=== PATIENT | female | born 1960 | race Hispanic/Latino ===

== ENCOUNTER 2016-07-19 07:47 | Day surgery (SDC) | payer MEDICAID ==
[2016-07-19 07:54] VITALS: BMI 20.7
[2016-07-19] MEDS ORDERED: Sodium Chloride 0.9% 1,000 ML IV ONE (08:25)
[2016-07-19] MEDS ORDERED: Sodium Chloride 0.9% 1,000 ML ONE (08:33)
[2016-07-19 08:58] LABS: BASO % 0.3 % (0.0-2.0); EOS # 0.1 K/uL (0.0-0.7); EOS % 1.3 % (0.0-4.0); HEMATOCRIT 32.7 % (34.0-47.0); LYMPH # 0.5 K/uL (1.0-4.3); LYMPH % 7.4 % (20.0-40.0); MEAN CELL VOLUME 88.9 fL (81.0-99.0); MEAN CORPUSCULAR HEMOGLOBIN 28.8 pg (27.0-31.0); MEAN CORPUSCULAR HGB CONC 32.4 g/dL (33.0-37.0); MEAN PLATELET VOLUME 8.3 fL (7.2-11.7); MONO # 0.1 K/uL (0.0-0.8); MONO % 2.2 % (0.0-10.0); PLATELET COUNT 167 K/uL (130-400); RED CELL DISTRIBUTION WIDTH 18.9 % (11.5-14.5); WHITE BLOOD COUNT 6.2 K/uL (4.8-10.8)
--- NOTE | 2016-07-19 08:59 | C.PDOC ---
History Of Present Illness 55 y/o female presents to the ED with complains of worsening kidney function and hematuria. Pt has history of kidney tumor causing urethral obstruction, stent in place. Dr Cheung sent patient here for further evaluation and stent change. Denies dysuria, fever, chills, vomiting, back pain or any other complaints. Time Seen by Provider: 07/19/16 08:07 Chief Complaint (Nursing): Medical Clearance History Per: Patient History/Exam Limitations: no limitations Onset/Duration Of Symptoms: Days Current Symptoms Are (Timing): Still Present Severity: Moderate Recent travel outside of the [place]: No Past Medical History Reviewed: Historical Data, Nursing Documentation, Vital Signs Vital Signs: Last Vital Signs Temp 97.9 F 07/19/16 15:52 Pulse 63 07/19/16 15:52 Resp 18 07/19/16 15:52 BP 112/78 07/19/16 15:52 Pulse Ox 95 07/19/16 15:52 - Medical History PMH: Anemia, Anxiety, Asthma, Emphysema, Gall Bladder Disease (cholecystectomy 1989), HTN, Malignancy (cervical Ca), Peripheral Edema (03/31/15: SWELLING OF RIGHT LEG), Chronic Kidney Disease Surgical History: Cholecystectomy - [facility] Procedures DILATION OF BILATERAL URETERS WITH INTRALUMINAL DEVICE, ENDO (05/02/15) DRAINAGE OF DESCENDING COLON, ENDO, DIAGN (01/28/16) FLUOROSCOPY OF LEFT KIDNEY, URETER AND BLADDER (05/02/15) FLUOROSCOPY OF RIGHT KIDNEY, URETER AND BLADDER (05/02/15) INSPECTION OF BLADDER, ENDO (05/02/15) INSPECTION OF VAGINA AND CUL-DE-SAC, ENDO (05/02/15) INTRAOPER CHOLANGIOGRAM (02/28/97) LAPAROSCOPIC CHOLECYSTECTOMY (02/28/97) TRANSFUSE NONAUT RED BLOOD CELLS IN PERIPH VEIN, PERC (05/02/15) Family History: States: Unknown Family Hx - Social History Hx Tobacco Use: No Hx Alcohol Use: No Hx Substance Use: No - Immunization History Hx Tetanus Toxoid Vaccination: No Hx Influenza Vaccination: No Hx Pneumococcal Vaccination: No Review Of Systems Except As Marked, All Systems Reviewed And Found Negative. Constitutional: Negative for: Fever, Chills Gastrointestinal: Negative for: Nausea, Vomiting, Abdominal Pain, Diarrhea Genitourinary: Positive for: Hematuria. Negative for: Dysuria Musculoskeletal: Negative for: Back Pain Physical Exam - Physical Exam Appears: Non-toxic, No Acute Distress Skin: Warm, Dry, No Rash Head: Atraumatic, Normacephalic Neck: Normal, Normal ROM, Supple Chest: Symmetrical Cardiovascular: Rhythm Regular, No Murmur Respiratory: Normal Breath Sounds, No Rales, No Rhonchi, No Wheezing Gastrointestinal/Abdominal: Normal Exam, Soft, No Tenderness Back: Normal Inspection, No CVA Tenderness Extremity: Normal ROM Extremity: Bilateral: Atraumatic Neurological/Psych: Oriented x3, Normal Speech ED Course And Treatment - Laboratory Results Result Diagrams: 07/19/16 08:51 07/19/16 08:51 O2 Sat by Pulse Oximetry: 96 (room air) Pulse Ox Interpretation: Normal Medical Decision Making Medical Decision Making: Plan: labs, UA, IV fluids Disposition - Disposition Disposition: HOSPITALIZED Disposition Time: 10:12 Condition: GOOD - Clinical Impression Clinical Impression: replacement of urinary stent - PA / MAINTENANCE SCHEDULER / Resident Statement MD/DO has reviewed & agrees with the documentation as recorded. - Scribe Statement The provider has reviewed the documentation as recorded by the Scribe Alex Beard All medical record entries made by the Scribe were at my direction and personally dictated by me. I have reviewed the chart and agree that the record accurately reflects my personal performance of the history, physical exam, medical decision making, and the department course for this patient. I have also personally directed, reviewed, and agree with the discharge instructions and disposition.
[2016-07-19 09:05] LABS: CHLORIDE 102 mmol/L (98-107); POTASSIUM 4.7 mmol/L (3.6-5.2); SODIUM 142 mmol/L (132-148)
[2016-07-19 09:07] LABS: GFR AFRICAN-AMERICAN 44
[2016-07-19 09:08] LABS: ALB/GLOB RATIO 1.3 (1.0-2.1); ALKALINE PHOSPHATASE 39 U/L (38-126); AST/SGOT 20 U/L (14-36); BILIRUBIN,TOTAL 0.5 mg/dL (0.2-1.3); BLOOD UREA NITROGEN 35 mg/dL (7-17); CARBON DIOXIDE 26 mmol/L (22-30); GLUCOSE,RANDOM 106 mg/dL (65-105); TOTAL PROTEIN 7.5 g/dL (6.3-8.3)
[2016-07-19 09:09] LABS: CALCIUM 8.8 mg/dl (8.6-10.4)
[2016-07-19 09:10] LABS: ALT/SGPT < 6 U/L (9-52)
[2016-07-19 09:29] LABS: URINE COLOR YELLOW (YELLOW)
[2016-07-19 09:30] LABS: URINE BILIRUBIN NEGATIVE (NEGATIVE); URINE BLOOD 3+ (NEGATIVE); URINE GLUCOSE (UA) Normal (Normal); URINE KETONE NEGATIVE (NEGATIVE); URINE PROTEIN 1+ mg/dL (NEGATIVE); URINE UROBILINOGEN Normal mg/dL (0.2-1.0)
[2016-07-19 09:33] LABS: RBC URINE 60 /hpf (0-3); URINE LEUKOCYTE ESTERASE 1+ Leu/uL (Negative)
[2016-07-19 09:34] LABS: URINE BACTERIA FEW (<OCC); WBC URINE 8 /hpf (0-5)
[2016-07-19 09:40] LABS: EOSINOPHIL 3 % (0-4); NEUTROPHIL 91 % (50-75); TOTAL CELLS COUNTED 100
[2016-07-19] MEDS ORDERED: cefTRIAXone IV 1 gm in Dextros 50 ML IVPB ONE (13:06)
[2016-07-19] MEDS ORDERED: Iohexol 240 (50 ml) ONE (13:06)
[2016-07-19] MEDS ORDERED: Propofol 10 mg/ml Inj (20 ML) ONE (13:17)
[2016-07-19] MEDS ORDERED: Lactated Ringer's 1,000 ML IV ONE ×2 (13:20→14:45)
[2016-07-19] MEDS ORDERED: Albuterol HFA 90 mcg/actuation (8 g) ONE (13:22)
[2016-07-19] MEDS ORDERED: Midazolam 2 MG/2 ML VIAL ONE (13:28)
--- NOTE | 2016-07-19 14:03 | PCM.SURG1 ---
Surgeon's Initial Post Op Note - Surgeon's Notes Surgeon: Jose WOLF Environmental Technician: NONE Pre-Operative Diagnosis: HYDRONEPHROSIS Operative Findings: L HYDRONEPHROSIS Post-Operative Diagnosis: SAME Operation Performed: CYSTO BILAT STENT EXCHANGE Specimen/Specimens Removed: URINE Estimated Blood Loss: EBL {In ML}: 0 Blood Products Given: N/A Date of Surgery/Procedure: 07/19/16 Time of Surgery/Procedure: 14:03
--- NOTE | 2016-07-19 14:49 | RAD ---
PROCEDURE: Fluoroscopy up to 1 hr. HISTORY: B/L HYDRONEPHROSIS COMPARISON: None TECHNIQUE: Standard protocol for this study/examination. FINDINGS: Submitted images from the current procedure: 5.0. IMPRESSION: Total fluoroscopic time (continuous mode) utilized during the procedure: 60.9 seconds.
[2016-07-19 16:08] VITALS: BP 112/78; PULSE 63; RESP 18; TEMP 97.9
[2016-07-19 18:23] VITALS: O2SAT 96
--- NOTE | 2016-07-20 13:35 | RAD ---
HISTORY: B/L HYDRONEPHROSIS COMPARISON: 04/19/2016. FINDINGS: BOWEL: Constipation without fecal impaction or obstruction. BONES: Normal. OTHER FINDINGS: Bilateral double-J stent catheters identified. IMPRESSION: Satisfactory position double-J stent catheters.
--- NOTE | 2016-07-21 20:35 | OP ---
PROCEDURE DATE: 07/19/2016 PREOPERATIVE DIAGNOSES: History of azotemia. History of bilateral hydronephrosis. POSTOPERATIVE DIAGNOSES: History of azotemia. History of bilateral hydronephrosis. Cystitis. Left hydronephrosis. PROCEDURES: Cystoscopy. Bilateral removal of ureteral stent. Bilateral retrograde pyelogram. Bila teral ureteral stent insertion. Examination under anesthesia. DESCRIPTION OF PROCEDURE: The patient received perioperative antibiotics. The patient was placed in lithotomy position. Genitalia prepped and draped sterilely. Anesthesia was provided by the anesthe siologist. Procedure was performed under video endoscopic control as well as under fluoroscopic control. A 22-[place] cystoscope sheath was introduced per urethra. Urine was sent for bacteriologic examinati on. The urethra and bladder were inspected. FINDINGS: There was noted to be diffuse mild cystitis. There was no bladder tumor. There was no bl adder stone. The 2 ureteral stents were identified. Procedure was first performed on the right side. The right stent was grasped with rigid grasping for ceps. A 0.35 inch guidewire was inserted into the right ureteral stent and passed up to the level of the ki dney. The stent was removed. An open-ended catheter was inserted over the guidewire. The iodinated contrast dye was instilled. There was noted to be mild fullness of the collecting system without significant hydronephrosis. The guidewire was reinserted. A new stent, 8-[place], 24 cm in length was inserted over the guidewire . Proper stent position was confirmed with fluoroscopy and endoscopy. The attention was then turned toward the left side. The stent was identified. On the left side, thi s was a multilength stent 7-[place] in caliber. The stent was grasped and brought along with the cystoscope sheath to the level of the urethral meatu s. A 0.035-inch guidewire was inserted into the stent. The stent was removed. An open-ended catheter was inserted over the stent. Retrograde ureteropyelogram was performed with i nsufflation of iodinated contrast material. The retrograde pyelogram demonstrated moderate hydronephrosis on the left. The guidewire was reinserted. A new stent, 8-[place] in caliber, 24 cm in length was inserted over th e guidewire. Proper stent position was confirmed with fluoroscopy and endoscopy. The stent was left in place in proper position. The guidewire was removed. The bladder was then drained. Cystoscope and sheath removed. Exam under anesthesia was performed. There was noted to be pelvic mass, more prominent on the right side and the left, with mild fixation. The patient tolerated the procedure without complication. Yue Jung MD cc: [id number] TT: 07/21/2016 20:34:46 mn
== END 2016-07-19 16:07 | disposition home or self-care (01) ==
LOC: C.ER 07:47 → C.SDS 10:19
PROVIDERS: ATTEND Urology
DX: N13.30 Unspecified hydronephrosis (principal); R31.9 Hematuria, unspecified; N39.0 Urinary tract infection, site not specified
CPT/HCPCS: 52005; 74000; 76000; 80053; 81001; 85025; 85610; 85730; 87086; 99283; C1758; C1769; C2617; J0696; J2270; J7040; J7120

== ENCOUNTER 2016-11-25 07:07 | Day surgery (SDC) | payer MEDICAID ==
[2016-11-25 07:08] VITALS: BMI 19.5
[2016-11-25 08:22] LABS: BASO % 0.5 % (0.0-2.0); EOS # 0.1 K/uL (0.0-0.7); EOS % 1.2 % (0.0-4.0); LYMPH # 0.4 K/uL (1.0-4.3); LYMPH % 6.2 % (20.0-40.0); MEAN CELL VOLUME 89.8 fL (81.0-99.0); MEAN CORPUSCULAR HEMOGLOBIN 29.2 pg (27.0-31.0); MEAN CORPUSCULAR HGB CONC 32.5 g/dL (33.0-37.0); MEAN PLATELET VOLUME 8.6 fL (7.2-11.7); MONO # 0.1 K/uL (0.0-0.8); MONO % 2.2 % (0.0-10.0); NRBC % 0.1 % (0.0-2.0); PLATELET COUNT 158 K/uL (130-400); RED CELL DISTRIBUTION WIDTH 17.3 % (11.5-14.5); WHITE BLOOD COUNT 6.7 K/uL (4.8-10.8)
[2016-11-25 08:27] LABS: RBC URINE 86 /hpf (0-3); URINE BILIRUBIN NEGATIVE (NEGATIVE); URINE BLOOD 3+ (NEGATIVE); URINE COLOR Yellow (YELLOW); URINE GLUCOSE (UA) NORMAL (Normal); URINE KETONE NEGATIVE (NEGATIVE); URINE LEUKOCYTE ESTERASE 2+ Leu/uL (Negative); URINE PROTEIN 2+ mg/dL (NEGATIVE); URINE UROBILINOGEN NORMAL mg/dL (0.2-1.0); WBC URINE 19 /hpf (0-5)
[2016-11-25 08:33] LABS: INR 0.9
[2016-11-25 08:43] LABS: ALB/GLOB RATIO 1.2 (1.0-2.1); BILIRUBIN,TOTAL 0.4 mg/dL (0.2-1.3); CALCIUM 9.3 mg/dl (8.6-10.4); POTASSIUM 5.2 mmol/L (3.6-5.2); TOTAL PROTEIN 7.2 g/dL (6.3-8.3)
--- NOTE | 2016-11-25 08:56 | C.PDOC ---
History Of Present Illness Pt sent in by Dr. Yue Jung for replacement of ureteral stent. Time Seen by Provider: 11/25/16 07:50 Chief Complaint (Nursing): Female Genitourinary History Per: Patient, Family Onset/Duration Of Symptoms: Days Current Symptoms Are (Timing): Still Present Severity: Moderate Additional History Per: Prior Records Past Medical History Reviewed: Historical Data, Nursing Documentation, Vital Signs Vital Signs: Last Vital Signs Temp 98.8 F 11/25/16 07:25 Pulse 77 11/25/16 07:25 Resp 20 11/25/16 07:25 BP 138/94 H 11/25/16 07:25 Pulse Ox 95 11/25/16 07:25 - Medical History PMH: Anemia, Anxiety, Asthma, CHF, Emphysema, Gall Bladder Disease, HTN, Malignancy (cervical Ca), Peripheral Edema, End Stage Renal Disease, Chronic Kidney Disease Surgical History: Cholecystectomy - [facility] Procedures DILATION OF BILATERAL URETERS WITH INTRALUMINAL DEVICE, ENDO (05/02/15) DRAINAGE OF DESCENDING COLON, ENDO, DIAGN (01/28/16) FLUOROSCOPY OF LEFT KIDNEY, URETER AND BLADDER (05/02/15) FLUOROSCOPY OF RIGHT KIDNEY, URETER AND BLADDER (05/02/15) INSPECTION OF BLADDER, ENDO (05/02/15) INSPECTION OF VAGINA AND CUL-DE-SAC, ENDO (05/02/15) INTRAOPER CHOLANGIOGRAM (02/28/97) LAPAROSCOPIC CHOLECYSTECTOMY (02/28/97) TRANSFUSE NONAUT RED BLOOD CELLS IN PERIPH VEIN, PERC (05/02/15) Family History: States: Unknown Family Hx - Social History Hx Tobacco Use: No Hx Alcohol Use: No Hx Substance Use: No - Immunization History Hx Tetanus Toxoid Vaccination: No Hx Influenza Vaccination: No Hx Pneumococcal Vaccination: No Review Of Systems Except As Marked, All Systems Reviewed And Found Negative. Constitutional: Negative for: Fever Cardiovascular: Negative for: Chest Pain Respiratory: Negative for: Shortness of Breath Gastrointestinal: Negative for: Vomiting, Abdominal Pain Genitourinary: Positive for: Hematuria (?) Musculoskeletal: Positive for: Back Pain. Negative for: Neck Pain Neurological: Negative for: Weakness, Numbness Physical Exam - Physical Exam Appears: Non-toxic, No Acute Distress Skin: Normal Color, Warm, Dry, No Rash Head: Atraumatic, Normacephalic Eye(s): bilateral: Normal Inspection, PERRL, EOMI Neck: Normal ROM, Supple Cardiovascular: Rhythm Regular Respiratory: Normal Breath Sounds, No Accessory Muscle Use Gastrointestinal/Abdominal: Soft, No Tenderness Back: No CVA Tenderness Extremity: Normal ROM Neurological/Psych: Oriented x3, Normal Motor, Normal Sensation ED Course And Treatment - Laboratory Results Result Diagrams: 11/25/16 08:15 11/25/16 08:15 Interpretation Of Abnormal: Possible UTI, urine C&S sent. ECG: Interpreted By Me, Viewed By Me ECG Rhythm: Sinus Rhythm, Nonspecific Changes ECG Interpretation: No Acute Changes Rate From EC O2 Sat by Pulse Oximetry: 95 Pulse Ox Interpretation: Normal Disposition Discussed With Dr.: Yue Jung Comment: He is taking pt to OR today. Doctor Will See Patient In The: Hospital - Disposition Disposition: HOSPITALIZED Disposition Time: 08:56 Condition: FAIR - Clinical Impression Clinical Impression: Encounter for removal of ureteral stent
[2016-11-25 09:01] LABS: EOSINOPHIL 2 % (0-4); NEUTROPHIL 91 % (50-75); TOTAL CELLS COUNTED 100
[2016-11-25] MEDS ORDERED: Lactated Ringer's 1,000 ML IV ONE (10:30)
[2016-11-25] MEDS ORDERED: Lidocaine 2% Jelly (Uro-Jet) ONE (10:35)
[2016-11-25] MEDS ORDERED: Iohexol 240 (50 ml) ONE (10:35)
[2016-11-25] MEDS ORDERED: cefTRIAXone IV 1 gm in Dextros 50 ML IVPB ONE (10:35)
[2016-11-25] MEDS ORDERED: ePHEDrine 50 mg/ml Inj ONE (11:03)
--- NOTE | 2016-11-25 11:22 | PCM.SURG1 ---
Surgeon's Initial Post Op Note - Surgeon's Notes Surgeon: myrtle goodwin Holter Technician: none Type of Anesthesia: General LMA Pre-Operative Diagnosis: bilat hydronephrosis Operative Findings: same Post-Operative Diagnosis: same Operation Performed: cysto, rtg pyelogram. stent exchange. Bilat Specimen/Specimens Removed: urine. stents Estimated Blood Loss: EBL {In ML}: 0 Blood Products Given: N/A Post-Op Condition: Good Date of Surgery/Procedure: 11/25/16 Time of Surgery/Procedure: 11:15
[2016-11-25] MEDS ORDERED: HYDROmorphone 0.5 mg/0.5 ml ISec IVP PRN (11:32)
[2016-11-25 13:09] VITALS: BP 111/77; PULSE 90; RESP 20; TEMP 98.7; O2SAT 96
--- NOTE | 2016-11-25 16:19 | RAD ---
PROCEDURE: Intraoperative Fluoroscopy. HISTORY: BILAT HYDRONEPHROSIS FINDINGS: Fluoroscopic assistance was provided for retrograde and stent placement. Total fluoroscopic time (continuous mode) utilized during the procedure: 152.5 seconds.. Please refer to the operative report
--- NOTE | 2016-11-25 17:03 | RAD ---
HISTORY: BILAT HYDRONEPHROSIS COMPARISON: 07/19/2016. FINDINGS: BOWEL: Normal. No obstruction. No free air. BONES: Constipation without fecal impaction or obstruction. OTHER FINDINGS: Stable position of bilateral double-J stent catheters. Stable appearance of the calcified fibroids within the uterus IMPRESSION: No acute findings related to/accounting for the clinical presentation. No significant interval change compared to the prior examination(s).
--- NOTE | 2016-11-27 11:28 | OP ---
PREOPERATIVE DIAGNOSES: Hydronephrosis. Hematuria. Cervical cancer. POSTOPERATIVE DIAGNOSES: Hydronephrosis. Hematuria. Cervical cancer. PROCEDURES: Cystoscopy. Bilateral retrograde pyelogram. Bilateral stent exchange. Exam under anesthesia. Procedure was performed under video-endoscopic control as well as under fluoroscopic control. DESCRIPTION OF PROCEDURE: The patient received perioperative antibiotics. The patient was placed in lithotomy position. Genitalia were prepped and draped sterilely. Anesthesia was provided by the anesthesiologist. A oem sales manager film of the abdomen was obtained. The ureteral stents were visualized. The 22-Yi cystoscope sheath was introduced with obturator. Urine was sent for bacteriologic examination. The urethra and bladder were inspected. There was mild cystitis. There was no bladder tumor. There was no bladder stone. The right ureteral stent was grasped with rigid grasping forceps and delivered along with the cystoscope sheath through the urethral meatus. A 0.035-inch guidewire was inserted into the right ureteral stent and passed up to level of the kidney. Iodinated contrast material was instilled via an open-ended catheter which had been inserted over the guidewire. The retrograde pyelogram demonstrated mild hydronephrosis. The guidewire was re-inserted. A new ureteral stent was inserted. The 8-Yi stent, 24 cm in length was inserted. Proper stent position was confirmed under fluoroscopy and endoscopy. The stent was coiled within the renal pelvis proximally and the bladder distally. Attention was then turned towards the left side. The similar stent removal was performed. The guidewire was inserted up to the level of kidney and the stent was removed. An open-ended catheter was inserted over the guidewire. Iodinated contrast material was instilled. Mild hydronephrosis was demonstrated. The guidewire was re-inserted. A new 8-Yi ureteral stent, 24 cm length was inserted. Proper stent position was confirmed with fluoroscopy and endoscopy. The guidewire was removed and stent was left in place. There was excellent drainage noted on post-drainage fluoroscopic films. The bladder was re-inspected and confirmed the above findings, the bladder was then drained, cystoscope sheath removed. Lidocaine jelly was instilled previously. Exam under anesthesia was performed. There was foreshortening of vagina. There was mild induration of the pelvis without fixation. The patient was returned to supine position. The patient tolerated the procedure without complications. Yue Jung MD
--- NOTE | 2016-11-28 13:56 | CARD ---
APPROVED REPORT EKG Measurement Heart [id number] VA [id number] <Conclusion> Normal sinus rhythm Minimal voltage criteria for LVH, may be normal variant Cannot rule out Anterior infarct, age undetermined Abnormal ECG
== END 2016-11-25 13:05 | disposition home or self-care (01) ==
LOC: C.ER 07:07 → C.SDS 09:25
PROVIDERS: ATTEND Urology
DX: N13.30 Unspecified hydronephrosis (principal); R31.9 Hematuria, unspecified; C53.9 Malignant neoplasm of cervix uteri, unspecified
CPT/HCPCS: 52332; 52351; 74000; 80053; 81001; 85025; 85610; 85730; 87086; 93005; 99285; C1758; C1769; C2617; J0696; J1170; J2250; J2405; J2704; J3010; J7120

== ENCOUNTER 2017-03-03 07:44 | Day surgery (SDC) | payer MEDICAID ==
[2017-03-03 07:44] VITALS: BMI 20.9
[2017-03-03 08:29] LABS: BASO % 0.8 % (0.0-2.0); EOS # 0.3 K/uL (0.0-0.7); EOS % 5.6 % (0.0-4.0); HEMATOCRIT 38.4 % (34.0-47.0); LYMPH # 0.5 K/uL (1.0-4.3); LYMPH % 10.5 % (20.0-40.0); MEAN CELL VOLUME 90.9 fL (81.0-99.0); MEAN CORPUSCULAR HGB CONC 31.9 g/dL (33.0-37.0); MEAN PLATELET VOLUME 8.8 fL (7.2-11.7); MONO # 0.6 K/uL (0.0-0.8); MONO % 11.6 % (0.0-10.0); RED CELL DISTRIBUTION WIDTH 18.1 % (11.5-14.5); WHITE BLOOD COUNT 4.9 K/uL (4.8-10.8)
[2017-03-03 08:42] LABS: ALB/GLOB RATIO 1.3 (1.0-2.1); ALKALINE PHOSPHATASE 48 U/L (38-126); ALT/SGPT 35 U/L (9-52); AST/SGOT 21 U/L (14-36); BILIRUBIN,TOTAL 0.3 mg/dL (0.2-1.3); BLOOD UREA NITROGEN 18 mg/dL (7-17); CALCIUM 8.4 mg/dl (8.6-10.4); CARBON DIOXIDE 27 mmol/L (22-30); CHLORIDE 105 mmol/L (98-107); GFR AFRICAN-AMERICAN > 60; GLUCOSE,RANDOM 99 mg/dL (65-105); POTASSIUM 3.8 mmol/L (3.6-5.2); SODIUM 142 mmol/L (132-148); TOTAL PROTEIN 6.6 g/dL (6.3-8.3)
--- NOTE | 2017-03-03 08:58 | C.PDOC ---
History Of Present Illness 56 year old female presents to the ED for ureteral stent replacement to be performed by Dr. Jung. Patient has been NPO since 1700 yesterday. Patient denies any pain or complaints at this time. Chief Complaint (Nursing): Female Genitourinary History Per: Patient History/Exam Limitations: no limitations Pain Scale Rating Of: 0 Quality Of Discomfort: Other (asymptomatic) Associated Symptoms: denies: Fever, Chills, Nausea, Vomiting, Diarrhea, Urinary Symptoms Recent travel outside of the [place]: No Additional History Per: Prior Records (Dr. Jung ) Abnormal Vaginal Bleeding: No Past Medical History Reviewed: Historical Data, Nursing Documentation, Vital Signs Vital Signs: Last Vital Signs Temp 97.4 F L 03/03/17 13:03 Pulse 60 03/03/17 13:03 Resp 16 03/03/17 13:03 BP 112/79 03/03/17 13:03 Pulse Ox 97 03/03/17 13:03 - Medical History PMH: Anemia, Anxiety, Asthma, CHF, Emphysema, Gall Bladder Disease, HTN, Malignancy (cervical Ca), Peripheral Edema, End Stage Renal Disease, Chronic Kidney Disease Surgical History: Cholecystectomy - [facility] Procedures DILATION OF BILATERAL URETERS WITH INTRALUMINAL DEVICE, ENDO (05/02/15) DRAINAGE OF DESCENDING COLON, ENDO, DIAGN (01/28/16) FLUOROSCOPY OF LEFT KIDNEY, URETER AND BLADDER (05/02/15) FLUOROSCOPY OF RIGHT KIDNEY, URETER AND BLADDER (05/02/15) INSPECTION OF BLADDER, ENDO (05/02/15) INSPECTION OF VAGINA AND CUL-DE-SAC, ENDO (05/02/15) INTRAOPER CHOLANGIOGRAM (02/28/97) LAPAROSCOPIC CHOLECYSTECTOMY (02/28/97) TRANSFUSE NONAUT RED BLOOD CELLS IN PERIPH VEIN, PERC (05/02/15) Family History: States: Unknown Family Hx - Social History Hx Tobacco Use: No Hx Alcohol Use: No Hx Substance Use: No - Immunization History Hx Tetanus Toxoid Vaccination: No Hx Influenza Vaccination: No Hx Pneumococcal Vaccination: No Review Of Systems Constitutional: Negative for: Fever, Chills Cardiovascular: Negative for: Chest Pain, Palpitations Respiratory: Negative for: Cough, Shortness of Breath Gastrointestinal: Negative for: Nausea, Vomiting, Abdominal Pain, Diarrhea Genitourinary: Negative for: Dysuria Physical Exam - Physical Exam Appears: Non-toxic, No Acute Distress Skin: Warm, Dry, No Rash Head: Atraumatic, Normacephalic, No Tenderness Eye(s): bilateral: Normal Inspection, PERRL, EOMI Oral Mucosa: Moist Neck: Supple Chest: Symmetrical, No Deformity Cardiovascular: Rhythm Regular, No Murmur Respiratory: No Rales, No Rhonchi, No Wheezing, Other (clear to auscultation bilaterally) Gastrointestinal/Abdominal: Soft, No Tenderness, No Distention, No Guarding, No Rebound Extremity: Normal ROM, No Tenderness Neurological/Psych: Oriented x3, Normal Speech, Normal Cognition, Normal Cranial Nerves, No Cerebellar Signs, Normal Motor, Normal Sensation ED Course And Treatment - Laboratory Results Result Diagrams: 03/03/17 08:23 03/03/17 08:23 ECG: Interpreted By Me, Viewed By Me ECG Rhythm: Sinus Rhythm Rate From EC O2 Sat by Pulse Oximetry: 95 (RA) Pulse Ox Interpretation: Normal Progress Note: EKG and labs were ordered. Patient has been NPO since [address] Jung was called and agrees with plan. Disposition - Disposition Disposition: HOSPITALIZED Disposition Time: 07:55 Condition: STABLE - Clinical Impression Clinical Impression: Retained ureteral stent - Scribe Statement The provider has reviewed the documentation as recorded by the Scribe Alvina Victoria All medical record entries made by the Scribe were at my direction and personally dictated by me. I have reviewed the chart and agree that the record accurately reflects my personal performance of the history, physical exam, medical decision making, and the department course for this patient. I have also personally directed, reviewed, and agree with the discharge instructions and disposition.
[2017-03-03] MEDS ORDERED: Sodium Chloride 0.9% 250 ML IV ONE (10:05)
[2017-03-03] MEDS ORDERED: Iohexol 240 (50 ml) ONE (10:09)
[2017-03-03] MEDS ORDERED: Propofol 10 mg/ml Inj (20 ML) ONE ×2 (10:11→10:31)
[2017-03-03] MEDS ORDERED: Lidocaine Hydrochloride 5 ML INJ ONE (10:11)
[2017-03-03] MEDS: cefTRIAXone IV 1 gm in Dextros 50 ML IVPB ONE ×2 (10:23→10:25)
--- NOTE | 2017-03-03 11:10 | PCM.SURG1 ---
Surgeon's Initial Post Op Note - Surgeon's Notes Surgeon: Jose Jung Subsurface Augmentee Elint Operator: none Type of Anesthesia: IV Sedation Pre-Operative Diagnosis: Bilat Hydronephrosis Operative Findings: same Post-Operative Diagnosis: same Operation Performed: cysto, bilat rtg pyelogram, stent exchange Specimen/Specimens Removed: urine Estimated Blood Loss: EBL {In ML}: 0 Blood Products Given: N/A Drains Used: No Drains Post-Op Condition: Good Date of Surgery/Procedure: 03/03/17 Time of Surgery/Procedure: 11:10
[2017-03-03] MEDS: HYDROmorphone 0.5 mg/0.5 ml ISec IVP PRN ×2 (11:45→12:03)
[2017-03-03] MEDS ORDERED: Sodium Chloride 0.9% 1,000 ML IV ONE (11:48)
[2017-03-03 12:50] VITALS: RESP 16
[2017-03-03 13:10] VITALS: BP 112/79; PULSE 60; TEMP 97.4
--- NOTE | 2017-03-03 14:50 | RAD ---
HISTORY: BILAT HYDRONEPHROSIS COMPARISON: 11/25/2016 FINDINGS: BOWEL: Constipation without fecal impaction or obstruction. No evidence of free air BONES: Normal. OTHER FINDINGS: Double-J stent catheter is in stable position. Incidental finding(s): Large calcified uterine fibroid IMPRESSION: No significant interval change compared to the prior examination(s).
--- NOTE | 2017-03-03 16:37 | RAD ---
PROCEDURE: Intraoperative Fluoroscopy. HISTORY: BILAT .HYDRONEPHROSIS FINDINGS: Fluoroscopic assistance was provided for bilateral retrograde and stent replacement. Please refer to the operative report from during the procedure: 148.4 seconds. Total exam DLP: (mGy)/meter squared: 0.926
[2017-03-03 18:20] VITALS: O2SAT 95
--- NOTE | 2017-03-04 18:33 | CARD ---
APPROVED REPORT EKG Measurement Heart [id number] <Conclusion> Sinus bradycardia Otherwise normal ECG
--- NOTE | 2017-03-05 06:44 | OP ---
PROCEDURE DATE: 03/03/2017 PREOPERATIVE DIAGNOSES: Hydronephrosis. Cervical carcinoma. POSTOPERATIVE DIAGNOSES: Hydronephrosis. Cervical carcinoma. PROCEDURES: Cystoscopy. Removal of bilateral ureteral stent. Bilateral retrograde pyelogram. Bilateral stent insertion. Exam under anesthesia. SURGEON: Dr. Yue Jung. PROCEDURE IN DETAIL: The patient was placed in the lithotomy position. Genitalia were prepped and draped sterilely. Anesthesia was applied by the anesthesiologist. Perioperative antibiotics were administered. The procedure was performed under video endoscopic control as well as under fluoroscopic control. A 22-[place] cystoscope sheath was introduced with the obturator. Urine was sent for bacteriologic examination. The urethra and bladder were inspected 30-degree and 70-degree lenses. FINDINGS: There was mild cystitis. There was no bladder tumor. There was no bladder stone. The ureteral stents were identified bilaterally. The left ureteral stent was grasped with rigid grasping forceps and removed along the cystoscope sheath to the level of urethral meatus. A 0.035-inch guidewire was inserted into the ureteral stent up to the level of kidney. The stent was removed. A 6-[place] open-ended catheter was inserted over the guidewire. Iodinated contrast dye was instilled. Retrograde pyelogram was performed. The guidewire was reinserted. A new 6-[place] stent was inserted. The stent was 6-[place] and 22 cm in length. Proper stent position was confirmed with fluoroscopy and endoscopy. Attention was then turned towards the right side. A similar removal of the stent was performed. A similar retrograde pyelogram was performed through an open-ended catheter which had been inserted over the guidewire. There was marked hydronephrosis and caliectasis on the right side than the left. The guidewire was reinserted. A new 6-[place] stent, 22 cm length, was inserted on the right. Proper stent position was confirmed with fluoroscopy and endoscopy. The stent was left in place after the guidewire was removed. The bladder was then drained, cystoscope sheath removed. Exam under anesthesia was performed. There was a mobile mass approximately 6 cm to 8 cm, involving the pelvis. There was no fixation. The patient was returned to supine position. The patient tolerated the procedure without complication. Yue MD [facility] # [id number]
== END 2017-03-03 13:28 | disposition home or self-care (01) ==
LOC: C.ER 07:44 → C.SDS 08:45
PROVIDERS: ATTEND Urology
DX: N13.30 Unspecified hydronephrosis (principal); C53.9 Malignant neoplasm of cervix uteri, unspecified; F41.9 Anxiety disorder, unspecified; J43.9 Emphysema, unspecified; I13.2 Hypertensive heart and chronic kidney disease with heart failure and with stage 5 chronic kidney disease, or end stage renal disease; I50.9 Heart failure, unspecified; N18.6 End stage renal disease
CPT/HCPCS: 52332; 74000; 80053; 82948; 85025; 87086; 93005; 99285; C1769; C2617; J0696; J1170; J7030; J7040

== ENCOUNTER 2017-07-07 07:30 | Day surgery (SDC) | payer MEDICAID ==
[2017-07-07 07:30] VITALS: BMI 19.1
[2017-07-07 08:21] LABS: BASO # 0.1 K/uL (0.0-0.2); BASO % 2.2 % (0.0-2.0); EOS # 0.3 K/uL (0.0-0.7); EOS % 7.1 % (0.0-4.0); HEMOGLOBIN 13.4 g/dL (11.0-16.0); LYMPH # 0.7 K/uL (1.0-4.3); MEAN CELL VOLUME 88.6 fL (81.0-99.0); MEAN CORPUSCULAR HEMOGLOBIN 28.3 pg (27.0-31.0); MEAN CORPUSCULAR HGB CONC 31.9 g/dL (33.0-37.0); MEAN PLATELET VOLUME 8.5 fL (7.2-11.7); MONO # 0.6 K/uL (0.0-0.8); MONO % 13.4 % (0.0-10.0); NEUT % 63.3 % (50.0-75.0); RBC 4.75 Mil/uL (3.80-5.20); RED CELL DISTRIBUTION WIDTH 18.1 % (11.5-14.5); WHITE BLOOD COUNT 4.8 K/uL (4.8-10.8)
--- NOTE | 2017-07-07 08:24 | C.PDOC ---
Time Seen by Provider: 07/07/17 07:46 Chief Complaint (Nursing): Medical Clearance Past Medical History Vital Signs: Last Vital Signs Temp 97.7 F 07/07/17 07:36 Pulse 94 H 07/07/17 07:36 Resp 18 07/07/17 07:36 BP 132/86 07/07/17 07:36 Pulse Ox 97 07/07/17 07:36 - Medical History PMH: Anemia, Anxiety, Asthma, CHF, Emphysema, Gall Bladder Disease, HTN, Malignancy (cervical Ca), Peripheral Edema, End Stage Renal Disease, Chronic Kidney Disease Surgical History: Cholecystectomy - [facility] Procedures DILATION OF BILATERAL URETERS WITH INTRALUMINAL DEVICE, ENDO (05/02/15) DRAINAGE OF DESCENDING COLON, ENDO, DIAGN (01/28/16) FLUOROSCOPY OF LEFT KIDNEY, URETER AND BLADDER (05/02/15) FLUOROSCOPY OF RIGHT KIDNEY, URETER AND BLADDER (05/02/15) INSPECTION OF BLADDER, ENDO (05/02/15) INSPECTION OF VAGINA AND CUL-DE-SAC, ENDO (05/02/15) INTRAOPER CHOLANGIOGRAM (02/28/97) LAPAROSCOPIC CHOLECYSTECTOMY (02/28/97) TRANSFUSE NONAUT RED BLOOD CELLS IN PERIPH VEIN, PERC (05/02/15) Family History: States: Unknown Family Hx - Social History Hx Tobacco Use: No Hx Alcohol Use: No Hx Substance Use: No - Immunization History Hx Tetanus Toxoid Vaccination: No Hx Influenza Vaccination: No Hx Pneumococcal Vaccination: No ED Course And Treatment O2 Sat by Pulse Oximetry: 97 Disposition Discussed With : Yue Jung Doctor Will See Patient In The: Hospital - Disposition Disposition Time: 08:24 Condition: GOOD - Clinical Impression Clinical Impression: Urinary (tract) obstruction
--- NOTE | 2017-07-07 08:24 | C.PDOC ---
History Of Present Illness 56-year-old female, PMHx includes stage IV Cervical CA, presents to the emergency department for change of B/L ureteral stents and cystogram. Patient states she gets her ureter stents changed every three months. Denies any nausea/ vomiting, fever or chills. No other complaints at this time. Time Seen by Provider: 07/07/17 07:46 Chief Complaint (Nursing): Medical Clearance History Per: Patient History/Exam Limitations: no limitations Onset/Duration Of Symptoms: Days Past Medical History Reviewed: Historical Data, Nursing Documentation, Vital Signs Vital Signs: Last Vital Signs Temp 98.4 F 07/07/17 12:45 Pulse 82 07/07/17 12:45 Resp 18 07/07/17 12:45 BP 117/85 07/07/17 12:45 Pulse Ox 97 07/07/17 18:33 - Medical History PMH: Anemia, Anxiety, Asthma, CHF, Emphysema, Gall Bladder Disease, HTN, Malignancy (cervical Ca), Peripheral Edema, End Stage Renal Disease, Chronic Kidney Disease Surgical History: Cholecystectomy - [facility] Procedures DILATION OF BILATERAL URETERS WITH INTRALUMINAL DEVICE, ENDO (05/02/15) DRAINAGE OF DESCENDING COLON, ENDO, DIAGN (01/28/16) FLUOROSCOPY OF LEFT KIDNEY, URETER AND BLADDER (05/02/15) FLUOROSCOPY OF RIGHT KIDNEY, URETER AND BLADDER (05/02/15) INSPECTION OF BLADDER, ENDO (05/02/15) INSPECTION OF VAGINA AND CUL-DE-SAC, ENDO (05/02/15) INTRAOPER CHOLANGIOGRAM (02/28/97) LAPAROSCOPIC CHOLECYSTECTOMY (02/28/97) TRANSFUSE NONAUT RED BLOOD CELLS IN PERIPH VEIN, PERC (05/02/15) Family History: States: No Known Family Hx - Social History Hx Tobacco Use: No Hx Alcohol Use: No Hx Substance Use: No - Immunization History Hx Tetanus Toxoid Vaccination: No Hx Influenza Vaccination: No Hx Pneumococcal Vaccination: No Review Of Systems Constitutional: Negative for: Fever Cardiovascular: Negative for: Chest Pain Respiratory: Negative for: Shortness of Breath Musculoskeletal: Negative for: Back Pain Neurological: Negative for: Weakness, Numbness, Headache, Dizziness Physical Exam - Physical Exam Appears: Non-toxic, No Acute Distress, Other (Cachectic) Skin: Warm, Dry, No Rash Head: Normacephalic Eye(s): bilateral: PERRL Nose: Normal Oral Mucosa: Moist Lips: Normal Appearing Neck: Normal ROM Cardiovascular: Rhythm Regular, No Murmur Respiratory: Normal Breath Sounds, No Accessory Muscle Use Extremity: Normal ROM, No Deformity, No Swelling Neurological/Psych: Oriented x3, Normal Speech ED Course And Treatment - Laboratory Results Result Diagrams: 07/07/17 08:15 07/07/17 08:15 ECG: Interpreted By Me, Viewed By Me ECG Rhythm: Sinus Rhythm ECG Interpretation: No Acute Changes Rate From EC O2 Sat by Pulse Oximetry: 97 (RA) Pulse Ox Interpretation: Normal Progress Note: Bloodwork, EKG and UA ordered and reviewed. Case discussed w/ Dr Yue goodwin, will admit patient for same day surgery. Disposition Doctor Will See Patient In The: Hospital - Disposition Disposition: HOSPITALIZED Disposition Time: 08:24 Condition: GOOD - Clinical Impression Clinical Impression: Urinary (tract) obstruction - Scribe Statement The provider has reviewed the documentation as recorded by the Scribe (Michael Toribio) All medical record entries made by the Scribe were at my direction and personally dictated by me. I have reviewed the chart and agree that the record accurately reflects my personal performance of the history, physical exam, medical decision making, and the department course for this patient. I have also personally directed, reviewed, and agree with the discharge instructions and disposition.
[2017-07-07 08:29] LABS: PROTHROMBIN TIME 10.9 SECONDS (9.7-12.2)
[2017-07-07 08:37] LABS: ALB/GLOB RATIO 1.1 (1.0-2.1); CALCIUM 9.3 mg/dl (8.6-10.4)
[2017-07-07 08:50] LABS: SQUAMOUS EPITHIAL 1 /hpf (0-5); URINE BACTERIA RARE (<OCC); URINE BILIRUBIN NEGATIVE (NEGATIVE); URINE BLOOD 3+ (NEGATIVE); URINE CLARITY Hazy (Clear); URINE COLOR Yellow (YELLOW); URINE GLUCOSE (UA) NORMAL (Normal); URINE LEUKOCYTE ESTERASE 3+ Leu/uL (Negative); URINE PROTEIN 2+ mg/dL (NEGATIVE); URINE UROBILINOGEN NORMAL mg/dL (0.2-1.0)
[2017-07-07] MEDS ORDERED: Propofol 10 mg/ml Inj (20 ML) ONE (09:41)
[2017-07-07] MEDS ORDERED: Midazolam 2 MG/2 ML VIAL ONE (09:41)
--- NOTE | 2017-07-07 10:36 | PCM.SURG1 ---
Surgeon's Initial Post Op Note - Surgeon's Notes Surgeon: Jose Jung Auger Mill Operator: none Type of Anesthesia: IV Sedation Pre-Operative Diagnosis: Bilat hydronephrosis. Cervical ca Operative Findings: same. cystitis. pelvic mass Post-Operative Diagnosis: same Operation Performed: cysto, bilat rtg pyelogram, bilat stent exchange Specimen/Specimens Removed: urine Estimated Blood Loss: EBL {In ML}: 0 Blood Products Given: N/A Post-Op Condition: Good Date of Surgery/Procedure: 07/07/17 Time of Surgery/Procedure: 10:25
[2017-07-07] MEDS ORDERED: Lactated Ringer's 1,000 ML IV SCH (10:45)
[2017-07-07] MEDS: HYDROmorphone 0.5 mg/0.5 ml ISec IVP PRN ×2 (10:48→11:38)
--- NOTE | 2017-07-07 10:48 | RAD ---
HISTORY: Bilateral hydronephrosis COMPARISON: 03/03/2017. FINDINGS: There are bilateral pelviureteral stents in customary position. BOWEL: There is large amount of stool in the colon. BONES: Normal. OTHER FINDINGS: Redemonstration of large calcified fibroid. IMPRESSION: Bilateral pelviureteral stents in customary position.
[2017-07-07] MEDS ORDERED: HYDROmorphone 0.5 mg/0.5 ml ISec ONE (10:49)
--- NOTE | 2017-07-07 11:37 | RAD ---
PROCEDURE: Intraoperative Fluoroscopy. HISTORY: Bilateral HYDRONEPHROSIS FINDINGS: Fluoroscopic assistance was provided for nephroureteral stent exchange. Please refer to the operative report from Dr. WOLF BANKS.
[2017-07-07 12:37] VITALS: RESP 18
[2017-07-07] MEDS ORDERED: cefTRIAXone IV 1 gm in Dextros 50 ML IVPB ONE (12:39)
[2017-07-07 12:53] VITALS: BP 117/85; PULSE 82; TEMP 98.4
[2017-07-07 18:33] VITALS: O2SAT 97
--- NOTE | 2017-07-08 08:16 | OP ---
PROCEDURE DATE: 07/07/2017 UROLOGY OPERATIVE REPORT PREOPERATIVE DIAGNOSES: Hydronephrosis. History of cervical carcinoma. POSTOPERATIVE DIAGNOSES: Hydronephrosis. History of cervical carcinoma. Cystitis. Pelvic mass. PROCEDURES: Cystoscopy. Bilateral retrograde pyelogram. Bilateral ureteral stent exchange. Examination under anesthesia. OPERATING SURGEON: Yue Jung MD DESCRIPTION OF PROCEDURE: As follows; the patient received perioperative antibiotics. The patient was placed in lithotomy position. Genitalia were prepped and draped sterilely. Anesthesia was applied by the anesthesiologist with sedation. Procedure was performed under fluoroscopic control as well as video endoscopic control. Seasonal Tax Preparer film of the abdomen revealed bilateral stents in place. There is a calcified pelvic mass. The 22-Cambodian cystoscope sheath was introduced with obturator. Urine was sent back for urologic examination. Urethra and bladder were inspected. There was noted to be moderate inflammation of the bladder mucosa. There were no focal mucosal lesions within the bladder. There was diffuse cystitis. There was edema of the trigone. The ureteral stents were identified bilaterally. The right ureteral stent was grasped with a grasping forceps and removed along with cystoscope sheath. A 0.035-inch guidewire was inserted through ureteral stent. An open-ended catheter inserted over the guidewire. Iodinated contrast dye was instilled through the open-ended catheter. There was noted to be moderate hydronephrosis. The guidewire was reinserted. A new 8-Cambodian stent, 24 cm length was inserted. Proper stent position was confirmed with fluoroscopy and endoscopy. The guidewire was removed, sent was left in place. Attention was then turned towards the left side. Similar stent removal was performed with the grasping forceps. A guidewire was inserted into the stent up to level of the kidney. Open-end catheter was inserted over the guidewire. Iodinated contrast dye was instilled. There was noted to be mild left hydronephrosis, left and the right side. The guidewire was reinserted. A new 8-Cambodian stent, placed in 4 cm length was inserted. The guidewire was removed. Stent was left in place. The bladder was reinspected and confirmed proper stent position. The bladder was then drained. Cystoscope sheath was removed. Lidocaine jelly was instilled. Exam under anesthesia was performed. There was a large pelvic mass with moderate fixation and induration. The patient was returned to supine position. The patient tolerated procedure without complication. Yue Jung MD
--- NOTE | 2017-07-08 21:57 | CARD ---
APPROVED REPORT EKG Measurement Heart [id number] <Conclusion> Normal sinus rhythm Normal ECG
== END 2017-07-07 13:00 | disposition home or self-care (01) ==
LOC: C.ER 07:30 → C.SDS 08:34
PROVIDERS: ATTEND Urology
DX: N13.30 Unspecified hydronephrosis (principal); Z85.41 Personal history of malignant neoplasm of cervix uteri; N30.90 Cystitis, unspecified without hematuria; R19.00 Intra-abdominal and pelvic swelling, mass and lump, unspecified site; Z79.891 Long term (current) use of opiate analgesic; J44.9 Chronic obstructive pulmonary disease, unspecified; I13.2 Hypertensive heart and chronic kidney disease with heart failure and with stage 5 chronic kidney disease, or end stage renal disease; N18.6 End stage renal disease; I50.9 Heart failure, unspecified; Z92.21 Personal history of antineoplastic chemotherapy; D64.9 Anemia, unspecified; F41.9 Anxiety disorder, unspecified
CPT/HCPCS: 52332; 74018; 80053; 81001; 85025; 85610; 85730; 86850; 86900; 87086; J1170

== ENCOUNTER 2018-04-13 08:36 | Day surgery (SDC) | payer MEDICARE ==
[2018-04-02 09:19] VITALS: BMI 18.5
[2018-04-13 09:46] VITALS: BP 92/66; PULSE 114; RESP 20; TEMP 97.7; O2SAT 95
[2018-04-13] MEDS ORDERED: Iodixanol 320 MG/ML 200 ML BOTTLE IV ONE (10:05)
[2018-04-13] MEDS ORDERED: Iohexol 240 (50 ml) ONE (10:05)
[2018-04-13] MEDS ORDERED: cefTRIAXone 1 gm 1 GM/100 ML BAG IVPB ONE (11:24)
[2018-04-13] MEDS ORDERED: Propofol 10 mg/ml Inj (20 ML) ONE (11:32)
--- NOTE | 2018-04-13 12:03 | PCM.SURG1 ---
Surgeon's Initial Post Op Note - Surgeon's Notes Surgeon: Jose Jung Steel Die Engraver: none Type of Anesthesia: None Pre-Operative Diagnosis: Hydronephrosis. cervical ca Operative Findings: none. surgery postponed Post-Operative Diagnosis: none Operation Performed: none. surgery postponed Specimen/Specimens Removed: none Estimated Blood Loss: EBL {In ML}: 0 Blood Products Given: N/A Drains Used: No Drains Post-Op Condition: Good Date of Surgery/Procedure: 04/13/18 Time of Surgery/Procedure: 11:30
--- NOTE | 2018-04-13 12:11 | RAD ---
Date of service: 04/13/2018 PROCEDURE: Fluoroscopy up to 1 hr HISTORY: TAYLOR HYDRONEPHROSIS COMPARISON: 12/05/2017 single-view abdomen TECHNIQUE: Standard protocol for this study/examination. FINDINGS: Position of the double J stent catheter(s): Satisfactory bilaterally. Calcified uterine fibroids again identified. Constipation without fecal impaction or obstruction. IMPRESSION: No significant interval change compared to the prior examination(s).
[2018-04-13] MEDS ORDERED: ePHEDrine 50 mg/ml Inj ONE (12:21)
== END 2018-04-13 12:15 | disposition designated cancer center or children's hospital (05) ==
LOC: C.SDS 08:36
PROVIDERS: ATTEND Urology
DX: N13.30 Unspecified hydronephrosis (principal); Z53.09 Procedure and treatment not carried out because of other contraindication; R05 Cough

== ENCOUNTER 2018-04-13 12:35 | Emergency (ER) | payer MEDICARE ==
[2018-04-13 12:36] VITALS: BMI 18.5
[2018-04-13 13:19] VITALS: O2SAT 95
--- NOTE | 2018-04-13 13:24 | C.PDOC ---
History Of Present Illness 57 y/o female,w/PMhx of cervical cancer, obstructive uropathy,and COPD referred by [facility] to ER for evaluation of fever and hypoxia. Patient states that she was scheduled to have ureteral stent removed by Dr.Yale Jung. However, she did not have the procedure because she had abnormal vital signs. Patient denies having exacerbation of COPD symptoms and change in COPD medication regimen. She notes that she does not use home O2 at home. She states that her last chemotherapy session was 4 days. Currently, patient denies having recent febrile symptoms, chills, cough, CP, SOB, nausea, and vomiting. Time Seen by Provider: 04/13/18 13:05 History Per: Patient History/Exam Limitations: no limitations Onset/Duration Of Symptoms: Hrs Current Symptoms Are (Timing): Gone Severity: Moderate Past Medical History Reviewed: Historical Data, Nursing Documentation, Vital Signs Vital Signs: Last Vital Signs Temp 98.1 F 04/13/18 13:18 Pulse 114 H 04/13/18 13:18 Resp 20 04/13/18 13:18 BP 102/72 04/13/18 13:18 Pulse Ox 95 04/13/18 13:18 - Medical History PMH: Anemia, Anxiety, Asthma, COPD, Gall Bladder Disease, HTN, Malignancy (cervical Ca), Peripheral Edema (NO LONGER), Pneumonia (CHILDHOOD), End Stage Renal Disease, Chronic Kidney Disease Surgical History: Cholecystectomy - [facility] Procedures DILATION OF BILATERAL URETERS WITH INTRALUMINAL DEVICE, ENDO (05/02/15) DRAINAGE OF DESCENDING COLON, ENDO, DIAGN (01/28/16) FLUOROSCOPY OF LEFT KIDNEY, URETER AND BLADDER (05/02/15) FLUOROSCOPY OF RIGHT KIDNEY, URETER AND BLADDER (05/02/15) INSPECTION OF BLADDER, ENDO (05/02/15) INSPECTION OF VAGINA AND CUL-DE-SAC, ENDO (05/02/15) INTRAOPER CHOLANGIOGRAM (02/28/97) LAPAROSCOPIC CHOLECYSTECTOMY (02/28/97) TRANSFUSE NONAUT RED BLOOD CELLS IN PERIPH VEIN, PERC (05/02/15) Family History: States: No Known Family Hx - Social History Hx Tobacco Use: No Hx Alcohol Use: No Hx Substance Use: No - Immunization History Hx Tetanus Toxoid Vaccination: No Hx Influenza Vaccination: No Hx Pneumococcal Vaccination: No Review Of Systems Except As Marked, All Systems Reviewed And Found Negative. Constitutional: Positive for: Fever. Negative for: Chills Respiratory: Negative for: Cough Gastrointestinal: Negative for: Nausea, Vomiting Physical Exam - Physical Exam Appears: Other (anxious, calm,cooperative ) Skin: Normal Color, Warm, Dry Head: Atraumatic, Normacephalic Eye(s): bilateral: Normal Inspection Cardiovascular: Rhythm Regular Respiratory: Normal Breath Sounds, No Rales, No Rhonchi, No Wheezing, Other (no retractions) Neurological/Psych: Oriented x3, Normal Speech, Other (anxious, calm,cooperative ) ED Course And Treatment O2 Sat by Pulse Oximetry: 95 (RA) Pulse Ox Interpretation: Normal Progress - Re-Evaluation Re-evaluation Note: 04/13/18 13:24 D/W DR Jose JUNG AWARE OF ER FINDINGS. REQUESTS FOR PT TO HAVE ER CXR BUT ADVISED PT REFUSING ANY TESTING AT THIS TIME. PT WISHES IMMEDIATE DC. ADVISED TO FU CLINIC PREV INSTRUCTED BY DR Jose JUNG - Data Reviewed Data Reviewed: Old records Medical Decision Making Medical Decision Making: Patient offered labwork and CXR, however she declined. Patient would like to be discharged so she can find her father. Patient's vitals signs are stable, she is afebrile and had 96% O2 saturation at RA. Patient has been discharged home. Disposition Counseled Patient/Family Regarding: Diagnosis, Need For Followup - Disposition Referrals: YOUR,PMD [Other] Disposition: HOME/ ROUTINE Disposition Time: 13:21 Condition: GOOD Forms: [facility] (Wallisian) - Clinical Impression Clinical Impression: Encounter for medical assessment, History of renal stent, Tachycardia - Scribe Statement The provider has reviewed the documentation as recorded by the Scribe Raheem Padgett Provider Attestation All medical record entries made by the Scribe were at my direction and personally dictated by me. I have reviewed the chart and agree that the record accurately reflects my personal performance of the history, physical exam, medical decision making, and the department course for this patient. I have also personally directed, reviewed, and agree with the discharge instructions and disposition. Provider Attestation: All medical record entries made by the Scribe were at my direction and personally dictated by me. I have reviewed the chart and agree that the record accurately reflects my personal performance of the history, physical exam, medical decision making, and the department course for this patient. I have also personally directed, reviewed, and agree with the discharge instructions and disposition.
[2018-04-13 13:49] VITALS: BP 105/73; PULSE 111; RESP 16; TEMP 97.8
== END 2018-04-13 13:48 | disposition home or self-care (01) ==
LOC: C.ER 12:35
DX: R00.0 Tachycardia, unspecified (principal)

== ENCOUNTER 2018-04-27 07:51 | Day surgery (SDC) | payer MEDICARE ==
[2018-04-27] MEDS ORDERED: Propofol 10 mg/ml Inj (20 ML) ONE (09:03)
[2018-04-27] MEDS ORDERED: ceFAZolin 1 gm in NS 0 GM/0 ML BAG IVPB ONE (10:45)
[2018-04-27] MEDS ORDERED: Lidocaine 2% Jelly (Uro-Jet) ONE (10:46)
[2018-04-27] MEDS ORDERED: Ciprofloxacin 400mg/200ml D5W 0 MG/0 ML BAG IVPB ONE (10:46)
[2018-04-27] MEDS ORDERED: Iohexol 240 (50 ml) ONE (10:46)
[2018-04-27] MEDS ORDERED: cefTRIAXone 1 gm 1 GM/100 ML BAG IVPB ONE (10:54)
--- NOTE | 2018-04-27 11:25 | PCM.SURG1 ---
Surgeon's Initial Post Op Note - Surgeon's Notes Surgeon: myrtle Olivera Packer Insulation: NONE Type of Anesthesia: General LMA Pre-Operative Diagnosis: HYDRONEPHROSIS. CERVICAL CA Operative Findings: SAME. CYSTITIS Post-Operative Diagnosis: SAME Operation Performed: CYSTO. BILAT STENT REMOVAL, RTG PYELOGRAM, STENT INSERTION. EUA Specimen/Specimens Removed: URINE. STENTS Estimated Blood Loss: EBL {In ML}: 0 Blood Products Given: N/A Drains Used: No Drains Post-Op Condition: Good Date of Surgery/Procedure: 04/27/18 Time of Surgery/Procedure: :
[2018-04-27] MEDS: HYDROmorphone 0.5 mg/0.5 ml ISec IVP PRN ×3 (11:30→12:20)
[2018-04-27] MEDS ORDERED: HYDROmorphone 0.5 mg/0.5 ml ISec ONE (11:33)
[2018-04-27 13:42] VITALS: RESP 16; O2SAT 97
[2018-04-27 13:44] VITALS: BP 119/85; PULSE 86; TEMP 98.3
--- NOTE | 2018-04-27 13:54 | RAD ---
Date of service: 04/27/2018 HISTORY: BILATERAL HYDRONEPHROSIS COMPARISON: Abdominal radiographs dated 12/05/2017. FINDINGS: BOWEL: Prominent amount of retained colonic stool. No obstruction. No free air. BONES: Normal. OTHER FINDINGS: Bilateral double-J ureteral stents in place. Large pelvic calcified uterine fibroid. IMPRESSION: Stable appearance and position of bilateral double-J ureteral stents. Prominent amount of retained colonic stool.
--- NOTE | 2018-04-28 16:51 | RAD ---
PROCEDURE: HISTORY: As above COMPARISON: None TECHNIQUE: Total fluoroscopic time utilized during the procedure: 63.5 seconds ; 0.94876 mGy cm 2 FINDINGS: Submitted images from the current procedure: 4 Please refer to the physician's notes performing the procedure. IMPRESSION: Less than 1 hour fluoroscopic time utilized during performance of the procedure
--- NOTE | 2018-04-30 00:40 | OP ---
PROCEDURE DATE: 04/27/2018 PREOPERATIVE DIAGNOSES: Hydronephrosis. Cervical carcinoma. POSTOPERATIVE DIAGNOSES: Hydronephrosis. Cervical carcinoma. Cystitis. PROCEDURES: Cystoscopy. Removal of bilateral ureteral stent. Bilateral retrograde pyelogram. Insertion of bilateral ureteral stent. Exam under anesthesia. OPERATING SURGEON: Yue Jung MD FINDINGS: There was hydronephrosis, right greater than left. The stent was obstructed on the right and did not allow passage of the guidewire through the stent, thus making for a more difficult stent removal as the proximal coil did not fully uncoil. PROCEDURE FOLLOWS: The procedure was performed under video endoscopic control as well as under fluoroscopic control. The patient received perioperative antibiotics. The patient was placed in lithotomy position. Genitalia was prepped and sterilely. Anesthesia was provided by the anesthesiologist. A 22-Namibian cystoscope sheath was introduced with obturator. Urine was sent for bacteriologic examination. Urethra and bladder were inspected. FINDINGS: There was diffuse [id number] cystitis. There was no bladder tumor. There was no bladder stone. The ureteral stents were identified. The left ureteral stent was grasped with rigid grasping forceps and brought the level of the urethra along with cystoscope sheath. A 0.035-inch guidewire was inserted into the left ureteral stent and passed up to level of kidney. The stent was removed. An open-ended catheter was inserted over the guidewire. Retrograde pyelogram demonstrated mild to moderate hydronephrosis. The guidewire was reinserted. An 8-Namibian double-J ureteral stent, 24 cm length was inserted. Proper position was confirmed with fluoroscopy and endoscopy. The guidewire was removed, and stent was left in place. Attention was then turned toward the right ureteral stent. The stent was grasped with rigid grasping forceps and delivered along with cystoscope sheath to the level of the urethral meatus. A 0.035-inch guidewire was inserted into the ureteral stent. However, the guidewire could not be passed through the proximal end of the stent. Cystoscope was reintroduced. A guidewire was introduced adjacent to the stent up to the level of kidney. Thereafter, the stent was removed. An open-ended catheter was inserted over the guidewire into the right kidney. Right retrograde pyelogram was performed with instillation of iodinated contrast to it. There was noted to be moderate hydroureteronephrosis. The guidewire was reinserted. A new stent, 8-Namibian, 24 cm in length was inserted into the kidney. Proper stent position was confirmed with fluoroscopy and endoscopy. The guidewire was removed. Stent was left in place. The bladder was reinspected and confirmed the above findings. Exam under anesthesia was performed. There was moderate fixation of the pelvic contents. There was no discrete pelvic mass. The patient tolerated the procedure without complication. Yue Jung MD
== END 2018-04-27 14:00 | disposition home or self-care (01) ==
LOC: C.SDS 07:51
PROVIDERS: ATTEND Urology
DX: N13.30 Unspecified hydronephrosis (principal); C53.9 Malignant neoplasm of cervix uteri, unspecified; N30.90 Cystitis, unspecified without hematuria; J44.9 Chronic obstructive pulmonary disease, unspecified; I10 Essential (primary) hypertension
CPT/HCPCS: 52332; 74018; 87086; C1758; C1769; C2617; J0696; J1170; Q9966

== ENCOUNTER 2018-06-12 14:07 | Outpatient (CLI) | payer MEDICARE | END 2018-06-12 14:50 | disposition home or self-care (01) | LOC: C.CTH 14:07 | DX: C53.9 Malignant neoplasm of cervix uteri, unspecified (principal) ==

== ENCOUNTER 2018-06-21 12:09 | Inpatient (IN) | payer MEDICARE ==
[2018-06-21 12:09] VITALS: BMI 20.9
[2018-06-21] MEDS ORDERED: Sodium Chloride 0.9% 500 ML IV ONE (12:43)
[2018-06-21] MEDS ORDERED: Sodium Chloride 0.9% 1,000 ML ONE (13:01)
[2018-06-21] MEDS ORDERED: Morphine 4 MG/ML VIAL ONE (13:01)
[2018-06-21 13:08] LABS: BASO % 0.5 % (0.0-2.0); EOS # 0.2 K/uL (0.0-0.7); EOS % 1.6 % (0.0-4.0); LYMPH # 0.6 K/uL (1.0-4.3); LYMPH % 6.1 % (20.0-40.0); MEAN CELL VOLUME 86.4 fL (81.0-99.0); MEAN CORPUSCULAR HEMOGLOBIN 27.7 pg (27.0-31.0); MEAN CORPUSCULAR HGB CONC 32.1 g/dL (33.0-37.0); MEAN PLATELET VOLUME 8.3 fL (7.2-11.7); MONO # 0.6 K/uL (0.0-0.8); MONO % 6.7 % (0.0-10.0); NEUT % 85.1 % (50.0-75.0); NRBC % 0.1 % (0.0-2.0); RBC 3.92 Mil/uL (3.80-5.20); RED CELL DISTRIBUTION WIDTH 18.7 % (11.5-14.5); WHITE BLOOD COUNT 9.4 K/uL (4.8-10.8)
[2018-06-21 13:09] LABS: VENOUS BLOOD GAS BASE EXCESS 5.9 mmol/L (0.0-2.0); VENOUS BLOOD GAS PCO2 31 mmHg (40-60); VENOUS BLOOD GAS PO2 153 mm/Hg (30-55); VENOUS BLOOD PH 7.56 (7.32-7.43)
[2018-06-21 13:11] LABS: HEMOGLOBIN 10.8 g/dL (11.0-16.0); PLATELET COUNT 171 K/uL (130-400)
[2018-06-21 13:17] LABS: INR 1.1
[2018-06-21 13:28] LABS: ALB/GLOB RATIO 1.1 (1.0-2.1); ALBUMIN 2.9 g/dL (3.5-5.0); ALT/SGPT 8 U/L (9-52); AST/SGOT 33 U/L (14-36); BLOOD UREA NITROGEN 17 mg/dL (7-17); CALCIUM 9.6 mg/dl (8.6-10.4); GFR NON-AFRICAN AMERICAN > 60
--- NOTE | 2018-06-21 13:34 | C.PDOC ---
History Of Present Illness 57 years old female with PMHx of stage 4 cervical cancer presents to ED for complaints of abdominal distention and pain associated with genital discomfort that began 3 weeks ago. Patient also reports painful ulcerations all over her body potentially secondary to chemo-therapy. Patient states last chemo session was 4 days ago. Denies fever, chills, runny nose, headache, dizziness, chest pain, or shortness of breath. Father at bedside. Time Seen by Provider: 06/21/18 12:20 Chief Complaint (Nursing): Abdominal Pain Past Medical History Vital Signs: Last Vital Signs Temp 98 F 06/21/18 12:15 Pulse 97 H 06/21/18 13:08 Resp 20 06/21/18 13:08 BP 110/84 06/21/18 13:08 Pulse Ox 97 06/21/18 13:08 - Medical History PMH: Anemia, Anxiety, Asthma, COPD, Gall Bladder Disease, HTN, Malignancy (cervical Ca), Peripheral Edema (NO LONGER), Pneumonia (CHILDHOOD), End Stage Renal Disease, Chronic Kidney Disease Surgical History: Cholecystectomy - [facility] Procedures DILATION OF BILATERAL URETERS WITH INTRALUMINAL DEVICE, ENDO (05/02/15) DRAINAGE OF DESCENDING COLON, ENDO, DIAGN (01/28/16) FLUOROSCOPY OF LEFT KIDNEY, URETER AND BLADDER (05/02/15) FLUOROSCOPY OF RIGHT KIDNEY, URETER AND BLADDER (05/02/15) INSPECTION OF BLADDER, ENDO (05/02/15) INSPECTION OF VAGINA AND CUL-DE-SAC, ENDO (05/02/15) INTRAOPER CHOLANGIOGRAM (02/28/97) LAPAROSCOPIC CHOLECYSTECTOMY (02/28/97) TRANSFUSE NONAUT RED BLOOD CELLS IN PERIPH VEIN, PERC (05/02/15) Family History: States: Unknown Family Hx - Social History Hx Tobacco Use: No Hx Alcohol Use: No Hx Substance Use: No - Immunization History Hx Tetanus Toxoid Vaccination: No Hx Influenza Vaccination: No Hx Pneumococcal Vaccination: No Review Of Systems Except As Marked, All Systems Reviewed And Found Negative. Constitutional: Negative for: Fever, Chills Cardiovascular: Negative for: Chest Pain Respiratory: Negative for: Shortness of Breath Gastrointestinal: Positive for: Abdominal Pain, Other (Abdominal distention ) Skin: Positive for: Other (painfull ulcerations all over body). Negative for: Rash Neurological: Negative for: Weakness, Numbness, Headache, Dizziness Physical Exam - Physical Exam Appears: Non-toxic, No Acute Distress, Other (Musle wasting,cachectic with alopecia) Skin: Warm, Dry, No Rash, Other (Some ulcerations on back, more significant on pre-septic right sided groin ) Head: Atraumatic, Normacephalic Eye(s): bilateral: Normal Inspection, PERRL, EOMI Oral Mucosa: Moist Neck: Normal ROM, Supple Chest: Symmetrical, No Tenderness Cardiovascular: Rhythm Regular, No Murmur Respiratory: Normal Breath Sounds, No Rales, No Rhonchi, No Wheezing Gastrointestinal/Abdominal: Soft, Tenderness (Mild ), Distention (Mild) Pelvic: Other (Genital area erythematous, swollen, and tender to touch ) Extremity: Normal ROM Extremity: Bilateral: Atraumatic, Normal Color And Temperature, Normal ROM Pulses: Left Radial: Normal, Right Radial: Normal Neurological/Psych: Oriented x3, Normal Speech Gait: Steady ED Course And Treatment - Laboratory Results Result Diagrams: 06/21/18 13:00 06/21/18 13:00 Lab Results: pO2 153 mm/Hg (30-55) H 06/21/18 13:02 VBG pH 7.56 (7.32-7.43) H 06/21/18 13:02 VBG pCO2 31 mmHg (40-60) L 06/21/18 13:02 VBG HCO3 29.6 mmol/L 06/21/18 13:02 VBG Total CO2 28.8 mmol/L (22-28) H 06/21/18 13:02 VBG O2 Sat (Calc) 98.5 % (40-65) H 06/21/18 13:02 VBG Base Excess 5.9 mmol/L (0.0-2.0) H 06/21/18 13:02 VBG Potassium 4.3 mmol/L (3.6-5.2) 06/21/18 13:02 Sodium 136.0 mmol/l (132-148) 06/21/18 13:02 Chloride 105.0 mmol/L (98-107) 06/21/18 13:02 Glucose 77 mg/dl (65-105) 06/21/18 13:02 Lactate 1.6 mmol/L (0.7-2.1) 06/21/18 13:02 FiO2 21.0 % 06/21/18 13:02 PT 12.0 SECONDS (9.7-12.2) 06/21/18 13:00 INR 1.1 06/21/18 13:00 APTT 29 SECONDS (21-34) 06/21/18 13:00 Total Bilirubin 0.2 mg/dL (0.2-1.3) 06/21/18 13:00 AST 33 U/L (14-36) 06/21/18 13:00 ALT 8 U/L (9-52) L 06/21/18 13:00 Alkaline Phosphatase 66 U/L (38-126) 06/21/18 13:00 Total Protein 5.7 g/dL (6.3-8.3) L 06/21/18 13:00 Albumin 2.9 g/dL (3.5-5.0) L 06/21/18 13:00 Globulin 2.7 gm/dL (2.2-3.9) 06/21/18 13:00 Albumin/Globulin Ratio 1.1 (1.0-2.1) 06/21/18 13:00 O2 Sat by Pulse Oximetry: 97 (RA) Pulse Ox Interpretation: Normal - Other Rad CXR X-Ray: Viewed By Me, Read By Radiologist Interpretation: IMPRESSION: Small hazy opacity or infiltrate at the left lower lobe. Findings may represent an early pneumonia. Medical Decision Making Medical Decision Making: Plan: * IV Fluids * Morphine * Blood work * CXR * Blood Culture * Urine Culture * Urinalysis * EKG * Blood Gas Reviewed Abdomen/Pelvis CT from 06/12/18 : * IMPRESSION: Bilateral small pleural effusion. Right lower lobe compressive atelectasis. Evidence of GE reflux. Small hiatal hernia. Bilateral ureteral stents. Left hydronephrosis. Atrophic right kidney. Nonspecific colitis involving the descending and sigmoid colon. Extensive retroperitoneal and left pelvic lymphadenopathy. Possible mesenteric lymphadenopathy. Evaluation limited. Lytic destruction of the anterior aspect of the L2 and L3 vertebral bodies likely related to the adjacent retroperitoneal lymphadenopathy. Generalized anasarca. 12:41: Discussed with Dr. Cameron which agrees for patient admission and to be evaluated by paracentesis. Disposition Discussed With : Joo Garcia Doctor Will See Patient In The: Hospital - Disposition Disposition: HOSPITALIZED Disposition Time: 14:11 Condition: GUARDED - POA Present On Arrival: None - Clinical Impression Clinical Impression: Abdominal pain, Ascites, Skin ulceration - Scribe Statement The provider has reviewed the documentation as recorded by the Elieibe Severino Queen All medical record entries made by the Elieibe were at my direction and personally dictated by me. I have reviewed the chart and agree that the record accurately reflects my personal performance of the history, physical exam, medical decision making, and the department course for this patient. I have also personally directed, reviewed, and agree with the discharge instructions and disposition. Decision To Admit - Pt Status Changed To: Hospital Disposition Of: Observation - . Bed Request Type: Regular Admitting Physician: Joo Garcia Patient Diagnosis: Abdominal pain, Ascites, Skin ulceration
[2018-06-21 13:39] LABS: ANISOCYTOSIS SLIGHT; EOSINOPHIL 1 % (0-4); HYPOCHROMIC SLIGHT; LYMPHOCYTE 5 % (20-40); MONOCYTE 6 % (0-10); NEUTROPHIL 88 % (50-75); PLATELET ESTIMATE NORMAL (NORMAL); POLYCHROMIC SLIGHT; TOTAL CELLS COUNTED 100
[2018-06-21 13:40] LABS: TOXIC GRANULATION PRESENT
--- NOTE | 2018-06-21 13:53 | RAD ---
Date of service: 06/21/2018 HISTORY: Sepsis Patient COMPARISON: Comparison is made with 04/20/2018 TECHNIQUE: 1 view obtained. FINDINGS: LUNGS: Interval appearance of focal hazy opacity or infiltrate at the left lower lung since the previous exam. Otherwise no significant interval changes in the lungs. PLEURA: No significant pleural effusion identified, no pneumothorax apparent. CARDIOVASCULAR: No aortic atherosclerotic calcification present. Normal cardiac size. No pulmonary vascular congestion. OSSEOUS STRUCTURES: No significant abnormalities. VISUALIZED UPPER ABDOMEN: Normal. OTHER FINDINGS: Right-sided Infusaport is again seen in place. IMPRESSION: Small hazy opacity or infiltrate at the left lower lobe. Findings may represent an early pneumonia.
[2018-06-21 14:25] LABS: SQUAMOUS EPITHIAL 1 /hpf (0-5); URINE BACTERIA RARE (<OCC); URINE BILIRUBIN NEGATIVE (NEGATIVE); URINE BLOOD 1+ (NEGATIVE); URINE CLARITY Clear (Clear); URINE COLOR Yellow (YELLOW); URINE GLUCOSE (UA) NORMAL (Normal); URINE LEUKOCYTE ESTERASE 2+ Leu/uL (Negative); URINE PROTEIN NEGATIVE (NEGATIVE); URINE UROBILINOGEN NORMAL mg/dL (0.2-1.0)
[2018-06-21 15:58] LABS: VENOUS BLOOD GAS BASE EXCESS 5.4 mmol/L (0.0-2.0); VENOUS BLOOD GAS PCO2 38 mmHg (40-60); VENOUS BLOOD GAS PO2 33 mm/Hg (30-55); VENOUS BLOOD PH 7.49 (7.32-7.43)
--- NOTE | 2018-06-21 17:22 | CP.PCM.HP ---
<Juan David Taylor - Last Filed: 06/21/18 17:53> History of Present Illness - History of Present Illness History of Present Illness: Medicine h&P for Dr. Borjas's service CC: abdominal pain and ulcerations on skin HPI: Patient is a 57 yo female w/ PMH of cervical cancer, anxiety/depression, HTN, b/l LE neuropathy, and chronic anemia admitted for evaluation of ulcerations on the skin and abdominal pain. Patient states that approximately 2 weeks ago she fell after she slipped (no syncope) and fell on her left side hitting her left elbow on the ground first followed by hip then finally her h ead. Patient states since then she had been having difficulty walking due to the fall. Patient then started experiencing abomdinal pain and it is not associated with eating and does not get better with defecation. Her pain meds for her cervical cancer diagnosis are not offering much relief. Around the time of the fall was her last chemotherapy session which was 2 weeks ago she started to notice an increased amount of ulcerations forming on her body. The locations of the ulcerations are located all over the body including her back, b/l thighs, and pernieal region. The first one started in the right groin then the left posterior shoulder followed by medial thights and perineal boils. Patient a pplied bacitracin to the groin boils however the boils remained painful. Patient states she normally has difficulty with her bowel movements each occuring every other day and requiring stool softeners and milk of magnesia. Admits to abdominal pain, b/l feet neuropathy, pain at ulceration sites, new left leg edema. 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[employer] Allergies- NKDA Code- Pending new conversation with palliative Advanced Directive- Father will make decisions Present on Admission - Present on Admission Any Indicators Present on Admission: No Decubitus Ulcer Present: Yes (well healed) Review of Systems - Review of Systems All systems: reviewed and no additional remarkable complaints except Review of Systems: see HPI Past Patient History - Infectious Disease Hx of Infectious Diseases: None - Past Medical History & Family History Past Medical History?: Yes - Past Social History Smoking Status: Light Smoker < 10 Cigarettes Daily - CARDIAC Hx Hypertension: Yes Hx Peripheral Edema: Yes (NO LONGER) - PULMONARY Hx Asthma: Yes Hx Chronic Obstructive Pulmonary Disease (COPD): Yes Hx Pneumonia: Yes (CHILDHOOD) - NEUROLOGICAL Hx Neurological Disorder: No - HEENT Hx HEENT Problems: Yes - RENAL Hx Chronic Kidney Disease: Yes - ENDOCRINE/METABOLIC Hx Endocrine Disorders: No - HEMATOLOGICAL/ONCOLOGICAL Hx Anemia: Yes - INTEGUMENTARY Hx Dermatological Problems: No - MUSCULOSKELETAL/RHEUMATOLOGICAL Hx Musculoskeletal Disorders: No Hx Falls: No - GASTROINTESTINAL Hx Gall Bladder Disease: Yes - GENITOURINARY/GYNECOLOGICAL Hx Genitourinary Disorders: Yes (SEE COMMENT) Hx Cervical Cancer: Yes (Metastatic stage 4 (2016)) Hx Postmenopausal Bleeding: Yes Other/Comment: STAGE IV WITH COMPLETED RADIATION AND CURRENTLY ON CHEMOTHERAPY EVERY 3-WEEKS (2018). RENAL STENTS - PSYCHIATRIC Hx Anxiety: Yes Hx Substance Use: No - SURGICAL HISTORY Hx Cholecystectomy: Yes - ANESTHESIA Hx Anesthesia: Yes Hx Anesthesia Reactions: No Hx Malignant Hyperthermia: No Meds Allergies/Adverse Reactions: Allergies Allergy/AdvReac Type Severity Reaction Status Date / Time No Known Allergies Allergy Verified 06/21/18 12:19 Physical Exam - Constitutional Appears: Non-toxic, No Acute Distress - Head Exam Head Exam: NORMAL INSPECTION, NORMOCEPHALIC - Eye Exam Eye Exam: EOMI, Normal appearance - ENT Exam ENT Exam: Mucous Membranes Dry - Respiratory Exam Respiratory Exam: Clear to Auscultation Bilateral, NORMAL BREATHING PATTERN. absent: Rales, Rhonchi, Wheezes - Cardiovascular Exam Cardiovascular Exam: REGULAR RHYTHM, +S1, +S2 - GI/Abdominal Exam GI & Abdominal Exam: Normal Bowel Sounds, Soft, Tenderness. absent: Distended, Guarding, Mass - Exam Additional comments: right inguinal boil measuring 8cm x 2 cm white flutuance and justin, no signs of active infection multiple 1cm x 1 cm in perineal region - Extremities Exam Extremities exam: Positive for: pedal edema Additional comments: bilateral lower extremity +1 from ankle to knee b/l numerous 1cm x 1 cm and 0.5cm x 0.5cm boils, no signs of infectious pus or drainage - Back Exam Additional comments: left posterior boil measuring 1 cm x 1 cm - Neurological Exam Neurological exam: Alert, Oriented x3 - Psychiatric Exam Psychiatric exam: Normal Affect, Normal Mood - Skin Skin Exam: Dry, Intact, Normal Color Additional comments: well healed eschar in sacral region Results - Vital Signs Recent Vital Signs: Last Vital Signs Temp 97.6 F 06/21/18 16:50 Pulse 102 H 06/21/18 16:50 Resp 18 06/21/18 16:50 BP 112/78 06/21/18 16:50 Pulse Ox 97 06/21/18 16:50 - Labs Result Diagrams: 06/21/18 13:00 06/21/18 13:00 Labs: Laboratory Results - last 24 hr 06/21/18 06/21/18 06/21/18 13:00 13:00 13:00 WBC 9.4 RBC 3.92 Hgb 10.8 L D Hct 33.8 L MCV 86.4 MCH 27.7 MCHC 32.1 L RDW 18.7 H Plt Count 171 D MPV 8.3 Neut % (Auto) 85.1 H Lymph % (Auto) 6.1 L [place] % (Auto) 6.7 Eos % (Auto) 1.6 Baso % (Auto) 0.5 Neut # (Auto) 8.0 H Lymph # (Auto) 0.6 L [place] # (Auto) 0.6 Eos # (Auto) 0.2 Baso # (Auto) 0.0 Neutrophils % (Manual) 88 H Lymphocytes % (Manual) 5 L Monocytes % (Manual) 6 Eosinophils % (Manual) 1 Toxic Granulation Present Platelet Estimate Normal Polychromasia Slight Hypochromasia (manual) Slight Anisocytosis (manual) Slight PT 12.0 INR 1.1 APTT 29 pO2 VBG pH VBG pCO2 VBG HCO3 VBG Total CO2 VBG O2 Sat (Calc) VBG Base Excess VBG Potassium Glucose Lactate FiO2 Sodium 135 Potassium 4.5 Chloride 100 Carbon Dioxide 29 Anion Gap 10 BUN 17 Creatinine 0.8 Est GFR ( Amer) > 60 Est GFR (Non-Af Amer) > 60 Random Glucose 83 D Calcium 9.6 Phosphorus 3.4 Magnesium 2.0 Total Bilirubin 0.2 AST 33 ALT 8 L Alkaline Phosphatase 66 Total Protein 5.7 L Albumin 2.9 L Globulin 2.7 Albumin/Globulin Ratio 1.1 Venous Blood Potassium Urine Color Urine Clarity Urine pH Ur Specific [place] Urine Protein Urine Glucose (UA) Urine Ketones Urine Blood Urine Nitrate Urine Bilirubin Urine Urobilinogen Ur Leukocyte Esterase Urine WBC (Auto) Urine RBC (Auto) Ur Squamous Epith Cells Urine Bacteria 06/21/18 06/21/18 06/21/18 13:02 14:18 15:55 WBC RBC Hgb Hct MCV MCH MCHC RDW Plt Count MPV Neut % (Auto) Lymph % (Auto) [place] % (Auto) Eos % (Auto) Baso % (Auto) Neut # (Auto) Lymph # (Auto) [place] # (Auto) Eos # (Auto) Baso # (Auto) Neutrophils % (Manual) Lymphocytes % (Manual) Monocytes % (Manual) Eosinophils % (Manual) Toxic Granulation Platelet Estimate Polychromasia Hypochromasia (manual) Anisocytosis (manual) PT INR APTT pO2 153 H 33 VBG pH 7.56 H 7.49 H VBG pCO2 31 L 38 L VBG HCO3 29.6 28.4 VBG Total CO2 28.8 H 30.2 H VBG O2 Sat (Calc) 98.5 H 71.9 H VBG Base Excess 5.9 H 5.4 H VBG Potassium 4.3 4.0 Glucose 77 80 Lactate 1.6 1.6 FiO2 21.0 Sodium 136.0 134.0 Potassium Chloride 105.0 102.0 Carbon Dioxide Anion Gap BUN Creatinine Est GFR ( Amer) Est GFR (Non-Af Amer) Random Glucose Calcium Phosphorus Magnesium Total Bilirubin AST ALT Alkaline Phosphatase Total Protein Albumin Globulin Albumin/Globulin Ratio Venous Blood Potassium 4.3 4.0 Urine Color Yellow Urine Clarity Clear Urine pH 7.0 Ur Specific [place] 1.010 Urine Protein Negative Urine Glucose (UA) Normal Urine Ketones Negative Urine Blood 1+ H Urine Nitrate Negative Urine Bilirubin Negative Urine Urobilinogen Normal Ur Leukocyte Esterase 2+ H Urine WBC (Auto) 30 H Urine RBC (Auto) 21 H Ur Squamous Epith Cells 1 Urine Bacteria Rare Assessment & Plan - Assessment and Plan (Free Text) Assessment: 57 yo female w/ PMH of cervical cancer, anxiety/depression, HTN, b/l LE neuropathy, and chronic anemia admitted for evaluation of ulcerations on the skin and abdominal pain. CT head pending. Chest CTA abd/pelvis/chest pending Plan: Multiple Boils likely 2/2 to chemotherapy reducing immune suppression causing boils due to blocked hair follicles in sites of increase sweat Surgery Consulted: Dr. Wright- recommendations appreciated IV doxycycline 100mg q12h CT pelvis pending w/ IV contrast Hx of abdominal pain colace 100mg po tid CTA abdomen/pevlis pending Hx of Cervical Cancer Outpatient chemotherapy with DR. Willie Cameron F/U outpatient for continued treatment Colace 100mg po tid Morphine 60mg ER daily Oxycodone 30mg q4h prn Fall CT head pending no need for xrays as patient is ambulatory with no signs of extensive bruising, skin discoloration Chronic Anemia 2/2 to chemotherapy and cancer history hemodynamically stable no need for transfusion Hx of anxiety/depression Xanax 0.5mg daily po Hx of hydronephrosis Ureteral stent replacement with Dr. Rodriguez q 3 months most recent on 04-27-18 Hx of HTN Procardia 60mg XL starting in AM Hx of B/L neuropathy Gabapentin 200mg po Chronic LE edema Venous dopplers pending PPx GI ppx: Lactobacillus 1 cap po bid DVT ppx: Heparin 5000 units sc q12h PGY-[address] Taylor <Kiet Borjas - Last Filed: 06/21/18 20:01> Results - Vital Signs Recent Vital Signs: Last Vital Signs Temp 97.6 F 06/21/18 16:50 Pulse 102 H 06/21/18 16:50 Resp 18 06/21/18 16:50 BP 112/78 06/21/18 16:50 Pulse Ox 97 06/21/18 16:50 - Labs Result Diagrams: 06/21/18 13:00 06/21/18 13:00 Labs: Laboratory Results - last 24 hr 06/21/18 06/21/18 06/21/18 13:00 13:00 13:00 WBC 9.4 RBC 3.92 Hgb 10.8 L D Hct 33.8 L MCV 86.4 MCH 27.7 MCHC 32.1 L RDW 18.7 H Plt Count 171 D MPV 8.3 Neut % (Auto) 85.1 H Lymph % (Auto) 6.1 L [place] % (Auto) 6.7 Eos % (Auto) 1.6 Baso % (Auto) 0.5 Neut # (Auto) 8.0 H Lymph # (Auto) 0.6 L [place] # (Auto) 0.6 Eos # (Auto) 0.2 Baso # (Auto) 0.0 Neutrophils % (Manual) 88 H Lymphocytes % (Manual) 5 L Monocytes % (Manual) 6 Eosinophils % (Manual) 1 Toxic Granulation Present Platelet Estimate Normal Polychromasia Slight Hypochromasia (manual) Slight Anisocytosis (manual) Slight PT 12.0 INR 1.1 APTT 29 pO2 VBG pH VBG pCO2 VBG HCO3 VBG Total CO2 VBG O2 Sat (Calc) VBG Base Excess VBG Potassium Glucose Lactate FiO2 Sodium 135 Potassium 4.5 Chloride 100 Carbon Dioxide 29 Anion Gap 10 BUN 17 Creatinine 0.8 Est GFR ( Amer) > 60 Est GFR (Non-Af Amer) > 60 Random Glucose 83 D Calcium 9.6 Phosphorus 3.4 Magnesium 2.0 Total Bilirubin 0.2 AST 33 ALT 8 L Alkaline Phosphatase 66 Total Protein 5.7 L Albumin 2.9 L Globulin 2.7 Albumin/Globulin Ratio 1.1 Venous Blood Potassium Urine Color Urine Clarity Urine pH Ur Specific [place] Urine Protein Urine Glucose (UA) Urine Ketones Urine Blood Urine Nitrate Urine Bilirubin Urine Urobilinogen Ur Leukocyte Esterase Urine WBC (Auto) Urine RBC (Auto) Ur Squamous Epith Cells Urine Bacteria 06/21/18 06/21/18 06/21/18 13:02 14:18 15:55 WBC RBC Hgb Hct MCV MCH MCHC RDW Plt Count MPV Neut % (Auto) Lymph % (Auto) [place] % (Auto) Eos % (Auto) Baso % (Auto) Neut # (Auto) Lymph # (Auto) [place] # (Auto) Eos # (Auto) Baso # (Auto) Neutrophils % (Manual) Lymphocytes % (Manual) Monocytes % (Manual) Eosinophils % (Manual) Toxic Granulation Platelet Estimate Polychromasia Hypochromasia (manual) Anisocytosis (manual) PT INR APTT pO2 153 H 33 VBG pH 7.56 H 7.49 H VBG pCO2 31 L 38 L VBG HCO3 29.6 28.4 VBG Total CO2 28.8 H 30.2 H VBG O2 Sat (Calc) 98.5 H 71.9 H VBG Base Excess 5.9 H 5.4 H VBG Potassium 4.3 4.0 Glucose 77 80 Lactate 1.6 1.6 FiO2 21.0 Sodium 136.0 134.0 Potassium Chloride 105.0 102.0 Carbon Dioxide Anion Gap BUN Creatinine Est GFR ( Amer) Est GFR (Non-Af Amer) Random Glucose Calcium Phosphorus Magnesium Total Bilirubin AST ALT Alkaline Phosphatase Total Protein Albumin Globulin Albumin/Globulin Ratio Venous Blood Potassium 4.3 4.0 Urine Color Yellow Urine Clarity Clear Urine pH 7.0 Ur Specific [place] 1.010 Urine Protein Negative Urine Glucose (UA) Normal Urine Ketones Negative Urine Blood 1+ H Urine Nitrate Negative Urine Bilirubin Negative Urine Urobilinogen Normal Ur Leukocyte Esterase 2+ H Urine WBC (Auto) 30 H Urine RBC (Auto) 21 H Ur Squamous Epith Cells 1 Urine Bacteria Rare Attending/Attestation - Attestation I have personally seen and examined this patient.: Yes I have fully participated in the care of the patient.: Yes I have reviewed all pertinent clinical information: Yes Notes (Text): 06/21/18 20:00 Patient was seen and examined in the ER with resident Dr. Taylor. History, Physical, Assessment and Plan, and all orders were gone over with resident Dr. Taylor. The groin and external vaginal exam were performed with the help of female ER nurse. Plan of care was explained to patient's Brother Elie and Father with the stephanie downs's permission. Kiet Borjas D.O.
[2018-06-21] MEDS ORDERED: Iodixanol 320 MG/ML 100 ML BOTTLE IV ONE (17:35)
[2018-06-21] MEDS: oxyCODONE 30 mg Immediate Release Tab PO PRN (18:21)
[2018-06-21] MEDS: Morphine 30 mg SR Tab PO SCH (18:22)
--- NOTE | 2018-06-21 21:23 | CP.PCM.CON ---
<Phil Cornejo - Last Filed: 06/22/18 02:28> History of Present Illness - History of Present Illness History of Present Illness: Surgery Consult Note- Dr. Wright Reason for Consult: Right groin abscess 57F pmhx significant for cervical ca on chemotherapy last treatment 2 weeks ago presents to [facility] for evaulation of ulcerations and skin. Patient states boils and abscesses have started to grow which she noticed around just after the most recent round of chemotherapy treatments. Patient states the most painful area is right groin and perineal area. Currently has been having drainage which has helped with pain. Surgery was consulted and evaluation. Subjective fevers, denies cills, chest pain, shortness of breath. 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 Allergies- NKDA Review of Systems - Review of Systems All systems: reviewed and no additional remarkable complaints except - Constitutional Constitutional: As Per HPI Past Patient History - Infectious Disease Hx of Infectious Diseases: None - Past Medical History & Family History Past Medical History?: Yes - Past Social History Smoking Status: Light Smoker < 10 Cigarettes Daily - CARDIAC Hx Hypertension: Yes Hx Peripheral Edema: Yes (NO LONGER) - PULMONARY Hx Asthma: Yes Hx Chronic Obstructive Pulmonary Disease (COPD): Yes Hx Pneumonia: Yes (CHILDHOOD) - NEUROLOGICAL Hx Neurological Disorder: No - HEENT Hx HEENT Problems: Yes - RENAL Hx Chronic Kidney Disease: Yes - ENDOCRINE/METABOLIC Hx Endocrine Disorders: No - HEMATOLOGICAL/ONCOLOGICAL Hx Anemia: Yes - INTEGUMENTARY Hx Dermatological Problems: No - MUSCULOSKELETAL/RHEUMATOLOGICAL Hx Musculoskeletal Disorders: No Hx Falls: No - GASTROINTESTINAL Hx Gall Bladder Disease: Yes - GENITOURINARY/GYNECOLOGICAL Hx Genitourinary Disorders: Yes (SEE COMMENT) Hx Cervical Cancer: Yes (Metastatic stage 4 (2016)) Hx Postmenopausal Bleeding: Yes Other/Comment: STAGE IV WITH COMPLETED RADIATION AND CURRENTLY ON CHEMOTHERAPY EVERY 3-WEEKS (2018). RENAL STENTS - PSYCHIATRIC Hx Anxiety: Yes Hx Substance Use: No - SURGICAL HISTORY Hx Cholecystectomy: Yes - ANESTHESIA Hx Anesthesia: Yes Hx Anesthesia Reactions: No Hx Malignant Hyperthermia: No Meds Allergies/Adverse Reactions: Allergies Allergy/AdvReac Type Severity Reaction Status Date / Time No Known Allergies Allergy Verified 06/21/18 12:19 - Medications Medications: Current Medications Alprazolam (Xanax) 0.5 mg PO DAILY [facility] Last Admin: 06/21/18 18:21 Dose: 0.5 mg Docusate Sodium (Colace) 100 mg PO TID [facility] Last Admin: 06/21/18 18:21 Dose: 100 mg Gabapentin (Neurontin) 200 mg PO DAILY [facility] Last Admin: 06/21/18 18:21 Dose: 200 mg Heparin Sodium (Porcine) (Heparin) 5,000 units SC Q12 [facility] Doxycycline Hyclate 100 mg/ (Sodium Chloride) 100 mls @ 100 mls/hr IVPB Q12H [facility]; Protocol Last Admin: 06/21/18 18:22 Dose: 100 mls/hr Lactated Ringer's (Lactated Ringer's) 1,000 mls @ 100 mls/hr IV .Q10H [facility] Lactobacillus Acidophilus (Lactobacillus) 1 cap PO BID [facility] Morphine Sulfate (Morphine Extended Release Tab) 60 mg PO DAILY [facility] Last Admin: 06/21/18 18:22 Dose: Not Given Nifedipine (Procardia Xl) 60 mg PO DAILY [facility] Oxycodone HCl (Oxycodone Immediate Release Tab) 30 mg PO Q4H PRN PRN Reason: breakthrough pain Last Admin: 06/21/18 18:21 Dose: 30 mg Physical Exam - Constitutional Appears: Non-toxic, No Acute Distress, Cachectic, Chronically Ill - Head Exam Head Exam: ATRAUMATIC - Eye Exam Eye Exam: EOMI - ENT Exam ENT Exam: Mucous Membranes Moist - Respiratory Exam Respiratory Exam: absent: Accessory Muscle Use, Decreased Breath Sounds - Cardiovascular Exam Cardiovascular Exam: Bradycardia, Tachycardia - GI/Abdominal Exam GI & Abdominal Exam: Normal Bowel Sounds, Soft, Tenderness (right groin). abs ent: Organomegaly - Extremities Exam Extremities exam: Negative for: calf tenderness - Neurological Exam Neurological exam: Alert Results - Vital Signs Recent Vital Signs: Last Vital Signs Temp 97.6 F 06/21/18 16:50 Pulse 102 H 06/21/18 16:50 Resp 18 06/21/18 16:50 BP 112/78 06/21/18 16:50 Pulse Ox 97 06/21/18 16:50 - Labs Result Diagrams: 06/21/18 13:00 06/21/18 13:00 Labs: Laboratory Results - last 24 hr 06/21/18 06/21/18 06/21/18 13:00 13:00 13:00 WBC 9.4 RBC 3.92 Hgb 10.8 L D Hct 33.8 L MCV 86.4 MCH 27.7 MCHC 32.1 L RDW 18.7 H Plt Count 171 D MPV 8.3 Neut % (Auto) 85.1 H Lymph % (Auto) 6.1 L [place] % (Auto) 6.7 Eos % (Auto) 1.6 Baso % (Auto) 0.5 Neut # (Auto) 8.0 H Lymph # (Auto) 0.6 L [place] # (Auto) 0.6 Eos # (Auto) 0.2 Baso # (Auto) 0.0 Neutrophils % (Manual) 88 H Lymphocytes % (Manual) 5 L Monocytes % (Manual) 6 Eosinophils % (Manual) 1 Toxic Granulation Present Platelet Estimate Normal Polychromasia Slight Hypochromasia (manual) Slight Anisocytosis (manual) Slight PT 12.0 INR 1.1 APTT 29 pO2 VBG pH VBG pCO2 VBG HCO3 VBG Total CO2 VBG O2 Sat (Calc) VBG Base Excess VBG Potassium Glucose Lactate FiO2 Sodium 135 Potassium 4.5 Chloride 100 Carbon Dioxide 29 Anion Gap 10 BUN 17 Creatinine 0.8 Est GFR ( Amer) > 60 Est GFR (Non-Af Amer) > 60 Random Glucose 83 D Calcium 9.6 Phosphorus 3.4 Magnesium 2.0 Total Bilirubin 0.2 AST 33 ALT 8 L Alkaline Phosphatase 66 Total Protein 5.7 L Albumin 2.9 L Globulin 2.7 Albumin/Globulin Ratio 1.1 Venous Blood Potassium Urine Color Urine Clarity Urine pH Ur Specific [place] Urine Protein Urine Glucose (UA) Urine Ketones Urine Blood Urine Nitrate Urine Bilirubin Urine Urobilinogen Ur Leukocyte Esterase Urine WBC (Auto) Urine RBC (Auto) Ur Squamous Epith Cells Urine Bacteria 06/21/18 06/21/18 06/21/18 13:02 14:18 15:55 WBC RBC Hgb Hct MCV MCH MCHC RDW Plt Count MPV Neut % (Auto) Lymph % (Auto) [place] % (Auto) Eos % (Auto) Baso % (Auto) Neut # (Auto) Lymph # (Auto) [place] # (Auto) Eos # (Auto) Baso # (Auto) Neutrophils % (Manual) Lymphocytes % (Manual) Monocytes % (Manual) Eosinophils % (Manual) Toxic Granulation Platelet Estimate Polychromasia Hypochromasia (manual) Anisocytosis (manual) PT INR APTT pO2 153 H 33 VBG pH 7.56 H 7.49 H VBG pCO2 31 L 38 L VBG HCO3 29.6 28.4 VBG Total CO2 28.8 H 30.2 H VBG O2 Sat (Calc) 98.5 H 71.9 H VBG Base Excess 5.9 H 5.4 H VBG Potassium 4.3 4.0 Glucose 77 80 Lactate 1.6 1.6 FiO2 21.0 Sodium 136.0 134.0 Potassium Chloride 105.0 102.0 Carbon Dioxide Anion Gap BUN Creatinine Est GFR ( Amer) Est GFR (Non-Af Amer) Random Glucose Calcium Phosphorus Magnesium Total Bilirubin AST ALT Alkaline Phosphatase Total Protein Albumin Globulin Albumin/Globulin Ratio Venous Blood Potassium 4.3 4.0 Urine Color Yellow Urine Clarity Clear Urine pH 7.0 Ur Specific [place] 1.010 Urine Protein Negative Urine Glucose (UA) Normal Urine Ketones Negative Urine Blood 1+ H Urine Nitrate Negative Urine Bilirubin Negative Urine Urobilinogen Normal Ur Leukocyte Esterase 2+ H Urine WBC (Auto) 30 H Urine RBC (Auto) 21 H Ur Squamous Epith Cells 1 Urine Bacteria Rare Assessment & Plan - Assessment and Plan (Free Text) Assessment: 57F w/ multiple abscesses Plan: -npo/ibfAbx - pain control PRN - plan for OR - discussed w/ surgical attending <Ivan Wright - Last Filed: 06/24/18 17:43> Meds - Medications Medications: Current Medications Alprazolam (Xanax) 0.5 mg PO HS [facility] Docusate Sodium (Colace) 100 mg PO TID [facility] Last Admin: 06/24/18 14:50 Dose: 100 mg Enoxaparin Sodium (Lovenox) 40 mg SC DAILY [facility] Last Admin: 06/23/18 09:16 Dose: 40 mg Gabapentin (Neurontin) 200 mg PO DAILY [facility] Last Admin: 06/24/18 09:55 Dose: 200 mg Hydromorphone HCl (Dilaudid) 0.5 mg IVP Q15M PRN PRN Reason: Pain, severe (8-10) Last Admin: 06/23/18 02:21 Dose: 0.5 mg Doxycycline Hyclate 100 mg/ (Sodium Chloride) 100 mls @ 100 mls/hr IVPB Q12H [facility]; Protocol Last Admin: 06/24/18 06:35 Dose: 100 mls/hr Lactated Ringer's (Lactated Ringer's) 1,000 mls @ 100 mls/hr IV .Q10H [facility] Last Admin: 06/24/18 12:37 Dose: Not Given Lactobacillus Acidophilus (Lactobacillus) 1 cap PO BID [facility] Last Admin: 06/24/18 09:55 Dose: 1 cap Morphine Sulfate (Morphine Extended Release Tab) 60 mg PO DAILY [facility] Last Admin: 06/24/18 09:55 Dose: 60 mg Nifedipine (Procardia Xl) 60 mg PO DAILY [facility] Last Admin: 06/24/18 09:54 Dose: 60 mg Oxycodone HCl (Oxycodone Immediate Release Tab) 30 mg PO Q4H PRN PRN Reason: breakthrough pain Last Admin: 06/24/18 15:32 Dose: 30 mg Sennosides (Senokot Tab) 8.6 mg PO DAILY [facility] Last Admin: 06/24/18 09:55 Dose: 8.6 mg Results - Vital Signs Recent Vital Signs: Last Vital Signs Temp 98.8 F 06/24/18 16:31 Pulse 97 H 06/24/18 16:31 Resp 18 06/24/18 16:31 BP 120/83 06/24/18 16:31 Pulse Ox 96 06/24/18 16:31 - Labs Result Diagrams: 06/23/18 06:19 06/23/18 06:19 Attending/Attestation - Attestation I have personally seen and examined this patient.: Yes I have fully participated in the care of the patient.: Yes I have reviewed all pertinent clinical information: Yes Notes (Text): Pt was seen and examined at bedside Agree with above note and assessment Pt with Right groin lumps possible abscess PMH of Cervical cancer Labs and Radiology reviewed Ass: Abdominal wall abscess possible necrotic lymph node Plan : OR for I & D and possible excision of necrotic lymph node Consent NPO, IVF IV antibiotics c.w current mx Plan d.w pt in detail Risk and benefit explained in detail.
[2018-06-21] MEDS: Lactobacillus Acidophilus 500 MU Cap PO SCH (21:50)
[2018-06-22] MEDS: oxyCODONE 30 mg Immediate Release Tab PO PRN ×5 (01:52→22:05)
[2018-06-22] MEDS: Lactated Ringer's 1,000 ML IV SCH ×4 (01:54→18:58)
[2018-06-22 07:40] LABS: BASO # 0.1 K/uL (0.0-0.2); BASO % 0.6 % (0.0-2.0); EOS # 0.4 K/uL (0.0-0.7); EOS % 4.1 % (0.0-4.0); HEMOGLOBIN 11.6 g/dL (11.0-16.0); LYMPH # 0.5 K/uL (1.0-4.3); LYMPH % 5.7 % (20.0-40.0); MEAN CELL VOLUME 87.2 fL (81.0-99.0); MEAN CORPUSCULAR HEMOGLOBIN 27.8 pg (27.0-31.0); MEAN CORPUSCULAR HGB CONC 31.9 g/dL (33.0-37.0); MEAN PLATELET VOLUME 9.1 fL (7.2-11.7); MONO # 0.6 K/uL (0.0-0.8); MONO % 7.1 % (0.0-10.0); NEUT # 7.1 K/uL (1.8-7.0); NEUT % 82.5 % (50.0-75.0); PLATELET COUNT 151 K/uL (130-400); RBC 4.17 Mil/uL (3.80-5.20); RED CELL DISTRIBUTION WIDTH 18.5 % (11.5-14.5); WHITE BLOOD COUNT 8.7 K/uL (4.8-10.8)
[2018-06-22 07:51] LABS: ALB/GLOB RATIO 1.1 (1.0-2.1); ALBUMIN 2.8 g/dL (3.5-5.0); ALT/SGPT 7 U/L (9-52); AST/SGOT 37 U/L (14-36); BLOOD UREA NITROGEN 16 mg/dL (7-17); CALCIUM 9.4 mg/dl (8.6-10.4); GFR NON-AFRICAN AMERICAN > 60
--- NOTE | 2018-06-22 09:00 | CT ---
Date of service: 06/21/2018 PROCEDURE: CT HEAD WITHOUT CONTRAST. HISTORY: rule out bleed; s/p fall COMPARISON: 10/23/2015 TECHNIQUE: Axial computed tomography images were obtained through the head/brain without intravenous contrast. Radiation dose: Total exam DLP = 906.66 mGy-cm. This CT exam was performed using one or more of the following dose reduction techniques: Automated exposure control, adjustment of the mA and/or kV according to patient size, and/or use of iterative reconstruction technique. FINDINGS: HEMORRHAGE: No intracranial hemorrhage. BRAIN: No mass effect or edema. Scattered focal lucencies in the subcortical and periventricular white matter suggestive for chronic microvascular ischemic change. For example, focal low attenuation within the posterior right frontoparietal region on series 2, image 15 measures up to 7 millimeters. This may represent chronic microvascular ischemic change. An additional confluent area of low attenuation is seen within the posterior left parietal subcortical white matter. This also may represent chronic microvascular ischemic change. Correlation with MRI may be helpful for further characterization of this region and exclude additional possible etiologies.. VENTRICLES: Unremarkable. No hydrocephalus. CALVARIUM: Unremarkable. PARANASAL SINUSES: Mild to moderate mucosal thickening of the bilateral maxillary sinuses, sphenoid sinus, and ethmoid air cells. MASTOID AIR CELLS: Unremarkable as visualized. No inflammatory changes. OTHER FINDINGS: None. IMPRESSION: No acute intracranial abnormality. Chronic microvascular ischemic changes. Sinus mucosal disease. If symptoms persists, consider correlation with MRI for further evaluation and to exclude possible additional etiology. Clinical correlation. A preliminary report was generated at 6:21 p.m. on 06/21/[address] Markos Schneider from [facility].
[2018-06-22] MEDS: Lactobacillus Acidophilus 500 MU Cap PO SCH ×2 (09:08→18:57)
[2018-06-22] MEDS: Morphine 30 mg SR Tab PO SCH (09:09)
[2018-06-22 09:13] LABS: EOSINOPHIL 2 % (0-4); LYMPHOCYTE 6 % (20-40); TOTAL CELLS COUNTED 100
[2018-06-22 09:14] LABS: ANISOCYTOSIS SLIGHT; HYPOCHROMIC SLIGHT; MONOCYTE 7 % (0-10); NEUTROPHIL 85 % (50-75); PLATELET ESTIMATE NORMAL (NORMAL); POIKILOCYTOSIS SLIGHT
[2018-06-22] MEDS: NIFEdipine 60 mg ER Tab PO SCH (09:17)
--- NOTE | 2018-06-22 12:41 | CT ---
Date of service: 06/21/2018 CT chest, abdomen, and pelvis with IV contrast Indication: tachycardia, cervical cancer, possible abscess Technique: Contiguous axial images of the chest, abdomen, and pelvis. Coronal and Sagittal reformats generated and reviewed. This CT exam was performed using 1 or more of the following dose reduction techniques: Automated exposure control, adjustment of the MAA and/or kV according to patient size, and/or use of iterative reconstruction technique. Contrast: 100 mL Visipaque 320 IV Radiation dose: Total exam DLP = 860.59 MGy-cm. Comparison: CT abdomen pelvis without IV contrast performed 06/12/18 Findings: Overall evaluation limited by lack of oral contrast as well as paucity of intra-abdominal/intrapelvic fat. Visualized portions of the inferior thyroid gland appear unremarkable. The mediastinal and hilar vascular structures appear within normal limits. The heart appears within normal limits of size. Bulky heterogeneous adenopathy/masses within the left neck, infraclavicular region, left axilla, and mediastinum possibly partially necrotic. Moderate bilateral pleural effusions and associated consolidations. Emphysematous changes. No pneumothorax. Small hiatal hernia/distal esophageal wall thickening. Cholecystectomy. Intrahepatic biliary ductal dilatation. Dilated pancreatic duct. Left adrenal masses may reflect metastases. Right adrenal mass versus adenopathy. The spleen appears unremarkable. Bilateral ureteral stents with fullness of bilateral renal collecting systems. Right greater than left renal atrophy. Too small to characterize bilateral renal hypodensities. Bulky periaortic/retroperitoneal/mesenteric adenopathy. The stomach is nondistended. The bowel loops appear within normal limits of caliber without evidence of intestinal obstruction. There is no definite free air. Heterogeneous enlarged uterus containing numerous coarse calcifications presumably due to degenerating fibroids. The urinary bladder appears unremarkable. Mild ascites. Osteolytic changes L2-L3 vertebral bodies. Anasarca. Impression: Moderate bilateral pleural effusions/consolidations. Bulky heterogeneous adenopathy/masses within the left neck, infraclavicular region, left axilla, and mediastinum possibly partially necrotic. Bulky periaortic/retroperitoneal/mesenteric adenopathy. Cholecystectomy. Intrahepatic biliary ductal dilatation. Bilateral nephrostomy tubes with dilated renal collecting system. Bilateral too small to characterize renal hypodensities. Large calcified fibroid uterus. L2-L3 vertebral body osteolytic lesions. Ascites. Additional findings as above. Preliminary impression was provided by [facility].
--- NOTE | 2018-06-22 13:46 | CP.PCM.PN ---
<Jose Miguel Vargas - Last Filed: 06/22/18 13:59> Subjective - Date & Time of Evaluation Date of Evaluation: 06/22/18 Time of Evaluation: 13:42 - Subjective Subjective: HOSPITALIST SERVICE Pt s/e at bedside, reports pain in the abdomen and increased generalized discomfort. Reports bony aches. Pt is upset and very distressed. Pt understands she is to had I&D with [facility], agrees with plan. Denies CP SOB FC NV. Objective - Vital Signs/Intake and Output Vital Signs (last 24 hours): Temp Pulse Resp BP Pulse Ox 97.8 F 93 H 20 134/90 98 06/22/18 07:00 06/22/18 07:00 06/22/18 07:00 06/22/18 07:00 06/22/18 07:00 Intake and Output: 06/22/18 06/22/18 06:59 18:59 Intake Total 800 Balance 800 - Medications Medications: Current Medications Alprazolam (Xanax) 0.5 mg PO DAILY [facility] Last Admin: 06/22/18 09:08 Dose: 0.5 mg Docusate Sodium (Colace) 100 mg PO TID [facility] Last Admin: 06/22/18 13:07 Dose: 100 mg Gabapentin (Neurontin) 200 mg PO DAILY [facility] Last Admin: 06/22/18 09:08 Dose: 200 mg Heparin Sodium (Porcine) (Heparin) 5,000 units SC Q12 [facility] Last Admin: 06/22/18 09:11 Dose: Not Given Doxycycline Hyclate 100 mg/ (Sodium Chloride) 100 mls @ 100 mls/hr IVPB Q12H [facility]; Protocol Last Admin: 06/22/18 05:06 Dose: 100 mls/hr Lactated Ringer's (Lactated Ringer's) 1,000 mls @ 100 mls/hr IV .Q10H [facility] Last Admin: 06/22/18 10:25 Dose: Not Given Lactobacillus Acidophilus (Lactobacillus) 1 cap PO BID [facility] Last Admin: 06/22/18 09:08 Dose: 1 cap Morphine Sulfate (Morphine Extended Release Tab) 60 mg PO DAILY [facility] Last Admin: 06/22/18 09:09 Dose: 60 mg Nifedipine (Procardia Xl) 60 mg PO DAILY [facility] Last Admin: 06/22/18 09:17 Dose: 60 mg Oxycodone HCl (Oxycodone Immediate Release Tab) 30 mg PO Q4H PRN PRN Reason: breakthrough pain Last Admin: 06/22/18 10:25 Dose: 30 mg Sennosides (Senokot Tab) 8.6 mg PO DAILY [facility] Last Admin: 06/22/18 13:07 Dose: 8.6 mg - Labs Labs: 06/22/18 07:28 06/22/18 07:28 PT 12.0 SECONDS (9.7-12.2) 06/21/18 13:00 INR 1.1 06/21/18 13:00 APTT 29 SECONDS (21-34) 06/21/18 13:00 - Additional Findings Additional findings: - Constitutional Appears: Non-toxic, No Acute Distress - Head Exam Head Exam: NORMAL INSPECTION, NORMOCEPHALIC - Eye Exam Eye Exam: EOMI, Normal appearance - ENT Exam ENT Exam: Mucous Membranes Dry - Respiratory Exam Respiratory Exam: Clear to Auscultation Bilateral Upper helm, Decreased breath sounds isac lower helm, NORMAL BREATHING PATTERN. absent: Rales, Rhonchi, Wheezes - Cardiovascular Exam Cardiovascular Exam: REGULAR RHYTHM, +S1, +S2 - GI/Abdominal Exam GI & Abdominal Exam: Normal Bowel Sounds, Soft, Tenderness. absent: Distended, Guarding, Mass - Exam Additional comments: right inguinal boil measuring 8cm x 2 cm white flutuance and justin, erythematous multiple 1cm x 1 cm lymphadenopathy palpated in inguinal region bilaterally, tender - Extremities Exam Extremities exam: Positive for: pedal edema Additional comments: bilateral lower extremity +1 from ankle to knee b/l numerous 1cm x 1 cm and 0.5cm x 0.5cm boils, no signs of infectious pus or drainage - Back Exam Additional comments: left posterior boil measuring 1 cm x 1 cm behind L swathi - Neurological Exam Neurological exam: Alert, Oriented x3 - Psychiatric Exam Psychiatric exam: Normal Affect, Normal Mood - Skin Skin Exam: Dry, Intact, Normal Color Additional comments: well healed eschar in sacral region Assessment and Plan - Assessment and Plan (Free Text) Assessment: 57 yo female w/ PMH of cervical cancer, anxiety/depression, HTN, b/l LE neuropa thy, and chronic anemia admitted for evaluation of ulcerations on the skin and abdominal pain. CT head pending. Chest CTA abd/pelvis/chest pending Plan: Multiple Boils likely 2/2 to chemotherapy reducing immune suppression causing boils due to blo cked hair follicles in sites of increase sweat Surgery Consulted: Dr. Wright- recommendations appreciated IV doxycycline 100mg q12h CT pelvis w/ IV contrast: diffuse lymphadenopthy, L2-3 lytic lesions, bowel normal, isac mod pleural effusions Hx of abdominal pain colace 100mg po tid senna daily CTA abdomen/pelvis reviewed Hx of Cervical Cancer Outpatient chemotherapy with DR. Willie Cameron F/U outpatient for continued treatment Colace 100mg po tid Morphine 60mg ER daily Oxycodone 30mg q4h prn Fall CT head pending no need for xrays as patient is ambulatory with no signs of extensive bruising, skin discoloration Chronic Anemia 2/2 to chemotherapy and cancer history hemodynamically stable no need for transfusion Hx of anxiety/depression Xanax 0.5mg daily po Hx of hydronephrosis Ureteral stent replacement with Dr. Rodriguez q 3 months most recent on 04-27-18 monitor output and Cr for signs of uropathy Hx of HTN Procardia 60mg XL starting in AM Hx of B/L neuropathy Gabapentin 200mg po Chronic LE edema Venous dopplers pending PPx GI ppx: Lactobacillus 1 cap po bid DVT ppx: Heparin 5000 units sc q12h held pending [facility] ok to restart CK pgy1 <Jennifer Ty V - Last Filed: 06/23/18 23:58> Objective - Vital Signs/Intake and Output Vital Signs (last 24 hours): Temp Pulse Resp BP Pulse Ox 97.4 F L 100 H 16 111/81 99 06/23/18 16:00 06/23/18 16:00 06/23/18 16:00 06/23/18 16:00 06/23/18 16:00 Intake and Output: 06/23/18 06/24/18 18:59 06:59 Intake Total 800 Balance 800 - Medications Medications: Current Medications Alprazolam (Xanax) 0.5 mg PO HS [facility] Docusate Sodium (Colace) 100 mg PO TID [facility] Last Admin: 06/23/18 18:56 Dose: Not Given Enoxaparin Sodium (Lovenox) 40 mg SC DAILY [facility] Last Admin: 06/23/18 09:16 Dose: 40 mg Gabapentin (Neurontin) 200 mg PO DAILY [facility] Last Admin: 06/23/18 09:15 Dose: 200 mg Hydromorphone HCl (Dilaudid) 0.5 mg IVP Q15M PRN PRN Reason: Pain, severe (8-10) Last Admin: 06/23/18 02:21 Dose: 0.5 mg Doxycycline Hyclate 100 mg/ (Sodium Chloride) 100 mls @ 100 mls/hr IVPB Q12H [facility]; Protocol Last Admin: 06/23/18 18:16 Dose: 100 mls/hr Lactated Ringer's (Lactated Ringer's) 1,000 mls @ 100 mls/hr IV .Q10H [facility] Last Admin: 06/23/18 16:00 Dose: Not Given Lactobacillus Acidophilus (Lactobacillus) 1 cap PO BID [facility] Last Admin: 06/23/18 18:17 Dose: 1 cap Morphine Sulfate (Morphine Extended Release Tab) 60 mg PO DAILY [facility] Last Admin: 06/23/18 09:16 Dose: 60 mg Nifedipine (Procardia Xl) 60 mg PO DAILY [facility] Last Admin: 06/23/18 09:16 Dose: 60 mg Oxycodone HCl (Oxycodone Immediate Release Tab) 30 mg PO Q4H PRN PRN Reason: breakthrough pain Last Admin: 06/23/18 19:05 Dose: 30 mg Sennosides (Senokot Tab) 8.6 mg PO DAILY [facility] Last Admin: 06/23/18 09:16 Dose: 8.6 mg - Labs Labs: 06/23/18 06:19 06/23/18 06:19 PT 12.0 SECONDS (9.7-12.2) 06/21/18 13:00 INR 1.1 06/21/18 13:00 APTT 29 SECONDS (21-34) 06/21/18 13:00 Attending/Attestation - Attestation I have personally seen and examined this patient.: Yes I have fully participated in the care of the patient.: Yes I have reviewed all pertinent clinical information, including history, physical exam and plan: Yes Notes (Text): This is late computer entry for 06/22/18. Patient seen, examined and case discussed with day-time resident. Patient with known history of cervical cancer on palliative chemotherapy comes in following 3 week history of boils over the back side and outer thigh came in for acute pain and skin abnormality over the right aspect of her abdomen. Patient is on Doxycyline since 06/21/18. Patient's ct head is negative for acute abnormality. Patient's CT abdomen/pelvis noted for prominent lymphadenopathy consistent with her cervical cancer. patient is npo awaiting surgery to perform ID of possible infected lymph nodes at this time. Dopplers were performed given edema; but is negative for dvt.
[2018-06-22] MEDS ORDERED: ceFAZolin 1 gm in NS 1 GM/100 ML BAG IVPB ONE (16:47)
[2018-06-22] MEDS ORDERED: Lidocaine Hydrochloride 20 ML INJ ONE (16:48)
[2018-06-22] MEDS ORDERED: Bupivacaine 0.5%/Epi 1:200,000 (10 ML SOL) ONE (16:48)
[2018-06-22] MEDS ORDERED: Midazolam 2 MG/2 ML VIAL ONE (16:51)
[2018-06-22] MEDS ORDERED: Propofol 10 mg/ml Inj (20 ML) ONE (16:51)
--- NOTE | 2018-06-22 17:25 | PCM.SURG1 ---
Surgeon's Initial Post Op Note - Surgeon's Notes Surgeon: Dr. Wright Shim Plug Cutter: Dr. Tarah Gonzalez, PGY 1 Type of Anesthesia: General Endo Pre-Operative Diagnosis: subcutaneous nodules, possible abscess Operative Findings: see operative report Post-Operative Diagnosis: subcutaneous nodules, possibly malignant Operation Performed: excision of subcutaneous nodules Specimen/Specimens Removed: medial subcutaneous nodule, lateral subcutaneou nodule Estimated Blood Loss: EBL {In ML}: 15 Blood Products Given: N/A Drains Used: No Drains Post-Op Condition: Good Date of Surgery/Procedure: 06/22/18 Time of Surgery/Procedure: 16:45
[2018-06-22] MEDS: HYDROmorphone 0.5 mg/0.5 ml ISec IVP PRN ×2 (17:38→17:57)
--- NOTE | 2018-06-22 18:22 | CARD ---
APPROVED REPORT Date of service: 06/21/2018 EKG Measurement Heart [id number] <Conclusion> Normal sinus rhythm Normal ECG
[2018-06-23] MEDS: HYDROmorphone 0.5 mg/0.5 ml ISec IVP PRN (02:21)
--- NOTE | 2018-06-23 04:55 | OP ---
PROCEDURE DATE: 06/22/2018 PREOPERATIVE DIAGNOSIS: Right lower abdominal skin infection with possible necrotic lymph node. POSTOPERATIVE DIAGNOSIS: Subcutaneous multiple nodules, possible malignant. PROCEDURES: 1. Excision of the right lower quadrant subcutaneous nodule, medial. 2. Excision of the right lower quadrant subcutaneous nodule, lateral. SURGEON: Ivan Wright MD MILLER APPRENTICE: Tarah, PGY-1, Resident TYPE OF ANESTHESIA: General endotracheal tube. ESTIMATED BLOOD LOSS: Around 10 mL. DRAINS: None. PATHOLOGY: Medial and lateral subcutaneous nodule was sent to the pathology. COMPLICATIONS: None. INTRAOPERATIVE FINDINGS: The patient had approximately 3x2 cm lateral and medial right lower quadrant subcutaneous necrotizing skin nodule, and on intraoperative steps, this is a 57-year-old female who was diagnosed with a right lower quadrant skin nodules with possible infection with possible necrotizing lymph node and the patient was consented for the incision and drainage as well as biopsy. DESCRIPTION OF PROCEDURE: The patient was brought to the OR, placed on the operating table. After induction of the anesthesia, the right lower quadrant was prepped and draped in the usual sterile fashion. Local anesthesia was injected. An elliptical incision was made to enter the nodule and there was no infection identified. It was a necrotizing skin nodule. That was completely excised. There was other nodule on the left side that was also excised and it was sent over the table for the pathology. Proper hemostasis was done. Wounds were irrigated. The wound was packed with Surgicel. Dry sterile dressing was applied. The patient tolerated the procedure well. Count of the instrument and gauze was correct. There was no apparent complication. The patient was reversed from anesthesia in the OR and sent to the postanesthesia care unit in stable condition. Ivan Wright MD
[2018-06-23] MEDS: Lactated Ringer's 1,000 ML IV SCH ×2 (05:21→16:00)
[2018-06-23] MEDS: oxyCODONE 30 mg Immediate Release Tab PO PRN ×5 (05:23→23:55)
[2018-06-23 06:29] LABS: BASO # 0.1 K/uL (0.0-0.2); BASO % 0.7 % (0.0-2.0); EOS # 0.4 K/uL (0.0-0.7); EOS % 5.1 % (0.0-4.0); HEMOGLOBIN 10.4 g/dL (11.0-16.0); LYMPH # 0.4 K/uL (1.0-4.3); LYMPH % 5.1 % (20.0-40.0); MEAN CELL VOLUME 86.4 fL (81.0-99.0); MEAN CORPUSCULAR HEMOGLOBIN 27.1 pg (27.0-31.0); MEAN CORPUSCULAR HGB CONC 31.3 g/dL (33.0-37.0); MEAN PLATELET VOLUME 8.1 fL (7.2-11.7); MONO # 0.9 K/uL (0.0-0.8); MONO % 10.6 % (0.0-10.0); NEUT # 6.4 K/uL (1.8-7.0); NEUT % 78.5 % (50.0-75.0); PLATELET COUNT 163 K/uL (130-400); RBC 3.84 Mil/uL (3.80-5.20); RED CELL DISTRIBUTION WIDTH 18.9 % (11.5-14.5); WHITE BLOOD COUNT 8.2 K/uL (4.8-10.8)
[2018-06-23 07:26] LABS: ALBUMIN 2.4 g/dL (3.5-5.0); ALT/SGPT 8 U/L (9-52); AST/SGOT 34 U/L (14-36); BLOOD UREA NITROGEN 16 mg/dL (7-17); CALCIUM 9.2 mg/dl (8.6-10.4); GFR NON-AFRICAN AMERICAN 58
[2018-06-23 08:47] LABS: ANISOCYTOSIS SLIGHT; EOSINOPHIL 4 % (0-4); HYPOCHROMIC SLIGHT; LYMPHOCYTE 8 % (20-40); MONOCYTE 9 % (0-10); NEUTROPHIL 79 % (50-75); PLATELET ESTIMATE NORMAL (NORMAL); POIKILOCYTOSIS SLIGHT; TOTAL CELLS COUNTED 100
[2018-06-23] MEDS: Lactobacillus Acidophilus 500 MU Cap PO SCH ×2 (09:15→18:17)
[2018-06-23] MEDS: Morphine 30 mg SR Tab PO SCH (09:16)
[2018-06-23] MEDS: NIFEdipine 60 mg ER Tab PO SCH (09:16)
--- NOTE | 2018-06-23 09:18 | CP.PCM.PN ---
<Tarah Gonzalez - Last Filed: 06/24/18 07:21> Subjective - Date & Time of Evaluation Date of Evaluation: 06/23/18 Time of Evaluation: 07:10 - Subjective Subjective: General Surgery progress note for Dr. Wright Patient seen and examined this am at bedside. Patient states she noticed leaking from her dressing but denies pain. Dressing changed at bedside, new pressure dressing placed. Patient otherwise denies f/c, n/v Objective - Vital Signs/Intake and Output Vital Signs (last 24 hours): Temp Pulse Resp BP Pulse Ox 98.1 F 93 H 20 127/88 95 06/23/18 08:17 06/23/18 08:17 06/23/18 08:17 06/23/18 08:17 06/23/18 08:22 Intake and Output: 06/23/18 06/23/18 06:59 18:59 Intake Total 800 Balance 800 - Medications Medications: Current Medications Alprazolam (Xanax) 0.5 mg PO DAILY [facility] Last Admin: 06/22/18 09:08 Dose: 0.5 mg Docusate Sodium (Colace) 100 mg PO TID [facility] Last Admin: 06/22/18 18:57 Dose: 100 mg Enoxaparin Sodium (Lovenox) 40 mg SC DAILY [facility] Gabapentin (Neurontin) 200 mg PO DAILY [facility] Last Admin: 06/22/18 09:08 Dose: 200 mg Hydromorphone HCl (Dilaudid) 0.5 mg IVP Q15M PRN PRN Reason: Pain, severe (8-10) Last Admin: 06/23/18 02:21 Dose: 0.5 mg Doxycycline Hyclate 100 mg/ (Sodium Chloride) 100 mls @ 100 mls/hr IVPB Q12H [facility]; Protocol Last Admin: 06/23/18 05:19 Dose: 100 mls/hr Lactated Ringer's (Lactated Ringer's) 1,000 mls @ 100 mls/hr IV .Q10H [facility] Last Admin: 06/23/18 05:21 Dose: 100 mls/hr Lactobacillus Acidophilus (Lactobacillus) 1 cap PO BID [facility] Last Admin: 06/22/18 18:57 Dose: 1 cap Morphine Sulfate (Morphine Extended Release Tab) 60 mg PO DAILY [facility] Last Admin: 04/08/19 09:09 Dose: 60 mg Nifedipine (Procardia Xl) 60 mg PO DAILY [facility] Last Admin: 06/22/18 09:17 Dose: 60 mg Oxycodone HCl (Oxycodone Immediate Release Tab) 30 mg PO Q4H PRN PRN Reason: breakthrough pain Last Admin: 06/23/18 05:23 Dose: 30 mg Sennosides (Senokot Tab) 8.6 mg PO DAILY [facility] Last Admin: 06/22/18 13:07 Dose: 8.6 mg - Labs Labs: 06/23/18 06:19 06/23/18 06:19 PT 12.0 SECONDS (9.7-12.2) 06/21/18 13:00 INR 1.1 06/21/18 13:00 APTT 29 SECONDS (21-34) 06/21/18 13:00 - Constitutional Appears: Non-toxic, No Acute Distress, Older Than Stated Age, Cachectic, Chronically Ill - Head Exam Head Exam: ATRAUMATIC, NORMOCEPHALIC - Eye Exam Eye Exam: EOMI - ENT Exam ENT Exam: Mucous Membranes Moist - Respiratory Exam Respiratory Exam: NORMAL BREATHING PATTERN - Cardiovascular Exam Cardiovascular Exam: REGULAR RHYTHM - GI/Abdominal Exam GI & Abdominal Exam: Soft. absent: Tenderness Additional comments: incisions in RLQ with no surrounding erythema or purulent discharge surgicell removed with minimal oozing, pressure dressing placed - Extremities Exam Extremities Exam: Pedal Edema. absent: Calf Tenderness - Neurological Exam Neurological Exam: Alert, Awake, Oriented x3 - Psychiatric Exam Psychiatric exam: Agitated, Anxious, Depressed - Skin Skin Exam: Dry, Warm Additional comments: skin on hips bilaterally with deep indentations appears to be scar formation, overall patient is edematous Assessment and Plan - Assessment and Plan (Free Text) Assessment: 57 yr old female with Cervical cancer on Chemotherapy with RLQ subcutaneous nodules, s/p excision POD 1 Plan: - pain control - monitor dressing for strikethrough - will need continued monitoring to ensure hemostasis - f/u pathology - further recs per Dr. Adriana Gonzalez, PGY 1 <Ivan Wright - Last Filed: 06/24/18 17:44> Objective - Vital Signs/Intake and Output Vital Signs (last 24 hours): Temp Pulse Resp BP Pulse Ox 98.8 F 97 H 18 120/83 96 06/24/18 16:31 06/24/18 16:31 06/24/18 16:31 06/24/18 16:31 06/24/18 16:31 - Medications Medications: Current Medications Alprazolam (Xanax) 0.5 mg PO [facility] Docusate Sodium (Colace) 100 mg PO TID [facility] Last Admin: 06/24/18 14:50 Dose: 100 mg Enoxaparin Sodium (Lovenox) 40 mg SC DAILY [facility] Last Admin: 06/23/18 09:16 Dose: 40 mg Gabapentin (Neurontin) 200 mg PO DAILY [facility] Last Admin: 06/24/18 09:55 Dose: 200 mg Hydromorphone HCl (Dilaudid) 0.5 mg IVP Q15M PRN PRN Reason: Pain, severe (8-10) Last Admin: 06/23/18 02:21 Dose: 0.5 mg Doxycycline Hyclate 100 mg/ (Sodium Chloride) 100 mls @ 100 mls/hr IVPB Q12H [facility]; Protocol Last Admin: 06/24/18 06:35 Dose: 100 mls/hr Lactated Ringer's (Lactated Ringer's) 1,000 mls @ 100 mls/hr IV .Q10H [facility] Last Admin: 06/24/18 12:37 Dose: Not Given Lactobacillus Acidophilus (Lactobacillus) 1 cap PO BID [facility] Last Admin: 06/24/18 09:55 Dose: 1 cap Morphine Sulfate (Morphine Extended Release Tab) 60 mg PO DAILY [facility] Last Admin: 06/24/18 09:55 Dose: 60 mg Nifedipine (Procardia Xl) 60 mg PO DAILY [facility] Last Admin: 06/24/18 09:54 Dose: 60 mg Oxycodone HCl (Oxycodone Immediate Release Tab) 30 mg PO Q4H PRN PRN Reason: breakthrough pain Last Admin: 06/24/18 15:32 Dose: 30 mg Sennosides (Senokot Tab) 8.6 mg PO DAILY [facility] Last Admin: 06/24/18 09:55 Dose: 8.6 mg - Labs Labs: 06/23/18 06:19 06/23/18 06:19 PT 12.0 SECONDS (9.7-12.2) 06/21/18 13:00 INR 1.1 06/21/18 13:00 APTT 29 SECONDS (21-34) 06/21/18 13:00 Attending/Attestation - Attestation I have personally seen and examined this patient.: Yes I have fully participated in the care of the patient.: Yes I have reviewed all pertinent clinical information, including history, physical exam and plan: Yes Notes (Text): Pt was seen and examined at bedside Agree with above note and assessment Pt is improving clinically Still has bleeding from debrided necrotic wound Apply pressure and hemostatic agent Plan d.w pt in detail
[2018-06-23] MEDS ORDERED: Enoxaparin 40 mg Syringe SC SCH (10:00)
[2018-06-23] MEDS ORDERED: Mineral Oil Enema 135 ml PR ONE ×2 (10:26→11:45)
--- NOTE | 2018-06-23 10:27 | CP.PCM.DIS ---
Provider - Provider Date of Admission: 06/21/18 14:13 Attending physician: Joo Garcia DO Consults: 06/21/18 16:19 General Surgery Consult Routine Comment: Consulting Provider: Ivan Wright Consulting Physician: Ivan Wright Reason for Consult: right sided inguinal boil, I&D 06/21/18 17:22 Palliative Care Consult Routine Comment: Consulting Provider: Viktoria Omalley Physician Instructions: Reason For Exam: cervical cancer, Code status Hospital Course - Lab Results Lab Results: Micro Results 06/22/18 18:12 Groin Gram Stain - Final 06/22/18 18:12 Groin Wound Culture - Preliminary NO GROWTH AFTER 24 HOURS 06/21/18 14:18 Urine,Clean Catch Urine Culture - Final No Growth (<1,000 CFU/ML) 06/21/18 13:00 Blood Blood Culture - Preliminary NO GROWTH AFTER 24 HOURS 06/21/18 12:45 Blood Blood Culture - Preliminary NO GROWTH AFTER 24 HOURS Most Recent Lab Values WBC 8.2 K/uL (4.8-10.8) 06/23/18 06:19 RBC 3.84 Mil/uL (3.80-5.20) 06/23/18 06:19 Hgb 10.4 g/dL (11.0-16.0) L 06/23/18 06:19 Hct 33.2 % (34.0-47.0) L 06/23/18 06:19 MCV 86.4 fL (81.0-99.0) 06/23/18 06:19 MCH 27.1 pg (27.0-31.0) 06/23/18 06:19 MCHC 31.3 g/dL (33.0-37.0) L 06/23/18 06:19 RDW 18.9 % (11.5-14.5) H 06/23/18 06:19 Plt Count 163 K/uL (130-400) 06/23/18 06:19 MPV 8.1 fL (7.2-11.7) 06/23/18 06:19 Neut % (Auto) 78.5 % (50.0-75.0) H 06/23/18 06:19 Lymph % (Auto) 5.1 % (20.0-40.0) L 06/23/18 06:19 [place] % (Auto) 10.6 % (0.0-10.0) H 06/23/18 06:19 Eos % (Auto) 5.1 % (0.0-4.0) H 06/23/18 06:19 Baso % (Auto) 0.7 % (0.0-2.0) 06/23/18 06:19 Neut # (Auto) 6.4 K/uL (1.8-7.0) 06/23/18 06:19 Lymph # (Auto) 0.4 K/uL (1.0-4.3) L 06/23/18 06:19 [place] # (Auto) 0.9 K/uL (0.0-0.8) H 06/23/18 06:19 Eos # (Auto) 0.4 K/uL (0.0-0.7) 06/23/18 06:19 Baso # (Auto) 0.1 K/uL (0.0-0.2) 06/23/18 06:19 Neutrophils % (Manual) 79 % (50-75) H 06/23/18 06:19 Lymphocytes % (Manual) 8 % (20-40) L 06/23/18 06:19 Monocytes % (Manual) 9 % (0-10) 06/23/18 06:19 Eosinophils % (Manual) 4 % (0-4) 06/23/18 06:19 Toxic Granulation Present 06/21/18 13:00 Platelet Estimate Normal (NORMAL) 06/23/18 06:19 Polychromasia Slight 06/21/18 13:00 Hypochromasia (manual) Slight 06/23/18 06:19 Poikilocytosis (manual Slight 06/23/18 06:19 Anisocytosis (manual) Slight 06/23/18 06:19 PT 12.0 SECONDS (9.7-12.2) 06/21/18 13:00 INR 1.1 06/21/18 13:00 APTT 29 SECONDS (21-34) 06/21/18 13:00 pO2 33 mm/Hg (30-55) 06/21/18 15:55 VBG pH 7.49 (7.32-7.43) H 06/21/18 15:55 VBG pCO2 38 mmHg (40-60) L 06/21/18 15:55 VBG HCO3 28.4 mmol/L 06/21/18 15:55 VBG Total CO2 30.2 mmol/L (22-28) H 06/21/18 15:55 VBG O2 Sat (Calc) 71.9 % (40-65) H 06/21/18 15:55 VBG Base Excess 5.4 mmol/L (0.0-2.0) H 06/21/18 15:55 VBG Potassium 4.0 mmol/L (3.6-5.2) 06/21/18 15:55 Sodium 134.0 mmol/l (132-148) 06/21/18 15:55 Chloride 102.0 mmol/L (98-107) 06/21/18 15:55 Glucose 80 mg/dl (65-105) 06/21/18 15:55 Lactate 1.6 mmol/L (0.7-2.1) 06/21/18 15:55 FiO2 21.0 % 06/21/18 13:02 Sodium 133 mmol/L (132-148) 06/23/18 06:19 Potassium 4.6 mmol/L (3.6-5.2) 06/23/18 06:19 Chloride 101 mmol/L (98-107) 06/23/18 06:19 Carbon Dioxide 26 mmol/L (22-30) 06/23/18 06:19 Anion Gap 10 (10-20) 06/23/18 06:19 BUN 16 mg/dL (7-17) 06/23/18 06:19 Creatinine 1.0 mg/dL (0.7-1.2) 06/23/18 06:19 Est GFR ( Amer) > 60 06/23/18 06:19 Est GFR (Non-Af Amer) 58 06/23/18 06:19 Random Glucose 112 mg/dL (65-105) H D 06/23/18 06:19 Calcium 9.2 mg/dl (8.6-10.4) 06/23/18 06:19 Phosphorus 3.4 mg/dL (2.5-4.5) 06/23/18 06:19 Magnesium 1.7 mg/dL (1.6-2.3) 06/23/18 06:19 Total Bilirubin 0.1 mg/dL (0.2-1.3) L 06/23/18 06:19 AST 34 U/L (14-36) 06/23/18 06:19 ALT 8 U/L (9-52) L 06/23/18 06:19 Alkaline Phosphatase 56 U/L (38-126) 06/23/18 06:19 Total Protein 4.9 g/dL (6.3-8.3) L 06/23/18 06:19 Albumin 2.4 g/dL (3.5-5.0) L 06/23/18 06:19 Globulin 2.5 gm/dL (2.2-3.9) 06/23/18 06: Albumin/Globulin Ratio 1.0 (1.0-2.1) 06/23/18 06:19 Venous Blood Potassium 4.0 mmol/L (3.6-5.2) 06/21/18 15:55 Urine Color Yellow (YELLOW) 06/21/18 14:18 Urine Clarity Clear (Clear) 06/21/18 14:18 Urine pH 7.0 (5.0-8.0) 06/21/18 14:18 Ur Specific [place] 1.010 (1.003-1.030) 06/21/18 14:18 Urine Protein Negative mg/dL (NEGATIVE) 06/21/18 14:18 Urine Glucose (UA) Normal mg/dL (Normal) 06/21/18 14:18 Urine Ketones Negative mg/dL (NEGATIVE) 06/21/18 14:18 Urine Blood 1+ (NEGATIVE) H 06/21/18 14:18 Urine Nitrate Negative (NEGATIVE) 06/21/18 14:18 Urine Bilirubin Negative (NEGATIVE) 06/21/18 14:18 Urine Urobilinogen Normal mg/dL (0.2-1.0) 06/21/18 14:18 Ur Leukocyte Esterase 2+ [place]/uL (Negative) H 06/21/18 14:18 Urine WBC (Auto) 30 /hpf (0-5) H 06/21/18 14:18 Urine RBC (Auto) 21 /hpf (0-3) H 06/21/18 14:18 Ur Squamous Epith Cells 1 /hpf (0-5) 06/21/18 14:18 Urine Bacteria Rare (<OCC) 06/21/18 14:18 Blood Type A NEGATIVE 06/22/18 07:28 Antibody Screen Negative 06/22/18 07:28 Discharge Exam - Head Exam Head Exam: ATRAUMATIC, NORMOCEPHALIC Discharge Plan - Discharge Medications Prescriptions: Doxycycline Hyclate 100 mg PO BID #14 capsule Furosemide [Lasix] 20 mg PO DAILY PRN #30 tab PRN Reason: Other NIFEdipine ER [Procardia XL] 60 mg PO DAILY #30 ter Tiotropium [place] Inhaler [Spiriva Inhalation Handihaler Device] 2 puff INH Q24H PRN #1 inhaler PRN Reason: Shortness Of Breath - Follow Up Plan Condition: GUARDED Disposition: HOME/ ROUTINE Instructions: Fluid in the Belly (Ascites) (DC), Doxycycline Additional Instructions: Patient is to be discharged home with the following medications Doxycycline Hyclate 100 mg PO BID #14 capsule Furosemide [Lasix] 20 mg PO DAILY PRN #30 tab PRN Reason: SBP >120 NIFEdipine ER [Procardia XL] 60 mg PO DAILY #30 ter Tiotropium [place] Inhaler [Spiriva Inhalation Handihaler Device] 2 puff INH Q24H PRN #1 inhaler PRN Reason: Shortness Of Breath Please continue your home medications as prescribed by your PMD and Heme/Onco doctor Please follow up with Dr Cameron your Oncologist within 7 days of discharge Please follow up with Dr Hernández your General Surgeon within 7 days of discharge Please seek medical attention immediately if you have a return of symptoms Take Care and Be Well, Ash Vargas DO Referrals: Willie Cameron MD [Staff Provider] - Ivan Wright MD [Staff Provider] -
--- NOTE | 2018-06-23 12:15 | VASCLAB ---
Date of service: 06/22/2018 PROCEDURE: Lower Extremity Venous Duplex Exam. HISTORY: dvt PRIORS: None. TECHNIQUE: Bilateral common femoral, femoral, popliteal and posterior tibial, peroneal and great saphenous veins were evaluated. Flow was assessed with color Doppler, compressibility, assessment of phasic flow and augmentation response. Report prepared by YEE Corey FINDINGS: RIGHT: 1. Common Femoral Vein: 1.1. Compressibility - Fully compressible: Thrombus - None : Flow - Phasic: Augmentation -Normal: Reflux - None. 2. Femoral Vein: 2.1. Compressibility - Fully compressible: Thrombus - None : Flow - Phasic: Augmentation -Normal: Reflux - None. 3. Popliteal Vein: 3.1. Compressibility - Fully compressible: Thrombus - None : Flow - Phasic: Augmentation -Normal: Reflux - None. 4. Posterior Tibial Vein: 4.1. Compressibility - Fully compressible: Thrombus - None: Flow - Phasic: Augmentation -Normal: Reflux - None. 5. Peroneal Vein: 5.1. Compressibility - Fully compressible: Thrombus - None: Flow - Phasic: Augmentation -Normal: Reflux - None. 6. Great Saphenous Vein: 6.1. Compressibility - Fully compressible: Thrombus - None: Flow - Phasic: Augmentation - Normal: Reflux - None. LEFT: 1. Common Femoral Vein: 1.1. Compressibility - Fully compressible: Thrombus - None: Flow - Phasic: Augmentation -Normal: Reflux - None. 2. Femoral Vein: 2.1. Compressibility - Fully compressible: Thrombus - None: Flow - Phasic: Augmentation -Normal: Reflux - None. 3. Popliteal Vein: 3.1. Compressibility - Fully compressible: Thrombus - None : Flow - Phasic: Augmentation -Normal: Reflux - None. 4. Posterior Tibial Vein: 4.1. Compressibility - Fully compressible: Thrombus - None: Flow - Phasic: Augmentation -Normal: Reflux - None. 5. Peroneal Vein: 5.1. Compressibility - Fully compressible: Thrombus - None: Flow - Phasic: Augmentation -Normal: Reflux - None. 6. Great Saphenous Vein: 6.1. Compressibility - Fully compressible: Thrombus - None: Flow - Phasic: Augmentation - Normal: Reflux - None. OTHER FINDINGS: Left: Multiple and enlarged, non vascularized masses noted in the left groin, possible lymph nodes. IMPRESSION: Right: No evidence of deep or superficial vein thrombosis of the right lower extremity. Normal valve function noted of the right side. Left: No evidence of deep or superficial vein thrombosis of the left lower extremity. Normal valve function noted of the left side.
[2018-06-23] MEDS ORDERED: Magnesium Citrate Oral SOL (300 ml) PO ONE (14:28)
--- NOTE | 2018-06-23 15:14 | CP.PCM.CON ---
History of Present Illness - History of Present Illness History of Present Illness: 55 year old female with a history of CKD, anxiety, and stage IV cervical cancer (squamous cell histology) diagnosed 03/2015, on salvage chemotherapy, last given 2 weeks, admitted with possible pelvic infection. The patient reports to e nlarging lymph nodes. She is s/p lymph node biopsy. Imaging is consistent with progressive disease. Past medical history: CKD, anxiety, stage IV cervical cancer. Past surgical history: Portacath Family history: Denies hematologic and oncologic problems Social history: Denies tobacco, alcohol, and illicit drug use. Allergies: NKA Review of systems: All remaining review of systems including HEENT, cardiovascular, respiratory, gastrointestinal, genitourinary, musculoskeletal, dermatologic, neurologic and psychiatric are negative unless mentioned in the HPI. Past Patient History - Infectious Disease Hx of Infectious Diseases: None - Past Medical History & Family History Past Medical History?: Yes - Past Social History Smoking Status: Light Smoker < 10 Cigarettes Daily - CARDIAC Hx Hypertension: Yes Hx Peripheral Edema: Yes (NO LONGER) - PULMONARY Hx Asthma: Yes Hx Chronic Obstructive Pulmonary Disease (COPD): Yes Hx Pneumonia: Yes (CHILDHOOD) - NEUROLOGICAL Hx Neurological Disorder: No - HEENT Hx HEENT Problems: Yes - RENAL Hx Chronic Kidney Disease: Yes - ENDOCRINE/METABOLIC Hx Endocrine Disorders: No - HEMATOLOGICAL/ONCOLOGICAL Hx Anemia: Yes - INTEGUMENTARY Hx Dermatological Problems: No - MUSCULOSKELETAL/RHEUMATOLOGICAL Hx Musculoskeletal Disorders: No Hx Falls: No - GASTROINTESTINAL Hx Gall Bladder Disease: Yes - GENITOURINARY/GYNECOLOGICAL Hx Genitourinary Disorders: Yes (SEE COMMENT) Hx Cervical Cancer: Yes (Metastatic stage 4 (2016)) Hx Postmenopausal Bleeding: Yes Other/Comment: STAGE IV WITH COMPLETED RADIATION AND CURRENTLY ON CHEMOTHERAPY EVERY 3-WEEKS (2018). RENAL STENTS - PSYCHIATRIC Hx Anxiety: Yes Hx Substance Use: No - SURGICAL HISTORY Hx Cholecystectomy: Yes - ANESTHESIA Hx Anesthesia: Yes Hx Anesthesia Reactions: No Hx Malignant Hyperthermia: No Meds Home Medications: Home Medication List Medication Instructions Recorded Confirmed Type Doxycycline Hyclate 100 mg PO BID #14 capsule 06/23/18 Rx Furosemide [Lasix] 20 mg PO DAILY PRN #30 tab 06/23/18 Rx NIFEdipine ER [Procardia XL] 60 mg PO DAILY #30 ter 06/23/18 Rx Tiotropium [place] Inhaler 2 puff INH Q24H PRN #1 inhaler 06/23/18 Rx [Spiriva Inhalation Handihaler Device] Allergies/Adverse Reactions: Allergies Allergy/AdvReac Type Severity Reaction Status Date / Time No Known Allergies Allergy Verified 06/21/18 12:19 - Medications Medications: Current Medications Alprazolam (Xanax) 0.5 mg PO DAILY [facility] Last Admin: 06/23/18 09:16 Dose: 0.5 mg Docusate Sodium (Colace) 100 mg PO TID [facility] Last Admin: 06/23/18 13:30 Dose: 100 mg Enoxaparin Sodium (Lovenox) 40 mg SC DAILY [facility] Last Admin: 06/23/18 09:16 Dose: 40 mg Gabapentin (Neurontin) 200 mg PO DAILY [facility] Last Admin: 06/23/18 09:15 Dose: 200 mg Hydromorphone HCl (Dilaudid) 0.5 mg IVP Q15M PRN PRN Reason: Pain, severe (8-10) Last Admin: 06/23/18 02:21 Dose: 0.5 mg Doxycycline Hyclate 100 mg/ (Sodium Chloride) 100 mls @ 100 mls/hr IVPB Q12H [facility]; Protocol Last Admin: 06/23/18 05:19 Dose: 100 mls/hr Lactated Ringer's (Lactated Ringer's) 1,000 mls @ 100 mls/hr IV .Q10H [facility] Last Admin: 06/23/18 05:21 Dose: 100 mls/hr Lactobacillus Acidophilus (Lactobacillus) 1 cap PO BID [facility] Last Admin: 06/23/18 09:15 Dose: 1 cap Morphine Sulfate (Morphine Extended Release Tab) 60 mg PO DAILY [facility] Last Admin: 06/23/18 09:16 Dose: 60 mg Nifedipine (Procardia Xl) 60 mg PO DAILY [facility] Last Admin: 06/23/18 09:16 Dose: 60 mg Oxycodone HCl (Oxycodone Immediate Release Tab) 30 mg PO Q4H PRN PRN Reason: breakthrough pain Last Admin: 06/23/18 14:50 Dose: 30 mg Sennosides (Senokot Tab) 8.6 mg PO DAILY [facility] Last Admin: 06/23/18 09:16 Dose: 8.6 mg Physical Exam - Head Exam Head Exam: ATRAUMATIC - Eye Exam Eye Exam: Normal appearance - ENT Exam ENT Exam: Mucous Membranes Dry - Respiratory Exam Respiratory Exam: Decreased Breath Sounds - Cardiovascular Exam Cardiovascular Exam: +S1, +S2 - GI/Abdominal Exam GI & Abdominal Exam: Normal Bowel Sounds - Extremities Exam Extremities exam: Positive for: pedal edema - Neurological Exam Neurological exam: Oriented x3 - Psychiatric Exam Psychiatric exam: Normal Affect, Normal Mood - Skin Skin Exam: Warm Results - Vital Signs Recent Vital Signs: Last Vital Signs Temp 98.1 F 06/23/18 08:17 Pulse 93 H 06/23/18 08:17 Resp 20 06/23/18 08:17 BP 127/88 06/23/18 08:17 Pulse Ox 95 06/23/18 08:22 - Labs Result Diagrams: 06/23/18 06:19 06/23/18 06:19 Labs: Laboratory Results - last 24 hr 06/23/18 06/23/18 06:19 06:19 WBC 8.2 RBC 3.84 Hgb 10.4 L Hct 33.2 L MCV 86.4 MCH 27.1 MCHC 31.3 L RDW 18.9 H Plt Count 163 MPV 8.1 Neut % (Auto) 78.5 H Lymph % (Auto) 5.1 L [place] % (Auto) 10.6 H Eos % (Auto) 5.1 H Baso % (Auto) 0.7 Neut # (Auto) 6.4 Lymph # (Auto) 0.4 L [place] # (Auto) 0.9 H Eos # (Auto) 0.4 Baso # (Auto) 0.1 Neutrophils % (Manual) 79 H Lymphocytes % (Manual) 8 L Monocytes % (Manual) 9 Eosinophils % (Manual) 4 Platelet Estimate Normal Hypochromasia (manual) Slight Poikilocytosis (manual Slight Anisocytosis (manual) Slight Sodium 133 Potassium 4.6 Chloride 101 Carbon Dioxide 26 Anion Gap 10 BUN 16 Creatinine 1.0 Est GFR ( Amer) > 60 Est GFR (Non-Af Amer) 58 Random Glucose 112 H D Calcium 9.2 Phosphorus 3.4 Magnesium 1.7 Total Bilirubin 0.1 L AST 34 ALT 8 L Alkaline Phosphatase 56 Total Protein 4.9 L Albumin 2.4 L Globulin 2.5 Albumin/Globulin Ratio 1.0 Assessment & Plan (1) Anemia Assessment and Plan: anemia of chronic disease anemia of chemotherapy outpatient f/u Status: Acute (2) Cervical cancer Assessment and Plan: stage IV will need change of chemotherapy will make arrangements for next outpatient treatment Thank you for this interesting consult. Status: Chronic
--- NOTE | 2018-06-23 16:41 | CP.PCM.PN ---
<Jose Miguel Vargas - Last Filed: 06/23/18 17:40> Subjective - Date & Time of Evaluation Date of Evaluation: 06/23/18 Time of Evaluation: 16:40 - Subjective Subjective: HOSPITALIST SERVICE Pt s/e at bedside, reports persistent bleeding at site of debridement. Pt also reports constipation, no BM yet. denies CP SOB FC [place] at this time. Objective - Vital Signs/Intake and Output Vital Signs (last 24 hours): Temp Pulse Resp BP Pulse Ox 98.1 F 93 H 20 127/88 95 06/23/18 08:17 06/23/18 08:17 06/23/18 08:17 06/23/18 08:17 06/23/18 08:22 Intake and Output: 06/23/18 06/23/18 06:59 18:59 Intake Total 800 Balance 800 - Medications Medications: Current Medications Alprazolam (Xanax) 0.5 mg PO DAILY [facility] Last Admin: 06/23/18 09:16 Dose: 0.5 mg Docusate Sodium (Colace) 100 mg PO TID [facility] Last Admin: 06/23/18 13:30 Dose: 100 mg Enoxaparin Sodium (Lovenox) 40 mg SC DAILY [facility] Last Admin: 06/23/18 09:16 Dose: 40 mg Gabapentin (Neurontin) 200 mg PO DAILY [facility] Last Admin: 06/23/18 09:15 Dose: 200 mg Hydromorphone HCl (Dilaudid) 0.5 mg IVP Q15M PRN PRN Reason: Pain, severe (8-10) Last Admin: 06/23/18 02:21 Dose: 0.5 mg Doxycycline Hyclate 100 mg/ (Sodium Chloride) 100 mls @ 100 mls/hr IVPB Q12H [facility]; Protocol Last Admin: 06/23/18 05:19 Dose: 100 mls/hr Lactated Ringer's (Lactated Ringer's) 1,000 mls @ 100 mls/hr IV .Q10H [facility] Last Admin: 06/23/18 05:21 Dose: 100 mls/hr Lactobacillus Acidophilus (Lactobacillus) 1 cap PO BID [facility] Last Admin: 06/23/18 09:15 Dose: 1 cap Morphine Sulfate (Morphine Extended Release Tab) 60 mg PO DAILY [facility] Last Admin: 06/23/18 09:16 Dose: 60 mg Nifedipine (Procardia Xl) 60 mg PO DAILY [facility] Last Admin: 06/23/18 09:16 Dose: 60 mg Oxycodone HCl (Oxycodone Immediate Release Tab) 30 mg PO Q4H PRN PRN Reason: breakthrough pain Last Admin: 06/23/18 14:50 Dose: 30 mg Sennosides (Senokot Tab) 8.6 mg PO DAILY [facility] Last Admin: 06/23/18 09:16 Dose: 8.6 mg - Labs Labs: 06/23/18 06:19 06/23/18 06:19 PT 12.0 SECONDS (9.7-12.2) 06/21/18 13:00 INR 1.1 06/21/18 13:00 APTT 29 SECONDS (21-34) 06/21/18 13:00 - Additional Findings Additional findings: - Constitutional Appears: Non-toxic, No Acute Distress - Head Exam Head Exam: NORMAL INSPECTION, NORMOCEPHALIC - Eye Exam Eye Exam: EOMI, Normal appearance - ENT Exam ENT Exam: Mucous Membranes Dry - Respiratory Exam Respiratory Exam: Clear to Auscultation Bilateral Upper helm, Decreased breath sounds isac lower helm, NORMAL BREATHING PATTERN. absent: Rales, Rhonchi, Wheezes - Cardiovascular Exam Cardiovascular Exam: REGULAR RHYTHM, +S1, +S2 - GI/Abdominal Exam GI & Abdominal Exam: Normal Bowel Sounds, Soft, Tenderness. absent: Distended, Guarding, Mass - Exam Additional comments: right inguinal debrided wound, sangeounous, soaking jb, no leakage multiple 1cm x 1 cm lymphadenopathy palpated in inguinal region bilaterally, tender - Extremities Exam Extremities exam: Positive for: pedal edema Additional comments: bilateral lower extremity +1 from ankle to knee b/l numerous 1cm x 1 cm and 0.5cm x 0.5cm boils, no signs of infectious pus or drainage - Back Exam Additional comments: left posterior boil measuring 1 cm x 1 cm behind L swathi - Neurological Exam Neurological exam: Alert, Oriented x3 - Psychiatric Exam Psychiatric exam: Normal Affect, Normal Mood - Skin Skin Exam: Dry, Intact, Normal Color Additional comments: well healed eschar in sacral region Assessment and Plan - Assessment and Plan (Free Text) Assessment: 57 yo female w/ PMH of cervical cancer, anxiety/depression, HTN, b/l LE neuropathy, and chronic anemia admitted for evaluation of ulcerations on the skin and abdominal pain. CT head pending. Chest CTA abd/pelvis/chest pending Plan: Multiple Boils likely 2/2 to chemotherapy reducing immune suppression causing boils due to blocked hair follicles in sites of increase sweat Surgery Consulted: Dr. Wright- recommendations appreciated IV doxycycline 100mg q12h CT pelvis w/ IV contrast: diffuse lymphadenopthy, L2-3 lytic lesions, bowel normal, isac mod pleural effusions Hx of abdominal pain w/ constipation colace 100mg po tid senna daily Lactulose 20 stat Mineral enema x1 MgCitrate x1 CTA abdomen/pelvis reviewed LRs @100 Hx of Cervical Cancer Outpatient chemotherapy with DR. Willie Cameron F/U outpatient for continued treatment Colace 100mg po tid Morphine 60mg ER daily Oxycodone 30mg q4h prn Dilaudid 0.[address] head pending no need for xrays as patient is ambulatory with no signs of extensive bruising, skin discoloration Chronic Anemia 2/2 to chemotherapy and cancer history hemodynamically stable no need for transfusion Hx of anxiety/depression Xanax 0.5mg daily po Hx of hydronephrosis Ureteral stent replacement with Dr. Rodriguez q 3 months most recent on 04-27-18 monitor output and Cr for signs of uropathy LRs @ 100 Hx of HTN Procardia 60mg XL starting in AM Hx of B/L neuropathy Gabapentin 200mg po Chronic LE edema Venous dopplers NEG for DVTs PPx GI ppx: Lactobacillus 1 cap po bid DVT ppx: Lovenox 40 sc daily Dispo: d/c pending inguinal wound healing, GenSx will monitor bleeding- considering cauterization if unresolved CK pgy1 <Jennifer Ty V - Last Filed: 06/24/18 00:06> Objective - Vital Signs/Intake and Output Vital Signs (last 24 hours): Temp Pulse Resp BP Pulse Ox 97.4 F L 100 H 16 111/81 99 06/23/18 16:00 06/23/18 16:00 06/23/18 16:00 06/23/18 16:00 06/23/18 16:00 Intake and Output: 06/23/18 06/24/18 18:59 06:59 Intake Total 800 Balance 800 - Medications Medications: Current Medications Alprazolam (Xanax) 0.5 mg PO HS NIR Docusate Sodium (Colace) 100 mg PO TID [facility] Last Admin: 06/23/18 18:56 Dose: Not Given Enoxaparin Sodium (Lovenox) 40 mg SC DAILY [facility] Last Admin: 06/23/18 09:16 Dose: 40 mg Gabapentin (Neurontin) 200 mg PO DAILY [facility] Last Admin: 06/23/18 09:15 Dose: 200 mg Hydromorphone HCl (Dilaudid) 0.5 mg IVP Q15M PRN PRN Reason: Pain, severe (8-10) Last Admin: 06/23/18 02:21 Dose: 0.5 mg Doxycycline Hyclate 100 mg/ (Sodium Chloride) 100 mls @ 100 mls/hr IVPB Q12H [facility]; Protocol Last Admin: 06/23/18 18:16 Dose: 100 mls/hr Lactated Ringer's (Lactated Ringer's) 1,000 mls @ 100 mls/hr IV .Q10H [facility] Last Admin: 06/23/18 16:00 Dose: Not Given Lactobacillus Acidophilus (Lactobacillus) 1 cap PO BID [facility] Last Admin: 06/23/18 18:17 Dose: 1 cap Morphine Sulfate (Morphine Extended Release Tab) 60 mg PO DAILY [facility] Last Admin: 06/23/18 09:16 Dose: 60 mg Nifedipine (Procardia Xl) 60 mg PO DAILY [facility] Last Admin: 06/23/18 09:16 Dose: 60 mg Oxycodone HCl (Oxycodone Immediate Release Tab) 30 mg PO Q4H PRN PRN Reason: breakthrough pain Last Admin: 06/23/18 23:55 Dose: 30 mg Sennosides (Senokot Tab) 8.6 mg PO DAILY [facility] Last Admin: 06/23/18 09:16 Dose: 8.6 mg - Labs Labs: 06/23/18 06:19 06/23/18 06:19 PT 12.0 SECONDS (9.7-12.2) 06/21/18 13:00 INR 1.1 06/21/18 13:00 APTT 29 SECONDS (21-34) 06/21/18 13:00 Attending/Attestation - Attestation I have personally seen and examined this patient.: Yes I have fully participated in the care of the patient.: Yes I have reviewed all pertinent clinical information, including history, physical exam and plan: Yes Notes (Text): Patient seen, examined and case discussed with medical billing instructor. Patient is status post ID with surgery yesterday; noted bleeding through the dressing this morning; changed by surgery resident. concern for bleeding; surgery wants to monitor overnight to make sure bleeding has resolved. Patient is on IV abx since 06/21/18. Blood cultures are negative. Wound care negative prelim read. patient noted to be constipated; patient given mineral oil enema, lactulose, and drinking magnesium citrate; likely secondary to opioid use used to treat pain secondary metastatic cervical cancer. Discussed with heme-onc, will likely have to change chemo regiment as outpatient given skin abnormality. Discussed with surgery during rounds this afternoon to hold discharge given post-op bleeding. have held anticoagulation to reduce risk of bleeding. Plan for possible discharge tomorrow if bleeding has subsided and cleared by surgery.
[2018-06-24] MEDS: Lactated Ringer's 1,000 ML IV SCH ×2 (01:37→12:37)
[2018-06-24] MEDS: oxyCODONE 30 mg Immediate Release Tab PO PRN ×3 (04:12→15:32)
[2018-06-24] MEDS: NIFEdipine 60 mg ER Tab PO SCH (09:54)
[2018-06-24] MEDS: Lactobacillus Acidophilus 500 MU Cap PO SCH ×2 (09:55→18:20)
[2018-06-24] MEDS: Morphine 30 mg SR Tab PO SCH (09:55)
[2018-06-24 10:52] VITALS: O2SAT 96
[2018-06-24 17:28] LABS: BASO # 0.1 K/uL (0.0-0.2); BASO % 0.8 % (0.0-2.0); EOS # 0.6 K/uL (0.0-0.7); EOS % 6.9 % (0.0-4.0); HEMOGLOBIN 10.7 g/dL (11.0-16.0); LYMPH # 0.5 K/uL (1.0-4.3); LYMPH % 5.6 % (20.0-40.0); MEAN CELL VOLUME 87.2 fL (81.0-99.0); MEAN PLATELET VOLUME 8.2 fL (7.2-11.7); MONO # 0.7 K/uL (0.0-0.8); MONO % 7.7 % (0.0-10.0); NEUT # 7.2 K/uL (1.8-7.0); PLATELET COUNT 154 K/uL (130-400); RBC 3.97 Mil/uL (3.80-5.20); RED CELL DISTRIBUTION WIDTH 18.7 % (11.5-14.5); WHITE BLOOD COUNT 9.1 K/uL (4.8-10.8)
[2018-06-24 17:36] VITALS: BP 120/83; PULSE 97; RESP 18; TEMP 98.8
[2018-06-24] MEDS ORDERED: HYDROmorphone 0.5 mg/0.5 ml ISec IVP STA (17:36)
--- NOTE | 2018-06-24 17:39 | CP.PCM.PN ---
<Jose Miguel Vargas - Last Filed: 06/24/18 17:39> Subjective - Date & Time of Evaluation Date of Evaluation: 06/24/18 Time of Evaluation: 17:35 - Subjective Subjective: HOSPITALIST SERVICE Pt s/e at bedside, pt still complains of minor bleeding from sx site. denies CP SOB FC [place] Objective - Vital Signs/Intake and Output Vital Signs (last 24 hours): Temp Pulse Resp BP Pulse Ox 97.9 F 93 H 20 107/75 96 06/24/18 07:00 06/24/18 07:00 06/24/18 07:00 06/24/18 07:00 06/24/18 07:00 - Medications Medications: Current Medications Alprazolam (Xanax) 0.5 mg PO [facility] Docusate Sodium (Colace) 100 mg PO TID [facility] Last Admin: 06/24/18 14:50 Dose: 100 mg Enoxaparin Sodium (Lovenox) 40 mg SC DAILY [facility] Last Admin: 06/23/18 09:16 Dose: 40 mg Gabapentin (Neurontin) 200 mg PO DAILY [facility] Last Admin: 06/24/18 09:55 Dose: 200 mg Hydromorphone HCl (Dilaudid) 0.5 mg IVP Q15M PRN PRN Reason: Pain, severe (8-10) Last Admin: 06/23/18 02:21 Dose: 0.5 mg Doxycycline Hyclate 100 mg/ (Sodium Chloride) 100 mls @ 100 mls/hr IVPB Q12H [facility]; Protocol Last Admin: 06/24/18 06:35 Dose: 100 mls/hr Lactated Ringer's (Lactated Ringer's) 1,000 mls @ 100 mls/hr IV .Q10H [facility] Last Admin: 06/24/18 12:37 Dose: Not Given Lactobacillus Acidophilus (Lactobacillus) 1 cap PO BID [facility] Last Admin: 06/24/18 09:55 Dose: 1 cap Morphine Sulfate (Morphine Extended Release Tab) 60 mg PO DAILY [facility] Last Admin: 06/24/18 09:55 Dose: 60 mg Nifedipine (Procardia Xl) 60 mg PO DAILY [facility] Last Admin: 06/24/18 09:54 Dose: 60 mg Oxycodone HCl (Oxycodone Immediate Release Tab) 30 mg PO Q4H PRN PRN Reason: breakthrough pain Last Admin: 06/24/18 15:32 Dose: 30 mg Sennosides (Senokot Tab) 8.6 mg PO DAILY NIR Last Admin: 06/24/18 09:55 Dose: 8.6 mg - Labs Labs: 06/23/18 06:19 06/23/18 06:19 PT 12.0 SECONDS (9.7-12.2) 06/21/18 13:00 INR 1.1 06/21/18 13:00 APTT 29 SECONDS (21-34) 06/21/18 13:00 - Additional Findings Additional findings: - Constitutional Appears: Non-toxic, No Acute Distress - Head Exam Head Exam: NORMAL INSPECTION, NORMOCEPHALIC - Eye Exam Eye Exam: EOMI, Normal appearance - ENT Exam ENT Exam: Mucous Membranes Dry - Respiratory Exam Respiratory Exam: Clear to Auscultation Bilateral Upper helm, Decreased breath sounds isac lower helm, NORMAL BREATHING PATTERN. absent: Rales, Rhonchi, Wheezes - Cardiovascular Exam Cardiovascular Exam: REGULAR RHYTHM, +S1, +S2 - GI/Abdominal Exam GI & Abdominal Exam: Normal Bowel Sounds, Soft, Tenderness. absent: Distended, Guarding, Mass - Exam Additional comments: right inguinal debrided wound, dried sanguinous remnant, no active bleeding noted multiple 1cm x 1 cm lymphadenopathy palpated in inguinal region bilaterally, tender - Extremities Exam Extremities exam: Positive for: pedal edema Additional comments: bilateral lower extremity +1 from ankle to knee b/l numerous 1cm x 1 cm and 0.5cm x 0.5cm boils, no signs of infectious pus or drainage - Back Exam Additional comments: left posterior boil measuring 1 cm x 1 cm behind L swathi - Neurological Exam Neurological exam: Alert, Oriented x3 - Psychiatric Exam Psychiatric exam: Normal Affect, Normal Mood - Skin Skin Exam: Dry, Intact, Normal Color Additional comments: well healed eschar in sacral region Assessment and Plan - Assessment and Plan (Free Text) Assessment: 57 yo female w/ PMH of cervical cancer, anxiety/depression, HTN, b/l LE neuropathy, and chronic anemia admitted for evaluation of ulcerations on the skin and abdominal pain. Plan: Multiple Boils likely 2/2 to chemotherapy reducing immune suppression causing boils due to blocked hair follicles in sites of increase sweat Surgery Consulted: Dr. Wright- recommendations appreciated IV doxycycline 100mg q12h CT pelvis w/ IV contrast: diffuse lymphadenopthy, L2-3 lytic lesions, bowel normal, isac mod pleural effusions Hx of abdominal pain w/ constipation colace 100mg po tid senna daily Lactulose 20 stat Mineral enema x1 MgCitrate x1 CTA abdomen/pelvis reviewed LRs @100 Hx of Cervical Cancer Outpatient chemotherapy with DR. Willie Cameron F/U outpatient for continued treatment Colace 100mg po tid Morphine 60mg ER daily Oxycodone 30mg q4h prn Dilaudid 0.[address] head neg for bleed no need for xrays as patient is ambulatory with no signs of extensive bruising, skin discoloration Chronic Anemia 2/2 to chemotherapy and cancer history hemodynamically stable no need for transfusion Hx of anxiety/depression Xanax 0.5mg daily po Hx of hydronephrosis Ureteral stent replacement with Dr. Rodriguez q 3 months most recent on 04-27-18 monitor output and Cr for signs of uropathy LRs @ 100 Hx of HTN Procardia 60mg XL starting in AM Hx of B/L neuropathy Gabapentin 200mg po Chronic LE edema Venous dopplers NEG for DVTs PPx GI ppx: Lactobacillus 1 cap po bid DVT ppx: Lovenox 40 sc daily held Dispo: d/c pending inguinal wound healing, GenSx will monitor bleeding- considering cauterization if unresolved, possible dc tonight CK pgy1 <Jennifer Ty V - Last Filed: 06/24/18 20:33> Objective - Vital Signs/Intake and Output Vital Signs (last 24 hours): Temp Pulse Resp BP Pulse Ox 98.8 F 97 H 18 120/83 96 06/24/18 16:31 06/24/18 16:31 06/24/18 16:31 06/24/18 16:31 06/24/18 16:31 - Labs Labs: 06/24/18 17:24 06/24/18 17:24 PT 12.0 SECONDS (9.7-12.2) 06/21/18 13:00 INR 1.1 06/21/18 13:00 APTT 29 SECONDS (21-34) 06/21/18 13:00 Attending/Attestation - Attestation I have personally seen and examined this patient.: Yes I have fully participated in the care of the patient.: Yes I have reviewed all pertinent clinical information, including history, physical exam and plan: Yes Notes (Text): Patient seen, examined, case discussed with family practice medical doctor. Patient seen this morning. Patient denies pain and noted that she had some bleeding from the dressing overnight patient is not currently bleeding at bedside when initially evaluated this morning around 10:30 a.m. h/h stable compared to yesterday. Discussed with surgical oncologist impression came to evaluate the patient and changed the dressing. Patient reevaluated around lunchtime she is back to eating the spaghetti and meatballs dressing clean dry and intact. Discussed with surgery team advised patient to walk and move around to see if needed any type of closure. Surgery team did put in a stitch for closure noted that the lymph node is likely related to patient's cancer not an infection. Patient is on day 4 of doxycycline to cover. I spoke with patient in the evening about 6:30 PM. With her father at bedside I did indicate to her that she should not use anything that can promote bleeding like Motrin, aspirin, Mobic, naproxen. And I did indicate to her if she does bleed again please come back for reevaluation. Noted on discharge patient complete 3 more days of doxycycline stool softener as well. Patient to follow-up with Dr. Cameron as outpatient in terms of change of chemo for palliation of cervical cancer stage IV. Patient discharged this evening. vice president of recruiting to follow with discharge summary. Patient is medically stable for discharge and follow-up with Heme onc as outpatient. Wound Culture is negative.
[2018-06-24 17:51] LABS: ALB/GLOB RATIO 1.1 (1.0-2.1); ALT/SGPT 6 U/L (9-52); AST/SGOT 29 U/L (14-36); BLOOD UREA NITROGEN 18 mg/dL (7-17); CALCIUM 9.9 mg/dl (8.6-10.4); GFR NON-AFRICAN AMERICAN 58
--- NOTE | 2018-06-24 18:35 | PCM.PROC ---
Procedures Attestation:: I certify that I have explained the specified Operation(s) or Procedure(s), risks, benefits and reasonable alternatives to the Patient and/or other person responsible. The opportunity was given to ask questions and all questions answered - Laceration with EPI simple, single layer linear deep structures intact right other 3-0 other simple, interrupted Site: other (Right Groin s/p excisional biopsy) Side (if applicable): right Description: clean Depth: simple, single layer Anesthesia used: lidocaine 1%, with EPI Anesthesia technique: local infiltration Amount (mLs): 5 Pre-repair: wound explored Skin layer closed with: other (nylon) Size: 3-0 Number of sutures: 2 Technique: simple, interrupted
[2018-06-24 20:39] LABS: EOSINOPHIL 4 % (0-4); LYMPHOCYTE 16 % (20-40); MONOCYTE 4 % (0-10); NEUTROPHIL 75 % (50-75); REACTIVE LYMPHOCYTES 1 % (0-0); TOTAL CELLS COUNTED 100
[2018-06-24 20:53] LABS: PLATELET ESTIMATE NORMAL (NORMAL)
--- NOTE | 2018-06-24 21:51 | CP.PCM.DIS ---
Provider - Provider Date of Admission: 06/23/18 16:37 Attending physician: Joo Garcia DO Consults: 06/21/18 16:19 General Surgery Consult Routine Comment: Consulting Provider: Ivan Wright Consulting Physician: Ivan Wright Reason for Consult: right sided inguinal boil, I&D 06/21/18 17:22 Palliative Care Consult Routine Comment: Consulting Provider: Viktoria Omalley Physician Instructions: Reason For Exam: cervical cancer, Code status Time Spent in preparation of Discharge (in minutes): 70 Diagnosis - Discharge Diagnosis (1) Lymph node enlargement Status: Acute (2) Anemia Status: Chronic (3) Cervical cancer Status: Chronic (4) Abdominal pain Status: Acute (5) Vaginal bleeding problems Status: Acute Priority: High Hospital Course - Lab Results Lab Results: Micro Results 06/21/18 13:00 Blood Blood Culture - Preliminary NO GROWTH AFTER 3 DAYS 06/21/18 12:45 Blood Blood Culture - Preliminary NO GROWTH AFTER 3 DAYS 06/22/18 18:12 Groin Gram Stain - Final 06/22/18 18:12 Groin Wound Culture - Preliminary No growth. 06/21/18 14:18 Urine,Clean Catch Urine Culture - Final No Growth (<1,000 CFU/ML) Most Recent Lab Values WBC 9.1 K/uL (4.8-10.8) 06/24/18 17:24 RBC 3.97 Mil/uL (3.80-5.20) 06/24/18 17:24 Hgb 10.7 g/dL (11.0-16.0) L 06/24/18 17:24 Hct 34.6 % (34.0-47.0) 06/24/18 17:24 MCV 87.2 fL (81.0-99.0) 06/24/18 17:24 MCH 27.0 pg (27.0-31.0) 06/24/18 17:24 MCHC 31.0 g/dL (33.0-37.0) L 06/24/18 17:24 RDW 18.7 % (11.5-14.5) H 06/24/18 17:24 Plt Count 154 K/uL (130-400) 06/24/18 17:24 MPV 8.2 fL (7.2-11.7) 06/24/18 17:24 Neut % (Auto) 79.0 % (50.0-75.0) H 06/24/18 17:24 Lymph % (Auto) 5.6 % (20.0-40.0) L 06/24/18 17:24 Divide % (Auto) 7.7 % (0.0-10.0) 06/24/18 17:24 Eos % (Auto) 6.9 % (0.0-4.0) H 06/24/18 17:24 Baso % (Auto) 0.8 % (0.0-2.0) 06/24/18 17:24 Neut # (Auto) 7.2 K/uL (1.8-7.0) H 06/24/18 17:24 Lymph # (Auto) 0.5 K/uL (1.0-4.3) L 06/24/18 17:24 Divide # (Auto) 0.7 K/uL (0.0-0.8) 06/24/18 17:24 Eos # (Auto) 0.6 K/uL (0.0-0.7) 06/24/18 17:24 Baso # (Auto) 0.1 K/uL (0.0-0.2) 06/24/18 17:24 Neutrophils % (Manual) 75 % (50-75) 06/24/18 17:24 Lymphocytes % (Manual) 16 % (20-40) L 06/24/18 17:24 Reactive Lymphs % 1 % (0-0) H 06/24/18 17:24 Monocytes % (Manual) 4 % (0-10) 06/24/18 17:24 Eosinophils % (Manual) 4 % (0-4) 06/24/18 17:24 Toxic Granulation Present 06/21/18 13:00 Platelet Estimate Normal (NORMAL) 06/24/18 17:24 Polychromasia Slight 06/21/18 13:00 Hypochromasia (manual) Slight 06/23/18 06:19 Poikilocytosis (manual Slight 06/23/18 06:19 Anisocytosis (manual) Slight 06/23/18 06:19 PT 12.0 SECONDS (9.7-12.2) 06/21/18 13:00 INR 1.1 06/21/18 13:00 APTT 29 SECONDS (21-34) 06/21/18 13:00 pO2 33 mm/Hg (30-55) 06/21/18 15:55 VBG pH 7.49 (7.32-7.43) H 06/21/18 15:55 VBG pCO2 38 mmHg (40-60) L 06/21/18 15:55 VBG HCO3 28.4 mmol/L 06/21/18 15:55 VBG Total CO2 30.2 mmol/L (22-28) H 06/21/18 15:55 VBG O2 Sat (Calc) 71.9 % (40-65) H 06/21/18 15:55 VBG Base Excess 5.4 mmol/L (0.0-2.0) H 06/21/18 15:55 VBG Potassium 4.0 mmol/L (3.6-5.2) 06/21/18 15:55 Sodium 134.0 mmol/l (132-148) 06/21/18 15:55 Chloride 102.0 mmol/L (98-107) 06/21/18 15:55 Glucose 80 mg/dl (65-105) 06/21/18 15:55 Lactate 1.6 mmol/L (0.7-2.1) 06/21/18 15:55 FiO2 21.0 % 06/21/18 13:02 Sodium 134 mmol/L (132-148) 06/24/18 17:24 Potassium 5.2 mmol/L (3.6-5.2) 06/24/18 17:24 Chloride 100 mmol/L (98-107) 06/24/18 17:24 Carbon Dioxide 30 mmol/L (22-30) 06/24/18 17:24 Anion Gap 9 (10-20) L 06/24/18 17:24 BUN 18 mg/dL (7-17) H 06/24/18 17:24 Creatinine 1.0 mg/dL (0.7-1.2) 06/24/18 17:24 Est GFR ( Amer) > 60 06/24/18 17:24 Est GFR (Non-Af Amer) 58 06/24/18 17:24 Random Glucose 117 mg/dL (65-105) H 06/24/18 17:24 Calcium 9.9 mg/dl (8.6-10.4) 06/24/18 17:24 Phosphorus 3.1 mg/dL (2.5-4.5) 06/24/18 17:24 Magnesium 2.0 mg/dL (1.6-2.3) 06/24/18 17:24 Total Bilirubin 0.1 mg/dL (0.2-1.3) L 06/24/18 17:24 AST 29 U/L (14-36) 06/24/18 17:24 ALT 6 U/L (9-52) L D 06/24/18 17:24 Alkaline Phosphatase 63 U/L (38-126) 06/24/18 17:24 Total Protein 5.8 g/dL (6.3-8.3) L 06/24/18 17:24 Albumin 3.0 g/dL (3.5-5.0) L D 06/24/18 17:24 Globulin 2.8 gm/dL (2.2-3.9) 06/24/18 17:24 Albumin/Globulin Ratio 1.1 (1.0-2.1) 06/24/18 17:24 Venous Blood Potassium 4.0 mmol/L (3.6-5.2) 06/21/18 15:55 Urine Color Yellow (YELLOW) 06/21/18 14:18 Urine Clarity Clear (Clear) 06/21/18 14:18 Urine pH 7.0 (5.0-8.0) 06/21/18 14:18 Ur Specific [place] 1.010 (1.003-1.030) 06/21/18 14:18 Urine Protein Negative mg/dL (NEGATIVE) 06/21/18 14:18 Urine Glucose (UA) Normal mg/dL (Normal) 06/21/18 14:18 Urine Ketones Negative mg/dL (NEGATIVE) 06/21/18 14:18 Urine Blood 1+ (NEGATIVE) H 06/21/18 14:18 Urine Nitrate Negative (NEGATIVE) 06/21/18 14:18 Urine Bilirubin Negative (NEGATIVE) 06/21/18 14:18 Urine Urobilinogen Normal mg/dL (0.2-1.0) 06/21/18 14:18 Ur Leukocyte Esterase 2+ Chanell/uL (Negative) H 06/21/18 14:18 Urine WBC (Auto) 30 /hpf (0-5) H 06/21/18 14:18 Urine RBC (Auto) 21 /hpf (0-3) H 06/21/18 14:18 Ur Squamous Epith Cells 1 /hpf (0-5) 06/21/18 14:18 Urine Bacteria Rare (<OCC) 06/21/18 14:18 Blood Type A NEGATIVE 06/22/18 07:28 Antibody Screen Negative 06/22/18 07:28 - Hospital Course Hospital Course: Upon Admission: Patient is a 57 yo female w/ PMH of cervical cancer, anxiety/depression, HTN, b/l LE neuropathy, and chronic anemia admitted for evaluation of ulcerations on the skin and abdominal pain. Patient states that approximately 2 weeks ago she fell after she slipped (no syncope) and fell on her left side hitting her left elbow on the ground first followed by hip then finally her head. Patient states since then she had been having difficulty walking due to the fall. Patient then started experiencing abdominal pain and it is not associated with eating and does not get better with defecation. Her pain meds for her cervical cancer diagnosis are not offering much relief. Around the time of the fall was her last chemotherapy session which was 2 weeks ago she started to notice an increased amount of ulcerations forming on her body. The locations of the ulcerations are located all over the body including her back, b/l thighs, and pernieal region. The first one started in the right groin then the left posterior shoulder followed by medial thights and perineal boils. Patient applied bacitracin to the groin boils however the boils remained painful. Patient states she normally has difficulty with her bowel movements each occuring every other day and requiring stool softeners and milk of magnesia. Admits to abdominal pain, b/l feet neuropathy, pain at ulceration sites, new left leg edema. Denies fevers, chills, chest pain, sob, n/v, diarrhea, and urinary symptoms Hospital Course: Patient was admitted for an erythematous enlarged inguinal lymph node. Surgery was consulted and performed an excision of the lymph node. Pathology of the lymph node was sent which showed squamous cell CA consistent with metastasis from known diagnosis of cervical CA. Patient's wound did not heal after excision, therefore lovenox was held and surgery intervened once more for skin closure. Patient complained of constipation which was ultimately resolved Mag Citrate. Patient was deemed stable for discharge. Heme/onc was consulted and recommend outpatient follow up. Upon Discharge: Patient was deemed stable for discharge to home. Patient is to be discharged home with the following medications Doxycycline Hyclate 100 mg PO BID #14 capsule Furosemide [Lasix] 20 mg PO DAILY PRN #30 tab PRN Reason: SBP >120 NIFEdipine ER [Procardia XL] 60 mg PO DAILY #30 ter Tiotropium [place] Inhaler [Spiriva Inhalation Handihaler Device] 2 puff INH Q24H PRN #1 inhaler PRN Reason: Shortness Of Breath Please continue your home medications as prescribed by your PMD and Heme/Onco doctor Please follow up with Dr Cameron your Oncologist within 7 days of discharge Please follow up with Dr Hernández your General Surgeon within 7 days of discharge Please seek medical attention immediately if you have a return of symptoms Discharge Exam - Head Exam Head Exam: ATRAUMATIC, NORMOCEPHALIC - Additional Findings Additional findings: - Head Exam Head Exam: NORMAL INSPECTION, NORMOCEPHALIC - Eye Exam Eye Exam: EOMI, Normal appearance - ENT Exam ENT Exam: Mucous Membranes Dry - Respiratory Exam Respiratory Exam: Clear to Auscultation Bilateral Upper helm, Decreased breath sounds isac lower helm, NORMAL BREATHING PATTERN. absent: Rales, Rhonchi, Wheezes - Cardiovascular Exam Cardiovascular Exam: REGULAR RHYTHM, +S1, +S2 - GI/Abdominal Exam GI & Abdominal Exam: Normal Bowel Sounds, Soft, Tenderness. absent: Distended, Guarding, Mass - Exam Additional comments: right inguinal debrided wound, dried sanguinous remnant, no active bleeding noted multiple 1cm x 1 cm lymphadenopathy palpated in inguinal region bilaterally, tender - Extremities Exam Extremities exam: Positive for: pedal edema Additional comments: bilateral lower extremity +1 from ankle to knee b/l numerous 1cm x 1 cm and 0.5cm x 0.5cm boils, no signs of infectious pus or drainage - Back Exam Additional comments: left posterior boil measuring 1 cm x 1 cm behind L swathi - Neurological Exam Neurological exam: Alert, Oriented x3 - Psychiatric Exam Psychiatric exam: Normal Affect, Normal Mood - Skin Skin Exam: Dry, Intact, Normal Color Additional comments: well healed eschar in sacral region Discharge Plan - Discharge Medications Prescriptions: Doxycycline Hyclate 100 mg PO BID #14 capsule Furosemide [Lasix] 20 mg PO DAILY PRN #30 tab PRN Reason: Other NIFEdipine ER [Procardia XL] 60 mg PO DAILY #30 ter Tiotropium [place] Inhaler [Spiriva Inhalation Handihaler Device] 2 puff INH Q24H PRN #1 inhaler PRN Reason: Shortness Of Breath - Follow Up Plan Condition: GUARDED Disposition: HOME/ ROUTINE Instructions: Fluid in the Belly (Ascites) (DC), Doxycycline, Furosemide, Nifedipine, Tiotropium, Acute Abdominal Pain (DC), Acute Abdominal Pain (GEN) Additional Instructions: Patient is to be discharged home with the following medications Doxycycline Hyclate 100 mg PO BID #14 capsule Furosemide [Lasix] 20 mg PO DAILY PRN #30 tab PRN Reason: SBP >120 NIFEdipine ER [Procardia XL] 60 mg PO DAILY #30 ter Tiotropium [place] Inhaler [Spiriva Inhalation Handihaler Device] 2 puff INH Q24H PRN #1 inhaler PRN Reason: Shortness Of Breath Please continue your home medications as prescribed by your PMD and Heme/Onco doctor Please follow up with Dr Camerno your Oncologist within 7 days of discharge Please follow up with Dr Hernández your General Surgeon within 7 days of discharge Please seek medical attention immediately if you have a return of symptoms Take Care and Be Well, C Alicia DO Referrals: Willie Camreon MD [Staff Provider] - Ivan Wright MD [Staff Provider] - Chetna Vela MD [Staff Provider] -
== END 2018-06-24 19:38 | disposition home or self-care (01) | DRG 824 ==
LOC: C.ER 12:09 → C.9E 14:13 → C.5S 15:40 → OBSVTOIN 06-23 16:37
PROVIDERS: ADMIT Hospitalist; ATTEND Hospitalist
PROC: 07BH0ZX Excision of Right Inguinal Lymphatic, Open Approach, Diagnostic (ICD-10-PCS; principal; 2018-06-22 14:15)
DX: C77.4 Secondary and unspecified malignant neoplasm of inguinal and lower limb lymph nodes (principal); N13.30 Unspecified hydronephrosis; R64 Cachexia; Z68.1 Body mass index [BMI] 19.9 or less, adult; J44.9 Chronic obstructive pulmonary disease, unspecified; N18.9 Chronic kidney disease, unspecified; I12.9 Hypertensive chronic kidney disease with stage 1 through stage 4 chronic kidney disease, or unspecified chronic kidney disease; D63.8 Anemia in other chronic diseases classified elsewhere; D64.81 Anemia due to antineoplastic chemotherapy; Z87.891 Personal history of nicotine dependence; Z91.81 History of falling; Z92.3 Personal history of irradiation; C53.9 Malignant neoplasm of cervix uteri, unspecified

== ENCOUNTER 2018-06-26 09:14 | Emergency (ER) | payer MEDICARE ==
[2018-06-26 09:21] VITALS: BMI 18.5
[2018-06-26 09:22] VITALS: TEMP 97.7
--- NOTE | 2018-06-26 10:26 | C.PDOC ---
History Of Present Illness 57 y/o female metastatic cancer and is on home opiod medication presents to the ER c/o chronic abdominal pain from cancer. Pt also reports bleeding of incision site on the right lower groin. Pt notes the incision site was done during her last admission earlier this week and was instructed to return if there is worsening bleeding. Pt denies fever and SOB. Chief Complaint (Nursing): Abnormal Skin Integrity History Per: Patient History/Exam Limitations: no limitations Onset/Duration Of Symptoms: Days Current Symptoms Are (Timing): Still Present Past Medical History Reviewed: Historical Data, Nursing Documentation, Vital Signs Vital Signs: Last Vital Signs Temp 97.7 F 06/26/18 09:21 Pulse 98 H 06/26/18 09:35 Resp 20 06/26/18 09:35 BP 134/93 H 06/26/18 09:35 Pulse Ox 100 06/26/18 09:35 - Medical History PMH: Anemia, Anxiety, Asthma, COPD, Gall Bladder Disease, HTN, Malignancy (cervical Ca), Peripheral Edema (NO LONGER), Pneumonia (CHILDHOOD), End Stage Renal Disease, Chronic Kidney Disease Surgical History: Cholecystectomy - [facility] Procedures DILATION OF BILATERAL URETERS WITH INTRALUMINAL DEVICE, ENDO (05/02/15) DRAINAGE OF DESCENDING COLON, ENDO, DIAGN (01/28/16) EXCISION OF RIGHT INGUINAL LYMPHATIC, OPEN APPROACH, DIAGN (06/23/18) FLUOROSCOPY OF LEFT KIDNEY, URETER AND BLADDER (05/02/15) FLUOROSCOPY OF RIGHT KIDNEY, URETER AND BLADDER (05/02/15) INSPECTION OF BLADDER, ENDO (05/02/15) INSPECTION OF VAGINA AND CUL-DE-SAC, ENDO (05/02/15) INTRAOPER CHOLANGIOGRAM (02/28/97) LAPAROSCOPIC CHOLECYSTECTOMY (02/28/97) TRANSFUSE NONAUT RED BLOOD CELLS IN PERIPH VEIN, PERC (05/02/15) Family History: States: Unknown Family Hx - Social History Hx Tobacco Use: No Hx Alcohol Use: No Hx Substance Use: No - Immunization History Hx Tetanus Toxoid Vaccination: No Hx Influenza Vaccination: No Hx Pneumococcal Vaccination: No Review Of Systems Except As Marked, All Systems Reviewed And Found Negative. Constitutional: Negative for: Fever Respiratory: Negative for: Shortness of Breath Gastrointestinal: Positive for: Abdominal Pain Genitourinary: Positive for: Other (bleeding of incision site on right lower groin ) Physical Exam - Physical Exam Additional Physical Exam Comments: Constitutional: No acute distress. Head: Normocephalic. Atraumatic. Eyes: PERRL. ENT: Moist mucous membranes. Neck: Supple. Cardiovascular: Regular rate. Radial pulse 2+ bilaterally. Chest: No tenderness. Respiratory: Clear to auscultation bilaterally. Pelvic: Dry saturated blood on bandage on right lower groin GI: Soft. Diffuse tenderness. Nondistended. No guarding or rebound Back: No CVA tenderness. Musculoskeletal: No tenderness or swelling of extremities. Skin: No rash. Neurologic: Alert, no focal deficit. ED Course And Treatment - Laboratory Results Result Diagrams: 06/26/18 10:58 06/26/18 10:58 O2 Sat by Pulse Oximetry: 100 (RA) Pulse Ox Interpretation: Normal Medical Decision Making Medical Decision Making: Plans: -- chem labs -- blood work -- morphine Dr. Wright, surgery was consulted Labs unremarkable. Surgery saw patient in ED, redressed, given care instructions, arranged operation for full excision of cutaneous mets for better pain control and better approximation of surgical incision. Patient agreeable. Patient will be discharged, requires more pain medication, which she typically obtains from Dr. Cameron with whom she has appointment on Friday. Will prescribe enough to get patient to Friday. [facility] checked, patient on chronic medication for palliative care due to metastatic cancer. Disposition - Disposition Referrals: Willie Cameron MD [Staff Provider] - Disposition: HOME/ ROUTINE Disposition Time: 12:48 Condition: GOOD Prescriptions: Morphine Sulfate [Morphine Sulfate ER] 1 tab PO Q12H #8 tablet.er Oxycodone HCl [Roxicodone] 30 mg PO Q4H #20 tablet Instructions: Chronic Pain (DC) Forms: [employer] ([place]) - Clinical Impression Clinical Impression: Postoperative bleeding from incision - Scribe Statement The provider has reviewed the documentation as recorded by the Elieiblillian Chandler Do Provider Attestation: All medical record entries made by the Scribe were at my direction and personally dictated by me. I have reviewed the chart and agree that the record accurately reflects my personal performance of the history, physical exam, medical decision making, and the department course for this patient. I have also personally directed, reviewed, and agree with the discharge instructions and disposition.
[2018-06-26] MEDS ORDERED: Morphine 4 MG/ML VIAL ONE ×2 (10:48→12:02)
[2018-06-26 11:09] LABS: BASO # 0.1 K/uL (0.0-0.2); BASO % 0.7 % (0.0-2.0); EOS # 0.4 K/uL (0.0-0.7); EOS % 3.2 % (0.0-4.0); HEMOGLOBIN 10.5 g/dL (11.0-16.0); LYMPH # 0.5 K/uL (1.0-4.3); LYMPH % 4.6 % (20.0-40.0); MEAN CELL VOLUME 86.3 fL (81.0-99.0); MEAN CORPUSCULAR HEMOGLOBIN 27.5 pg (27.0-31.0); MEAN CORPUSCULAR HGB CONC 31.9 g/dL (33.0-37.0); MEAN PLATELET VOLUME 8.7 fL (7.2-11.7); MONO # 0.6 K/uL (0.0-0.8); NEUT # 9.8 K/uL (1.8-7.0); NEUT % 86.5 % (50.0-75.0); NRBC % 0.1 % (0.0-2.0); PLATELET COUNT 186 K/uL (130-400); RBC 3.83 Mil/uL (3.80-5.20); RED CELL DISTRIBUTION WIDTH 18.6 % (11.5-14.5); WHITE BLOOD COUNT 11.3 K/uL (4.8-10.8)
[2018-06-26 11:21] LABS: INR 1.1
[2018-06-26 11:22] LABS: ALB/GLOB RATIO 1.1 (1.0-2.1); AST/SGOT 29 U/L (14-36); BLOOD UREA NITROGEN 14 mg/dL (7-17); CALCIUM 10.1 mg/dl (8.6-10.4); GFR NON-AFRICAN AMERICAN > 60
[2018-06-26 11:23] LABS: ALT/SGPT < 6 U/L (9-52)
[2018-06-26 12:00] LABS: BANDS 1 % (0-2); BASOPHIL 1 % (0-2); EOSINOPHIL 2 % (0-4); LYMPHOCYTE 4 % (20-40); TOTAL CELLS COUNTED 100
[2018-06-26 12:01] LABS: ANISOCYTOSIS SLIGHT; HYPOCHROMIC SLIGHT; MONOCYTE 4 % (0-10); NEUTROPHIL 88 % (50-75); PLATELET ESTIMATE NORMAL (NORMAL); POIKILOCYTOSIS SLIGHT
[2018-06-26 12:33] VITALS: PULSE 100; RESP 18
[2018-06-26 13:28] VITALS: BP 120/86; O2SAT 99
--- NOTE | 2018-06-26 14:57 | CP.PCM.CON ---
History of Present Illness - History of Present Illness History of Present Illness: General Surgery: Adriana patient is a 57 F with Stage 4 cervical cancer s/p recent cutaneous nodule removal presenting to [facility] ED for bleeding at the site. Patient states she had been doing well until last night when she began to bleed again fro the site. She did not have to change the dressing however. 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 Allergies- NKDA Review of Systems - Review of Systems All systems: reviewed and no additional remarkable complaints except (as per HPI) Past Patient History - Infectious Disease Hx of Infectious Diseases: None - Past Medical History & Family History Past Medical History?: Yes - Past Social History Smoking Status: Current Some Days Smoker - CARDIAC Hx Hypertension: Yes Hx Peripheral Edema: Yes (NO LONGER) - PULMONARY Hx Asthma: Yes Hx Chronic Obstructive Pulmonary Disease (COPD): Yes Hx Pneumonia: Yes (CHILDHOOD) - NEUROLOGICAL Hx Neurological Disorder: No - HEENT Hx HEENT Problems: Yes - RENAL Hx Chronic Kidney Disease: Yes - ENDOCRINE/METABOLIC Hx Endocrine Disorders: No - HEMATOLOGICAL/ONCOLOGICAL Hx Anemia: Yes - INTEGUMENTARY Hx Dermatological Problems: No - MUSCULOSKELETAL/RHEUMATOLOGICAL Hx Musculoskeletal Disorders: No Hx Falls: No - GASTROINTESTINAL Hx Gall Bladder Disease: Yes - GENITOURINARY/GYNECOLOGICAL Hx Genitourinary Disorders: Yes (SEE COMMENT) Hx Cervical Cancer: Yes (Metastatic stage 4 (2016)) Hx Postmenopausal Bleeding: Yes Other/Comment: STAGE IV WITH COMPLETED RADIATION AND CURRENTLY ON CHEMOTHERAPY EVERY 3-WEEKS (2018). RENAL STENTS - PSYCHIATRIC Hx Anxiety: Yes Hx Substance Use: No - SURGICAL HISTORY Hx Cholecystectomy: Yes - ANESTHESIA Hx Anesthesia: Yes Hx Anesthesia Reactions: No Hx Malignant Hyperthermia: No Meds Home Medications: Home Medication List Medication Instructions Recorded Confirmed Type Morphine Sulfate [Morphine Sulfate 1 tab PO Q12H #8 tablet.er 06/26/18 Rx ER] Oxycodone HCl [Roxicodone] 30 mg PO Q4H #20 tablet 06/26/18 Rx Allergies/Adverse Reactions: Allergies Allergy/AdvReac Type Severity Reaction Status Date / Time No Known Allergies Allergy Verified 06/26/18 09:19 Physical Exam - Constitutional Appears: Well, Non-toxic, No Acute Distress, Cachectic, Chronically Ill - Head Exam Head Exam: ATRAUMATIC, NORMOCEPHALIC - Eye Exam Eye Exam: EOMI - ENT Exam ENT Exam: Mucous Membranes Moist - Respiratory Exam Respiratory Exam: NORMAL BREATHING PATTERN - Cardiovascular Exam Cardiovascular Exam: REGULAR RHYTHM - GI/Abdominal Exam GI & Abdominal Exam: Soft, Tenderness (at surgical site). absent: Distended, Guarding Additional comments: incisions clean and dry with nylon mattress sutures in place over medial incision, no active bleeding noted - Extremities Exam Extremities exam: Negative for: calf tenderness, pedal edema - Neurological Exam Neurological exam: Alert, Oriented x3 - Psychiatric Exam Psychiatric exam: Anxious - Skin Skin Exam: Dry, Normal Color, Warm Additional comments: cutaneous nodules present near incision sites, incisions clean with no active bleeding Results - Vital Signs Recent Vital Signs: Last Vital Signs Temp 97.7 F 06/26/18 09:21 Pulse 100 H 06/26/18 13:27 Resp 18 06/26/18 13:27 BP 120/86 06/26/18 13:27 Pulse Ox 99 06/26/18 13:27 - Labs Result Diagrams: 06/26/18 10:58 06/26/18 10:58 Labs: Laboratory Results - last 24 hr 06/26/18 06/26/18 06/26/18 10:58 10:58 10:58 WBC 11.3 H RBC 3.83 Hgb 10.5 L Hct 33.1 L MCV 86.3 MCH 27.5 MCHC 31.9 L RDW 18.6 H Plt Count 186 MPV 8.7 Neut % (Auto) 86.5 H Lymph % (Auto) 4.6 L [place] % (Auto) 5.0 Eos % (Auto) 3.2 Baso % (Auto) 0.7 Neut # (Auto) 9.8 H Lymph # (Auto) 0.5 L [place] # (Auto) 0.6 Eos # (Auto) 0.4 Baso # (Auto) 0.1 Neutrophils % (Manual) 88 H Band Neutrophils % 1 Lymphocytes % (Manual) 4 L Monocytes % (Manual) 4 Eosinophils % (Manual) 2 Basophils % (Manual) 1 Platelet Estimate Normal Hypochromasia (manual) Slight Poikilocytosis (manual Slight Anisocytosis (manual) Slight PT 12.0 INR 1.1 APTT 33 Sodium 133 Potassium 4.5 Chloride 101 Carbon Dioxide 27 Anion Gap 9 L BUN 14 Creatinine 0.9 Est GFR ( Amer) > 60 Est GFR (Non-Af Amer) > 60 Random Glucose 88 D Calcium 10.1 Total Bilirubin 0.2 AST 29 ALT < 6 L Alkaline Phosphatase 64 Total Protein 5.8 L Albumin 3.0 L Globulin 2.8 Albumin/Globulin Ratio 1.1 Blood Type Antibody Screen 06/26/18 10:58 WBC RBC Hgb Hct MCV MCH MCHC RDW Plt Count MPV Neut % (Auto) Lymph % (Auto) [place] % (Auto) Eos % (Auto) Baso % (Auto) Neut # (Auto) Lymph # (Auto) [place] # (Auto) Eos # (Auto) Baso # (Auto) Neutrophils % (Manual) Band Neutrophils % Lymphocytes % (Manual) Monocytes % (Manual) Eosinophils % (Manual) Basophils % (Manual) Platelet Estimate Hypochromasia (manual) Poikilocytosis (manual Anisocytosis (manual) PT INR APTT Sodium Potassium Chloride Carbon Dioxide Anion Gap BUN Creatinine Est GFR ( Amer) Est GFR (Non-Af Amer) Random Glucose Calcium Total Bilirubin AST ALT Alkaline Phosphatase Total Protein Albumin Globulin Albumin/Globulin Ratio Blood Type A NEGATIVE Antibody Screen Negative Assessment & Plan - Assessment and Plan (Free Text) Assessment: 57 yr old female s/p subcutaneous noude excision/ lymph node excision with bleeding from site Plan: - pt no longer actively bleeding - education about dressing changes and pressure given - pt may change dressing as needed at home - pt to be scheduled for full resection of area on July 08 - pt discussed with Dr. Adriana Gonzalez, PGY 1 - Date & Time Date: 06/26/18 Time: 11:13
== END 2018-06-26 13:40 | disposition home or self-care (01) ==
LOC: C.ER 09:14
DX: L76.22 Postprocedural hemorrhage of skin and subcutaneous tissue following other procedure (principal); Y83.9 Surgical procedure, unspecified as the cause of abnormal reaction of the patient, or of later complication, without mention of misadventure at the time of the procedure
CPT/HCPCS: 80053; 85025; 85610; 85730; 86850; 86900; 96374; 96376; 99285; J2270

== ENCOUNTER 2018-07-15 11:39 | Inpatient (IN) | payer MEDICARE ==
[2018-07-15 11:39] VITALS: BMI 19.9
--- NOTE | 2018-07-15 12:14 | C.PDOC ---
History Of Present Illness Patient is a 57 yo female w/ PMH of cervical cancer with mets, anxiety/depression, HTN, b/l LE neuropathy, and chronic anemia - presents to the [facility] ED for evaluation of lethargy, decubitus ulcer, and R groin ulcer. She was receiving chemotherapy this morning, when she appeared overly weak and lethargic, and was advised to come in by Dr. Cameron. She has been receiving chemotherapy every 3 weeks since 2016. She reports feeling increasingly lethargic over the past week, to the point where she is having difficulty ambulating the way she used to. She reports being in 8/10 pain due to cancer mets, and this has causes a severe decrease in her appetite. Her last full meal was 1-2d ago. She is accompanied by her father, who states her sacral decubitus ulcer has been present for the past month (untreated). She was admitted for 3 days on 06/16/18 for skin ulcerations, ultimately having a R inguinal lymph node biopsy showing mets of her stage 4 cervical cancer. Pathology of the lymph node showed squamous cell CA consistent with metastasis. She is followed by Dr. Wright (surgery), who she refuses to see. She otherwise denies fevers, chills, chest pain, SOB, n/v, d/c, or any additional acute complaints. Review of Systems: -Gen: No fever, No chills, No headache, + lethargy, + weakness. -HEENT: No dizziness, No change in vision, No change in hearing, No sore throat, No dysphagia, No nasal congestion, No mucous. -Cardio: No chest pain, No palpitations, + lower extremity edema, No orthopnea. -Resp: No cough, No dyspnea, No hemoptysis, No wheezing, No pain on inspiration. -GI: No abdominal pain, No nausea/vomiting, No diarrhea/constipation, No hematochezia, No hematemesis. -: No dysuria, No urinary freq, No incontinence, No hematuria, No change in urinary stream. -MSK: No back pain, No muscle weakness, No radiating pain. -Neuro: No confusion, + numbness/tingling (lower extremity), No focal weakness, No radicular pain, No syncope. Time Seen by Provider: 07/15/18 11:56 Chief Complaint (Nursing): Weakness/Neurological Deficit Past Medical History Vital Signs: Last Vital Signs Temp 97.2 F L 07/15/18 11:42 Pulse 92 H 07/15/18 11:42 Resp 20 07/15/18 11:42 BP 107/77 07/15/18 11:42 Pulse Ox 98 07/15/18 11:42 Primary Care Provider: Chetna Vela - Medical History PMH: Anemia, Anxiety, Asthma, COPD, Gall Bladder Disease, HTN, Malignancy (cervical Ca), Peripheral Edema (NO LONGER), Pneumonia (CHILDHOOD), End Stage Renal Disease, Chronic Kidney Disease Surgical History: Cholecystectomy - [facility] Procedures DILATION OF BILATERAL URETERS WITH INTRALUMINAL DEVICE, ENDO (05/02/15) DRAINAGE OF DESCENDING COLON, ENDO, DIAGN (01/28/16) EXCISION OF RIGHT INGUINAL LYMPHATIC, OPEN APPROACH, DIAGN (06/23/18) FLUOROSCOPY OF LEFT KIDNEY, URETER AND BLADDER (05/02/15) FLUOROSCOPY OF RIGHT KIDNEY, URETER AND BLADDER (05/02/15) INSPECTION OF BLADDER, ENDO (05/02/15) INSPECTION OF VAGINA AND CUL-DE-SAC, ENDO (05/02/15) INTRAOPER CHOLANGIOGRAM (02/28/97) LAPAROSCOPIC CHOLECYSTECTOMY (02/28/97) TRANSFUSE NONAUT RED BLOOD CELLS IN PERIPH VEIN, PERC (05/02/15) Family History: States: Unknown Family Hx - Social History Hx Tobacco Use: No Hx Alcohol Use: No Hx Substance Use: No - Immunization History Hx Tetanus Toxoid Vaccination: No Hx Influenza Vaccination: No Hx Pneumococcal Vaccination: No Physical Exam - Physical Exam Appears: Agitated, Chronically Ill Skin: Warm, Pale Head: Atraumatic Eye(s): bilateral: PERRL, EOMI Nose: Normal Oral Mucosa: Dry Neck: Normal Lymphatic: Adenopathy, Inguinal Node Tenderness Chest: Symmetrical, Other (R chemo port clean, dry, intact) Cardiovascular: Rhythm Regular, Edema, No Murmur Respiratory: Normal Breath Sounds, No Accessory Muscle Use, No Rales, No Wheezi ng Gastrointestinal/Abdominal: Normal Exam, Bowel Sounds, Soft, No Tenderness Back: No Normal Inspection, Other (sacral decub ulcer stage 2; 6x4.5cm) Extremity: Normal ROM, Pedal Edema (LE edema b/l 1+ pitting to shins) Pulses: Left Radial: Normal, Right Radial: Normal Neurological/Psych: Oriented x3, Normal Speech, Normal Cognition, Normal Cranial Nerves ED Course And Treatment - Laboratory Results Result Diagrams: 07/15/18 12:38 07/15/18 12:38 O2 Sat by Pulse Oximetry: 98 Medical Decision Making Medical Decision Making: -R sacral decubitus ulcer --> Surgery consult, Dr. Dante Borjas stage 2, 4x6.5cm -R groin lymph node excision site with Dehiscence --> Surgery consult, Dr. Dante Borjas -Cervical cancer with mets (stage 4)--> HemeOnc consult, Dr. Cameron -patient afebrile -dehydration-> NS 0.9% 500cc bolus -f/u CBC, CMP, UA -anemia of chronic dz, Hgb 8.6. No transfusion at this time. Disposition - Disposition Forms: [employer] (Frisian)
[2018-07-15] MEDS ORDERED: Sodium Chloride 0.9% 500 ML IV ONE ×2 (12:38→12:47)
[2018-07-15 12:44] LABS: EOS # 0.1 K/uL (0.0-0.7); EOS % 0.6 % (0.0-4.0); HEMOGLOBIN 8.6 g/dL (11.0-16.0); LYMPH # 0.2 K/uL (1.0-4.3); LYMPH % 2.5 % (20.0-40.0); MEAN CORPUSCULAR HEMOGLOBIN 28.1 pg (27.0-31.0); MEAN PLATELET VOLUME 8.5 fL (7.2-11.7); MONO # 0.2 K/uL (0.0-0.8); MONO % 1.7 % (0.0-10.0); NEUT # 9.1 K/uL (1.8-7.0); NEUT % 95.2 % (50.0-75.0); NRBC % 0.1 % (0.0-2.0); RBC 3.04 Mil/uL (3.80-5.20); RED CELL DISTRIBUTION WIDTH 19.4 % (11.5-14.5); WHITE BLOOD COUNT 9.5 K/uL (4.8-10.8)
[2018-07-15 12:58] LABS: ALB/GLOB RATIO 0.9 (1.0-2.1); ALBUMIN 2.5 g/dL (3.5-5.0); ALT/SGPT 26 U/L (9-52); AST/SGOT 41 U/L (14-36); BLOOD UREA NITROGEN 24 mg/dL (7-17); CALCIUM 8.9 mg/dl (8.6-10.4); GFR NON-AFRICAN AMERICAN 58
--- NOTE | 2018-07-15 14:06 | CP.PCM.CON ---
History of Present Illness - History of Present Illness History of Present Illness: Surgery Consult note. Dr. Walt Borjas Service 57yo F with PMHx of Stage 4 Cervical CA (on chemo since 2015), HTN, Anxiety/Depression, Neuropathy, Chronic Anemia who was admitted for generalized weakness. Patient states that she had right lower abdominal wall masses x2 removed by Dr. Wright on 06/22/18 and has since had a non-healing wound. On 06/24/18, the medial aspect of the wound was closed after irrigation with 2 nylon sutures. Patient reports on-going seropurulent drainage from the lateral aspect of the wound. Patient also reports a sacral pressure wound which has been causing her discomfort. She states that she was sent into the ED by Dr. Cameron due to generalized fatigue and poor oral intake. She denies any fevers or chi lls. No CP/SOB. no N/V. Does report a general abdominal pain, fatigue, malaise. Denies any urinary symptoms. PMHx: Stage 4 cervical CA (on Chemo), Anxiety, Depression, Neuropathy, Chronic Anemia, HTN PSHx: Cholecystecomy, Right hand surgery, Ureteral stents, right lower abdominal mass excision (06/22/18 - Path: squamous cell CA) Family Hx: Father - heart disease; Brother - Testicular CA Social Hx: Former smoker; Denies ETOH use; Denies Illicit drugs NKDA Review of Systems - Review of Systems All systems: reviewed and no additional remarkable complaints except Past Patient History - Infectious Disease Hx of Infectious Diseases: None - Past Medical History & Family History Past Medical History?: Yes Past Family History: Reviewed and not pertinent - Past Social History Smoking Status: Current Some Days Smoker - CARDIAC Hx Hypertension: Yes Hx Peripheral Edema: Yes (NO LONGER) - PULMONARY Hx Asthma: Yes Hx Chronic Obstructive Pulmonary Disease (COPD): Yes Hx Pneumonia: Yes (CHILDHOOD) - NEUROLOGICAL Hx Neurological Disorder: No - HEENT Hx HEENT Problems: Yes - RENAL Hx Chronic Kidney Disease: Yes - ENDOCRINE/METABOLIC Hx Endocrine Disorders: No - HEMATOLOGICAL/ONCOLOGICAL Hx Anemia: Yes - INTEGUMENTARY Hx Dermatological Problems: No - MUSCULOSKELETAL/RHEUMATOLOGICAL Hx Musculoskeletal Disorders: No Hx Falls: No - GASTROINTESTINAL Hx Gall Bladder Disease: Yes - GENITOURINARY/GYNECOLOGICAL Hx Genitourinary Disorders: Yes (SEE COMMENT) Hx Cervical Cancer: Yes (Metastatic stage 4 (2016)) Hx Postmenopausal Bleeding: Yes Other/Comment: STAGE IV WITH COMPLETED RADIATION AND CURRENTLY ON CHEMOTHERAPY EVERY 3-WEEKS (2018). RENAL STENTS - PSYCHIATRIC Hx Anxiety: Yes Hx Substance Use: No - SURGICAL HISTORY Hx Cholecystectomy: Yes - ANESTHESIA Hx Anesthesia: Yes Hx Anesthesia Reactions: No Hx Malignant Hyperthermia: No Meds Allergies/Adverse Reactions: Allergies Allergy/AdvReac Type Severity Reaction Status Date / Time No Known Allergies Allergy Verified 07/15/18 11:44 Physical Exam - Constitutional Appears: Non-toxic, No Acute Distress, Older Than Stated Age, Cachectic - Head Exam Head Exam: ATRAUMATIC, NORMAL INSPECTION, NORMOCEPHALIC - Eye Exam Eye Exam: EOMI, Normal appearance. absent: Scleral icterus - ENT Exam ENT Exam: Mucous Membranes Moist - Respiratory Exam Respiratory Exam: NORMAL BREATHING PATTERN. absent: Accessory Muscle Use, Respiratory Distress - Cardiovascular Exam Cardiovascular Exam: RRR. absent: JVD - GI/Abdominal Exam GI & Abdominal Exam: Soft. absent: Distended, Firm, Guarding, Tenderness - Back Exam Back exam: absent: CVA tenderness (L), CVA tenderness (R) - Neurological Exam Neurological exam: Alert, Oriented x3 - Psychiatric Exam Psychiatric exam: Agitated, Anxious - Skin Additional comments: Sacral decubitus noted. Stage 3 with eschar. No induration, no fluctuance Right groin, RLQ abdominal wound with medial aspect nylon sutures x2. Lateral aspect with approximately 1cm open wound with seropurulent drainage noted. No erythema, no induration. No fluctuance. Results - Vital Signs Recent Vital Signs: Last Vital Signs Temp 97.5 F L 07/15/18 13:33 Pulse 84 07/15/18 13:33 Resp 16 07/15/18 13:33 BP 111/79 07/15/18 13:33 Pulse Ox 95 07/15/18 13:33 - Labs Result Diagrams: 07/15/18 12:38 07/15/18 12:38 Labs: Laboratory Results - last 24 hr 07/15/18 07/15/18 12:38 12:38 WBC 9.5 RBC 3.04 L Hgb 8.6 L Hct 26.7 L MCV 88.0 MCH 28.1 MCHC 32.0 L RDW 19.4 H Plt Count 53 L MPV 8.5 Neut % (Auto) 95.2 H Lymph % (Auto) 2.5 L [place] % (Auto) 1.7 Eos % (Auto) 0.6 Baso % (Auto) 0.0 Neut # (Auto) 9.1 H Lymph # (Auto) 0.2 L [place] # (Auto) 0.2 Eos # (Auto) 0.1 Baso # (Auto) 0.0 Sodium 138 Potassium 4.4 Chloride 104 Carbon Dioxide 25 Anion Gap 13 BUN 24 H Creatinine 1.0 Est GFR ( Amer) > 60 Est GFR (Non-Af Amer) 58 Random Glucose 94 Calcium 8.9 Phosphorus 2.7 Magnesium 1.7 Total Bilirubin 0.3 AST 41 H ALT 26 Alkaline Phosphatase 66 Total Protein 5.3 L Albumin 2.5 L Globulin 2.8 Albumin/Globulin Ratio 0.9 L Assessment & Plan - Assessment and Plan (Free Text) Assessment: 57yo F with sacral decub and right groin non-healing wound. Plan: - IV abx to cover skin yonatan - Consider ID consult - f/u wound culture - bedside wound irrigation and placed wet-to-dry dressings to right groin wound - Continue wet-to-dry dressings twice daily - Wound care consult for sacral decub - q2 turns - Air mattress - Santyl or Medihoney with Mepilex/Optifoam dressings to sacral decub Further recs as per Dr. Indio John PGY2 Surgery
[2018-07-15] MEDS ORDERED: Sodium Chloride 0.9% 1,000 ML IV ONE (14:47)
[2018-07-15] MEDS ORDERED: Sodium Chloride 0.9% 1,000 ML ONE (14:52)
[2018-07-15] MEDS ORDERED: Morphine 4 MG/ML VIAL ONE (14:52)
--- NOTE | 2018-07-15 17:17 | CP.PCM.HP ---
<Juan David Taylor - Last Filed: 07/15/18 17:15> History of Present Illness - History of Present Illness History of Present Illness: Medicine H&P for Dr. Garcia's service CC: weakness 57 yo female w/ PMH cervical cancer, anxiety/depression, HTN, b/l LE neuropathy, and chronic anemia admitted for generalized weakness, poor oral intake, and sacral and inguinal wound. Dr. Cameron saw patient during outpatient chemotherapy and recommended patient come for evaluation for her weakness. Patient states she has no appetite to eat and father at bedside she has been having this issue progressing for quite some time. Denies fevers, chills, chest pain, n/v, constipation or diarrhea, and dysuria. Admits to abdominal pain, weakness, and slight sob. 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 Allergies- NKDA Code- Pending new conversation with palliative Advanced Directive- Father will make decisions Present on Admission - Present on Admission Any Indicators Present on Admission: Yes Decubitus Ulcer Present: Yes Decubitus Ulcer Location: sacrum Decubitus Ulcer Stage: III Review of Systems - Review of Systems All systems: reviewed and no additional remarkable complaints except Review of Systems: see hpi Past Patient History - Infectious Disease Hx of Infectious Diseases: None - Past Medical History & Family History Past Medical History?: Yes - Past Social History Smoking Status: Current Some Days Smoker - CARDIAC Hx Hypertension: Yes Hx Peripheral Edema: Yes (NO LONGER) - PULMONARY Hx Asthma: Yes Hx Chronic Obstructive Pulmonary Disease (COPD): Yes Hx Pneumonia: Yes (CHILDHOOD) - NEUROLOGICAL Hx Neurological Disorder: No - HEENT Hx HEENT Problems: Yes - RENAL Hx Chronic Kidney Disease: Yes - ENDOCRINE/METABOLIC Hx Endocrine Disorders: No - HEMATOLOGICAL/ONCOLOGICAL Hx Anemia: Yes - INTEGUMENTARY Hx Dermatological Problems: No - MUSCULOSKELETAL/RHEUMATOLOGICAL Hx Musculoskeletal Disorders: No Hx Falls: No - GASTROINTESTINAL Hx Gall Bladder Disease: Yes - GENITOURINARY/GYNECOLOGICAL Hx Genitourinary Disorders: Yes (SEE COMMENT) Hx Cervical Cancer: Yes (Metastatic stage 4 (2016)) Hx Postmenopausal Bleeding: Yes Other/Comment: STAGE IV WITH COMPLETED RADIATION AND CURRENTLY ON CHEMOTHERAPY EVERY 3-WEEKS (2018). RENAL STENTS - PSYCHIATRIC Hx Anxiety: Yes Hx Substance Use: No - SURGICAL HISTORY Hx Cholecystectomy: Yes - ANESTHESIA Hx Anesthesia: Yes Hx Anesthesia Reactions: No Hx Malignant Hyperthermia: No Meds Allergies/Adverse Reactions: Allergies Allergy/AdvReac Type Severity Reaction Status Date / Time No Known Allergies Allergy Verified 07/15/18 11:44 Physical Exam - Constitutional Appears: Older Than Stated Age, Cachectic, Chronically Ill - Head Exam Head Exam: NORMAL INSPECTION, NORMOCEPHALIC - Eye Exam Eye Exam: EOMI, Normal appearance. absent: Nystagmus, Scleral icterus - ENT Exam ENT Exam: Mucous Membranes Dry - Respiratory Exam Respiratory Exam: Rales, NORMAL BREATHING PATTERN. absent: Rhonchi, Wheezes, Respiratory Distress - Cardiovascular Exam Cardiovascular Exam: REGULAR RHYTHM, +S1, +S2 - GI/Abdominal Exam GI & Abdominal Exam: Normal Bowel Sounds, Soft. absent: Tenderness - Extremities Exam Extremities exam: Positive for: pedal edema. Negative for: calf tenderness - Back Exam Additional comments: sacrum stage 3 ulcer with necrotic skin tissue surrounding - Neurological Exam Neurological exam: Alert, Oriented x3 - Psychiatric Exam Psychiatric exam: Agitated, Anxious - Skin Skin Exam: Dry, Intact, Normal Color Additional comments: right inguinal open wound with minimal drainage multiple boil looking lesions in b/l lower extremities Results - Vital Signs Recent Vital Signs: Last Vital Signs Temp 97.5 F L 07/15/18 13:33 Pulse 90 07/15/18 15:13 Resp 17 07/15/18 15:13 BP 108/77 07/15/18 15:13 Pulse Ox 98 07/15/18 15:28 - Labs Result Diagrams: 07/15/18 12:38 07/15/18 12:38 Labs: Laboratory Results - last 24 hr 07/15/18 07/15/18 12:38 12:38 WBC 9.5 RBC 3.04 L Hgb 8.6 L Hct 26.7 L MCV 88.0 MCH 28.1 MCHC 32.0 L RDW 19.4 H Plt Count 53 L MPV 8.5 Neut % (Auto) 95.2 H Lymph % (Auto) 2.5 L [place] % (Auto) 1.7 Eos % (Auto) 0.6 Baso % (Auto) 0.0 Neut # (Auto) 9.1 H Lymph # (Auto) 0.2 L [place] # (Auto) 0.2 Eos # (Auto) 0.1 Baso # (Auto) 0.0 Sodium 138 Potassium 4.4 Chloride 104 Carbon Dioxide 25 Anion Gap 13 BUN 24 H Creatinine 1.0 Est GFR ( Amer) > 60 Est GFR (Non-Af Amer) 58 Random Glucose 94 Calcium 8.9 Phosphorus 2.7 Magnesium 1.7 Total Bilirubin 0.3 AST 41 H ALT 26 Alkaline Phosphatase 66 Total Protein 5.3 L Albumin 2.5 L Globulin 2.8 Albumin/Globulin Ratio 0.9 L Assessment & Plan - Assessment and Plan (Free Text) Assessment: 57 yo female w/ PMH cervical cancer, anxiety/depression, HTN, b/l LE neuropathy, and chronic anemia admitted for generalized weakness, poor oral intake, and sacral and inguinal wound. Plan: Hx of Cervical Cancer Outpatient chemotherapy with DR. Willie Cameron F/U outpatient for continued treatment Morphine 60mg ER daily Oxycodone 30mg q4h prn gabapentin 300mg po daily Stage 3 Sacral Ulcer Surgery Consulted: Dr. Borjas- recs appreciated Inguinal Wound wet to dry dressings as mentioned in nursing communication wound cx pending IV zosyn 3.375 q6h Multiple Boils likely 2/2 to chemotherapy reducing immune suppression causing boils due to blocked hair follicles in sites of increase sweat Surgery Consulted: Dr. Dante Borjas- recommendations appreciated IV zosyn 3.375 q6h Chronic Anemia Heme/Onc [place] consulted: recs appreciated pending CT chest for possible blood transfusion 2/2 to chemotherapy and cancer history hemodynamically stable no need for transfusion Hx of hydronephrosis Ureteral stent replacement with Dr. Rodriguez q 3 months most recent on 04-27-18 Hx of HTN holding bp meds due to low bp on admission Hx of B/L neuropathy Gabapentin 300mg po PPx DVT ppx: chemical ac contraindicated PGY-1 Juan David Taylor Case d.w Dr. Garcia <Joo Garcia H - Last Filed: 07/15/18 18:13> Results - Vital Signs Recent Vital Signs: Last Vital Signs Temp 97.5 F L 07/15/18 13:33 Pulse 90 07/15/18 15:13 Resp 17 07/15/18 15:13 BP 108/77 07/15/18 15:13 Pulse Ox 98 07/15/18 15:28 - Labs Result Diagrams: 07/15/18 12:38 07/15/18 12:38 Labs: Laboratory Results - last 24 hr 07/15/18 07/15/18 12:38 12:38 WBC 9.5 RBC 3.04 L Hgb 8.6 L Hct 26.7 L MCV 88.0 MCH 28.1 MCHC 32.0 L RDW 19.4 H Plt Count 53 L MPV 8.5 Neut % (Auto) 95.2 H Lymph % (Auto) 2.5 L [place] % (Auto) 1.7 Eos % (Auto) 0.6 Baso % (Auto) 0.0 Neut # (Auto) 9.1 H Lymph # (Auto) 0.2 L [place] # (Auto) 0.2 Eos # (Auto) 0.1 Baso # (Auto) 0.0 Sodium 138 Potassium 4.4 Chloride 104 Carbon Dioxide 25 Anion Gap 13 BUN 24 H Creatinine 1.0 Est GFR ( Amer) > 60 Est GFR (Non-Af Amer) 58 Random Glucose 94 Calcium 8.9 Phosphorus 2.7 Magnesium 1.7 Total Bilirubin 0.3 AST 41 H ALT 26 Alkaline Phosphatase 66 Total Protein 5.3 L Albumin 2.5 L Globulin 2.8 Albumin/Globulin Ratio 0.9 L Attending/Attestation - Attestation I have personally seen and examined this patient.: Yes I have fully participated in the care of the patient.: Yes I have reviewed all pertinent clinical information: Yes Notes (Text): 07/15/18 18:03 Medical attending: Patient was seen and examined by me with the medical records director. Earlier in the day she underwent chemotherapy and she felt very weak and tired and was sent into the ER by her art gilder oncologist. As mentioned above in the medical records director note the patient has stage 4 cervical cancer with areas of open wounds on her skin that are very painful. She was recently in the hospital in June due to complications of a right femoral area wound as well as a sacral area wound as well. She looks very ill. She tells us that she has not eaten very minimally for at least two weeks. The family is there, her father, and he confirms this. She also needs to be on pain medication as well. A recent CT scan of the chest shows she has bilateral pleural effusions. These were quite sizeable and were not removed the last time and we are getting a repeat CTA to look at these as well as to assess for a potential PE. On exam she has edema in the painful pitting left hand, her sacral area, and edema bilaterally in the feet. There is a wound that was closed with sutures on the right femoral area as well as on the sacrum area. She has bilateral rales and rhonchi on exam. Her face is emaciated. Her albumin was 2.5, so probably has had a lot of third spacing causing the edema we see as well as pleural effusions. Her Hgb is 8.6 - and she denies tiffany bleeding and so probably anemia of chronic disease. I would like to give PRBCs provided that her CT of the chest does not show worsening effusions - if the pleural effusions are worse then she may need a thoracentesis before giving PRBCs and IVF. Overall prognosis looks very poor. Her father is at bedside - he seems to be a very plesant man however the patient is very anxious and is always yelling for him to be quite. I don't think he understands just how sick she is. I am told she has a brother however his number is not listed in the chart. Patient needs to have palliatve care consult to discuss code status. Joo Garcia 07/15/18 18:13
[2018-07-15] MEDS ORDERED: oxyCODONE 30 mg Immediate Release Tab PO SCH (17:30)
--- NOTE | 2018-07-15 17:50 | RAD ---
HISTORY: sob COMPARISON: Chest x-ray performed 06/21/18 TECHNIQUE: Chest, one view. FINDINGS: Right IJ approach MediPort catheter extends to the expected location of the right atrium. LUNGS: Central vascular and pulmonary venous congestion. Small to moderate left pleural effusion and associated consolidation. No definite pneumothorax. Increased lucencies especially within the bilateral upper lung helm compatible with underlying emphysema. CARDIOVASCULAR: Heart size appears within normal limits. Atherosclerotic calcifications present. OSSEOUS STRUCTURES: Osseous demineralization. Degenerative changes. VISUALIZED UPPER ABDOMEN: Unremarkable. OTHER FINDINGS: None. IMPRESSION: Right IJ approach MediPort catheter extends to the expected location of the right atrium. Central vascular and pulmonary venous congestion. Small to moderate left pleural effusion and associated consolidation. Emphysematous changes.
[2018-07-15] MEDS: Morphine 60 mg SR Tab PO SCH (18:45)
[2018-07-15] MEDS: Piperacillin/Tazobact 3.375 GM in Sodium Chloride 100 ML IVPB SCH (19:28)
[2018-07-15] MEDS ORDERED: Piperacillin/Tazobact 3.375 gm 100 ML IVPB ONE (19:32)
[2018-07-15] MEDS: oxyCODONE 30 mg Immediate Release Tab PO PRN (22:17)
[2018-07-15] MEDS ORDERED: Iohexol 350mgl/ml 50 ML ONE (23:48)
[2018-07-16] MEDS: Piperacillin/Tazobact 3.375 GM in Sodium Chloride 100 ML IVPB SCH ×4 (01:00→19:39)
[2018-07-16] MEDS ORDERED: Albumin Human 25% (12.5 gm/50 ml) IV ONE (01:29)
[2018-07-16] MEDS: Morphine 60 mg SR Tab PO SCH (05:30)
[2018-07-16 07:03] LABS: URINE BILIRUBIN NEGATIVE (NEGATIVE); URINE CLARITY Hazy (Clear); URINE COLOR YELLOW (YELLOW); URINE GLUCOSE (UA) NEGATIVE (Normal)
[2018-07-16 07:04] LABS: SQUAMOUS EPITHIAL 3 /hpf (0-5); URINE BLOOD 1+ (NEGATIVE); URINE LEUKOCYTE ESTERASE 2+ Leu/uL (Negative); URINE PROTEIN NEGATIVE (NEGATIVE); URINE URIC ACID CRYSTALS OCC /hpf (<OCC); URINE UROBILINOGEN Normal mg/dL (0.2-1.0)
[2018-07-16 07:05] LABS: RENAL EPITHELIAL 1 /hpf (0-3)
[2018-07-16] MEDS: oxyCODONE 30 mg Immediate Release Tab PO PRN ×3 (08:33→19:45)
--- NOTE | 2018-07-16 08:41 | CP.PCM.PN ---
Subjective - Date & Time of Evaluation Date of Evaluation: 07/16/18 Time of Evaluation: 08:38 - Subjective Subjective: General Surgery Consult for Dr. Borjas Patient seen and examined at bedside. No acute event overnight. Patient reports abdominal pain that is chronic and at her baseline. Patient receiving PRBC this morning for anemia. Wet to dry dressings on right groin wound. Wound care consult was placed. Objective - Vital Signs/Intake and Output Vital Signs (last 24 hours): Temp Pulse Resp BP Pulse Ox 97.4 F L 81 20 99/66 L 98 07/16/18 07:32 07/16/18 07:32 07/16/18 07:32 07/16/18 07:32 07/16/18 07:00 Intake and Output: 07/16/18 07/16/18 06:59 18:59 Intake Total 825 375 Balance 825 375 - Medications Medications: Current Medications Gabapentin (Neurontin) 300 mg PO HS NIR Last Admin: 07/15/18 22:17 Dose: 300 mg Piperacillin Sod/Tazobactam (Sod 3.375 gm/ Sodium Chloride) 100 mls @ 200 mls/hr IVPB Q6H NIR; Protocol Last Admin: 07/16/18 07:40 Dose: 200 mls/hr Morphine Sulfate (Ms Contin) 60 mg PO Q12H NIR Last Admin: 07/16/18 05:30 Dose: Not Given Oxycodone HCl (Oxycodone Immediate Release Tab) 30 mg PO Q4H PRN PRN Reason: MOD-SEVERE PAIN SCALE 4-10 Last Admin: 07/16/18 08:33 Dose: 30 mg - Labs Labs: 07/15/18 12:38 07/15/18 12:38 - Additional Findings Additional findings: - Constitutional Appears: Non-toxic, No Acute Distress, Older Than Stated Age, Cachectic - Head Exam Head Exam: ATRAUMATIC, NORMAL INSPECTION, NORMOCEPHALIC - Eye Exam Eye Exam: EOMI, Normal appearance. absent: Scleral icterus - ENT Exam ENT Exam: Mucous Membranes Moist - Respiratory Exam Respiratory Exam: NORMAL BREATHING PATTERN. absent: Accessory Muscle Use, Respiratory Distress - Cardiovascular Exam Cardiovascular Exam: RRR. absent: JVD - GI/Abdominal Exam GI & Abdominal Exam: Soft. absent: Distended, Firm, Guarding, Tenderness - Back Exam Back exam: absent: CVA tenderness (L), CVA tenderness (R) - Neurological Exam Neurological exam: Alert, Oriented x3 - Psychiatric Exam Psychiatric exam: Agitated, Anxious - Skin Additional comments: Sacral decubitus noted. Stage 3 with eschar. No induration, no fluctuance Right groin wound with wet to dry dressing, minmal seropurulent drainage noted. No erythema, no induration. No fluctuance. Enlarged lymph node present. Assessment and Plan - Assessment and Plan (Free Text) Assessment: 57 F with sacral decub and right groin wound Plan: - IV abx - Consider ID consult - f/u wound culture - bedside wound irrigation and placed wet-to-dry dressings to right groin wound BID - Wound care consult for sacral decub - f/u recs - q2 turns - Air mattress - Santyl or Medihoney with Mepilex/Optifoam dressings to sacral decub - Further recs as per Dr. Indio Paredes PGY2
--- NOTE | 2018-07-16 09:34 | CP.PCM.PN ---
<Brian Díaz - Last Filed: 07/16/18 16:00> Subjective - Date & Time of Evaluation Date of Evaluation: 07/16/18 Time of Evaluation: 09:34 - Subjective Subjective: PGY-1 Medicine Progress Note for Dr. Garcia Patient seen and examined at bedside this AM. No acute overnight events reported. Patient appears very cachetic, weak. Has poor appetite. Pain is generally under control. Discussed with patient and medical attending present end-of-life goals. She was reluctant to pursue hospice care at this time, even after explanation of what that entails. She did state she does not want "tubes down my throat" or "to feel pain". Patient was made aware of plans to speak with palliative care, was made DNR/DNI and signed POLST form. Will reach out to Pulm/IR about possibly draining pleural effusions to make patient more comfortable at this time. Objective - Vital Signs/Intake and Output Vital Signs (last 24 hours): Temp Pulse Resp BP Pulse Ox 97.4 F L 81 20 99/66 L 98 07/16/18 07:32 07/16/18 07:32 07/16/18 07:32 07/16/18 07:32 07/16/18 07:00 Intake and Output: 07/16/18 07/16/18 06:59 18:59 Intake Total 825 375 Balance 825 375 - Medications Medications: Current Medications Gabapentin (Neurontin) 300 mg PO HS [facility] Last Admin: 07/15/18 22:17 Dose: 300 mg Piperacillin Sod/Tazobactam (Sod 3.375 gm/ Sodium Chloride) 100 mls @ 200 mls/hr IVPB Q6H [facility]; Protocol Last Admin: 07/16/18 07:40 Dose: 200 mls/hr Morphine Sulfate (Ms Contin) 60 mg PO Q12H [facility] Last Admin: 07/16/18 05:30 Dose: Not Given Oxycodone HCl (Oxycodone Immediate Release Tab) 30 mg PO Q4H PRN PRN Reason: MOD-SEVERE PAIN SCALE 4-10 Last Admin: 07/16/18 08:33 Dose: 30 mg - Labs Labs: 07/15/18 12:38 07/15/18 12:38 - Constitutional Appears: Older Than Stated Age, Cachectic, Chronically Ill - Head Exam Head Exam: ATRAUMATIC, NORMAL INSPECTION, NORMOCEPHALIC - Eye Exam Eye Exam: EOMI, Normal appearance, PERRL - ENT Exam ENT Exam: Mucous Membranes Moist, Normal Exam - Neck Exam Neck Exam: Full ROM, Normal Inspection - Respiratory Exam Respiratory Exam: Decreased Breath Sounds. absent: Accessory Muscle Use, Respiratory Distress - Cardiovascular Exam Cardiovascular Exam: REGULAR RHYTHM, +S1, +S2 - GI/Abdominal Exam GI & Abdominal Exam: Soft. absent: Distended, Firm, Guarding, Rigid - Back Exam Back Exam: NORMAL INSPECTION - Neurological Exam Neurological Exam: Alert, Awake, Oriented x3 - Psychiatric Exam Psychiatric exam: Depressed - Skin Skin Exam: Dry, Intact, Normal Color, Warm Assessment and Plan - Assessment and Plan (Free Text) Assessment: 57 yo female w/ PMH cervical cancer, anxiety/depression, HTN, b/l LE neuropathy, and chronic anemia admitted for generalized weakness, poor oral intake, and sacral and inguinal wound. Plan: Hx of Cervical Cancer -CT chest: L breast mass, extensive lymphadenopathy involving L axilla, neck, supraclavicular, mediastinal nodes. Probable pleural metastasis in medial R lung base. Questionable pulmonary nodule in LLL. L suprarenal mass. Intrahepatic biliary dilatation. -Outpatient chemotherapy with Dr.Simon Cameron -F/U outpatient for continued treatment -Morphine 60mg ER daily -Oxycodone 30mg q4h prn -Gabapentin 300mg po daily Stage 3 Sacral Ulcer -Surgery recs (Dr. Borjas) appreciated -f/u wound culture -bedside wound irrigation and placed wet-to-dry dressings to right groin wound BID -Wound care consult for sacral decub - f/u recs -q2 turns -Air mattress -Santyl or Medihoney with Mepilex/Optifoam dressings to sacral decub Inguinal Wound -wound cx prelim: gram positive cocci -IV zosyn 3.375 q6h Shortness of breath Pleural effusions -CT chest (07/16): b/l moderate pleural effusions. -Pulmonology (Dr. Odom), IR (Dr. Moss) consulted about possible drainage Multiple Boils -likely 2/2 to chemotherapy reducing immune suppression causing boils due to blocked hair follicles in sites of increase sweat -Surgery recs appreciated: see A&P above -IV zosyn 3.375 q6h Chronic Anemia -Heme/Onc Nisha consulted: recs appreciated -2 to chemotherapy and cancer history -hemodynamically stable -no need for transfusion Hx of hydronephrosis -Ureteral stent replacement with Dr. Rodriguez q 3 months -most recent on 04-27-18 Hx of HTN -holding bp meds due to low bp on admission Hx of B/L neuropathy -Gabapentin 300mg PO PPx, Diet, Disposition -DVT ppx: chemical ac contraindicated -Diet: HHD -wound care on board -Code Status: DNR/DNI Case discussed with Dr. Radha Díaz DO, PGY-1 <Joo Garcia - Last Filed: 07/16/18 17:11> Objective - Vital Signs/Intake and Output Vital Signs (last 24 hours): Temp Pulse Resp BP Pulse Ox 97.7 F 84 20 101/69 100 07/16/18 16:00 07/16/18 16:00 07/16/18 16:00 07/16/18 16:00 07/16/18 16:00 Intake and Output: 07/16/18 07/16/18 06:59 18:59 Intake Total 825 955 Balance 825 955 - Medications Medications: Current Medications Gabapentin (Neurontin) 300 mg PO HS [facility] Last Admin: 07/15/18 22:17 Dose: 300 mg Piperacillin Sod/Tazobactam (Sod 3.375 gm/ Sodium Chloride) 100 mls @ 200 mls/hr IVPB Q6H [facility]; Protocol Last Admin: 07/16/18 13:41 Dose: 200 mls/hr Morphine Sulfate (Morphine Extended Release Tab) 60 mg PO Q12H [facility] Last Admin: 07/16/18 12:19 Dose: 60 mg Oxycodone HCl (Oxycodone Immediate Release Tab) 30 mg PO Q4H PRN PRN Reason: MOD-SEVERE PAIN SCALE 4-10 Last Admin: 07/16/18 15:43 Dose: 30 mg - Labs Labs: 07/16/18 11:24 07/16/18 11:24 Attending/Attestation - Attestation I have personally seen and examined this patient.: Yes I have fully participated in the care of the patient.: Yes I have reviewed all pertinent clinical information, including history, physical exam and plan: Yes Notes (Text): 07/16/18 16:58 Medical attending: Patient was seen and examined by me. Agree with the above note by the medical manager The patient this morning was feeling a little more comfortable then when we saw her last night The patient on the CT does have substantial pleural effusions. She tells us that recently her breathing has been getting progressively worse. If possible will get pulmonology evaluation and also IR to see if this could be removed via thoracentesis. I have a feeling that if it could be removed it maybe exudative as she has an stage 4 cervical cancer She has recived one unit of PRBC as well as albumin x 1 overnight. Her blood pressure remains low. She is very depressed and started crying again. And so we didn't talk much about code status but later on palliative care spoke with her and I was informed she signed a POLST and code status was now DNR and DNI I tried calling a sister Clemencia whose number was [phone] however was not able to reach them, it said that the voicemailbox was not set up yet. I spoke with her father over the phone as well. Overall prognosis is not good, she ask us to reach out to her sister. I will try calling again later. The patient also has a daughter however she explains she'd rather have sister notified. Joo Garcia
[2018-07-16] MEDS ORDERED: Morphine 60 mg SR Tab PO SCH (11:23)
[2018-07-16 11:36] LABS: BASO % 0.2 % (0.0-2.0); EOS # 0.1 K/uL (0.0-0.7); EOS % 1.4 % (0.0-4.0); HEMOGLOBIN 9.4 g/dL (11.0-16.0); LYMPH # 0.2 K/uL (1.0-4.3); MEAN CORPUSCULAR HEMOGLOBIN 28.4 pg (27.0-31.0); MEAN CORPUSCULAR HGB CONC 31.9 g/dL (33.0-37.0); MEAN PLATELET VOLUME 9.6 fL (7.2-11.7); MONO # 0.1 K/uL (0.0-0.8); MONO % 0.8 % (0.0-10.0); NEUT # 10.1 K/uL (1.8-7.0); NEUT % 95.6 % (50.0-75.0); PLATELET COUNT 60 K/uL (130-400); RED CELL DISTRIBUTION WIDTH 18.3 % (11.5-14.5); WHITE BLOOD COUNT 10.6 K/uL (4.8-10.8)
[2018-07-16 11:53] LABS: ALBUMIN 2.6 g/dL (3.5-5.0); CALCIUM 7.9 mg/dl (8.6-10.4)
[2018-07-16] MEDS: Morphine 30 mg SR Tab PO SCH ×2 (12:19→23:55)
[2018-07-16 12:28] LABS: BANDS 2 % (0-2); LYMPHOCYTE 3 % (20-40); NEUTROPHIL 95 % (50-75); TOTAL CELLS COUNTED 100
[2018-07-16 12:29] LABS: ANISOCYTOSIS SLIGHT; BURR CELLS SLIGHT; HYPOCHROMIC SLIGHT; PLATELET ESTIMATE DECREASED (NORMAL); POIKILOCYTOSIS SLIGHT; TARGET CELLS SLIGHT
--- NOTE | 2018-07-16 14:59 | CT ---
Date of service: 07/16/2018 PROCEDURE: CT Chest with contrast HISTORY: pleural effusions COMPARISON: 06/21/2018 and 10/22/2016 TECHNIQUE: Contiguous axial images were obtained through the chest with intravenous contrast enhancement. Sagittal and coronal reconstructions were performed. IV contrast: 100 mL Omnipaque 350 Radiation dose: Total exam DLP = 162.77 mGy-cm. This CT exam was performed using one or more of the following dose reduction techniques: Automated exposure control, adjustment of the mA and/or kV according to patient size, and/or use of iterative reconstruction technique. FINDINGS: LUNGS: Bilateral lower lobe compressive atelectasis secondary to pleural effusions. 7 mm nodule in the left lower lobe on series 3, image 66. Essentially unchanged from examination of 06/21/2018, possibly corresponding to the subpleural nodule seen in 2017 measuring 4 mm. Correspondence is difficult to determine due to the degree of distortion of the lung and atelectasis because of the current pleural effusions. Follow-up after resolution of the pleural effusions and atelectasis is advised. No other pulmonary mass identified. There is centrilobular pulmonary emphysema particularly in the upper lobes. MEDIASTINUM: Unremarkable thoracic aorta. No aneurysm or dissection. Normal sized heart. Main pulmonary artery unremarkable. No vascular congestion. There is extensive mediastinal lymphadenopathy. Left-sided cervical lymphadenopathy and left supraclavicular lymphadenopathy are noted as well as left axillary lymphadenopathy. Many of these nodes appear necrotic. There is a mass in the left breast measuring approximately 2.8 cm in greatest dimension. Concerning for breast malignancy. No aortic atherosclerotic calcification or mural plaque present. PLEURA: Moderate bilateral pleural effusion. Likely pleural metastasis along the medial posterior parietal pleural surface at the lung bases. BONES: No fracture. No destructive lesion. UPPER ABDOMEN: There is intrahepatic biliary ductal dilatation. There is a necrotic left suprarenal mass identified only partially included in this examination, of uncertain significance. This is larger than on prior examination. OTHER FINDINGS: None. IMPRESSION: Left breast mass. Extensive lymphadenopathy involving left axilla, left neck, left supraclavicular and mediastinal nodes. Bilateral moderate pleural effusion. Probable pleural metastasis medial right lung base. Bilateral lower lobe compressive atelectasis. Questionable pulmonary nodule in left lower lobe for which follow-up following clearing of pleural effusions is advised. Right central venous infusion port. Intrahepatic biliary dilatation. Left suprarenal mass.
--- NOTE | 2018-07-16 15:54 | CP.PCM.CON ---
History of Present Illness - History of Present Illness History of Present Illness: Palliative consult requested by Doctor Taylor for goals of care discussion re: poor prognosis Patient is a 57 yo lady known to me from previous admissions, who was sent here from infusion center due to weakness and lethargy. Patient has been receiving Chemo Tx every 3 weeks since 2016 hen diagnosed with cervical cancer. Doctor Nisha espinoza. Nurses felt patient was too weak for the chemo Tx session. Patient admitted feeling more weak than usually, did not eat for the last 1-2 days and could not walk due to weakness. In ED patient found to have Hb 8.6 what is very low for her. CT chest significant for pleural effusion, thoracentesis scheduled. Patient received blood transfusion, Hb up to 9.4 today. Patient complains of moderate to severe abdominal pain to abdomen and is medicated with long acting Morphine PO and Oxycodone IR. Patient appears extremly weak, primary MD was concerned with her condition and prognosis. Palliative care was asked to assist in goals of care discussion. PMH: cervical cancer stage IV with mets, anxiety, depression, HTN, edema to left arm and left leg ( chronic), pressure sore wound to groin, on chemo Tx Q 3 weeks since 2016, unwanted weight loss Soc. Hx: single, lives at home, mother and father take care of her Fam. Hx: denied Review of Systems - Constitutional Constitutional: Anorexia, Lethargy, Malaise, Weight Loss, Weakness - EENT Eyes: absent: As Per HPI, Blind Spots, Blurred Vision, Change in Vision, Decreased Night Vision, Diplopia, Discharge, Dry Eye, Exophthalmos, Floaters, Irritation, Itchy Eyes, Loss of Peripheral Vision, Pain, Photophobia, Requires Corrective Lenses, Sees Flashes, Spots in Vision, Tunnel Vision, Other Visual Disturbances, Loss of Vision, Other Ears: absent: As Per HPI, Decreased Hearing, Ear Discharge, Ear Pain, Tinnitus, Abnormal Hearing, Disequilibrium, Dizziness, Other Nose/Mouth/Throat: Dry Mouth - Breasts Breasts: absent: As Per HPI, Change in Shape, Mass, Pain, Nipple Discharge, Nipple Inversion, Skin Changes, Swelling, Other - Cardiovascular Cardiovascular: Leg Edema - Respiratory Respiratory: Dyspnea, Dyspnea on Exertion - Gastrointestinal Gastrointestinal: Abdominal Pain, Early Satiety - Genitourinary Genitourinary: absent: As Per HPI, Change in Urinary Stream, Difficulty Urin ating, Dysuria, Flank Pain, Hematuria, Pyuria, Nocturia, Urinary Incontinence, Urinary Frequency, Urinary Hesitance, Urinary Urgency, Voiding Freq/Small Amts, Freq UTI, Hx Renal/Bladder Calculi, Hx /Renal Surgery, Bladder Distension, Other - Reproductive: Female Additional comments: cervical cancer - Menstruation Menstruation: Post Menopausal - Musculoskeletal Musculoskeletal: Muscle Weakness - Integumentary Integumentary: Change in Hair, Dry Skin, Sores, Swelling - Neurological Neurological: Abnormal Gait, Dizziness, Lack of Coordination, Weakness - Psychiatric Psychiatric: absent: As Per HPI, Abnormal Sleep Pattern, Anhedonia, Anxiety, Auditory Hallucinations, Behavioral Changes, Change in Appetite, Change in Libido, Confusion, Depression, Difficulty Concentrating, Hallucinations, Homicidal Ideation, Hopelessness, Irritability, Memory Loss, Mood Swings, Panic Attacks, Paranoia, Suicidal Ideation, Visual Hallucinations, Tactile Hallucinations, Other - Endocrine Endocrine: absent: As Per HPI, Change in Body Appearance, Change in Libido, Cold Intolorance, Deepening of Voice, Excessive Sweating, Fatigue, Flushing, Heat Intolorance, Increase in Ring/Shoe/Hat Size, Palpitations, Polydipsia, Polyphagia, Polyuria, Other - Hematologic/Lymphatic Hematologic: Easy Bleeding Past Patient History - Infectious Disease Hx of Infectious Diseases: None - Past Medical History & Family History Past Medical History?: Yes - Past Social History Smoking Status: Current Some Days Smoker - CARDIAC Hx Hypertension: Yes Hx Peripheral Edema: Yes (NO LONGER) - PULMONARY Hx Asthma: Yes Hx Chronic Obstructive Pulmonary Disease (COPD): Yes Hx Pneumonia: Yes (CHILDHOOD) - NEUROLOGICAL Hx Neurological Disorder: No - HEENT Hx HEENT Problems: Yes - RENAL Hx Chronic Kidney Disease: Yes - ENDOCRINE/METABOLIC Hx Endocrine Disorders: No - HEMATOLOGICAL/ONCOLOGICAL Hx Anemia: Yes - INTEGUMENTARY Hx Dermatological Problems: No - MUSCULOSKELETAL/RHEUMATOLOGICAL Hx Musculoskeletal Disorders: No Hx Falls: No - GASTROINTESTINAL Hx Gall Bladder Disease: Yes - GENITOURINARY/GYNECOLOGICAL Hx Genitourinary Disorders: Yes (SEE COMMENT) Hx Cervical Cancer: Yes (Metastatic stage 4 (2016)) Hx Postmenopausal Bleeding: Yes Other/Comment: STAGE IV WITH COMPLETED RADIATION AND CURRENTLY ON CHEMOTHERAPY EVERY 3-WEEKS (2018). RENAL STENTS - PSYCHIATRIC Hx Anxiety: Yes Hx Substance Use: No - SURGICAL HISTORY Hx Cholecystectomy: Yes - ANESTHESIA Hx Anesthesia: Yes Hx Anesthesia Reactions: No Hx Malignant Hyperthermia: No Meds Allergies/Adverse Reactions: Allergies Allergy/AdvReac Type Severity Reaction Status Date / Time No Known Allergies Allergy Verified 07/15/18 11:44 - Medications Medications: Current Medications Gabapentin (Neurontin) 300 mg PO HS [facility] Last Admin: 07/15/18 22:17 Dose: 300 mg Piperacillin Sod/Tazobactam (Sod 3.375 gm/ Sodium Chloride) 100 mls @ 200 mls/hr IVPB Q6H [facility]; Protocol Last Admin: 07/16/18 13:41 Dose: 200 mls/hr Morphine Sulfate (Morphine Extended Release Tab) 60 mg PO Q12H [facility] Last Admin: 07/16/18 12:19 Dose: 60 mg Oxycodone HCl (Oxycodone Immediate Release Tab) 30 mg PO Q4H PRN PRN Reason: MOD-SEVERE PAIN SCALE 4-10 Last Admin: 07/16/18 15:43 Dose: 30 mg Physical Exam - Constitutional Appears: In Acute Distress, Chronically Ill - Head Exam Head Exam: ATRAUMATIC, NORMAL INSPECTION, NORMOCEPHALIC - Eye Exam Eye Exam: EOMI, Normal appearance, PERRL Pupil Exam: NORMAL ACCOMODATION, PERRL - ENT Exam ENT Exam: Mucous Membranes Dry - Neck Exam Neck exam: Positive for: Normal Inspection - Respiratory Exam Respiratory Exam: Decreased Breath Sounds, NORMAL BREATHING PATTERN - Cardiovascular Exam Cardiovascular Exam: Tachycardia, Irregular Rhythm - GI/Abdominal Exam GI & Abdominal Exam: Diminished Bowel Sounds, Distended, Firm, Hypoactive Bowel Sounds - Rectal Exam Rectal Exam: Deferred - Extremities Exam Additional comments: edema of left arm and left leg - Back Exam Back exam: NORMAL INSPECTION - Neurological Exam Neurological exam: Alert, Oriented x3 - Psychiatric Exam Psychiatric exam: Flat Affect - Skin Skin Exam: Dry, Pallor, Warm Results - Vital Signs Recent Vital Signs: Last Vital Signs Temp 97.4 F L 07/16/18 07:32 Pulse 81 07/16/18 07:32 Resp 20 07/16/18 07:32 BP 99/66 L 07/16/18 07:32 Pulse Ox 99 07/16/18 12:02 - Labs Result Diagrams: 07/16/18 11:24 07/16/18 11:24 Labs: Laboratory Results - last 24 hr 07/16/18 07/16/18 07/16/18 02:32 06:34 11:24 WBC 10.6 RBC 3.30 L Hgb 9.4 L Hct 29.4 L MCV 89.0 MCH 28.4 MCHC 31.9 L RDW 18.3 H Plt Count 60 L MPV 9.6 Neut % (Auto) 95.6 H Lymph % (Auto) 2.0 L [place] % (Auto) 0.8 Eos % (Auto) 1.4 Baso % (Auto) 0.2 Neut # (Auto) 10.1 H Lymph # (Auto) 0.2 L [place] # (Auto) 0.1 Eos # (Auto) 0.1 Baso # (Auto) 0.0 Neutrophils % (Manual) 95 H Band Neutrophils % 2 Lymphocytes % (Manual) 3 L Monocytes % (Manual) TEST NOT PERFORMED Platelet Estimate Decreased L Hypochromasia (manual) Slight Poikilocytosis (manual Slight Anisocytosis (manual) Slight Target Cells Slight [place] Cells Slight Sodium Potassium Chloride Carbon Dioxide Anion Gap BUN Creatinine Est GFR ( Amer) Est GFR (Non-Af Amer) Random Glucose Calcium Total Bilirubin AST ALT Alkaline Phosphatase Total Protein Albumin Globulin Albumin/Globulin Ratio Urine Color Yellow Urine Clarity Hazy Urine pH 5.0 Ur Specific [place] 1.041 H Urine Protein Negative Urine Glucose (UA) Negative Urine Ketones Negative Urine Blood 1+ H Urine Nitrate Negative Urine Bilirubin Negative Urine Urobilinogen Normal Ur Leukocyte Esterase 2+ H Urine WBC (Auto) 25 H Urine RBC (Auto) 28 H Ur Squamous Epith Cells 3 Ur Renal Epithelial Cell 1 Uric Acid Crystals Occ H Blood Type A NEGATIVE Antibody Screen Negative 07/16/18 11:24 WBC RBC Hgb Hct MCV MCH MCHC RDW Plt Count MPV Neut % (Auto) Lymph % (Auto) [place] % (Auto) Eos % (Auto) Baso % (Auto) Neut # (Auto) Lymph # (Auto) [place] # (Auto) Eos # (Auto) Baso # (Auto) Neutrophils % (Manual) Band Neutrophils % Lymphocytes % (Manual) Monocytes % (Manual) Platelet Estimate Hypochromasia (manual) Poikilocytosis (manual Anisocytosis (manual) Target Cells [place] Cells Sodium 139 Potassium 4.4 Chloride 106 Carbon Dioxide 21 L Anion Gap 17 BUN 32 H Creatinine 1.2 Est GFR ( Amer) 56 Est GFR (Non-Af Amer) 47 Random Glucose 123 H D Calcium 7.9 L Total Bilirubin 0.5 AST 44 H ALT 21 Alkaline Phosphatase 62 Total Protein 5.3 L Albumin 2.6 L Globulin 2.7 Albumin/Globulin Ratio 1.0 Urine Color Urine Clarity Urine pH Ur Specific [place] Urine Protein Urine Glucose (UA) Urine Ketones Urine Blood Urine Nitrate Urine Bilirubin Urine Urobilinogen Ur Leukocyte Esterase Urine WBC (Auto) Urine RBC (Auto) Ur Squamous Epith Cells Ur Renal Epithelial Cell Uric Acid Crystals Blood Type Antibody Screen Assessment & Plan - Assessment and Plan (Free Text) Assessment: Palliative consult Full Code, there was not Advance Directive on chart, PPS 20% I reviewed all medical records, diagnostic studies, examined and interviewed patient in the bed. Patient is alert, looking very tired, affect flat, answers questions appropriately and is very cooperative. Skin pale. Patient looks like if she lost a lot of weight. Left arm and leg swollen. Right groin pressure sore, infected. Cultures + Gram + cocci. Patient complains of abdominal pain of 9/10. Abdomen is tender and distended. Patient is asking for her pain meds, what I relayed to nursing. Patient states was tired and in pain and wanted to feel more comfortable. Patient's father at bed side. Patient recognized me from previous admission. I sat at her side and tried to distract her by gently massaging her feet. Patient said she just wanted to be comfortable and did not want to suffer. I briefly reviewed her cancer Hx and shared my concerns about her clinical presentation. I reassured her of all actions taken to promote her comfort including scheduled thoracentesis, blood transfusion and pain meds. Patient acknowledged all of it. I questioned patient about her end of life care wishes. She said she did not want to suffer if her condition gets worse. Patient's father was present and was concerned if we were to stop treatment. I explained that DNR did not mean cessation of treatment and it will take place only if patient's heart stops despite all interventions. He stated understanding. Patient agreed and signed DNR/DNI. Both, patient and her 80 years old father were concerned with patient's lack of assistance at home. The father is > 80 years old and so is her mother. They would like some help from [facility] if possible. Patient and her father asked about discharge home. I reassured them that patient was not stable just yet, and when she gets better she will be discharged home. This conversation was shared with nursing and president [employer]. Impression * Metastatic cancer * Cancer related pain * Weakness * Unwanted weight loss * Psychosocial distress 2nd to terminal diagnosis and lack of support at home * Patient voices wish to be kept comfortable and allowed natural if her condition worsened. She wishes no CPR, no PEG, no MV assistance * POLST signed by patient, DNR/DNI Suggestion * Patient needs more aggressive form of managing breakthrough pain. Would consider Morphine 2 mg IV Q 2 hr for breakthrough pain. Keep long acting PO Morphine. Patient is not eating well and for that reason would consider IV form of pain meds * Offer cold drinks , ice cream, Ensure to keep her hydrated. Ice chips for hydration if food not tolerated * IVF for hydration at low rate, 75 cc/hr * Refer to SS for assistance with Home health aid services at home after discharge * Agree with DNR/DNI I am not sure if this patient will survive this admission. She is very critical. In house hospice would soon be the only option. I will continue to fallow up with this patient and offer support. Advance care planing 35 min.
--- NOTE | 2018-07-16 20:30 | CP.PCM.CON ---
History of Present Illness - History of Present Illness History of Present Illness: 57 year old female with a history of CKD, anxiety, and stage IV cervical cancer (squamous cell histology) diagnosed 03/2015, on salvage chemotherapy, last given yesterday, admitted with failure to thrive. The patient was noted to be ex tremely fatigued after her chemotherapy session yesterday. She continues to lose weight and has a lack of appetite. Her father notes she spends most of the time in bed and does not eat much. She continues to clinically decline despite recent switch of her chemotherapy. Past medical history: CKD, anxiety, stage IV cervical cancer. Past surgical history: Portacath Family history: Denies hematologic and oncologic problems Social history: Denies tobacco, alcohol, and illicit drug use. Allergies: NKA Review of systems: All remaining review of systems including HEENT, cardiovascular, respiratory, gastrointestinal, genitourinary, musculoskeletal, dermatologic, neurologic and psychiatric are negative unless mentioned in the HPI. Past Patient History - Infectious Disease Hx of Infectious Diseases: None - Past Medical History & Family History Past Medical History?: Yes - Past Social History Smoking Status: Current Some Days Smoker - CARDIAC Hx Hypertension: Yes Hx Peripheral Edema: Yes (NO LONGER) - PULMONARY Hx Asthma: Yes Hx Chronic Obstructive Pulmonary Disease (COPD): Yes Hx Pneumonia: Yes (CHILDHOOD) - NEUROLOGICAL Hx Neurological Disorder: No - HEENT Hx HEENT Problems: Yes - RENAL Hx Chronic Kidney Disease: Yes - ENDOCRINE/METABOLIC Hx Endocrine Disorders: No - HEMATOLOGICAL/ONCOLOGICAL Hx Anemia: Yes - INTEGUMENTARY Hx Dermatological Problems: No - MUSCULOSKELETAL/RHEUMATOLOGICAL Hx Musculoskeletal Disorders: No Hx Falls: No - GASTROINTESTINAL Hx Gall Bladder Disease: Yes - GENITOURINARY/GYNECOLOGICAL Hx Genitourinary Disorders: Yes (SEE COMMENT) Hx Cervical Cancer: Yes (Metastatic stage 4 (2016)) Hx Postmenopausal Bleeding: Yes Other/Comment: STAGE IV WITH COMPLETED RADIATION AND CURRENTLY ON CHEMOTHERAPY EVERY 3-WEEKS (2018). RENAL STENTS - PSYCHIATRIC Hx Anxiety: Yes Hx Substance Use: No - SURGICAL HISTORY Hx Cholecystectomy: Yes - ANESTHESIA Hx Anesthesia: Yes Hx Anesthesia Reactions: No Hx Malignant Hyperthermia: No Meds Allergies/Adverse Reactions: Allergies Allergy/AdvReac Type Severity Reaction Status Date / Time No Known Allergies Allergy Verified 07/15/18 11:44 - Medications Medications: Current Medications Gabapentin (Neurontin) 300 mg PO HS [facility] Last Admin: 07/15/18 22:17 Dose: 300 mg Piperacillin Sod/Tazobactam (Sod 3.375 gm/ Sodium Chloride) 100 mls @ 200 mls/hr IVPB Q6H NIR; Protocol Last Admin: 07/16/18 19:39 Dose: 200 mls/hr Morphine Sulfate (Morphine Extended Release Tab) 60 mg PO Q12H NIR Last Admin: 07/16/18 12:19 Dose: 60 mg Oxycodone HCl (Oxycodone Immediate Release Tab) 30 mg PO Q4H PRN PRN Reason: MOD-SEVERE PAIN SCALE 4-10 Last Admin: 07/16/18 19:45 Dose: 30 mg Physical Exam - Constitutional Appears: Cachectic - Head Exam Head Exam: ATRAUMATIC - Eye Exam Eye Exam: Normal appearance - ENT Exam ENT Exam: Mucous Membranes Dry - Respiratory Exam Respiratory Exam: Decreased Breath Sounds - Cardiovascular Exam Cardiovascular Exam: +S1, +S2 - GI/Abdominal Exam GI & Abdominal Exam: Normal Bowel Sounds - Extremities Exam Extremities exam: Positive for: pedal edema - Neurological Exam Neurological exam: Oriented x3 - Psychiatric Exam Psychiatric exam: Depressed - Skin Skin Exam: Warm Results - Vital Signs Recent Vital Signs: Last Vital Signs Temp 97.7 F 07/16/18 16:00 Pulse 84 07/16/18 16:00 Resp 20 07/16/18 16:00 BP 101/69 07/16/18 16:00 Pulse Ox 100 07/16/18 16:00 - Labs Result Diagrams: 07/16/18 11:24 07/16/18 11:24 Labs: Laboratory Results - last 24 hr 07/16/18 07/16/18 07/16/18 02:32 06:34 11:24 WBC 10.6 RBC 3.30 L Hgb 9.4 L Hct 29.4 L MCV 89.0 MCH 28.4 MCHC 31.9 L RDW 18.3 H Plt Count 60 L MPV 9.6 Neut % (Auto) 95.6 H Lymph % (Auto) 2.0 L [place] % (Auto) 0.8 Eos % (Auto) 1.4 Baso % (Auto) 0.2 Neut # (Auto) 10.1 H Lymph # (Auto) 0.2 L [place] # (Auto) 0.1 Eos # (Auto) 0.1 Baso # (Auto) 0.0 Neutrophils % (Manual) 95 H Band Neutrophils % 2 Lymphocytes % (Manual) 3 L Monocytes % (Manual) TEST NOT PERFORMED Platelet Estimate Decreased L Hypochromasia (manual) Slight Poikilocytosis (manual Slight Anisocytosis (manual) Slight Target Cells Slight [place] Cells Slight Sodium Potassium Chloride Carbon Dioxide Anion Gap BUN Creatinine Est GFR ( Amer) Est GFR (Non-Af Amer) Random Glucose Calcium Total Bilirubin AST ALT Alkaline Phosphatase Total Protein Albumin Globulin Albumin/Globulin Ratio Urine Color Yellow Urine Clarity Hazy Urine pH 5.0 Ur Specific [place] 1.041 H Urine Protein Negative Urine Glucose (UA) Negative Urine Ketones Negative Urine Blood 1+ H Urine Nitrate Negative Urine Bilirubin Negative Urine Urobilinogen Normal Ur Leukocyte Esterase 2+ H Urine WBC (Auto) 25 H Urine RBC (Auto) 28 H Ur Squamous Epith Cells 3 Ur Renal Epithelial Cell 1 Uric Acid Crystals Occ H Blood Type A NEGATIVE Antibody Screen Negative 07/16/18 11:24 WBC RBC Hgb Hct MCV MCH MCHC RDW Plt Count MPV Neut % (Auto) Lymph % (Auto) Treasure % (Auto) Eos % (Auto) Baso % (Auto) Neut # (Auto) Lymph # (Auto) [place] # (Auto) Eos # (Auto) Baso # (Auto) Neutrophils % (Manual) Band Neutrophils % Lymphocytes % (Manual) Monocytes % (Manual) Platelet Estimate Hypochromasia (manual) Poikilocytosis (manual Anisocytosis (manual) Target Cells Enterprise Cells Sodium 139 Potassium 4.4 Chloride 106 Carbon Dioxide 21 L Anion Gap 17 BUN 32 H Creatinine 1.2 Est GFR ( Amer) 56 Est GFR (Non-Af Amer) 47 Random Glucose 123 H D Calcium 7.9 L Total Bilirubin 0.5 AST 44 H ALT 21 Alkaline Phosphatase 62 Total Protein 5.3 L Albumin 2.6 L Globulin 2.7 Albumin/Globulin Ratio 1.0 Urine Color Urine Clarity Urine pH Ur Specific [place] Urine Protein Urine Glucose (UA) Urine Ketones Urine Blood Urine Nitrate Urine Bilirubin Urine Urobilinogen Ur Leukocyte Esterase Urine WBC (Auto) Urine RBC (Auto) Ur Squamous Epith Cells Ur Renal Epithelial Cell Uric Acid Crystals Blood Type Antibody Screen Assessment & Plan (1) Failure to thrive Assessment and Plan: secondary to malignancy supportive care - noted pleural effusion, for thoracentesis evaluation discussed hospice with that patient and concern with her continued clinical decline. She became tearful and declined hospice evaluation she agrees to DNR/DNI Status: Acute (2) Thrombocytopenia Assessment and Plan: secondary to chemotherapy transfuse if plt < 20,000 Status: Acute (3) Anemia Assessment and Plan: anemia of chronic disease and chemotherapy Status: Chronic (4) Cervical cancer Assessment and Plan: stage IV on salvage chemotherapy continued clinical decline deferred hospice agreeable to DNR/DNI Thank you for this interesting consult. Status: Chronic
[2018-07-17] MEDS: Piperacillin/Tazobact 3.375 GM in Sodium Chloride 100 ML IVPB SCH ×2 (00:12→06:12)
[2018-07-17] MEDS: oxyCODONE 30 mg Immediate Release Tab PO PRN ×4 (02:12→16:24)
[2018-07-17 06:30] LABS: BASO % 0.1 % (0.0-2.0); EOS # 0.2 K/uL (0.0-0.7); EOS % 2.1 % (0.0-4.0); HEMOGLOBIN 8.1 g/dL (11.0-16.0); LYMPH # 0.2 K/uL (1.0-4.3); MEAN CELL VOLUME 88.7 fL (81.0-99.0); MEAN CORPUSCULAR HEMOGLOBIN 28.3 pg (27.0-31.0); MEAN CORPUSCULAR HGB CONC 31.9 g/dL (33.0-37.0); MEAN PLATELET VOLUME 9.8 fL (7.2-11.7); MONO # 0.1 K/uL (0.0-0.8); MONO % 0.6 % (0.0-10.0); NEUT # 8.9 K/uL (1.8-7.0); NEUT % 95.2 % (50.0-75.0); PLATELET COUNT 47 K/uL (130-400); RBC 2.85 Mil/uL (3.80-5.20); RED CELL DISTRIBUTION WIDTH 18.6 % (11.5-14.5); WHITE BLOOD COUNT 9.3 K/uL (4.8-10.8)
[2018-07-17 07:07] LABS: ALB/GLOB RATIO 0.9 (1.0-2.1); ALBUMIN 2.3 g/dL (3.5-5.0); CALCIUM 7.4 mg/dl (8.6-10.4)
--- NOTE | 2018-07-17 07:13 | CP.PCM.PN ---
<Brian Díaz - Last Filed: 07/17/18 10:40> Subjective - Date & Time of Evaluation Date of Evaluation: 07/17/18 Time of Evaluation: 07:13 - Subjective Subjective: PGY-1 Medicine Progress Note for Dr. Garcia Patient seen and examined at bedside this AM. She is now DNR/DNI after speaking with Palliative care yesterday, signing POLST form. She continues to refuse hospice evaluation and care. Pulmonology and IR are on board for symptomatic relief of pleural effusions. Objective - Vital Signs/Intake and Output Vital Signs (last 24 hours): Temp Pulse Resp BP Pulse Ox 98.4 F 91 H 20 94/64 L 100 07/16/18 23:14 07/16/18 23:14 07/16/18 23:14 07/16/18 23:14 07/16/18 23:14 Intake and Output: 07/17/18 07/17/18 06:59 18:59 Intake Total 400 Balance 400 - Medications Medications: Current Medications Gabapentin (Neurontin) 300 mg PO HS NIR Last Admin: 07/16/18 22:10 Dose: 300 mg Piperacillin Sod/Tazobactam (Sod 3.375 gm/ Sodium Chloride) 100 mls @ 200 mls/hr IVPB Q6H NIR; Protocol Last Admin: 07/17/18 06:12 Dose: 200 mls/hr Morphine Sulfate (Morphine Extended Release Tab) 60 mg PO Q12H NIR Last Admin: 07/16/18 23:55 Dose: 60 mg Oxycodone HCl (Oxycodone Immediate Release Tab) 30 mg PO Q4H PRN PRN Reason: MOD-SEVERE PAIN SCALE 4-10 Last Admin: 07/17/18 06:42 Dose: 30 mg - Labs Labs: 07/17/18 06:22 07/17/18 06:22 - Constitutional Appears: Older Than Stated Age, Cachectic, Chronically Ill - Head Exam Head Exam: ATRAUMATIC, NORMAL INSPECTION, NORMOCEPHALIC - Eye Exam Eye Exam: EOMI, Normal appearance Pupil Exam: NORMAL ACCOMODATION - ENT Exam ENT Exam: Mucous Membranes Moist, Normal Exam - Neck Exam Neck Exam: Full ROM, Normal Inspection - Respiratory Exam Respiratory Exam: Decreased Breath Sounds, Rales - Cardiovascular Exam Cardiovascular Exam: REGULAR RHYTHM, +S1, +S2 - GI/Abdominal Exam GI & Abdominal Exam: Soft, Normal Bowel Sounds. absent: Distended, Firm, Guarding, Rigid, Rebound - Extremities Exam Extremities Exam: Normal Capillary Refill, Pedal Edema. absent: Calf Tenderness - Back Exam Back Exam: NORMAL INSPECTION - Neurological Exam Neurological Exam: Alert, Awake, Oriented x3 - Psychiatric Exam Psychiatric exam: Depressed - Skin Skin Exam: Dry, Intact, Normal Color, Warm Assessment and Plan - Assessment and Plan (Free Text) Assessment: 57 yo female w/ PMH cervical cancer, anxiety/depression, HTN, b/l LE neuropathy, and chronic anemia admitted for generalized weakness, poor oral intake, and sacr al and inguinal wound. Plan: Hx of Cervical Cancer -CT chest: L breast mass, extensive lymphadenopathy involving L axilla, neck, supraclavicular, mediastinal nodes. Probable pleural metastasis in medial R lung base. Questionable pulmonary nodule in LLL. L suprarenal mass. Intrahepatic biliary dilatation. -Outpatient chemotherapy with Dr.Simon Cameron -F/U outpatient for continued treatment -Morphine 60mg ER daily -Oxycodone 30mg q4h prn -Gabapentin 300mg po daily Stage 3 Sacral Ulcer -Surgery recs (Dr. Borjas) appreciated -wound culture: e faecalis -bedside wound irrigation and placed wet-to-dry dressings to right groin wound BID -Wound care consult for sacral decub - f/u recs -q2 turns -Air mattress -Santyl or Medihoney with Mepilex/Optifoam dressings to sacral decub Inguinal Wound -wound cx: e. faecalis -Cipro 500 mg PO BID Shortness of breath Pleural effusions -CT chest (07/16): b/l moderate pleural effusions. -Pulmonology (Dr. Odom), IR (Dr. Moss) consulted about possible drainage Multiple Boils -likely 2/2 to chemotherapy reducing immune suppression causing boils due to blocked hair follicles in sites of increase sweat -Surgery recs appreciated: see A&P above -Cipro 500 mg PO BID Chronic Anemia -Heme/Onc (Dr. Cameron) consulted: recs appreciated -2/2 to chemotherapy and cancer history -hemodynamically stable -no need for transfusion Hx of hydronephrosis -Ureteral stent replacement with Dr. Rodriguez q 3 months -most recent on 04-27-18 Hx of HTN -holding BP meds due to low BP on admission Hx of B/L neuropathy -Gabapentin 300mg PO PPx, Diet, Disposition -DVT ppx: chemical ac contraindicated -Diet: HHD -wound care on board -Code Status: DNR/DNI Case discussed with Dr. Radha Díaz DO, PGY-1 <Joo Garcia H - Last Filed: 07/17/18 16:01> Objective - Vital Signs/Intake and Output Vital Signs (last 24 hours): Temp Pulse Resp BP Pulse Ox 99.5 F 97 H 20 90/59 L 96 07/17/18 08:00 07/17/18 08:00 07/17/18 08:00 07/17/18 08:00 07/17/18 08:00 Intake and Output: 07/17/18 07/17/18 06:59 18:59 Intake Total 400 380 Balance 400 380 - Medications Medications: Current Medications Albuterol/Ipratropium (Duoneb 3 Mg/0.5 Mg (3 Ml) Ud) 3 ml INH RQ6 [facility] Last Admin: 07/17/18 14:00 Dose: 3 ml Arformoterol Tartrate (Brovana) 15 mcg INH RQ12@1000,2200 NIR Budesonide (Pulmicort Respules) 0.5 mg INH RQ12 NIR Ciprofloxacin (Cipro) 500 mg PO BID [facility]; Protocol Last Admin: 07/17/18 10:54 Dose: 500 mg Gabapentin (Neurontin) 300 mg PO HS [facility] Last Admin: 07/16/18 22:10 Dose: 300 mg Morphine Sulfate (Morphine Extended Release Tab) 60 mg PO Q12H [facility] Last Admin: 07/17/18 12:22 Dose: 60 mg Oxycodone HCl (Oxycodone Immediate Release Tab) 30 mg PO Q4H PRN PRN Reason: MOD-SEVERE PAIN SCALE 4-10 Last Admin: 07/17/18 10:54 Dose: 30 mg - Labs Labs: 07/17/18 06:22 07/17/18 06:22 Attending/Attestation - Attestation I have personally seen and examined this patient.: Yes I have fully participated in the care of the patient.: Yes I have reviewed all pertinent clinical information, including history, physical exam and plan: Yes Notes (Text): Medical attending: Patient was seen and examined by me. Agree with the above note by the resident In the morning when we saw the patient, the patient had not yet had the pleural effusion thoracentesis The patient later went for IR and had 1,200 removed from the left and the 400 removed from the right We are going to check a portable CXRAY in an hour. At this moment the patient does not want to be hospice care, we are trying to help control her pain. Her family members, in particular her father is at bedside and is very involved with the care of the patient Reguardless the overall prognosis remains poor Joo Garcia
--- NOTE | 2018-07-17 07:21 | PQF ---
PROVIDER RESPONSE TEXT: Severe Malnutritoin in the setting of Stage 4 Cervical CA w/ chemo, Stage 3 Decubitus Ulcer , with po or PO intake and very cachectic, Treatment plan for TPN and Peg Placement. REVIEWER QUERY TEXT: Clarification of Clinical Diagnostic Findings Physician?s Documentation Request This Form is Not a Permanent Document in the Medical Record Pt Name: SERG PADILLA MR #: [id number] Payor: MEDICARE PART A Unit/Bed: [facility]-C371-B Adm Date: 07/16/2018 12:19:00 PM Reviewer: Candice Adams Ext. Query Date: 07/16/2018 6:07:00 PM Clarification of Clinical Diagnostic Findings [id number] By submitting this query, we are merely seeking further clarification of documentation to accurately reflect all conditions that you are monitoring, evaluating, treating or that extend the hospitalizati on or utilize additional resources of care. Please utilize your independent clinical judgment when ad dressing the question(s) below. Dear Doctor Joo Garcia, The patient?s Clinical Indicators include: Clinical Findings: HT= 5' 4" WT= 116 Lbs. BMI=19.9 . severe decrease in appetite.,poor Po intake , appears very cachetic, weak. Hx of Cervical CA with Chemo/Radiation. Treatment : Plan for TPN, Peg Placement Risk factors: Malignancy Please clarify documentation or clinical relevance for the clinical / diagnostic findings or whether those are insignificant or unable to be further specified. Severe Malnutritoin in the setting of Stage 4 Cervical CA w/ chemo, Stage 3 Decubitus Ulcer , with po or PO intake and very cachectic, Treatment plan for TPN and Peg Placement . -Other eplanation. -Unable to Determine. PLEASE DOCUMENT ANY ADDITIONAL DIAGNOSES AND/OR SPECIFICITY IN THE PROGRESS NOTES AND/OR DISCHARGE VALLE[facility]O [facility]ARY. Clinically unable to determine/unknown Disagree with the above request Need to discuss Query created by: Candice Adams on 07/16/2018 6:07 PM Electronically signed by: Joo Garcia DO 07/17/2018 7:18 AM
[2018-07-17 08:37] LABS: ANISOCYTOSIS SLIGHT; BANDS 3 % (0-2); EOSINOPHIL 2 % (0-4); LYMPHOCYTE 3 % (20-40); MONOCYTE 1 % (0-10); NEUTROPHIL 91 % (50-75); PLATELET ESTIMATE DECREASED (NORMAL); TOTAL CELLS COUNTED 100
[2018-07-17 08:38] LABS: HYPOCHROMIC SLIGHT
--- NOTE | 2018-07-17 09:34 | CP.PCM.PN ---
Subjective - Date & Time of Evaluation Date of Evaluation: 07/17/18 Time of Evaluation: 09:30 - Subjective Subjective: SURGERY NOTE FOR DR. JAIRO CAMILO 57F seen and examined at bedside. No acute events overnight. Patient continues to have pain diffusely. Right inguinal region with 2 small wounds no longer draining fluid. She denies fevers and chills. Objective - Vital Signs/Intake and Output Vital Signs (last 24 hours): Temp Pulse Resp BP Pulse Ox 99.5 F 97 H 20 90/59 L 96 07/17/18 08:00 07/17/18 08:00 07/17/18 08:00 07/17/18 08:00 07/17/18 08:00 Intake and Output: 07/17/18 07/17/18 06:59 18:59 Intake Total 400 380 Balance 400 380 - Medications Medications: Current Medications Gabapentin (Neurontin) 300 mg PO HS NIR Last Admin: 07/16/18 22:10 Dose: 300 mg Piperacillin Sod/Tazobactam (Sod 3.375 gm/ Sodium Chloride) 100 mls @ 200 mls/hr IVPB Q6H NIR; Protocol Last Admin: 07/17/18 06:12 Dose: 200 mls/hr Morphine Sulfate (Morphine Extended Release Tab) 60 mg PO Q12H NIR Last Admin: 07/16/18 23:55 Dose: 60 mg Oxycodone HCl (Oxycodone Immediate Release Tab) 30 mg PO Q4H PRN PRN Reason: MOD-SEVERE PAIN SCALE 4-10 Last Admin: 07/17/18 06:42 Dose: 30 mg - Labs Labs: 07/17/18 06:22 07/17/18 06:22 - Constitutional Appears: Non-toxic, No Acute Distress - Respiratory Exam Respiratory Exam: Clear to Ausculation Bilateral, NORMAL BREATHING PATTERN - Cardiovascular Exam Cardiovascular Exam: REGULAR RHYTHM, +S1, +S2 - GI/Abdominal Exam GI & Abdominal Exam: Soft. absent: Distended, Firm, Guarding, Rigid, Tenderness, Rebound Additional comments: right inguinal region with two small 1 cm wounds, with purulent exudates, no active pus drainage - Neurological Exam Neurological Exam: Alert, Awake Assessment and Plan - Assessment and Plan (Free Text) Assessment: 57F with right inguinal wound dehiscence Microbiology: enterococcus faecalis Plan: - continue daily dressing changes - de-escalate antibiotics to sensitivities -Further recs per Dr. Indio Alvarez, PGY3
--- NOTE | 2018-07-17 12:03 | PCM.SURG1 ---
Surgeon's Initial Post Op Note - Surgeon's Notes Surgeon: Hieu Moss MD Communication Studies Professor: NONE Type of Anesthesia: Local Pre-Operative Diagnosis: Breast cancer, pleural effusions Operative Findings: US shows a large left effusion and moderate right effusion Post-Operative Diagnosis: Breast cancer, pleural effusions Operation Performed: US guided left and right thoracentesis Specimen/Specimens Removed: 1200 cc jeff colored fluid left and 400 cc yellow fluid right Estimated Blood Loss: EBL {In ML}: 1 Blood Products Given: N/A Drains Used: No Drains Post-Op Condition: Fair Date of Surgery/Procedure: 07/17/18 Time of Surgery/Procedure: 12:00
[2018-07-17] MEDS: Morphine 30 mg SR Tab PO SCH (12:22)
--- NOTE | 2018-07-17 12:24 | CP.PCM.CON ---
<Armand Odom - Last Filed: 07/17/18 12:25> History of Present Illness - History of Present Illness History of Present Illness: Reason for consultation: Productive cough, shortness of breath and bilateral pleural effusions 57-year-old female with history of cervical cancer stage IV diagnosed in 2016 on chemotherapy, history of CKD was admitted with failure to thrive, extreme fatigue and weakness, cough and shortness of breath. CAT scan of the chest consistent with bilateral pleural effusions left greater than right. Patient states that she has history of COPD and was prescribed Spiriva which she could not afford it. Denies fever chills, denies chest pain. Review of Systems - Review of Systems All systems: reviewed and no additional remarkable complaints except (Productive cough and shortness of breath) Past Patient History - Infectious Disease Hx of Infectious Diseases: None - Past Medical History & Family History Past Medical History?: Yes - Past Social History Smoking Status: Current Some Days Smoker - CARDIAC Hx Hypertension: Yes Hx Peripheral Edema: Yes (NO LONGER) - PULMONARY Hx Asthma: Yes Hx Chronic Obstructive Pulmonary Disease (COPD): Yes Hx Pneumonia: Yes (CHILDHOOD) - NEUROLOGICAL Hx Neurological Disorder: No - HEENT Hx HEENT Problems: Yes - RENAL Hx Chronic Kidney Disease: Yes - ENDOCRINE/METABOLIC Hx Endocrine Disorders: No - HEMATOLOGICAL/ONCOLOGICAL Hx Anemia: Yes - INTEGUMENTARY Hx Dermatological Problems: No - MUSCULOSKELETAL/RHEUMATOLOGICAL Hx Musculoskeletal Disorders: No Hx Falls: No - GASTROINTESTINAL Hx Gall Bladder Disease: Yes - GENITOURINARY/GYNECOLOGICAL Hx Genitourinary Disorders: Yes (SEE COMMENT) Hx Cervical Cancer: Yes (Metastatic stage 4 (2016)) Hx Postmenopausal Bleeding: Yes Other/Comment: STAGE IV WITH COMPLETED RADIATION AND CURRENTLY ON CHEMOTHERAPY EVERY 3-WEEKS (2018). RENAL STENTS - PSYCHIATRIC Hx Anxiety: Yes Hx Substance Use: No - SURGICAL HISTORY Hx Cholecystectomy: Yes - ANESTHESIA Hx Anesthesia: Yes Hx Anesthesia Reactions: No Hx Malignant Hyperthermia: No Meds Allergies/Adverse Reactions: Allergies Allergy/AdvReac Type Severity Reaction Status Date / Time No Known Allergies Allergy Verified 07/15/18 11:44 - Medications Medications: Current Medications Ciprofloxacin (Cipro) 500 mg PO BID [facility]; Protocol Last Admin: 07/17/18 10:54 Dose: 500 mg Gabapentin (Neurontin) 300 mg PO HS [facility] Last Admin: 07/16/18 22:10 Dose: 300 mg Morphine Sulfate (Morphine Extended Release Tab) 60 mg PO Q12H NIR Last Admin: 07/16/18 23:55 Dose: 60 mg Oxycodone HCl (Oxycodone Immediate Release Tab) 30 mg PO Q4H PRN PRN Reason: MOD-SEVERE PAIN SCALE 4-10 Last Admin: 07/17/18 10:54 Dose: 30 mg Physical Exam - Head Exam Head Exam: ATRAUMATIC, NORMOCEPHALIC - ENT Exam ENT Exam: Mucous Membranes Moist - Neck Exam Neck exam: Positive for: Normal Inspection - Respiratory Exam Respiratory Exam: Decreased Breath Sounds - Cardiovascular Exam Cardiovascular Exam: REGULAR RHYTHM - GI/Abdominal Exam GI & Abdominal Exam: Normal Bowel Sounds, Soft - Extremities Exam Extremities exam: Positive for: normal inspection Results - Vital Signs Recent Vital Signs: Last Vital Signs Temp 99.5 F 07/17/18 08:00 Pulse 97 H 07/17/18 08:00 Resp 20 07/17/18 08:00 BP 90/59 L 07/17/18 08:00 Pulse Ox 96 07/17/18 08:00 - Labs Result Diagrams: 07/17/18 06:22 07/17/18 06:22 Labs: Laboratory Results - last 24 hr 07/16/18 07/17/18 07/17/18 11:24 06:22 06:22 WBC 9.3 RBC 2.85 L Hgb 8.1 L Hct 25.3 L MCV 88.7 MCH 28.3 MCHC 31.9 L RDW 18.6 H Plt Count 47 L MPV 9.8 Neut % (Auto) 95.2 H Lymph % (Auto) 2.0 L [place] % (Auto) 0.6 Eos % (Auto) 2.1 Baso % (Auto) 0.1 Neut # (Auto) 8.9 H Lymph # (Auto) 0.2 L [place] # (Auto) 0.1 Eos # (Auto) 0.2 Baso # (Auto) 0.0 Neutrophils % (Manual) 95 H 91 H Band Neutrophils % 2 3 H Lymphocytes % (Manual) 3 L 3 L Monocytes % (Manual) TEST NOT PERFORMED 1 Eosinophils % (Manual) 2 Platelet Estimate Decreased L Decreased L Hypochromasia (manual) Slight Slight Poikilocytosis (manual Slight Anisocytosis (manual) Slight Slight Target Cells Slight [place] Cells Slight Sodium 141 Potassium 3.9 Chloride 109 H Carbon Dioxide 21 L Anion Gap 15 BUN 30 H Creatinine 1.3 H Est GFR ( Amer) 51 Est GFR (Non-Af Amer) 43 Random Glucose 98 D Calcium 7.4 L Total Bilirubin 0.3 AST 34 ALT 21 Alkaline Phosphatase 54 Total Protein 4.8 L Albumin 2.3 L Globulin 2.6 Albumin/Globulin Ratio 0.9 L Assessment & Plan (1) Bilateral pleural effusion Status: Acute Comment: Status post thoracentesis. Fluid analysis. Follow-up chest x-ray (2) COPD (chronic obstructive pulmonary disease) Status: Suspected Comment: Start nebulizer treatment and Brovana (3) Cervical cancer Status: Chronic <Joo Garcia H - Last Filed: 07/17/18 15:58> Meds - Medications Medications: Current Medications Albuterol/Ipratropium (Duoneb 3 Mg/0.5 Mg (3 Ml) Ud) 3 ml INH RQ6 NIR Last Admin: 07/17/18 14:00 Dose: 3 ml Arformoterol Tartrate (Brovana) 15 mcg INH RQ12@1000,2200 NIR Budesonide (Pulmicort Respules) 0.5 mg INH RQ12 NIR Ciprofloxacin (Cipro) 500 mg PO BID NIR; Protocol Last Admin: 07/17/18 10:54 Dose: 500 mg Gabapentin (Neurontin) 300 mg PO HS NIR Last Admin: 07/16/18 22:10 Dose: 300 mg Morphine Sulfate (Morphine Extended Release Tab) 60 mg PO Q12H NIR Last Admin: 07/17/18 12:22 Dose: 60 mg Oxycodone HCl (Oxycodone Immediate Release Tab) 30 mg PO Q4H PRN PRN Reason: MOD-SEVERE PAIN SCALE 4-10 Last Admin: 07/17/18 10:54 Dose: 30 mg Results - Vital Signs Recent Vital Signs: Last Vital Signs Temp 99.5 F 07/17/18 08:00 Pulse 97 H 07/17/18 08:00 Resp 20 07/17/18 08:00 BP 90/59 L 07/17/18 08:00 Pulse Ox 96 07/17/18 08:00 - Labs Result Diagrams: 07/17/18 06:22 07/17/18 06:22 Labs: Laboratory Results - last 24 hr 07/17/18 07/17/18 06:22 06:22 WBC 9.3 RBC 2.85 L Hgb 8.1 L Hct 25.3 L MCV 88.7 MCH 28.3 MCHC 31.9 L RDW 18.6 H Plt Count 47 L MPV 9.8 Neut % (Auto) 95.2 H Lymph % (Auto) 2.0 L [place] % (Auto) 0.6 Eos % (Auto) 2.1 Baso % (Auto) 0.1 Neut # (Auto) 8.9 H Lymph # (Auto) 0.2 L [place] # (Auto) 0.1 Eos # (Auto) 0.2 Baso # (Auto) 0.0 Neutrophils % (Manual) 91 H Band Neutrophils % 3 H Lymphocytes % (Manual) 3 L Monocytes % (Manual) 1 Eosinophils % (Manual) 2 Platelet Estimate Decreased L Hypochromasia (manual) Slight Anisocytosis (manual) Slight Sodium 141 Potassium 3.9 Chloride 109 H Carbon Dioxide 21 L Anion Gap 15 BUN 30 H Creatinine 1.3 H Est GFR ( Amer) 51 Est GFR (Non-Af Amer) 43 Random Glucose 98 D Calcium 7.4 L Total Bilirubin 0.3 AST 34 ALT 21 Alkaline Phosphatase 54 Total Protein 4.8 L Albumin 2.3 L Globulin 2.6 Albumin/Globulin Ratio 0.9 L Attending/Attestation - Attestation I have personally seen and examined this patient.: Yes I have fully participated in the care of the patient.: Yes I have reviewed all pertinent clinical information: Yes Notes (Text): 07/17/18 15:48 Medical attending: Patient was seen and examined by me. Agree with the above not e by the resident In the morning when we saw the patient, the patient had not yet had the pleural effusion thoracentesis The patient later went for IR and had 1,200 removed from the left and the 400 r emoved from the right We are going to check a portable CXRAY in an hour. At this moment the patient does not want to be hospice care, we are trying to help control her pain. Her family members, in particular her father is at bedside and is very involved with the care of the patient
--- NOTE | 2018-07-17 13:11 | US ---
PROCEDURE: Date of procedure: 07/17/2018 Procedure: 1. Ultrasound-guided left thoracentesis, CPT 39404 Medications: 5cc 1% Lidocaine HISTORY: Left pleural effusion, shortness of breath, breast cancer TECHNIQUE: Following informed consent ,the Patients' left chest was marked. Procedure time-out was called, and the patient was placed in the sitting position and limited ultrasound showed a large left effusion. The patient's left back was prepped and draped in the usual sterile fashion. After the skin was anesthetized with lidocaine, a drainage catheter was advanced under ultrasound guidance into the pleural space. Ultrasound-guided thoracentesis was performed. A total of 1200 cubic centimeters of jeff-colored fluid removed without complication. A Xeroform dressing was applied. IMPRESSION: Ultrasound guided left thoracentesis. There were no immediate complications.
--- NOTE | 2018-07-17 13:12 | US ---
PROCEDURE: Date of procedure: Procedure: 1. Ultrasound-guided Right thoracentesis, CPT 33328 Medications: 5cc 1% Lidocaine HISTORY: Right pleural effusion, shortness of breath, breast cancer TECHNIQUE: Following informed consent ,the Patients' right chest was marked. Procedure time-out was called, and the patient was placed in the sitting position and limited ultrasound showed a moderate right effusion. The patient's right back was prepped and draped in the usual sterile fashion. After the skin was anesthetized with lidocaine, a drainage catheter was advanced under ultrasound guidance into the pleural space. Ultrasound-guided thoracentesis was performed. A total of 400 cubic centimeters of straw-colored fluid removed without complication. A Xeroform dressing was applied. IMPRESSION: Ultrasound guided Right thoracentesis. There were no immediate complications.
[2018-07-17] MEDS: Albuterol-Ipratrop 3 mg / 0.5 (3 ml) UD INH SCH ×2 (14:00→19:35)
--- NOTE | 2018-07-17 17:46 | RAD ---
Date of service: 07/17/2018 HISTORY: s/p thoracentesis Relevant interventional procedure(s): July 17, 2018. Left thoracentesis with retrieval of 1.2 L of fluid. July 17, 2018. Right thoracentesis with retrieval of 0.4 L of fluid. COMPARISON: Pre-procedure chest x-ray 07/15/2018. FINDINGS: LUNGS: Improved aeration of the left lung following thoracentesis. No significant change right lung. PLEURA: Decrease in left pleural effusion. No pneumothorax. CARDIOVASCULAR: No atherosclerotic calcification present No radiographic findings to suggest acute or significant cardiovascular disease. Venous access catheter in stable, satisfactory position. OSSEOUS STRUCTURES: No significant abnormalities. VISUALIZED UPPER ABDOMEN: Normal. Bilateral double-J stent catheters, only proximal aspect is visible. OTHER FINDINGS: None. IMPRESSION: No adverse findings common no pneumothorax following bilateral thoracentesis. Improved aeration of the left lung following left thoracentesis.
[2018-07-17 18:35] LABS: BODY FLUID TYPE PLEURAL
[2018-07-17] MEDS: Budesonide 0.5 mg/2 ml Inhal Susp UD INH SCH (19:37)
[2018-07-17 19:43] LABS: BF GROSS APPEARANCE SL CLOUDY (CLEAR)
--- NOTE | 2018-07-17 21:10 | CP.PCM.PN ---
Subjective - Date & Time of Evaluation Date of Evaluation: 07/17/18 Time of Evaluation: 20:00 - Subjective Subjective: Feels weak, s/p thoracentesis Objective - Vital Signs/Intake and Output Vital Signs (last 24 hours): Temp Pulse Resp BP Pulse Ox 99 F 104 H 20 92/64 L 99 07/17/18 16:00 07/17/18 16:00 07/17/18 16:00 07/17/18 16:00 07/17/18 16:00 Intake and Output: 07/17/18 07/18/18 18:59 06:59 Intake Total 380 Balance 380 - Medications Medications: Current Medications Albuterol/Ipratropium (Duoneb 3 Mg/0.5 Mg (3 Ml) Ud) 3 ml INH RQ6 [facility] Last Admin: 07/17/18 19:35 Dose: 3 ml Arformoterol Tartrate (Brovana) 15 mcg INH RQ12@1000,2200 NIR Budesonide (Pulmicort Respules) 0.5 mg INH RQ12 [facility] Last Admin: 07/17/18 19:37 Dose: 0.5 mg Ciprofloxacin (Cipro) 500 mg PO BID [facility]; Protocol Last Admin: 07/17/18 17:58 Dose: 500 mg Gabapentin (Neurontin) 300 mg PO HS [facility] Last Admin: 07/16/18 22:10 Dose: 300 mg Morphine Sulfate (Morphine Extended Release Tab) 60 mg PO Q12H [facility] [place] Last Admin: 07/17/18 12:22 Dose: 60 mg Oxycodone HCl (Oxycodone Immediate Release Tab) 30 mg PO Q4H PRN PRN Reason: MOD-SEVERE PAIN SCALE 4-10 Last Admin: 07/17/18 16:24 Dose: 30 mg - Labs Labs: 07/17/18 06:22 07/17/18 06:22 - Head Exam Head Exam: ATRAUMATIC - Eye Exam Eye Exam: Normal appearance - Neck Exam Neck Exam: Normal Inspection - Respiratory Exam Respiratory Exam: Decreased Breath Sounds - Cardiovascular Exam Cardiovascular Exam: +S1, +S2 - GI/Abdominal Exam GI & Abdominal Exam: Normal Bowel Sounds Assessment and Plan (1) Failure to thrive Assessment & Plan: secondary to malignancy supportive care - noted pleural effusion, for thoracentesis evaluation discussed hospice with that patient and concern with her continued clinical decline. She became tearful and declined hospice evaluation she agrees to DNR/DNI Status: Acute (2) Thrombocytopenia Assessment & Plan: secondary to chemotherapy transfuse if plt < 20,000 Status: Acute (3) Anemia Assessment & Plan: anemia of chronic disease and chemotherapy Status: Chronic (4) Cervical cancer Assessment & Plan: stage IV on salvage chemotherapy continued clinical decline deferred hospice agreeable to DNR/DNI Status: Chronic
[2018-07-17] MEDS: Arformoterol 15 mcg/2 ml Inh Sol INH SCH (21:38)
[2018-07-17 23:13] LABS: BODY FLUID MONO/MACROPHAGE 5 % (0-0)
[2018-07-17 23:15] LABS: BODY FLUID TOTAL COUNT 100 (0-0)
[2018-07-17] MEDS ORDERED: oxyCODONE 40 mg ER Tab (oxyCONTIN) PO SCH (23:45)
--- NOTE | 2018-07-18 00:25 | CP.PCM.PN ---
<RonnikylahJose Miguel quintero - Last Filed: 07/18/18 00:22> Subjective - Date & Time of Evaluation Date of Evaluation: 07/18/18 Time of Evaluation: 00:22 - Subjective Subjective: HOSPITALIST SERVICE Pt s/e at bedside, complains of peristent pain, nor well controlled with her morphine. pt is feeling weak s/p thoracentesis, pt is very tearful. very sweet lady, still has hope to survive, comforted as much as possible at this time Objective - Vital Signs/Intake and Output Vital Signs (last 24 hours): Temp Pulse Resp BP Pulse Ox 98.9 F 106 H 20 92/63 L 100 07/17/18 23:17 07/17/18 23:17 07/17/18 23:17 07/17/18 23:17 07/17/18 23:17 Intake and Output: 07/17/18 07/18/18 18:59 06:59 Intake Total 380 Balance 380 - Medications Medications: Current Medications Albuterol/Ipratropium (Duoneb 3 Mg/0.5 Mg (3 Ml) Ud) 3 ml INH RQ6 [facility] Last Admin: 07/17/18 19:35 Dose: 3 ml Arformoterol Tartrate (Brovana) 15 mcg INH RQ12@1000,2200 [facility] Last Admin: 07/17/18 21:38 Dose: 15 mcg Budesonide (Pulmicort Respules) 0.5 mg INH RQ12 [facility] Last Admin: 07/17/18 19:37 Dose: 0.5 mg Ciprofloxacin (Cipro) 500 mg PO BID [facility]; Protocol Last Admin: 07/17/18 17:58 Dose: 500 mg Gabapentin (Neurontin) 300 mg PO HS [facility] Last Admin: 07/17/18 22:45 Dose: 300 mg Oxycodone HCl (Oxycodone Immediate Release Tab) 30 mg PO Q4H PRN PRN Reason: MOD-SEVERE PAIN SCALE 4-10 Last Admin: 07/17/18 16:24 Dose: 30 mg Oxycodone HCl (Oxycontin Extended Release Tab) 40 mg PO Q12H [facility] Last Admin: 07/17/18 22:45 Dose: 40 mg - Labs Labs: 07/17/18 06:22 07/17/18 06:22 - Additional Findings Additional findings: - Constitutional Appears: Older Than Stated Age, Cachectic, Chronically Ill - Head Exam Head Exam: ATRAUMATIC, NORMAL INSPECTION, NORMOCEPHALIC - Eye Exam Eye Exam: EOMI, Normal appearance Pupil Exam: NORMAL ACCOMODATION - ENT Exam ENT Exam: Mucous Membranes Moist, Normal Exam - Neck Exam Neck Exam: Full ROM, Normal Inspection - Respiratory Exam Respiratory Exam: Decreased Breath Sounds, Rales - Cardiovascular Exam Cardiovascular Exam: REGULAR RHYTHM, +S1, +S2 - GI/Abdominal Exam GI & Abdominal Exam: Soft, Normal Bowel Sounds. absent: Distended, Firm, Guardi ng, Rigid, Rebound - Extremities Exam Extremities Exam: Normal Capillary Refill, Pedal Edema. absent: Calf Tenderness - Back Exam Back Exam: NORMAL INSPECTION - Neurological Exam Neurological Exam: Alert, Awake, Oriented x3 - Psychiatric Exam Psychiatric exam: Depressed - Skin Skin Exam: Dry, Intact, Normal Color, Warm Assessment and Plan - Assessment and Plan (Free Text) Assessment: 57 yo female w/ PMH cervical cancer, anxiety/depression, HTN, b/l LE neuropathy, and chronic anemia admitted for generalized weakness, poor oral intake, and sacral and inguinal wound. Plan: Hx of Cervical Cancer -CT chest: L breast mass, extensive lymphadenopathy involving L axilla, neck, kam praclavicular, mediastinal nodes. Probable pleural metastasis in medial R lung base. Questionable pulmonary nodule in LLL. L suprarenal mass. Intrahepatic biliary dilatation. -Outpatient chemotherapy with Dr.Simon Cameron -F/U outpatient for continued treatment -Oxycontin ER 40 q12 -Oxycodone 30mg q4h prn -Gabapentin 300mg po daily Stage 3 Sacral Ulcer -Surgery recs (Dr. Borjas) appreciated -wound culture: e faecalis -bedside wound irrigation and placed wet-to-dry dressings to right groin wound BID -Wound care consult for sacral decub - f/u recs -q2 turns -Air mattress -Santyl or Medihoney with Mepilex/Optifoam dressings to sacral decub Inguinal Wound -wound cx: e. faecalis -Cipro 500 mg PO BID Shortness of breath Pleural effusions -CT chest (07/16): b/l moderate pleural effusions. -Pulmonology (Dr. Odom), IR (Dr. Moss) consulted about possible drainage Multiple Boils -likely 2/2 to chemotherapy reducing immune suppression causing boils due to blocked hair follicles in sites of increase sweat -Surgery recs appreciated: see A&P above -Cipro 500 mg PO BID Chronic Anemia -Heme/Onc (Dr. Cameron) consulted: recs appreciated -2/2 to chemotherapy and cancer history -hemodynamically stable -no need for transfusion Hx of hydronephrosis -Ureteral stent replacement with Dr. Rodriguez q 3 months -most recent on 04-27-18 Hx of HTN -holding BP meds due to low BP on admission Hx of B/L neuropathy -Gabapentin 300mg PO PPx, Diet, Disposition -DVT ppx: chemical ac contraindicated -Diet: HHD -wound care on board -Code Status: DNR/DNI Case discussed with Dr. Garcia <Joo Garcia - Last Filed: 07/18/18 10:17> Objective - Vital Signs/Intake and Output Vital Signs (last 24 hours): Temp Pulse Resp BP Pulse Ox 98.2 F 102 H 20 90/59 L 100 07/18/18 07:37 07/18/18 07:37 07/18/18 07:37 07/18/18 07:37 07/18/18 07:37 Intake and Output: 07/18/18 07/18/18 06:59 18:59 Intake Total 180 Balance 180 - Medications Medications: Current Medications Albumin Human (Albumin Human 25% (12.5 Gm/50 Ml)) 12.5 gm IV ONCE ONE Stop: 07/18/18 10:14 Albumin Human (Albumin Human 25% (12.5 Gm/50 Ml)) 12.5 gm IV ONCE ONE Stop: 07/18/18 15:01 Albuterol/Ipratropium (Duoneb 3 Mg/0.5 Mg (3 Ml) Ud) 3 ml INH RQ6 [facility] Last Admin: 07/18/18 02:04 Dose: Not Given Arformoterol Tartrate (Brovana) 15 mcg INH RQ12@1000,2200 NIR Last Admin: 07/17/18 21:38 Dose: 15 mcg Budesonide (Pulmicort Respules) 0.5 mg INH RQ12 [facility] Last Admin: 07/17/18 19:37 Dose: 0.5 mg Ciprofloxacin (Cipro) 500 mg PO BID [facility]; Protocol Last Admin: 07/18/18 09:51 Dose: 500 mg Gabapentin (Neurontin) 300 mg PO HS [facility] Last Admin: 07/17/18 22:45 Dose: 300 mg Morphine Sulfate (Ms Contin) 60 mg PO BID NIR Oxycodone HCl (Oxycodone Immediate Release Tab) 30 mg PO Q3H PRN PRN Reason: MOD-SEVERE PAIN SCALE 4-10 - Labs Labs: 07/18/18 07:09 07/18/18 07:09 Attending/Attestation - Attestation I have personally seen and examined this patient.: Yes I have fully participated in the care of the patient.: Yes I have reviewed all pertinent clinical information, including history, physical exam and plan: Yes Notes (Text): 07/18/18 10:15 Medical attending: Patient was seen and examined by me. She requested that we change back to the MS Contin 60 PO BID, so we did Her BP has been low, I realize that, however she is in severe pain all the time and given her situation I don't want her to be suffering Also now that she has had the pleural effusion addressed with thoracentesis I ordered additional albumin and also one more unit of PRBC, her Hgb is 7.7 today Also PT eval, but I can't see how much she could do. She is DNR and DNI however she does not want to do hospice care at this time. We talked extensively this morning. Joo Garcia
[2018-07-18] MEDS: Albuterol-Ipratrop 3 mg / 0.5 (3 ml) UD INH SCH ×3 (02:04→20:54)
[2018-07-18] MEDS: oxyCODONE 30 mg Immediate Release Tab PO PRN ×3 (05:57→19:58)
[2018-07-18 07:24] LABS: BASO % 0.1 % (0.0-2.0); EOS # 0.1 K/uL (0.0-0.7); EOS % 0.9 % (0.0-4.0); HEMOGLOBIN 7.7 g/dL (11.0-16.0); LYMPH # 0.2 K/uL (1.0-4.3); MEAN CELL VOLUME 89.7 fL (81.0-99.0); MEAN CORPUSCULAR HEMOGLOBIN 28.7 pg (27.0-31.0); MEAN PLATELET VOLUME 9.9 fL (7.2-11.7); MONO % 0.4 % (0.0-10.0); NEUT # 10.5 K/uL (1.8-7.0); NEUT % 96.6 % (50.0-75.0); PLATELET COUNT 60 K/uL (130-400); RBC 2.66 Mil/uL (3.80-5.20); RED CELL DISTRIBUTION WIDTH 18.7 % (11.5-14.5); WHITE BLOOD COUNT 10.9 K/uL (4.8-10.8)
[2018-07-18 07:48] LABS: ALB/GLOB RATIO 1.1 (1.0-2.1); ALBUMIN 2.4 g/dL (3.5-5.0); CALCIUM 6.8 mg/dl (8.6-10.4)
[2018-07-18 09:18] LABS: EOSINOPHIL 1 % (0-4); LYMPHOCYTE 2 % (20-40); MONOCYTE 1 % (0-10); NEUTROPHIL 96 % (50-75); PLATELET ESTIMATE DECREASED (NORMAL); TOTAL CELLS COUNTED 100
[2018-07-18 09:19] LABS: ANISOCYTOSIS MODERATE; HYPOCHROMIC SLIGHT; POIKILOCYTOSIS SLIGHT; POLYCHROMIC SLIGHT
[2018-07-18 09:20] LABS: LARGE PLATELETS PRESENT; TOXIC GRANULATION PRESENT
[2018-07-18 09:22] LABS: SCHISTOCYTES SLIGHT
[2018-07-18] MEDS: Arformoterol 15 mcg/2 ml Inh Sol INH SCH ×2 (09:30→23:07)
[2018-07-18] MEDS: Budesonide 0.5 mg/2 ml Inhal Susp UD INH SCH ×2 (09:30→20:54)
[2018-07-18] MEDS ORDERED: Albumin Human 25% (12.5 gm/50 ml) IV ONE ×2 (11:00→15:00)
[2018-07-18] MEDS ORDERED: Sodium Chloride 0.9% 500 ML IV ONE (13:10)
--- NOTE | 2018-07-18 13:27 | CP.PCM.PCO ---
Physician Communication Note - Physician Communication Note Physician Communication Note: Spoke with Gemini Green who is a family relative and RN Attending/Attestation - Attestation Notes (Text): 07/18/18 13:28 I spoke with family member Gemini Green who is going to try to come in tomorrow Friday. Gemini is a niece of the patient. I explained that the prognosis is very poor and that the patient is constantly in pain, and with a low blood pressure. She is already on a tremendous amount of pain medication including MS Contin and IR Oxycontin. We also discussed the anemia, the low albumin, and the low minimal appetite. Family member Gemini Green is comming. I explained to Carrie that the patient does not want her own children to be informed at this time. I suggested to Carrie that when she comes in tommorow to speak to the patient about letting her own children know. Joo Garcia
--- NOTE | 2018-07-18 14:21 | CP.PCM.PN ---
Subjective - Date & Time of Evaluation Date of Evaluation: 07/18/18 Time of Evaluation: 11:00 - Subjective Subjective: Patient seen and examined Breathing much better after thoracentesis Less cough Afebrile Complaining of diarrhea Objective - Vital Signs/Intake and Output Vital Signs (last 24 hours): Temp Pulse Resp BP Pulse Ox 98.2 F 102 H 20 90/59 L 100 07/18/18 07:37 07/18/18 07:37 07/18/18 07:37 07/18/18 07:37 07/18/18 07:37 Intake and Output: 07/18/18 07/18/18 06:59 18:59 Intake Total 180 Balance 180 - Medications Medications: Current Medications Albumin Human (Albumin Human 25% (12.5 Gm/50 Ml)) 12.5 gm IV ONCE ONE Stop: 07/18/18 15:01 Last Admin: 07/18/18 14:01 Dose: 12.5 gm Albuterol/Ipratropium (Duoneb 3 Mg/0.5 Mg (3 Ml) Ud) 3 ml INH RQ6 [facility] Last Admin: 07/18/18 02:04 Dose: Not Given Arformoterol Tartrate (Brovana) 15 mcg INH RQ12@1000,2200 [facility] Last Admin: 07/17/18 21:38 Dose: 15 mcg Budesonide (Pulmicort Respules) 0.5 mg INH RQ12 [facility] Last Admin: 07/17/18 19:37 Dose: 0.5 mg Ciprofloxacin (Cipro) 500 mg PO BID [facility]; Protocol Last Admin: 07/18/18 09:51 Dose: 500 mg Gabapentin (Neurontin) 300 mg PO HS [facility] Last Admin: 07/17/18 22:45 Dose: 300 mg Loperamide HCl (Imodium) 2 mg PO ONCE PRN PRN Reason: Diarrhea Last Admin: 07/18/18 13:41 Dose: 2 mg Morphine Sulfate (Ms Contin) 60 mg PO BID [facility] Oxycodone HCl (Oxycodone Immediate Release Tab) 30 mg PO Q3H PRN PRN Reason: MOD-SEVERE PAIN SCALE 4-10 Last Admin: 07/18/18 11:41 Dose: 30 mg - Labs Labs: 07/18/18 07:09 07/18/18 07:09 Assessment and Plan (1) Bilateral pleural effusion Status: Acute (2) COPD (chronic obstructive pulmonary disease) Status: Suspected (3) Cervical cancer Status: Chronic
[2018-07-18] MEDS: Morphine 30 mg SR Tab PO SCH (17:19)
--- NOTE | 2018-07-18 21:16 | CP.PCM.PN ---
Subjective - Date & Time of Evaluation Date of Evaluation: 07/18/18 Time of Evaluation: 19:00 - Subjective Subjective: Has diarrhea Objective - Vital Signs/Intake and Output Vital Signs (last 24 hours): Temp Pulse Resp BP Pulse Ox 97.3 F L 102 H 12 80/52 L 100 07/18/18 20:02 07/18/18 20:02 07/18/18 20:02 07/18/18 20:02 07/18/18 16:00 Intake and Output: 07/18/18 07/19/18 18:59 06:59 Intake Total 1280 0 Balance 1280 0 - Medications Medications: Current Medications Albuterol/Ipratropium (Duoneb 3 Mg/0.5 Mg (3 Ml) Ud) 3 ml INH RQ6 [facility] Last Admin: 07/18/18 20:54 Dose: 3 ml Arformoterol Tartrate (Brovana) 15 mcg INH RQ12@1000,2200 [facility] Last Admin: 07/18/18 09:30 Dose: 15 mcg Budesonide (Pulmicort Respules) 0.5 mg INH RQ12 [facility] Last Admin: 07/18/18 20:54 Dose: 0.5 mg Ciprofloxacin (Cipro) 500 mg PO BID [facility]; Protocol Last Admin: 07/18/18 17:18 Dose: 500 mg Gabapentin (Neurontin) 300 mg PO HS [facility] Last Admin: 07/17/18 22:45 Dose: 300 mg Morphine Sulfate (Morphine Extended Release Tab) 60 mg PO BID [facility] Last Admin: 07/18/18 17:19 Dose: 60 mg Ondansetron HCl (Zofran Inj) 4 mg IVP Q4 PRN PRN Reason: Nausea/Vomiting Oxycodone HCl (Oxycodone Immediate Release Tab) 30 mg PO Q3H PRN PRN Reason: MOD-SEVERE PAIN SCALE 4-10 Last Admin: 07/18/18 19:58 Dose: 30 mg - Labs Labs: 07/18/18 07:09 07/18/18 07:09 - Constitutional Appears: Cachectic - Head Exam Head Exam: ATRAUMATIC - Eye Exam Eye Exam: Normal appearance - ENT Exam ENT Exam: Mucous Membranes Dry - Respiratory Exam Respiratory Exam: Decreased Breath Sounds - Cardiovascular Exam Cardiovascular Exam: +S1, +S2 - GI/Abdominal Exam GI & Abdominal Exam: Normal Bowel Sounds Assessment and Plan (1) Failure to thrive Assessment & Plan: secondary to malignancy supportive care Status: Acute (2) Thrombocytopenia Assessment & Plan: secondary to recent chemotherapy transfuse plt if < 20,000 Status: Acute (3) Anemia Assessment & Plan: anemia of chronic disease and chemotherapy will give a dose of Procrit transfusion support PRN Status: Chronic (4) Cervical cancer Assessment & Plan: stage IV progressive disease on salvage gemcitabine deferred hospice DNR/DNI Status: Chronic
--- NOTE | 2018-07-19 01:01 | CP.PCM.PN ---
<Jose Miguel Vargas - Last Filed: 07/19/18 00:58> Subjective - Date & Time of Evaluation Date of Evaluation: 07/19/18 Time of Evaluation: 00:59 - Subjective Subjective: HOSPITALIST SERVICE Pt s/e at bedside, reports anxiety and generalized pain, denies CP SOB FC NV. Pt was consoled as much as possible for her current status. Very sweet woman in spite of her poor prognosis. Objective - Vital Signs/Intake and Output Vital Signs (last 24 hours): Temp Pulse Resp BP Pulse Ox 97.6 F 91 H 16 127/68 97 07/19/18 00:00 07/19/18 00:00 07/19/18 00:00 07/19/18 00:00 07/19/18 00:00 Intake and Output: 07/18/18 07/19/18 18:59 06:59 Intake Total 1280 325 Balance 1280 325 - Medications Medications: Current Medications Albuterol/Ipratropium (Duoneb 3 Mg/0.5 Mg (3 Ml) Ud) 3 ml INH RQ6 [facility] Last Admin: 07/18/18 20:54 Dose: 3 ml Arformoterol Tartrate (Brovana) 15 mcg INH RQ12@1000,2200 [facility] Last Admin: 07/18/18 23:07 Dose: 15 mcg Budesonide (Pulmicort Respules) 0.5 mg INH RQ12 [facility] Last Admin: 07/18/18 20:54 Dose: 0.5 mg Ciprofloxacin (Cipro) 500 mg PO BID [facility]; Protocol Last Admin: 07/18/18 17:18 Dose: 500 mg Epoetin Venkat (Procrit) 20,000 unit SC ONCE ONE Stop: 07/19/18 10:01 Gabapentin (Neurontin) 300 mg PO HS [facility] Last Admin: 07/18/18 22:08 Dose: 300 mg Morphine Sulfate (Morphine Extended Release Tab) 60 mg PO BID [facility] Last Admin: 07/18/18 17:19 Dose: 60 mg Ondansetron HCl (Zofran Inj) 4 mg IVP Q4 PRN PRN Reason: Nausea/Vomiting Oxycodone HCl (Oxycodone Immediate Release Tab) 30 mg PO Q3H PRN PRN Reason: MOD-SEVERE PAIN SCALE 4-10 Last Admin: 07/18/18 19:58 Dose: 30 mg - Labs Labs: 07/18/18 07:09 07/18/18 07:09 - Additional Findings Additional findings: - Constitutional Appears: Older Than Stated Age, Cachectic, Chronically Ill - Head Exam Head Exam: ATRAUMATIC, NORMAL INSPECTION, NORMOCEPHALIC - Eye Exam Eye Exam: EOMI, Normal appearance Pupil Exam: NORMAL ACCOMODATION - ENT Exam ENT Exam: Mucous Membranes Moist, Normal Exam - Neck Exam Neck Exam: Full ROM, Normal Inspection - Respiratory Exam Respiratory Exam: Decreased Breath Sounds, Rales - Cardiovascular Exam Cardiovascular Exam: REGULAR RHYTHM, +S1, +S2 - GI/Abdominal Exam GI & Abdominal Exam: Soft, Normal Bowel Sounds. absent: Distended, Firm, Guarding, Rigid, Rebound - Extremities Exam Extremities Exam: Normal Capillary Refill, Pedal Edema. absent: Calf Tenderness - Back Exam Back Exam: NORMAL INSPECTION - Neurological Exam Neurological Exam: Alert, Awake, Oriented x3 - Psychiatric Exam Psychiatric exam: Depressed - Skin Skin Exam: Dry, Intact, Normal Color, Warm Assessment and Plan - Assessment and Plan (Free Text) Assessment: 57 yo female w/ PMH cervical cancer, anxiety/depression, HTN, b/l LE neuropathy, and chronic anemia admitted for generalized weakness, poor oral intake, and sacral and inguinal wound. Plan: Hx of Cervical Cancer -CT chest: L breast mass, extensive lymphadenopathy involving L axilla, neck, supraclavicular, mediastinal nodes. Probable pleural metastasis in medial R lung base. Questionable pulmonary nodule in LLL. L suprarenal mass. Intrahepatic biliary dilatation. -Outpatient chemotherapy with Dr.Simon Cameron -F/U outpatient for continued treatment -Morphine 60 q12 ER -Oxycodone 30mg q3h prn -Gabapentin 300mg po daily Stage 3 Sacral Ulcer -Surgery recs (Dr. Borjas) appreciated -wound culture: e faecalis -bedside wound irrigation and placed wet-to-dry dressings to right groin wound BID -Wound care consult for sacral decub - f/u recs -q2 turns -Air mattress -Santyl or Medihoney with Mepilex/Optifoam dressings to sacral decub Inguinal Wound -wound cx: e. faecalis -Cipro 500 mg PO BID Shortness of breath Pleural effusions -CT chest (07/16): b/l moderate pleural effusions. -Pulmonology (Dr. Odom), IR (Dr. Moss) consulted about possible drainage Multiple Boils -likely 2/2 to chemotherapy reducing immune suppression causing boils due to blocked hair follicles in sites of increase sweat -Surgery recs appreciated: see A&P above -Cipro 500 mg PO BID Chronic Anemia -Heme/Onc (Dr. Cameron) consulted: recs appreciated -2/2 to chemotherapy and cancer history -hemodynamically stable -no need for transfusion Hx of hydronephrosis -Ureteral stent replacement with Dr. Rodriguez q 3 months -most recent on 04-27-18 Hx of HTN -holding BP meds due to low BP on admission Hx of B/L neuropathy -Gabapentin 300mg PO PPx, Diet, Disposition -DVT ppx: chemical ac contraindicated -Diet: HHD -wound care on board -Code Status: DNR/DNI Case discussed with Dr. Garcia <Joo Garcia - Last Filed: 07/19/18 11:50> Objective - Vital Signs/Intake and Output Vital Signs (last 24 hours): Temp Pulse Resp BP Pulse Ox 98.9 F 99 H 20 99/60 L 95 07/19/18 08:36 07/19/18 08:36 07/19/18 08:36 07/19/18 08:36 07/19/18 08:36 Intake and Output: 07/19/18 07/19/18 06:59 18:59 Intake Total 1150 Balance 1150 - Medications Medications: Current Medications Albumin Human (Albumin Human 25% (12.5 Gm/50 Ml)) 12.5 gm IV Q4H [facility] Stop: 07/19/18 16:01 Albuterol/Ipratropium (Duoneb 3 Mg/0.5 Mg (3 Ml) Ud) 3 ml INH RQ6 [facility] Last Admin: 07/19/18 09:28 Dose: 3 ml Alprazolam (Xanax) 0.5 mg PO Q12H PRN PRN Reason: Anxiety Arformoterol Tartrate (Brovana) 15 mcg INH RQ12@1000,2200 [facility] Last Admin: 07/19/18 10:39 Dose: Not Given Budesonide (Pulmicort Respules) 0.5 mg INH RQ12 [facility] Last Admin: 07/19/18 09:28 Dose: 0.5 mg Ciprofloxacin (Cipro) 500 mg PO BID [facility]; Protocol Last Admin: 07/19/18 10:14 Dose: 500 mg Gabapentin (Neurontin) 300 mg PO HS [facility] Last Admin: 07/18/18 22:08 Dose: 300 mg Sodium Chloride (Sodium Chloride 0.9%) 1,000 mls @ 40 mls/hr IV .Q24H [facility] Last Admin: 07/19/18 11:46 Dose: 40 mls/hr Morphine Sulfate (Morphine Extended Release Tab) 60 mg PO BID [facility] Last Admin: 07/19/18 10:19 Dose: 60 mg Ondansetron HCl (Zofran Inj) 4 mg IVP Q4 PRN PRN Reason: Nausea/Vomiting Oxycodone HCl (Oxycodone Immediate Release Tab) 30 mg PO Q3H PRN PRN Reason: MOD-SEVERE PAIN SCALE 4-10 Last Admin: 07/19/18 06:23 Dose: 30 mg - Labs Labs: 07/19/18 07:41 07/19/18 07:41 Attending/Attestation - Attestation I have personally seen and examined this patient.: Yes I have fully participated in the care of the patient.: Yes I have reviewed all pertinent clinical information, including history, physical exam and plan: Yes Notes (Text): 07/19/18 11:48 Medical attending: Patient was seen and examined by me later in the morning. She reports she still has pain despite the long acting and short acting. BP systolic is still in the 90s to low 100s. She isn't tolerating much food/liquid intake Now that she has had the pleural fluid removed, we will add IVF slowly. There is additional IV albumin for today as well Yesterday I spoke with patient's family member over the phone [place] [place] who explained she will try to come in later today Joo Garcia
[2018-07-19] MEDS: Albuterol-Ipratrop 3 mg / 0.5 (3 ml) UD INH SCH ×4 (02:47→20:06)
[2018-07-19] MEDS: oxyCODONE 30 mg Immediate Release Tab PO PRN ×2 (06:23→13:56)
[2018-07-19 07:58] LABS: BASO % 0.3 % (0.0-2.0); EOS # 0.1 K/uL (0.0-0.7); EOS % 1.1 % (0.0-4.0); HEMOGLOBIN 8.2 g/dL (11.0-16.0); LYMPH # 0.1 K/uL (1.0-4.3); LYMPH % 2.4 % (20.0-40.0); MEAN CORPUSCULAR HEMOGLOBIN 28.8 pg (27.0-31.0); MEAN CORPUSCULAR HGB CONC 33.1 g/dL (33.0-37.0); MEAN PLATELET VOLUME 9.6 fL (7.2-11.7); MONO % 0.4 % (0.0-10.0); NEUT # 4.8 K/uL (1.8-7.0); NEUT % 95.8 % (50.0-75.0); PLATELET COUNT 63 K/uL (130-400); RBC 2.83 Mil/uL (3.80-5.20)
[2018-07-19 08:12] LABS: MEAN CELL VOLUME 87.1 fL (81.0-99.0)
[2018-07-19 08:22] LABS: ALB/GLOB RATIO 0.9 (1.0-2.1); ALBUMIN 2.4 g/dL (3.5-5.0); CALCIUM 6.9 mg/dl (8.6-10.4)
[2018-07-19 08:58] LABS: EOSINOPHIL 1 % (0-4); LYMPHOCYTE 2 % (20-40); MONOCYTE 1 % (0-10); NEUTROPHIL 96 % (50-75); TOTAL CELLS COUNTED 100
[2018-07-19 08:59] LABS: ANISOCYTOSIS SLIGHT; HYPOCHROMIC SLIGHT; PLATELET ESTIMATE DECREASED (NORMAL); POLYCHROMIC SLIGHT
[2018-07-19 09:00] LABS: TOXIC GRANULATION PRESENT
[2018-07-19] MEDS: Budesonide 0.5 mg/2 ml Inhal Susp UD INH SCH ×2 (09:28→20:07)
[2018-07-19] MEDS ORDERED: Epoetin Alfa Dialysis 20000 UNIT/ML Inj SC ONE (10:00)
[2018-07-19] MEDS: Morphine 30 mg SR Tab PO SCH ×2 (10:19→17:26)
[2018-07-19] MEDS ORDERED: Epoetin Alfa 20000 UNIT/ML Inj SC ONE (10:30)
[2018-07-19] MEDS: Arformoterol 15 mcg/2 ml Inh Sol INH SCH ×2 (10:39→22:22)
[2018-07-19] MEDS ORDERED: Sodium Chloride 0.9% 1,000 ML IV SCH (11:00)
[2018-07-19] MEDS: Albumin Human 25% (12.5 gm/50 ml) IV SCH ×2 (12:02→16:37)
--- NOTE | 2018-07-19 13:17 | CP.PCM.PN ---
Subjective - Date & Time of Evaluation Date of Evaluation: 07/19/18 Time of Evaluation: 13:16 - Subjective Subjective: Pulmonary follow up, Covering Dr Odom The Patient was seen and examined at the bedside, Medical records reviewed, and management issues were discussed and formulated with the house staff. Events reviewed Reason for consultation: Productive cough, shortness of breath and bilateral pleural effusions Patient with PMH of HTN, anxiety, depression, b/l LE neuropathy,chronic anemia and stage 4 cervical cancer Patient is Alert, awake, and oriented x3 Comfortable, in no apparent distress Breathing much better after thoracentesis Afebrile Objective - Vital Signs/Intake and Output Vital Signs (last 24 hours): Temp Pulse Resp BP Pulse Ox 98.9 F 99 H 20 99/60 L 95 07/19/18 08:36 07/19/18 08:36 07/19/18 08:36 07/19/18 08:36 07/19/18 08:36 Intake and Output: 07/19/18 07/19/18 06:59 18:59 Intake Total 1150 Balance 1150 - Medications Medications: Current Medications Albumin Human (Albumin Human 25% (12.5 Gm/50 Ml)) 12.5 gm IV Q4H [facility] Stop: 07/19/18 16:01 Last Admin: 07/19/18 12:02 Dose: 12.5 gm Albuterol/Ipratropium (Duoneb 3 Mg/0.5 Mg (3 Ml) Ud) 3 ml INH RQ6 [facility] Last Admin: 07/19/18 09:28 Dose: 3 ml Alprazolam (Xanax) 0.5 mg PO Q12H PRN PRN Reason: Anxiety Arformoterol Tartrate (Brovana) 15 mcg INH RQ12@1000,2200 [facility] Last Admin: 07/19/18 10:39 Dose: Not Given Budesonide (Pulmicort Respules) 0.5 mg INH RQ12 [facility] Last Admin: 07/19/18 09:28 Dose: 0.5 mg Ciprofloxacin (Cipro) 500 mg PO BID [facility]; Protocol Last Admin: 07/19/18 10:14 Dose: 500 mg Gabapentin (Neurontin) 300 mg PO HS [facility] Last Admin: 07/18/18 22:08 Dose: 300 mg Sodium Chloride (Sodium Chloride 0.9%) 1,000 mls @ 40 mls/hr IV .Q24H [facility] Last Admin: 07/19/18 11:46 Dose: 40 mls/hr Morphine Sulfate (Morphine Extended Release Tab) 60 mg PO BID [facility] Last Admin: 07/19/18 10:19 Dose: 60 mg Ondansetron HCl (Zofran Inj) 4 mg IVP Q4 PRN PRN Reason: Nausea/Vomiting Oxycodone HCl (Oxycodone Immediate Release Tab) 30 mg PO Q3H PRN PRN Reason: MOD-SEVERE PAIN SCALE 4-10 Last Admin: 07/19/18 06:23 Dose: 30 mg - Labs Labs: 07/19/18 07:41 07/19/18 07:41 - Constitutional Appears: Well, Non-toxic - Head Exam Head Exam: ATRAUMATIC, NORMAL INSPECTION, NORMOCEPHALIC - Eye Exam Eye Exam: EOMI, Normal appearance, PERRL - ENT Exam ENT Exam: Mucous Membranes Moist, Normal Exam - Respiratory Exam Respiratory Exam: Clear to Ausculation Bilateral, NORMAL BREATHING PATTERN - Cardiovascular Exam Cardiovascular Exam: REGULAR RHYTHM, +S1, +S2. absent: Murmur - Extremities Exam Extremities Exam: Full ROM, Normal Capillary Refill, Normal Inspection - Back Exam Back Exam: absent: CVA tenderness (L), CVA tenderness (R) - Neurological Exam Neurological Exam: Alert, Awake, CN II-XII Intact, Motor Sensory Deficit, Oriented x3 Assessment and Plan (1) Bilateral pleural effusion Status: Acute (2) Failure to thrive Status: Acute (3) Thrombocytopenia Status: Acute (4) FARZANEH (acute kidney injury) Status: Acute
--- NOTE | 2018-07-19 17:20 | RAD ---
Date of service: 07/19/2018 HISTORY: concern for fluid overload COMPARISON: Comparison is made with 07/17/2018 TECHNIQUE: 1 view obtained. FINDINGS: LUNGS: Moderate pulmonary vascular congestion/edema is noted PLEURA: Bilateral pleural effusions. CARDIOVASCULAR: No aortic atherosclerotic calcification present. Normal cardiac size. Right-sided Infusaport is again seen in place. OSSEOUS STRUCTURES: No significant abnormalities. VISUALIZED UPPER ABDOMEN: Normal. OTHER FINDINGS: None. IMPRESSION: Moderate pulmonary vascular congestion/edema and bilateral pleural effusions.
[2018-07-20] MEDS: Albuterol-Ipratrop 3 mg / 0.5 (3 ml) UD INH SCH ×3 (02:16→13:39)
[2018-07-20] MEDS: oxyCODONE 30 mg Immediate Release Tab PO PRN (06:25)
[2018-07-20 06:41] LABS: BASO % 0.9 % (0.0-2.0); HEMOGLOBIN 7.8 g/dL (11.0-16.0); LYMPH # 0.1 K/uL (1.0-4.3); LYMPH % 8.6 % (20.0-40.0); MEAN CORPUSCULAR HEMOGLOBIN 28.1 pg (27.0-31.0); MEAN CORPUSCULAR HGB CONC 31.9 g/dL (33.0-37.0); MONO % 1.5 % (0.0-10.0); NEUT # 1.2 K/uL (1.8-7.0); PLATELET COUNT 64 K/uL (130-400); RBC 2.79 Mil/uL (3.80-5.20); RED CELL DISTRIBUTION WIDTH 18.7 % (11.5-14.5)
[2018-07-20 06:45] LABS: ALBUMIN 2.7 g/dL (3.5-5.0); CALCIUM 6.7 mg/dl (8.6-10.4); WHITE BLOOD COUNT 1.4 K/uL (4.8-10.8)
--- NOTE | 2018-07-20 07:59 | CP.PCM.PN ---
Subjective - Date & Time of Evaluation Date of Evaluation: 07/20/18 Time of Evaluation: 07:59 - Subjective Subjective: Progress Note for Hospitalist service Patient seen and examined at bedside. She states she is open to hospice as long as she stays in the hospital. She has generalized pain, and cough. Objective - Vital Signs/Intake and Output Vital Signs (last 24 hours): Temp Pulse Resp BP Pulse Ox 97 F L 73 16 111/61 97 07/20/18 00:00 07/20/18 00:00 07/20/18 00:00 07/20/18 00:00 07/20/18 00:00 Intake and Output: 07/20/18 07/20/18 06:59 18:59 Intake Total 550 Balance 550 - Medications Medications: Current Medications Albuterol/Ipratropium (Duoneb 3 Mg/0.5 Mg (3 Ml) Ud) 3 ml INH RQ6 [facility] Last Admin: 07/20/18 02:16 Dose: Not Given Alprazolam (Xanax) 0.5 mg PO Q12H PRN PRN Reason: Anxiety Last Admin: 07/19/18 21:09 Dose: 0.5 mg Arformoterol Tartrate (Brovana) 15 mcg INH RQ12@1000,2200 [facility] Last Admin: 07/19/18 22:22 Dose: 15 mcg Budesonide (Pulmicort Respules) 0.5 mg INH RQ12 [facility] Last Admin: 07/19/18 20:07 Dose: 0.5 mg Ciprofloxacin (Cipro) 500 mg PO BID [facility]; Protocol Last Admin: 07/19/18 17:27 Dose: 500 mg Gabapentin (Neurontin) 300 mg PO HS [facility] Last Admin: 07/19/18 21:09 Dose: 300 mg Morphine Sulfate (Morphine Extended Release Tab) 60 mg PO BID [facility] Last Admin: 07/19/18 17:26 Dose: 60 mg Ondansetron HCl (Zofran Inj) 4 mg IVP Q4 PRN PRN Reason: Nausea/Vomiting Oxycodone HCl (Oxycodone Immediate Release Tab) 30 mg PO Q3H PRN PRN Reason: MOD-SEVERE PAIN SCALE 4-10 Last Admin: 07/20/18 06:25 Dose: 30 mg - Labs Labs: 07/20/18 06:24 07/20/18 06:24 - Constitutional Appears: Older Than Stated Age, Confused, Chronically Ill - Head Exam Head Exam: ATRAUMATIC, NORMOCEPHALIC - Eye Exam Eye Exam: EOMI, PERRL - ENT Exam ENT Exam: Mucous Membranes Dry - Neck Exam Neck Exam: Full ROM - Respiratory Exam Respiratory Exam: Decreased Breath Sounds, Rales - Cardiovascular Exam Cardiovascular Exam: REGULAR RHYTHM, +S1, +S2 - GI/Abdominal Exam GI & Abdominal Exam: Soft, Normal Bowel Sounds. absent: Tenderness - Back Exam Additional comments: Stage 4 sacral ulcer - Neurological Exam Neurological Exam: Alert, Awake, Oriented x3 - Skin Additional comments: Right inguinal wound: clear watery discharge from site Assessment and Plan - Assessment and Plan (Free Text) Assessment: 57 yo female with advanced cervical cancer, anxiety/depression, HTN, bilateral lower extremity neuropathy, and chronic anemia admitted for generalized weakness, poor oral intake, and sacral and inguinal wound. Plan: Hx of Cervical Cancer -CT chest: L breast mass, extensive lymphadenopathy involving L axilla, neck, supraclavicular, mediastinal nodes. Probable pleural metastasis in medial R lung base. Questionable pulmonary nodule in LLL. L suprarenal mass. Intrahepatic biliary dilatation. -Outpatient chemotherapy with Dr.Simon Cameron -F/U outpatient for continued treatment -Morphine 60mg ER daily -Oxycodone 30mg q4h prn -Gabapentin 300mg po daily -Xanax 1mg PO BID PRN Stage 3 Sacral Ulcer -Surgery recs (Dr. Borjas) appreciated -wound culture: e faecalis -bedside wound irrigation and placed wet-to-dry dressings to right groin wound BID -Wound care consult for sacral decub - f/u recs -q2 turns -Air mattress -Santyl or Medihoney with Mepilex/Optifoam dressings to sacral decub Inguinal Wound -wound cx: e. faecalis -Cipro 500 mg PO BID Shortness of breath Pleural effusions -CT chest (07/16): b/l moderate pleural effusions. -Pulmonology (Dr. Odom), IR (Dr. Moss) consulted -Status post thoracentesis on 07/17/18 with 1200cc on left, and 400cc on right -Repeat CXR on 07/20 reveals persistent vascular congestion Multiple Boils -likely 2/2 to chemotherapy reducing immune suppression causing boils due to blocked hair follicles in sites of increase sweat -Surgery recs appreciated: see A&P above -Cipro 500 mg PO BID Chronic Anemia -Heme/Onc (Dr. Cameron) consulted: recs appreciated -2/2 to chemotherapy and cancer history -hemodynamically stable -no need for transfusion Hx of hydronephrosis -Ureteral stent replacement with Dr. Rodriguez q 3 months -most recent on 04-27-18 Hx of HTN -holding BP meds due to low BP on admission Hx of B/L neuropathy -Gabapentin 300mg PO PPx, Diet, Disposition -DVT ppx: chemical ac contraindicated -Diet: HHD -wound care on board -Code Status: DNR/DNI -Pending inpatient Hospice eval
[2018-07-20] MEDS: Budesonide 0.5 mg/2 ml Inhal Susp UD INH SCH (08:28)
[2018-07-20 08:45] LABS: BANDS 4 % (0-2); LYMPHOCYTE 8 % (20-40); MONOCYTE 3 % (0-10); NEUTROPHIL 85 % (50-75); PLATELET ESTIMATE DECREASED (NORMAL); TOTAL CELLS COUNTED 100
[2018-07-20 08:46] LABS: ANISOCYTOSIS SLIGHT; HYPOCHROMIC SLIGHT
[2018-07-20] MEDS: Morphine 30 mg SR Tab PO SCH ×2 (09:54→17:17)
[2018-07-20] MEDS: Arformoterol 15 mcg/2 ml Inh Sol INH SCH (10:11)
--- NOTE | 2018-07-20 11:36 | RAD ---
Date of service: 07/20/2018 HISTORY: concern for fluid overload COMPARISON: Comparison chest dated 07/19/2018 TECHNIQUE: 1 view obtained. FINDINGS: No change right IJ MediPort with tip in the SVC/RA junction LUNGS: Diffuse bilateral infiltrates felt to be secondary to pulmonary venous congestion. Bilateral lower lobe alveolar-type infiltrates and bilateral effusions. No definitive pneumothorax PLEURA: As above. CARDIOVASCULAR: No aortic atherosclerotic calcification present. Heart size unchanged no pulmonary vascular congestion. OSSEOUS STRUCTURES: No significant abnormalities. VISUALIZED UPPER ABDOMEN: Normal. OTHER FINDINGS: None. IMPRESSION: Diffuse bilateral infiltrates felt to be secondary to pulmonary venous congestion. Bilateral lower lobe alveolar-type infiltrates and bilateral effusions. No definitive pneumothorax
--- NOTE | 2018-07-20 13:25 | PCM.PPROG ---
History of Present Illness - History of Present Illness History of Present Illness: Patient examined in bed alert and oriented X 3. Patient's father at bedside was assisting patient with food. He is concerned with patient's poor appetite while patient her self complains that food makes her " belly swollen". Patient admits to being weak and unable to ambulate. She reported some improvement with breathing initially after thoracentesis. Today, she has a lot of rochi and unable to speak in full sentences. WBC dropped to 1.6, Hb dropped as well. Chemo Tx is not option any more due to patient's very complex clinical presentation. The Medical and Nursing teams feel comfort care would be the best option for this patient. Review of Systems - Constitutional Constitutional: Weight Loss, Weakness - EENT Eyes: absent: As Per HPI, Blind Spots, Blurred Vision, Change in Vision, Decreased Night Vision, Diplopia, Discharge, Dry Eye, Exophthalmos, Floaters, Irritation, Itchy Eyes, Loss of Peripheral Vision, Pain, Photophobia, Requires Corrective Lenses, Sees Flashes, Spots in Vision, Tunnel Vision, Other Visual Disturbances, Loss of Vision, Other Ears: absent: As Per HPI, Decreased Hearing, Ear Discharge, Ear Pain, Tinnitus, Abnormal Hearing, Disequilibrium, Dizziness, Other Nose/Mouth/Throat: Dry Mouth - Breasts Breasts: absent: As Per HPI, Change in Shape, Mass, Pain, Nipple Discharge, Nipple Inversion, Skin Changes, Swelling, Other - Cardiovascular Cardiovascular: Dyspnea, Dyspnea on Exertion, Leg Edema - Respiratory Respiratory: Cough, Dyspnea on Exertion, Excessive Mucous Production - Gastrointestinal Gastrointestinal: Early Satiety - Genitourinary Genitourinary: absent: As Per HPI, Change in Urinary Stream, Difficulty Urinating, Dysuria, Flank Pain, Hematuria, Pyuria, Nocturia, Urinary Incontinence, Urinary Frequency, Urinary Hesitance, Urinary Urgency, Voiding Freq/Small Amts, Freq UTI, Hx Renal/Bladder Calculi, Hx /Renal Surgery, Bladder Distension, Other - Reproductive: Female Reproductive:Female: Post Menopausal - Menstruation Menstruation: Post Menopausal - Musculoskeletal Musculoskeletal: Abnormal Gait, Limited Range of Motion, Muscle Weakness - Integumentary Integumentary: Change in Hair, Skin Ulcer, Sores, Wounds - Neurological Neurological: Weakness - Psychiatric Psychiatric: Anxiety - Endocrine Endocrine: Change in Body Appearance - Hematologic/Lymphatic Hematologic: Other Physical Exam - Constitutional Appears: No Acute Distress, Chronically Ill - Head Exam Head Exam: ATRAUMATIC, NORMAL INSPECTION, NORMOCEPHALIC - Eye Exam Eye Exam: EOMI, Normal appearance, PERRL Pupil Exam: NORMAL ACCOMODATION, PERRL - ENT Exam ENT Exam: Mucous Membranes Dry - Neck Exam Neck exam: Positive for: Normal Inspection - Respiratory Exam Respiratory Exam: Decreased Breath Sounds, Rhonchi - Cardiovascular Exam Cardiovascular Exam: Tachycardia, Irregular Rhythm - GI/Abdominal Exam GI & Abdominal Exam: Diminished Bowel Sounds, Distended, Firm - Extremities Exam Extremities exam: Positive for: pedal edema Additional comments: left arm and left leg edema - Back Exam Additional comments: pressure sore - Neurological Exam Neurological exam: Alert, Oriented x3 - Psychiatric Exam Psychiatric exam: Anxious - Skin Skin Exam: Dry, Pallor Palliative Care Assessment - Pain Scale Pain Score: 6 - Pain Location Left, Right or Bilateral: Left Pain Location Body Site: Abdomen, Arm, Leg - Pain Description Description: Constant, Pressure, Throbbing Pain Behavior: Irritability Aggravating Factors: None Alleviating Factors/Management Techniques: Medication, Position Change, Relaxation Techniques - Layo Scale Sensory Perception: No Impairment Moisture: Rarely Moist Activity: Bedfast Mobility: Very Limited Nutrition: Probably Inadequate Friction & Shear: Problem Total Score - Skin Risk Assessment: 14 - Psychosocial Distress Patient screened for psychosocial distress: Yes Psychosocial Intervention(s): Resolved temporally by discussion of goals of care, reassurance of pain control Outcome: Referred to social work nurse, Referred to pastoral care Palliative Care - Goals Treatment Goal(s): Alleviate symptoms End of life care discussed: Yes - Plan Interdisciplinary involved: Nurse, tailings worker, manager massage department, Physician, Pastoral care Discharge planning: Hospice
[2018-07-20 16:58] VITALS: BP 91/57; PULSE 106; RESP 18; TEMP 97.5; O2SAT 93
[2018-07-20] MEDS ORDERED: Cefepime IV 1 gm in Dextrose 1 GM/50 ML BAG IVPB SCH (19:00)
--- NOTE | 2018-07-20 21:33 | CP.PCM.DIS ---
<Corinne Hooker - Last Filed: 07/20/18 21:17> Provider - Provider Date of Admission: 07/16/18 12:19 Attending physician: Michell Orozco MD Consults: 07/15/18 12:36 General Surgery Consult Stat Comment: Consulting Provider: Dante Borjas Consulting Physician: Dante Borjas Reason for Consult: R Lymph node biopsy side - dehiscence; Decub ulcer Hematology Oncology Consult Stat Comment: Consulting Provider: Willie Cameron Consulting Physician: Willie Cameron Reason for Consult: Cervical cancer w/mets 07/15/18 17:04 Palliative Care Consult Stat Comment: Consulting Provider: Viktoria Omalley Physician Instructions: Reason For Exam: goals of care 07/15/18 20:43 Nursing Referral for Wound Care Routine Comment: sacral decub Physician Instructions: Reason For Exam: new adm with right inguinal wound dehisence and sa 07/16/18 13:28 Physician Consult Routine Comment: Consulting Provider: Armand Odom Consulting Physician: Armand Odom Reason for Consult: b/l pleural effusion, cervical ca with mets 07/16/18 13:31 Physician Consult Routine Comment: Consulting Provider: Hieu Moss Consulting Physician: Hieu Moss Reason for Consult: b/l pleural effusion 07/20/18 11:28 Nursing Referral for Wound Care Routine Comment: Physician Instructions: Reason For Exam: stage 4 sacral ulcer Time Spent in preparation of Discharge (in minutes): 35 Hospital Course - Lab Results Lab Results: Micro Results 07/15/18 17:09 Groin Gram Stain - Final 07/15/18 17:09 Groin Wound Culture - Final Enterococcus Faecalis Most Recent Lab Values WBC 1.4 K/uL (4.8-10.8) L* D 07/20/18 06:24 RBC 2.79 Mil/uL (3.80-5.20) L 07/20/18 06:24 Hgb 7.8 g/dL (11.0-16.0) L 07/20/18 06:24 Hct 24.6 % (34.0-47.0) L 07/20/18 06:24 MCV 88.0 fL (81.0-99.0) 07/20/18 06:24 MCH 28.1 pg (27.0-31.0) 07/20/18 06:24 MCHC 31.9 g/dL (33.0-37.0) L 07/20/18 06:24 RDW 18.7 % (11.5-14.5) H 07/20/18 06:24 Plt Count 64 K/uL (130-400) L 07/20/18 06:24 MPV 9.0 fL (7.2-11.7) 07/20/18 06:24 Neut % (Auto) 86.0 % (50.0-75.0) H 07/20/18 06:24 Lymph % (Auto) 8.6 % (20.0-40.0) L 07/20/18 06:24 [place] % (Auto) 1.5 % (0.0-10.0) 07/20/18 06:24 Eos % (Auto) 3.0 % (0.0-4.0) 07/20/18 06:24 Baso % (Auto) 0.9 % (0.0-2.0) 07/20/18 06:24 Neut # (Auto) 1.2 K/uL (1.8-7.0) L 07/20/18 06:24 Lymph # (Auto) 0.1 K/uL (1.0-4.3) L 07/20/18 06:24 [place] # (Auto) 0.0 K/uL (0.0-0.8) 07/20/18 06:24 Eos # (Auto) 0.0 K/uL (0.0-0.7) 07/20/18 06:24 Baso # (Auto) 0.0 K/uL (0.0-0.2) 07/20/18 06:24 Neutrophils % (Manual) 85 % (50-75) H 07/20/18 06:24 Band Neutrophils % 4 % (0-2) H 07/20/18 06:24 Lymphocytes % (Manual) 8 % (20-40) L 07/20/18 06:24 Monocytes % (Manual) 3 % (0-10) 07/20/18 06:24 Eosinophils % (Manual) 1 % (0-4) 07/19/18 07:41 Toxic Granulation Present 07/19/18 07:41 Platelet Estimate Decreased (NORMAL) L 07/20/18 06:24 Large Platelets Present 07/18/18 07:09 Polychromasia Slight 07/19/18 07:41 Hypochromasia (manual) Slight 07/20/18 06:24 Poikilocytosis (manual Slight 07/18/18 07:09 Basophilic Stippling Slight 07/18/18 07:09 Anisocytosis (manual) Slight 07/20/18 06:24 Target Cells Slight 07/16/18 11:24 [place] Cells Slight 07/16/18 11:24 Acanthocytes (Spur) Slight 07/18/18 07:09 Schistocytes Slight 07/18/18 07:09 Sodium 139 mmol/L (132-148) 07/20/18 06:24 Potassium 5.2 mmol/L (3.6-5.2) 07/20/18 06:24 Chloride 107 mmol/L (98-107) 07/20/18 06:24 Carbon Dioxide 20 mmol/L (22-30) L 07/20/18 06:24 Anion Gap 17 (10-20) 07/20/18 06:24 BUN 51 mg/dL (7-17) H 07/20/18 06:24 Creatinine 3.6 mg/dL (0.7-1.2) H 07/20/18 06:24 Est GFR ( Amer) 16 07/20/18 06:24 Est GFR (Non-Af Amer) 13 07/20/18 06:24 Random Glucose 94 mg/dL (65-105) 07/20/18 06:24 Calcium 6.7 mg/dl (8.6-10.4) L 07/20/18 06:24 Phosphorus 2.7 mg/dL (2.5-4.5) 07/15/18 12:38 Magnesium 1.7 mg/dL (1.6-2.3) 07/15/18 12:38 Total Bilirubin 0.3 mg/dL (0.2-1.3) 07/20/18 06:24 AST 60 U/L (14-36) H D 07/20/18 06:24 ALT 67 U/L (9-52) H D 07/20/18 06:24 Alkaline Phosphatase 86 U/L (38-126) 07/20/18 06:24 Total Protein 5.3 g/dL (6.3-8.3) L 07/20/18 06:24 Albumin 2.7 g/dL (3.5-5.0) L 07/20/18 06:24 Globulin 2.6 gm/dL (2.2-3.9) 07/20/18 06:24 Albumin/Globulin Ratio 1.0 (1.0-2.1) 07/20/18 06:24 Urine Color Yellow (YELLOW) 07/16/18 06:34 Urine Clarity Hazy (Clear) 07/16/18 06:34 Urine pH 5.0 (5.0-8.0) 07/16/18 06:34 Ur Specific [place] 1.041 (1.003-1.030) H 07/16/18 06:34 Urine Protein Negative mg/dL (NEGATIVE) 07/16/18 06:34 Urine Glucose (UA) Negative mg/dL (Normal) 07/16/18 06:34 Urine Ketones Negative mg/dL (NEGATIVE) 07/16/18 06:34 Urine Blood 1+ (NEGATIVE) H 07/16/18 06:34 Urine Nitrate Negative (NEGATIVE) 07/16/18 06:34 Urine Bilirubin Negative (NEGATIVE) 07/16/18 06:34 Urine Urobilinogen Normal mg/dL (0.2-1.0) 07/16/18 06:34 Ur Leukocyte Esterase 2+ Chanell/uL (Negative) H 07/16/18 06:34 Urine WBC (Auto) 25 /hpf (0-5) H 07/16/18 06:34 Urine RBC (Auto) 28 /hpf (0-3) H 07/16/18 06:34 Ur Squamous Epith Cells 3 /hpf (0-5) 07/16/18 06:34 Ur Renal Epithelial Cell 1 /hpf (0-3) 07/16/18 06:34 Uric Acid Crystals Occ /hpf (<OCC) H 07/16/18 06:34 Fluid Source Pleural 07/17/18 18:34 Fluid Appearance Sl cloudy (CLEAR) 07/17/18 18:34 Fluid WBC 330.0 /mm3 (0.0-300.0) H 07/17/18 18:34 Fluid RBC 06152.0 /mm3 (0.0-0.0) H 07/17/18 18:34 Fluid Tot Cell Count 100 (0-0) H 07/17/18 18:34 Fluid Neutrophils 93.0 % (0-0) H 07/17/18 18:34 Fluid Lymphocytes 2.0 % (0-0) H 07/17/18 18:34 Fld Monocyte/Macrophag 5 % (0-0) H 07/17/18 18:34 Fluid Comment 07/17/18 18:34 C. difficile Ag & Toxin Negative (NEGATIVE) 07/18/18 15:04 Blood Type A NEGATIVE 07/16/18 02:32 Antibody Screen Negative 07/16/18 02:32 - Hospital Course Hospital Course: On admission 57 yo female w/ PMH cervical cancer, anxiety/depression, HTN, b/l LE neuropathy, and chronic anemia admitted for generalized weakness, poor oral intake, and sacral and inguinal wound. Dr. Cameron saw patient during outpatient chemotherapy and recommended patient come for evaluation for her weakness. Patient states she has no appetite to eat and father at bedside she has been having this issue progressing for quite some time. Denies fevers, chills, chest pain, n/v, constipation or diarrhea, and dysuria. Admits to abdominal pain, weakness, and slight shortness of breath. Hospital course: Patient was admitted for generalized weakness, poor oral intake and sacral and inguinal wounds. Patient has Stage 4 cervical cancer with imaging revealing left breast mass and extensive lymphadenopathy and probable left pleural metastasis. Oncologist Dr. Cameron on board, who has been following patient and treating her with salvage gemicitabine. She was also found to have Stage 3 sacral ulcer and inguinal ulcer with wound cultures positive for E. fecaline and treated with Ciprofloxacin 500mg BID. She was noted to have significant pleural effusions on imaging and had thoracentesis on 07/17/18 with removal of 1200cc on left, and 400cc on right. Patient was noted to be chronically anemic, likely secondary to her cancer and chemotherapy. Patient became markedly leukopenic today with white count 1.4. She remains weak, with oral intake, with severe pain with edema of left arm and left leg. Patient agreeable to Hospice in house evaluation since she is too weak to return home. Discharge: Patient to be transferred to Hospice in patient. Discharge Exam - Head Exam Head Exam: ATRAUMATIC, NORMAL INSPECTION, NORMOCEPHALIC - Eye Exam Eye Exam: EOMI, PERRL - ENT Exam ENT Exam: Mucous Membranes Dry - Neck Exam Neck exam: Full Rom - Respiratory Exam Respiratory Exam: Decreased Breath Sounds, Rales - Cardiovascular Exam Cardiovascular Exam: Tachycardia, +S1, +S2. absent: Gallop, Rubs - GI/Abdominal Exam GI & Abdominal Exam: Normal Bowel Sounds, Soft. absent: Tenderness - Extremities Exam Extremities exam: pedal edema, pedal pulses present - Back Exam Back exam: absent: CVA tenderness (L), CVA tenderness (R) Additional comments: Sacral ulcer - Neurological Exam Neurological exam: Alert, Oriented x3 - Psychiatric Exam Psychiatric exam: Anxious - Skin Additional comments: Stage 4 sacral ulcer right inguinal wound with clear discharge multiple boils lesions of lower extremities Discharge Plan - Follow Up Plan Condition: GUARDED Disposition: HOSPICE - MEDICAL FACILITY <Michell Orozco - Last Filed: 07/21/18 09:44> Provider - Provider Date of Admission: 07/16/18 12:19 Attending physician: Michell Orozco MD Consults: 07/15/18 12:36 General Surgery Consult Stat Comment: Consulting Provider: Dante Borjas Consulting Physician: Dante Borjas Reason for Consult: R Lymph node biopsy side - dehiscence; Decub ulcer Hematology Oncology Consult Stat Comment: Consulting Provider: Willie Cameron Consulting Physician: Willie Cameron Reason for Consult: Cervical cancer w/mets 07/15/18 17:04 Palliative Care Consult Stat Comment: Consulting Provider: Viktoria Omalley Physician Instructions: Reason For Exam: goals of care 07/15/18 20:43 Nursing Referral for Wound Care Routine Comment: sacral decub Physician Instructions: Reason For Exam: new adm with right inguinal wound dehisence and sa 07/16/18 13:28 Physician Consult Routine Comment: Consulting Provider: Armand Odom Consulting Physician: Armand Odom Reason for Consult: b/l pleural effusion, cervical ca with mets 07/16/18 13:31 Physician Consult Routine Comment: Consulting Provider: Hieu Moss Consulting Physician: Hieu Moss Reason for Consult: b/l pleural effusion 07/20/18 11:28 Nursing Referral for Wound Care Routine Comment: Physician Instructions: Reason For Exam: stage 4 sacral ulcer Hospital Course - Lab Results Lab Results: Micro Results 07/15/18 17:09 Groin Gram Stain - Final 07/15/18 17:09 Groin Wound Culture - Final Enterococcus Faecalis Most Recent Lab Values WBC 1.4 K/uL (4.8-10.8) L* D 07/20/18 06:24 RBC 2.79 Mil/uL (3.80-5.20) L 07/20/18 06:24 Hgb 7.8 g/dL (11.0-16.0) L 07/20/18 06:24 Hct 24.6 % (34.0-47.0) L 07/20/18 06:24 MCV 88.0 fL (81.0-99.0) 07/20/18 06:24 MCH 28.1 pg (27.0-31.0) 07/20/18 06:24 MCHC 31.9 g/dL (33.0-37.0) L 07/20/18 06:24 RDW 18.7 % (11.5-14.5) H 07/20/18 06:24 Plt Count 64 K/uL (130-400) L 07/20/18 06:24 MPV 9.0 fL (7.2-11.7) 07/20/18 06:24 Neut % (Auto) 86.0 % (50.0-75.0) H 07/20/18 06:24 Lymph % (Auto) 8.6 % (20.0-40.0) L 07/20/18 06:24 [place] % (Auto) 1.5 % (0.0-10.0) 07/20/18 06:24 Eos % (Auto) 3.0 % (0.0-4.0) 07/20/18 06:24 Baso % (Auto) 0.9 % (0.0-2.0) 07/20/18 06:24 Neut # (Auto) 1.2 K/uL (1.8-7.0) L 07/20/18 06:24 Lymph # (Auto) 0.1 K/uL (1.0-4.3) L 07/20/18 06:24 [place] # (Auto) 0.0 K/uL (0.0-0.8) 07/20/18 06:24 Eos # (Auto) 0.0 K/uL (0.0-0.7) 07/20/18 06:24 Baso # (Auto) 0.0 K/uL (0.0-0.2) 07/20/18 06:24 Neutrophils % (Manual) 85 % (50-75) H 07/20/18 06:24 Band Neutrophils % 4 % (0-2) H 07/20/18 06:24 Lymphocytes % (Manual) 8 % (20-40) L 07/20/18 06:24 Monocytes % (Manual) 3 % (0-10) 07/20/18 06:24 Eosinophils % (Manual) 1 % (0-4) 07/19/18 07:41 Toxic Granulation Present 07/19/18 07:41 Platelet Estimate Decreased (NORMAL) L 07/20/18 06:24 Large Platelets Present 07/18/18 07:09 Polychromasia Slight 07/19/18 07:41 Hypochromasia (manual) Slight 07/20/18 06:24 Poikilocytosis (manual Slight 07/18/18 07:09 Basophilic Stippling Slight 07/18/18 07:09 Anisocytosis (manual) Slight 07/20/18 06:24 Target Cells Slight 07/16/18 11:24 [place] Cells Slight 07/16/18 11:24 Acanthocytes (Spur) Slight 07/18/18 07:09 Schistocytes Slight 07/18/18 07:09 Sodium 139 mmol/L (132-148) 07/20/18 06:24 Potassium 5.2 mmol/L (3.6-5.2) 07/20/18 06:24 Chloride 107 mmol/L (98-107) 07/20/18 06:24 Carbon Dioxide 20 mmol/L (22-30) L 07/20/18 06:24 Anion Gap 17 (10-20) 07/20/18 06:24 BUN 51 mg/dL (7-17) H 07/20/18 06:24 Creatinine 3.6 mg/dL (0.7-1.2) H 07/20/18 06:24 Est GFR ( Amer) 16 07/20/18 06:24 Est GFR (Non-Af Amer) 13 07/20/18 06:24 Random Glucose 94 mg/dL (65-105) 07/20/18 06:24 Calcium 6.7 mg/dl (8.6-10.4) L 07/20/18 06:24 Phosphorus 2.7 mg/dL (2.5-4.5) 07/15/18 12:38 Magnesium 1.7 mg/dL (1.6-2.3) 07/15/18 12:38 Total Bilirubin 0.3 mg/dL (0.2-1.3) 07/20/18 06:24 AST 60 U/L (14-36) H D 07/20/18 06:24 ALT 67 U/L (9-52) H D 07/20/18 06:24 Alkaline Phosphatase 86 U/L (38-126) 07/20/18 06:24 Total Protein 5.3 g/dL (6.3-8.3) L 07/20/18 06:24 Albumin 2.7 g/dL (3.5-5.0) L 07/20/18 06:24 Globulin 2.6 gm/dL (2.2-3.9) 07/20/18 06:24 Albumin/Globulin Ratio 1.0 (1.0-2.1) 07/20/18 06:24 Urine Color Yellow (YELLOW) 07/16/18 06:34 Urine Clarity Hazy (Clear) 07/16/18 06:34 Urine pH 5.0 (5.0-8.0) 07/16/18 06:34 Ur Specific [place] 1.041 (1.003-1.030) H 07/16/18 06:34 Urine Protein Negative mg/dL (NEGATIVE) 07/16/18 06:34 Urine Glucose (UA) Negative mg/dL (Normal) 07/16/18 06:34 Urine Ketones Negative mg/dL (NEGATIVE) 07/16/18 06:34 Urine Blood 1+ (NEGATIVE) H 07/16/18 06:34 Urine Nitrate Negative (NEGATIVE) 07/16/18 06:34 Urine Bilirubin Negative (NEGATIVE) 07/16/18 06:34 Urine Urobilinogen Normal mg/dL (0.2-1.0) 07/16/18 06:34 Ur Leukocyte Esterase 2+ Chanell/uL (Negative) H 07/16/18 06:34 Urine WBC (Auto) 25 /hpf (0-5) H 07/16/18 06:34 Urine RBC (Auto) 28 /hpf (0-3) H 07/16/18 06:34 Ur Squamous Epith Cells 3 /hpf (0-5) 05/02/19 06:34 Ur Renal Epithelial Cell 1 /hpf (0-3) 07/16/18 06:34 Uric Acid Crystals Occ /hpf (<OCC) H 07/16/18 06:34 Fluid Source Pleural 07/17/18 18:34 Fluid Appearance Sl cloudy (CLEAR) 07/17/18 18:34 Fluid WBC 330.0 /mm3 (0.0-300.0) H 07/17/18 18:34 Fluid RBC 10415.0 /mm3 (0.0-0.0) H 07/17/18 18:34 Fluid Tot Cell Count 100 (0-0) H 07/17/18 18:34 Fluid Neutrophils 93.0 % (0-0) H 07/17/18 18:34 Fluid Lymphocytes 2.0 % (0-0) H 07/17/18 18:34 Fld Monocyte/Macrophag 5 % (0-0) H 07/17/18 18:34 Fluid Comment 07/17/18 18:34 C. difficile Ag & Toxin Negative (NEGATIVE) 07/18/18 15:04 Blood Type A NEGATIVE 07/16/18 02:32 Antibody Screen Negative 07/16/18 02:32 Attending/Attestation - Attestation I have personally seen and examined this patient.: Yes I have fully participated in the care of the patient.: Yes I have reviewed all pertinent clinical information, including history, physical exam and plan: Yes Notes (Text): seen and examined with the resident. Spoke to the patient and her father at bedside. Discussed about in patient hospice care. Patient is willing to stay here at [facility] on hospice care. Spoke to Dr Nisha Espinosa hospice accepted her. we will discharge to inpatient hospice care
--- NOTE | 2018-07-20 23:00 | CP.PCM.PN ---
Subjective - Date & Time of Evaluation Date of Evaluation: 07/20/18 Time of Evaluation: 19:00 - Subjective Subjective: Agreeable to hospice. Objective - Vital Signs/Intake and Output Vital Signs (last 24 hours): Temp Pulse Resp BP Pulse Ox 97.5 F L 106 H 18 91/57 L 93 L 07/20/18 16:56 07/20/18 16:56 07/20/18 16:56 07/20/18 16:56 07/20/18 16:56 Intake and Output: 07/20/18 07/21/18 18:59 06:59 Intake Total 480 Balance 480 - Labs Labs: 07/20/18 06:24 07/20/18 06:24 - Constitutional Appears: Cachectic - Head Exam Head Exam: ATRAUMATIC - Eye Exam Eye Exam: Normal appearance - ENT Exam ENT Exam: Mucous Membranes Dry - Respiratory Exam Respiratory Exam: NORMAL BREATHING PATTERN - Cardiovascular Exam Cardiovascular Exam: +S1, +S2 - GI/Abdominal Exam GI & Abdominal Exam: Normal Bowel Sounds Assessment and Plan (1) Failure to thrive Status: Acute (2) Thrombocytopenia Status: Acute (3) Anemia Status: Chronic (4) Cervical cancer Status: Chronic
[2018-07-22 22:12] LABS: LDH PLEURAL FLUID 377 U/L; TOTAL PROTEIN PLEURAL FLUID <3.0 g/dL
== END 2018-07-20 20:00 | disposition hospice, inpatient (51) | DRG 186 ==
LOC: C.ER 11:39 → C.9E 15:35 → C.3T 19:25 → INTOOBSV 07-16 12:19 → OBSVTOIN 07-16 12:19
PROVIDERS: ADMIT Internal Medicine; ATTEND Internal Medicine
PROC: 0W9B3ZZ Drainage of Left Pleural Cavity, Percutaneous Approach (ICD-10-PCS; principal; 2018-07-17)
PROC: 0W993ZZ Drainage of Right Pleural Cavity, Percutaneous Approach (ICD-10-PCS; 2018-07-17)
DX: J90 Pleural effusion, not elsewhere classified (principal); L89.153 Pressure ulcer of sacral region, stage 3; E43 Unspecified severe protein-calorie malnutrition; R64 Cachexia; N17.9 Acute kidney failure, unspecified; Z68.1 Body mass index [BMI] 19.9 or less, adult; C78.2 Secondary malignant neoplasm of pleura; C53.9 Malignant neoplasm of cervix uteri, unspecified; D63.0 Anemia in neoplastic disease; D72.819 Decreased white blood cell count, unspecified; F41.9 Anxiety disorder, unspecified; G89.3 Neoplasm related pain (acute) (chronic); F32.9 Major depressive disorder, single episode, unspecified; I12.9 Hypertensive chronic kidney disease with stage 1 through stage 4 chronic kidney disease, or unspecified chronic kidney disease; N18.9 Chronic kidney disease, unspecified; R62.7 Adult failure to thrive; Z51.5 Encounter for palliative care; Z66 Do not resuscitate; F17.210 Nicotine dependence, cigarettes, uncomplicated; Z92.3 Personal history of irradiation; N63.20 Unspecified lump in the left breast, unspecified quadrant

== ENCOUNTER 2018-07-20 19:33 | Inpatient (IN) | payer OTHER ==
[2018-07-20] MEDS ORDERED: Morphine 100 MG in Dextrose 5% In Water 90 ML IV ONE (20:25)
--- NOTE | 2018-07-21 06:16 | CP.PCM.HP ---
<Benny Barajas - Last Filed: 07/21/18 12:25> History of Present Illness - History of Present Illness History of Present Illness: PGY-1 Medicine H&P Patient is a 57 year old female with history of Stage 4 cervical cancer with metastasis to breast who was discharged from hospital inpatient care and admitted to inpatient Hospice. She was previously admitted for generalized weakness, poor oral intake, sacral and inguinal wounds. Imaging revealed left breast mass and extensive lymphadenopathy and probable left pleural metastasis. Oncologist Dr. Cameron was treating patient on salvage gemcitabine as outpatient. She was also found to have Stage 3 sacral ulcer and inguinal ulcer with wound c ultures positive for E. fecaline and treated with Ciprofloxacin. She was noted to have significant pleural effusions on imaging and had thoracentesis on 07/17/18 with removal of 1200cc on left, and 400cc on right. Patient was noted to be chronically anemic, likely secondary to her cancer and chemotherapy. Patient became markedly leukopenic yesterday with white count 1.4. She remains weak, with oral intake, with severe pain with edema of left arm and left leg. Patient was agreeable to Hospice in house evaluation since she is too weak to return home. [facility] services nurse spoke to patient who accepted patient. Present on Admission - Present on Admission Any Indicators Present on Admission: Yes History of DVT/PE: No History of Uncontrolled Diabetes: No Urinary Catheter: No Decubitus Ulcer Present: Yes Past Patient History - Infectious Disease Hx of Infectious Diseases: None - Past Medical History & Family History Past Medical History?: Yes - Past Social History Smoking Status: Former Smoker - CARDIAC Hx Hypertension: Yes Hx Peripheral Edema: Yes (NO LONGER) - PULMONARY Hx Asthma: Yes Hx Chronic Obstructive Pulmonary Disease (COPD): Yes Hx Pneumonia: Yes (CHILDHOOD) - NEUROLOGICAL Hx Neurological Disorder: No - HEENT Hx HEENT Problems: Yes - RENAL Hx Chronic Kidney Disease: Yes - ENDOCRINE/METABOLIC Hx Endocrine Disorders: No - HEMATOLOGICAL/ONCOLOGICAL Hx Anemia: Yes - INTEGUMENTARY Hx Dermatological Problems: No - MUSCULOSKELETAL/RHEUMATOLOGICAL Hx Musculoskeletal Disorders: No Hx Falls: No - GASTROINTESTINAL Hx Gall Bladder Disease: Yes - GENITOURINARY/GYNECOLOGICAL Hx Genitourinary Disorders: Yes (SEE COMMENT) Hx Cervical Cancer: Yes (Metastatic stage 4 (2016)) Hx Postmenopausal Bleeding: Yes Other/Comment: STAGE IV WITH COMPLETED RADIATION AND CURRENTLY ON CHEMOTHERAPY EVERY 3-WEEKS (2018). RENAL STENTS - PSYCHIATRIC Hx Substance Use: Yes - SURGICAL HISTORY Hx Cholecystectomy: Yes - ANESTHESIA Hx Anesthesia: Yes Hx Anesthesia Reactions: No Hx Malignant Hyperthermia: No Meds Allergies/Adverse Reactions: Allergies Allergy/AdvReac Type Severity Reaction Status Date / Time No Known Allergies Allergy Verified 07/15/18 11:44 Physical Exam - Additional Findings Additional findings: - Head Exam Head Exam: ATRAUMATIC, NORMAL INSPECTION, NORMOCEPHALIC - Eye Exam Eye Exam: EOMI, PERRL - ENT Exam ENT Exam: Mucous Membranes Dry - Neck Exam Neck exam: Full Rom - Respiratory Exam Respiratory Exam: Decreased Breath Sounds, Rales - Cardiovascular Exam Cardiovascular Exam: Tachycardia, +S1, +S2. absent: Gallop, Rubs - GI/Abdominal Exam GI & Abdominal Exam: Normal Bowel Sounds, Soft. absent: Tenderness - Extremities Exam Extremities exam: pedal edema, pedal pulses present - Back Exam Back exam: absent: CVA tenderness (L), CVA tenderness (R) Additional comments: Sacral ulcer - Neurological Exam Neurological exam: Alert, Oriented x3 - Psychiatric Exam Psychiatric exam: Anxious - Skin Additional comments: Stage 4 sacral ulcer right inguinal wound with clear discharge multiple boils lesions of lower extremities Results - Vital Signs Recent Vital Signs: Last Vital Signs Temp 97.8 F 07/21/18 00:04 Pulse 105 H 07/21/18 00:04 Resp 20 07/21/18 00:04 BP 80/53 L 07/21/18 00:04 Pulse Ox 94 L 07/21/18 00:04 Assessment & Plan - Assessment and Plan (Free Text) Assessment: Patient is a 57 year old female with Stage 4 cervical cancer now admitted to Hospice in patient. Plan: Stage 4 cervical cancer - Morphine drip - Morphine 1mg Q2H PRN - Ativan 1mg Q4H - Tylenol PRN - Continue Zofran 4mg Q4 PRN nausea Sacral ulcer - No further antibiotics - Wound care nurse consulted - Continue local wound care - Morphine drip - Morphine 1mg Q2H PRN - Tylenol PRN Shortness of breath - Likely 2/2 Pleural effusions - Continue Scopolamine patch Disposition: Patient accepted to [facility] for inpatient hospice. Patient seen and case discussed with attending, Dr. Orozco. Benny Barajas, PGY-1 <Michell Orozco - Last Filed: 07/24/18 17:17> Results - Vital Signs Recent Vital Signs: Last Vital Signs Temp 98.2 F 07/24/18 16:00 Pulse 95 H 07/24/18 16:00 Resp 20 07/24/18 16:00 BP 80/56 L 07/24/18 16:00 Pulse Ox 100 07/24/18 16:00 Attending/Attestation - Attestation I have personally seen and examined this patient.: Yes I have fully participated in the care of the patient.: Yes I have reviewed all pertinent clinical information: Yes Notes (Text): seen and examined with the resident. Assessment and the plan discussed spoke to her father at bedside
[2018-07-21] MEDS ORDERED: Morphine 100 MG in Sodium Chloride 0.9% 90 ML SC PRN (22:25)
[2018-07-21] MEDS ORDERED: Morphine 100 MG in Dextrose 5% In Water 90 ML SC PRN (22:30)
[2018-07-21] MEDS ORDERED: Morphine 100 MG in Dextrose 5% In Water 90 ML IV PRN (23:15)
[2018-07-22] MEDS: Morphine 4 MG/ML VIAL IVP PRN ×3 (06:17→18:07)
--- NOTE | 2018-07-22 07:07 | CP.PCM.PN ---
<Corinne Hooker - Last Filed: 07/22/18 16:18> Subjective - Date & Time of Evaluation Date of Evaluation: 07/22/18 Time of Evaluation: 07:07 - Subjective Subjective: Progress Note for Dr. Orozco Patient seen and examined at bedside. She states she has persistent pain, has persistent poor appetite. She remains on Morphine drip. She complains of feeling anxious. Objective - Vital Signs/Intake and Output Vital Signs (last 24 hours): Temp Pulse Resp BP Pulse Ox 98 F 94 H 20 86/60 L 99 07/21/18 23:07 07/21/18 23:07 07/21/18 23:07 07/21/18 23:07 07/21/18 23:07 - Medications Medications: Current Medications Acetaminophen (Tylenol 650 Mg Supp) 650 mg [place] Q4 PRN PRN Reason: Fever >100.4 F Morphine Sulfate 100 mg/ (Dextrose) 100 mls @ 4 mls/hr IV .Q24H PRN; Protocol Lorazepam (Ativan) 1 mg IVP Q4 PRN; Protocol PRN Reason: Anxiety Morphine Sulfate (Morphine) 2 mg IVP Q2H PRN PRN Reason: Pain, moderate (4-7) Last Admin: 07/22/18 06:17 Dose: 2 mg Ondansetron HCl (Zofran Inj) 4 mg IVP Q4H PRN PRN Reason: Nausea/Vomiting Scopolamine (Transderm-Scop) 1 patch TD Q72 NIR Last Admin: 07/21/18 03:16 Dose: 1 patch - Constitutional Appears: Confused, Cachectic, Chronically Ill - Head Exam Head Exam: ATRAUMATIC, NORMOCEPHALIC - Eye Exam Eye Exam: EOMI, PERRL - ENT Exam ENT Exam: Mucous Membranes Dry - Neck Exam Neck Exam: Full ROM. absent: Tenderness - Respiratory Exam Respiratory Exam: Decreased Breath Sounds, Rales - Cardiovascular Exam Cardiovascular Exam: Tachycardia, +S1, +S2 - GI/Abdominal Exam GI & Abdominal Exam: Soft, Normal Bowel Sounds - Extremities Exam Extremities Exam: Pedal Edema - Neurological Exam Neurological Exam: Alert, Awake, Oriented x3 - Psychiatric Exam Psychiatric exam: Anxious - Skin Additional comments: Stage 4 sacral ulcer right inguinal wound with clear discharge multiple boils lesions of lower extremities Assessment and Plan - Assessment and Plan (Free Text) Assessment: Patient is a 57 year old female with Stage 4 cervical cancer now admitted to Hospice in patient. Plan: Stage 4 cervical cancer - Morphine drip - Morphine 2mg Q2H PRN - Ativan 1mg Q4H - Tylenol PRN - Continue Zofran 4mg Q4 PRN nausea Sacral ulcer - No further antibiotics - Wound care nurse consulted - Continue local wound care - Morphine drip - Morphine 1mg Q2H PRN - Tylenol PRN Shortness of breath - Likely 2/2 Pleural effusions - Continue Scopolamine patch Anxiety - Xanax 1tab PO TID Prophylaxis - Dietary supplements Ensure chocolate/strawberry added Disposition: Continue Hospice recommendations. Case discussed with Dr. Ernesto Hooker, PGY1 <Michell Orozco - Last Filed: 07/23/18 08:26> Objective - Vital Signs/Intake and Output Vital Signs (last 24 hours): Temp Pulse Resp BP Pulse Ox 97.9 F 90 20 96/60 L 96 07/23/18 07:00 07/23/18 07:00 07/23/18 07:00 07/23/18 07:00 07/23/18 07:00 Intake and Output: 07/23/18 07/23/18 06:59 18:59 Intake Total 32 Balance 32 - Medications Medications: Current Medications Acetaminophen (Tylenol 650 Mg Supp) 650 mg [place] Q4 PRN PRN Reason: Fever >100.4 F Alprazolam (Xanax) 1 mg PO TID PRN PRN Reason: Anxiety Last Admin: 07/22/18 12:38 Dose: 1 mg Morphine Sulfate 100 mg/ (Dextrose) 100 mls @ 4 mls/hr IV .Q24H PRN; Protocol PRN Reason: Pain, severe (8-10) Last Admin: 07/22/18 22:48 Dose: 4 mls/hr, 4 mls/hr Lorazepam (Ativan) 1 mg IVP Q4 PRN; Protocol PRN Reason: Anxiety Morphine Sulfate (Morphine) 2 mg IVP Q2H PRN PRN Reason: Pain, moderate (4-7) Last Admin: 07/22/18 18:07 Dose: 2 mg Ondansetron HCl (Zofran Inj) 4 mg IVP Q4H PRN PRN Reason: Nausea/Vomiting Scopolamine (Transderm-Scop) 1 patch TD Q72 NIR Last Admin: 07/21/18 03:16 Dose: 1 patch Attending/Attestation - Attestation I have personally seen and examined this patient.: Yes I have fully participated in the care of the patient.: Yes I have reviewed all pertinent clinical information, including history, physical exam and plan: Yes Notes (Text): c/o pain,Morphine drip increased,lying comfortable.no distress continue hospice care
[2018-07-22] MEDS ORDERED: MORPHINE SULFATE IV PRN (11:14)
[2018-07-22] MEDS ORDERED: DEXTROSE 5% IV PRN (11:14)
[2018-07-22] MEDS ORDERED: WATER IV PRN (11:14)
[2018-07-22] MEDS ORDERED: Sodium Chloride 0.9% 250 ML IV ONE (21:02)
--- NOTE | 2018-07-22 21:02 | PCM.FALL ---
Post Fall Progress Note - Post Fall Fall Date: 07/22/18 Fall Time: 20:40 Description of Fall: Patient got out of bed to use phone and fell to floor - Post Fall Exam Vital Sign: Temp Pulse Resp BP Pulse Ox 98.1 F 96 H 20 80/50 L 95 07/22/18 18:01 07/22/18 18:01 07/22/18 18:01 07/22/18 18:01 07/22/18 18:01 Skull Exam: Negative for: Scalp wound, Scalp hematoma, Scalp depression, Ridge in skull Eye Exam: Positive for: Pupils equal, Pupils reactive Ear Exam: Negative for: Discharge, Bleeding Nose Exam: Negative for: Discharge, Bleeding Skin Exam: Negative for: Lacerations Mouth Exam: Negative for: Tongue bitten Neck Exam: Negative for: Tenderness Spinal Exam: Negative for: Tenderness Chest Exam: Positive for: Difficulty breathing Abdomen Exam: Negative for: Tenderness Pelvic Exam: Negative for: Tenderness Arm Exam: Negative for: Deformity Leg Exam: Negative for: Deformity Impression/Plan: Patient s/p fall -IVF 125/hr for 2 hours -neuro checks -fall precautions Discussed w/ Dr. Mo Pedersen, PGY-1
--- NOTE | 2018-07-23 07:08 | CP.PCM.PN ---
<Corinne Hooker - Last Filed: 07/23/18 12:58> Subjective - Date & Time of Evaluation Date of Evaluation: 07/23/18 Time of Evaluation: 07:08 - Subjective Subjective: Progress Note for Hospitalist service Patient seen and examined at bedside. She states she her pain is controlled currently, has persistent poor appetite. She remains on Morphine drip. Father present at bedside, states she ate a little breakfast today. Patient fell overnight last night, did not injure herself. Objective - Vital Signs/Intake and Output Vital Signs (last 24 hours): Temp Pulse Resp BP Pulse Ox 98.4 F 105 H 20 88/56 L 100 07/22/18 23:08 07/22/18 23:08 07/22/18 23:08 07/22/18 23:08 07/22/18 23:08 - Medications Medications: Current Medications Acetaminophen (Tylenol 650 Mg Supp) 650 mg [place] Q4 PRN PRN Reason: Fever >100.4 F Alprazolam (Xanax) 1 mg PO TID PRN PRN Reason: Anxiety Last Admin: 07/22/18 12:38 Dose: 1 mg Morphine Sulfate 100 mg/ (Dextrose) 100 mls @ 4 mls/hr IV .Q24H PRN; Protocol PRN Reason: Pain, severe (8-10) Last Admin: 07/22/18 22:48 Dose: 4 mls/hr, 4 mls/hr Lorazepam (Ativan) 1 mg IVP Q4 PRN; Protocol PRN Reason: Anxiety Morphine Sulfate (Morphine) 2 mg IVP Q2H PRN PRN Reason: Pain, moderate (4-7) Last Admin: 07/22/18 18:07 Dose: 2 mg Ondansetron HCl (Zofran Inj) 4 mg IVP Q4H PRN PRN Reason: Nausea/Vomiting Scopolamine (Transderm-Scop) 1 patch TD Q72 NIR Last Admin: 07/21/18 03:16 Dose: 1 patch - Constitutional Appears: Cachectic, Chronically Ill - Head Exam Head Exam: ATRAUMATIC, NORMOCEPHALIC - Eye Exam Eye Exam: EOMI, PERRL - ENT Exam ENT Exam: Mucous Membranes Moist - Neck Exam Neck Exam: Full ROM - Respiratory Exam Respiratory Exam: Decreased Breath Sounds, Rales. absent: Rhonchi, Wheezes, Stridor - Cardiovascular Exam Cardiovascular Exam: REGULAR RHYTHM, +S1, +S2. absent: Gallop, Rubs, Murmur - GI/Abdominal Exam GI & Abdominal Exam: Soft, Normal Bowel Sounds. absent: Tenderness - Extremities Exam Extremities Exam: Pedal Edema - Neurological Exam Neurological Exam: Alert, Awake, Oriented x3 - Skin Additional comments: Stage 4 sacral ulcer Right inguinal wound Lower extremities skin ulcerations Assessment and Plan - Assessment and Plan (Free Text) Assessment: Patient is a 57 year old female with Stage 4 cervical cancer now admitted to Hospice in patient. Plan: Stage 4 cervical cancer - Morphine drip @ 5cc/hr - Morphine 2mg Q2H PRN - Ativan 1mg Q4H - Tylenol PRN - Continue Zofran 4mg Q4 PRN nausea Sacral ulcer - No further antibiotics - Wound care nurse consulted - Continue local wound care - Morphine drip - Morphine 1mg Q2H PRN - Tylenol PRN Shortness of breath - Likely 2/2 Pleural effusions - Continue Scopolamine patch Anxiety - Xanax 1tab PO TID PRN Prophylaxis - Dietary supplements Ensure chocolate/strawberry added - Fall precautions Disposition: Continue Hospice recommendations. Case discussed with Dr. Ernesto Hooker, PGY1 <Michell Orozco - Last Filed: 07/24/18 15:28> Objective - Vital Signs/Intake and Output Vital Signs (last 24 hours): Temp Pulse Resp BP Pulse Ox 100.5 F H 101 H 20 95/63 L 96 07/24/18 08:24 07/24/18 08:24 07/24/18 08:24 07/24/18 08:24 07/24/18 08:24 Intake and Output: 07/24/18 07/24/18 06:59 18:59 Intake Total 130 Balance 130 - Medications Medications: Current Medications Acetaminophen (Tylenol 650 Mg Supp) 650 mg [place] Q4 PRN PRN Reason: Fever >100.4 F Clonazepam (Klonopin) 1 mg PO Q12 NIR Last Admin: 07/24/18 10:45 Dose: Not Given Haloperidol Lactate (Haldol) 0.5 mg IVP Q2 PRN PRN Reason: SEVERE AGITATION Morphine Sulfate 100 mg/ (Sodium Chloride) 100 mls @ 4 mls/hr IV .Q24H PRN; Protocol PRN Reason: Pain, severe (8-10) Lorazepam (Ativan) 1 mg IVP Q2 PRN; Protocol PRN Reason: Agitation Last Admin: 07/24/18 13:46 Dose: 1 mg Morphine Sulfate (Morphine) 2 mg IVP Q2H PRN PRN Reason: Pain, moderate (4-7) Last Admin: 07/22/18 18:07 Dose: 2 mg Ondansetron HCl (Zofran Inj) 4 mg IVP Q4H PRN PRN Reason: Nausea/Vomiting Scopolamine (Transderm-Scop) 1 patch TD Q72 NIR Last Admin: 07/21/18 03:16 Dose: 1 patch Attending/Attestation - Attestation I have personally seen and examined this patient.: Yes I have fully participated in the care of the patient.: Yes I have reviewed all pertinent clinical information, including history, physical exam and plan: Yes Notes (Text): lying comfortable,on and off confusion
[2018-07-23] MEDS: Morphine 100 MG in Dextrose 5% In Water 90 ML IV PRN ×2 (11:23→21:57)
--- NOTE | 2018-07-24 06:52 | CP.PCM.PN ---
<Corinne Hooker - Last Filed: 07/24/18 16:26> Subjective - Date & Time of Evaluation Date of Evaluation: 07/24/18 Time of Evaluation: 06:52 - Subjective Subjective: Progress Note for Dr. Orozco Patient seen and examined at bedside. She is sedated, has persistently poor appetite. She remains on Morphine drip. She has intermittently agitated and confused. Objective - Vital Signs/Intake and Output Vital Signs (last 24 hours): Temp Pulse Resp BP Pulse Ox 98.2 F 96 H 20 102/79 95 07/24/18 05:22 07/24/18 05:22 07/24/18 05:22 07/24/18 05:22 07/24/18 05:22 Intake and Output: 07/23/18 07/24/18 18:59 06:59 Intake Total 168 130 Balance 168 130 - Medications Medications: Current Medications Acetaminophen (Tylenol 650 Mg Supp) 650 mg [place] Q4 PRN PRN Reason: Fever >100.4 F Clonazepam (Klonopin) 1 mg PO Q12 NIR Last Admin: 07/23/18 22:21 Dose: Not Given Morphine Sulfate 100 mg/ (Dextrose) 100 mls @ 5 mls/hr IV .Q20H PRN; Protocol PRN Reason: Pain, severe (8-10) Last Admin: 07/23/18 21:57 Dose: 5 mls/hr Lorazepam (Ativan) 1 mg IVP Q4 PRN; Protocol PRN Reason: Anxiety Last Admin: 07/23/18 22:50 Dose: 1 mg Morphine Sulfate (Morphine) 2 mg IVP Q2H PRN PRN Reason: Pain, moderate (4-7) Last Admin: 07/22/18 18:07 Dose: 2 mg Ondansetron HCl (Zofran Inj) 4 mg IVP Q4H PRN PRN Reason: Nausea/Vomiting Scopolamine (Transderm-Scop) 1 patch TD Q72 NIR Last Admin: 07/21/18 03:16 Dose: 1 patch - Constitutional Appears: Confused, Cachectic, Chronically Ill - Head Exam Head Exam: ATRAUMATIC, NORMOCEPHALIC - Eye Exam Eye Exam: EOMI, PERRL - ENT Exam ENT Exam: Mucous Membranes Moist - Neck Exam Neck Exam: Full ROM - Respiratory Exam Respiratory Exam: Decreased Breath Sounds, Rales. absent: Rhonchi, Wheezes, Respiratory Distress, Stridor - Cardiovascular Exam Cardiovascular Exam: REGULAR RHYTHM, +S1, +S2. absent: Gallop, Rubs, Murmur - GI/Abdominal Exam GI & Abdominal Exam: Soft, Normal Bowel Sounds. absent: Firm, Guarding, Rigid, Tenderness - Extremities Exam Extremities Exam: Pedal Edema - Neurological Exam Neurological Exam: Alert, Awake, Oriented x3 - Skin Additional comments: Stage 4 sacral ulcer Right inguinal wound Lower extremities skin ulcerations Assessment and Plan - Assessment and Plan (Free Text) Assessment: Patient is a 57 year old female with Stage 4 cervical cancer now admitted to Hospice in patient. Plan: Stage 4 cervical cancer - Morphine drip 4cc/hr IV - Morphine 2mg Q2H PRN - Ativan 1mg Q2H PRN - Ativan 1mg Q4 NIR - Tylenol 650mg [place] PRN - Zofran 4mg Q4 PRN nausea - Haldol 0.5mg IVP Q2 PRN Sacral ulcer - No further antibiotics - Wound care nurse consulted - Continue local wound care - Morphine drip @ 4cc/hr IV - Morphine 2mg Q2H PRN - Tylenol 650mg [place] PRN Shortness of breath - Likely secondary to pleural effusions - Scopolamine patch Anxiety - Ativan 1mg Q2H PRN - Ativan 1mg Q4 NIR Prophylaxis - Dietary supplements Ensure chocolate/strawberry added - Fall precautions Case discusesd with Dr. Ernesto Hooker, PGY1 <Michell Orozco - Last Filed: 07/24/18 17:06> Objective - Vital Signs/Intake and Output Vital Signs (last 24 hours): Temp Pulse Resp BP Pulse Ox 98.2 F 95 H 20 80/56 L 100 07/24/18 16:00 07/24/18 16:00 07/24/18 16:00 07/24/18 16:00 07/24/18 16:00 Intake and Output: 07/24/18 07/24/18 06:59 18:59 Intake Total 130 132 Balance 130 132 - Medications Medications: Current Medications Acetaminophen (Tylenol 650 Mg Supp) 650 mg [place] Q4 PRN PRN Reason: Fever >100.4 F Haloperidol Lactate (Haldol) 0.5 mg IVP Q2 PRN PRN Reason: SEVERE AGITATION Morphine Sulfate 100 mg/ (Sodium Chloride) 100 mls @ 4 mls/hr IV .Q24H PRN; Protocol PRN Reason: Pain, severe (8-10) Lorazepam (Ativan) 1 mg IVP Q2 PRN; Protocol PRN Reason: Agitation Last Admin: 07/24/18 13:46 Dose: 1 mg Lorazepam (Ativan) 1 mg IVP Q4H NIR Last Admin: 07/24/18 17:00 Dose: 1 mg Morphine Sulfate (Morphine) 2 mg IVP Q2H PRN PRN Reason: Pain, moderate (4-7) Last Admin: 07/22/18 18:07 Dose: 2 mg Ondansetron HCl (Zofran Inj) 4 mg IVP Q4H PRN PRN Reason: Nausea/Vomiting Scopolamine (Transderm-Scop) 1 patch TD Q72 NIR Last Admin: 07/21/18 03:16 Dose: 1 patch Attending/Attestation - Attestation I have personally seen and examined this patient.: Yes I have fully participated in the care of the patient.: Yes I have reviewed all pertinent clinical information, including history, physical exam and plan: Yes Notes (Text): Sleeping,period of confusion,Denies pain.Her father at bedside. Not eating as pet her father
[2018-07-24] MEDS: Morphine 100 MG in Sodium Chloride 0.9% 90 ML IV PRN (19:53)
--- NOTE | 2018-07-25 00:41 | CP.PCM.PN ---
<Isma Mace - Last Filed: 07/25/18 00:38> Subjective - Date & Time of Evaluation Date of Evaluation: 07/25/18 Time of Evaluation: 00:39 - Subjective Subjective: Progress Note for Dr. Orozco Patient seen and examined at bedside. No acute events overnight. Patient remains on morphine drip. Tolerating diet. Objective - Vital Signs/Intake and Output Vital Signs (last 24 hours): Temp Pulse Resp BP Pulse Ox 97.9 F 99 H 20 85/58 L 98 07/24/18 23:44 07/24/18 23:44 07/24/18 23:44 07/24/18 23:44 07/24/18 23:44 Intake and Output: 07/24/18 07/25/18 18:59 06:59 Intake Total 132 107 Balance 132 107 - Medications Medications: Current Medications Acetaminophen (Tylenol 650 Mg Supp) 650 mg [place] Q4 PRN PRN Reason: Fever >100.4 F Haloperidol Lactate (Haldol) 0.5 mg IVP Q2 PRN PRN Reason: SEVERE AGITATION Morphine Sulfate 100 mg/ (Sodium Chloride) 100 mls @ 4 mls/hr IV .Q24H PRN; Protocol PRN Reason: Pain, severe (8-10) Last Admin: 07/24/18 19:53 Dose: 4 mls/hr Lorazepam (Ativan) 1 mg IVP Q2 PRN; Protocol PRN Reason: Agitation Last Admin: 07/24/18 13:46 Dose: 1 mg Lorazepam (Ativan) 1 mg IVP Q4H NIR Last Admin: 07/25/18 00:24 Dose: 1 mg Morphine Sulfate (Morphine) 2 mg IVP Q2H PRN PRN Reason: Pain, moderate (4-7) Last Admin: 07/22/18 18:07 Dose: 2 mg Ondansetron HCl (Zofran Inj) 4 mg IVP Q4H PRN PRN Reason: Nausea/Vomiting Scopolamine (Transderm-Scop) 1 patch TD Q72 NIR Last Admin: 07/21/18 03:16 Dose: 1 patch - Labs Labs: - Constitutional Appears: Confused, Cachectic, Chronically Ill - Head Exam Head Exam: ATRAUMATIC, NORMOCEPHALIC - Eye Exam Eye Exam: EOMI, PERRL - ENT Exam ENT Exam: Mucous Membranes Moist - Neck Exam Neck Exam: Full ROM - Respiratory Exam Respiratory Exam: Decreased Breath Sounds, Rales. absent: Rhonchi, Wheezes, Respiratory Distress, Stridor - Cardiovascular Exam Cardiovascular Exam: REGULAR RHYTHM, +S1, +S2. absent: Gallop, Rubs, Murmur - GI/Abdominal Exam GI & Abdominal Exam: Soft, Normal Bowel Sounds. absent: Firm, Guarding, Rigid, Tenderness - Extremities Exam Extremities Exam: Pedal Edema - Neurological Exam Neurological Exam: Alert, Awake, Oriented x3 - Skin Additional comments: Stage 4 sacral ulcer Right inguinal wound Lower extremities skin ulcerations Assessment and Plan - Assessment and Plan (Free Text) Assessment: Patient is a 57 year old female with Stage 4 cervical cancer now admitted to Hospice in patient. Plan: Stage 4 cervical cancer - Morphine drip 4cc/hr IV - Morphine 2mg Q2H PRN - Ativan 1mg Q2H PRN - Ativan 1mg Q4 NIR - Tylenol 650mg [place] PRN - Zofran 4mg Q4 PRN nausea - Haldol 0.5mg IVP Q2 PRN Sacral ulcer - No further antibiotics - Wound care nurse consulted - Continue local wound care - Morphine drip @ 4cc/hr IV - Morphine 2mg Q2H PRN - Tylenol 650mg [place] PRN Shortness of breath - Likely secondary to pleural effusions - Scopolamine patch Anxiety - Ativan 1mg Q2H PRN - Ativan 1mg Q4 NIR Prophylaxis - Dietary supplements Ensure chocolate/strawberry added - Fall precautions Case discusesd with Dr. Ernesto Mace, PGY1 <Joo Garcia H - Last Filed: 07/25/18 10:37> Objective - Vital Signs/Intake and Output Vital Signs (last 24 hours): Temp Pulse Resp BP Pulse Ox 98.0 F 103 H 20 89/62 L 96 07/25/18 07:29 07/25/18 07:29 07/25/18 07:29 07/25/18 07:29 07/25/18 07:29 Intake and Output: 07/25/18 07/25/18 06:59 18:59 Intake Total 115 Balance 115 - Medications Medications: Current Medications Acetaminophen (Tylenol 650 Mg Supp) 650 mg [place] Q4 PRN PRN Reason: Fever >100.4 F Haloperidol Lactate (Haldol) 0.5 mg IVP Q2 PRN PRN Reason: SEVERE AGITATION Morphine Sulfate 100 mg/ (Sodium Chloride) 100 mls @ 4 mls/hr IV .Q24H PRN; Protocol PRN Reason: Pain, severe (8-10) Last Admin: 07/24/18 19:53 Dose: 4 mls/hr Lorazepam (Ativan) 1 mg IVP Q2 PRN; Protocol PRN Reason: Agitation Last Admin: 07/24/18 13:46 Dose: 1 mg Lorazepam (Ativan) 1 mg IVP Q4H NIR Last Admin: 07/25/18 09:06 Dose: Not Given Morphine Sulfate (Morphine) 2 mg IVP Q2H PRN PRN Reason: Pain, moderate (4-7) Last Admin: 07/22/18 18:07 Dose: 2 mg Ondansetron HCl (Zofran Inj) 4 mg IVP Q4H PRN PRN Reason: Nausea/Vomiting Scopolamine (Transderm-Scop) 1 patch TD Q72 NIR Last Admin: 07/21/18 03:16 Dose: 1 patch Attending/Attestation - Attestation I have personally seen and examined this patient.: Yes I have fully participated in the care of the patient.: Yes I have reviewed all pertinent clinical information, including history, physical exam and plan: Yes Notes (Text): 07/25/18 10:35 Medical attending: Patient was seen and examined by me. Agree with the above note by the resident The patient was not awake when we came and saw her. There was someone at bedside, whom I introduced myself to, he was a family friend he said. Currently the patient is on hospice care at this time and is on a morphine ggt. Our goal at this time is to try to keep her as comfortable as possible. Joo Garcia
[2018-07-25] MEDS: Morphine 100 MG in Sodium Chloride 0.9% 90 ML IV PRN (19:59)
--- NOTE | 2018-07-26 00:51 | CP.PCM.PN ---
<Isma Mace - Last Filed: 07/26/18 00:50> Subjective - Date & Time of Evaluation Date of Evaluation: 07/26/18 Time of Evaluation: 00:51 - Subjective Subjective: Progress Note for Dr. Garcia Patient seen and examined at bedside. No acute events overnight. Patient remains on morphine drip. Tolerating diet. Objective - Vital Signs/Intake and Output Vital Signs (last 24 hours): Temp Pulse Resp BP Pulse Ox 97.9 F 93 H 20 93/58 L 96 07/25/18 23:41 07/25/18 23:41 07/25/18 23:41 07/25/18 23:41 07/25/18 23:41 Intake and Output: 07/25/18 07/26/18 18:59 06:59 Intake Total 262 Balance 262 - Medications Medications: Current Medications Acetaminophen (Tylenol 650 Mg Supp) 650 mg [place] Q4 PRN PRN Reason: Fever >100.4 F Haloperidol Lactate (Haldol) 0.5 mg IVP Q2 PRN PRN Reason: SEVERE AGITATION Morphine Sulfate 100 mg/ (Sodium Chloride) 100 mls @ 4 mls/hr IV .Q24H PRN; Protocol PRN Reason: Pain, severe (8-10) Last Admin: 07/25/18 19:59 Dose: 4 mls/hr Lorazepam (Ativan) 1 mg IVP Q2 PRN; Protocol PRN Reason: Agitation Last Admin: 07/24/18 13:46 Dose: 1 mg Lorazepam (Ativan) 1 mg IVP Q4H NIR Last Admin: 07/26/18 00:25 Dose: 1 mg Morphine Sulfate (Morphine) 2 mg IVP Q2H PRN PRN Reason: Pain, moderate (4-7) Last Admin: 07/22/18 18:07 Dose: 2 mg Ondansetron HCl (Zofran Inj) 4 mg IVP Q4H PRN PRN Reason: Nausea/Vomiting Scopolamine (Transderm-Scop) 1 patch TD Q72 NIR Last Admin: 07/21/18 03:16 Dose: 1 patch - Labs Labs: - Constitutional Appears: Confused, Cachectic, Chronically Ill - Head Exam Head Exam: ATRAUMATIC, NORMOCEPHALIC - Eye Exam Eye Exam: EOMI, PERRL - ENT Exam ENT Exam: Mucous Membranes Moist - Neck Exam Neck Exam: Full ROM - Respiratory Exam Respiratory Exam: Decreased Breath Sounds, Rales. absent: Rhonchi, Wheezes, Respiratory Distress, Stridor - Cardiovascular Exam Cardiovascular Exam: REGULAR RHYTHM, +S1, +S2. absent: Gallop, Rubs, Murmur - GI/Abdominal Exam GI & Abdominal Exam: Soft, Normal Bowel Sounds. absent: Firm, Guarding, Rigid, Tenderness - Extremities Exam Extremities Exam: Pedal Edema - Neurological Exam Neurological Exam: Alert, Awake, Oriented x3 - Skin Additional comments: Stage 4 sacral ulcer Right inguinal wound Lower extremities skin ulcerations Assessment and Plan - Assessment and Plan (Free Text) Assessment: Patient is a 57 year old female with Stage 4 cervical cancer now admitted to Hospice in patient. Plan: Stage 4 cervical cancer - Morphine drip 4cc/hr IV - Morphine 2mg Q2H PRN - Ativan 1mg Q2H PRN - Ativan 1mg Q4 NIR - Tylenol 650mg [place] PRN - Zofran 4mg Q4 PRN nausea - Haldol 0.5mg IVP Q2 PRN Sacral ulcer - No further antibiotics - Wound care nurse consulted - Continue local wound care - Morphine drip @ 4cc/hr IV - Morphine 2mg Q2H PRN - Tylenol 650mg [place] PRN Shortness of breath - Likely secondary to pleural effusions - Scopolamine patch Anxiety - Ativan 1mg Q2H PRN - Ativan 1mg Q4 NIR Prophylaxis - Dietary supplements Ensure chocolate/strawberry added - Fall precautions Case discusesd with Dr. Radha Mace, PGY1 <Joo Garcia H - Last Filed: 07/26/18 09:58> Objective - Vital Signs/Intake and Output Vital Signs (last 24 hours): Temp Pulse Resp BP Pulse Ox 97.7 F 90 20 91/64 L 96 07/26/18 07:36 07/26/18 07:36 07/26/18 07:36 07/26/18 07:36 07/26/18 07:36 Intake and Output: 07/26/18 07/26/18 06:59 18:59 Intake Total 294 Balance 294 - Medications Medications: Current Medications Acetaminophen (Tylenol 650 Mg Supp) 650 mg [place] Q4 PRN PRN Reason: Fever >100.4 F Atropine Sulfate (Atropisol 1% Oph) 0 ml OU ONCE ONE Stop: 07/26/18 09:51 Haloperidol Lactate (Haldol) 0.5 mg IVP Q2 PRN PRN Reason: SEVERE AGITATION Morphine Sulfate 100 mg/ (Sodium Chloride) 100 mls @ 4 mls/hr IV .Q24H PRN; Protocol PRN Reason: Pain, severe (8-10) Last Admin: 07/25/18 19:59 Dose: 4 mls/hr Lorazepam (Ativan) 1 mg IVP Q2 PRN; Protocol PRN Reason: Agitation Last Admin: 07/24/18 13:46 Dose: 1 mg Lorazepam (Ativan) 1 mg IVP Q4H NIR Last Admin: 07/26/18 08:30 Dose: Not Given Morphine Sulfate (Morphine) 2 mg IVP Q2H PRN PRN Reason: Pain, moderate (4-7) Last Admin: 07/22/18 18:07 Dose: 2 mg Ondansetron HCl (Zofran Inj) 4 mg IVP Q4H PRN PRN Reason: Nausea/Vomiting Scopolamine (Transderm-Scop) 1 patch TD Q72 NIR Last Admin: 07/21/18 03:16 Dose: 1 patch Attending/Attestation - Attestation I have personally seen and examined this patient.: Yes I have fully participated in the care of the patient.: Yes I have reviewed all pertinent clinical information, including history, physical exam and plan: Yes Notes (Text): 07/26/18 09:55 Medical attending: Patient was seen and examined by me. I reviewed the above note by the resident and agree with the above The patient was able to open her eyes and quietly say "Hello" however that was the extent to what I was able to understand. She appears comfortable at this time. There are some respiratory secretion and she is already on scopolamine TD, hospice service yesterday recomended also atropine SL as well and I have ordered this. Patient remains on the morphine ggt. Joo Garcia
[2018-07-26] MEDS: Morphine 4 MG/ML VIAL IVP PRN (19:09)
[2018-07-26] MEDS: Morphine 100 MG in Sodium Chloride 0.9% 90 ML IV PRN (21:19)
[2018-07-27] MEDS: Morphine 4 MG/ML VIAL IVP PRN ×2 (03:59→09:29)
--- NOTE | 2018-07-27 07:47 | CP.PCM.PN ---
<Corinne Hooker - Last Filed: 07/27/18 16:22> Subjective - Date & Time of Evaluation Date of Evaluation: 07/27/18 Time of Evaluation: 07:47 - Subjective Subjective: Progress Note for Dr. Garcia's service Patient seen and examined at bedside. She is somnolent on Morphine drip at 4cc/hr IV. She is intermittently agitated and somnolent on Morphine. Family present at bedside. Objective - Vital Signs/Intake and Output Vital Signs (last 24 hours): Temp Pulse Resp BP Pulse Ox 99.6 F 113 H 20 110/69 96 07/27/18 04:59 07/27/18 04:59 07/27/18 04:59 07/27/18 04:59 07/27/18 04:59 Intake and Output: 07/27/18 07/27/18 06:59 18:59 Intake Total 64 Balance 64 - Medications Medications: Current Medications Acetaminophen (Tylenol 650 Mg Supp) 650 mg OR Q4 PRN PRN Reason: Fever >100.4 F Glycopyrrolate (Robinul) 0.2 mg IV Q6 PRN PRN Reason: Respiratory secretion control Last Admin: 07/27/18 03:58 Dose: 0.2 mg Haloperidol Lactate (Haldol) 0.5 mg IVP Q2 PRN PRN Reason: SEVERE AGITATION Morphine Sulfate 100 mg/ (Sodium Chloride) 100 mls @ 4 mls/hr IV .Q24H PRN; Protocol PRN Reason: Pain, severe (8-10) Last Admin: 07/26/18 21:19 Dose: 4 mls/hr Lorazepam (Ativan) 1 mg IVP Q2 PRN; Protocol PRN Reason: Agitation Last Admin: 07/24/18 13:46 Dose: 1 mg Lorazepam (Ativan) 1 mg IVP Q4H NIR Last Admin: 07/27/18 05:06 Dose: 1 mg Morphine Sulfate (Morphine) 2 mg IVP Q2H PRN PRN Reason: Pain, moderate (4-7) Last Admin: 07/27/18 03:59 Dose: 2 mg Ondansetron HCl (Zofran Inj) 4 mg IVP Q4H PRN PRN Reason: Nausea/Vomiting Scopolamine (Transderm-Scop) 1 patch TD Q72 NIR Last Admin: 07/27/18 05:30 Dose: 1 patch - Constitutional Appears: Confused, Cachectic, Chronically Ill - Head Exam Head Exam: ATRAUMATIC, NORMOCEPHALIC - Eye Exam Eye Exam: EOMI, PERRL - ENT Exam ENT Exam: Mucous Membranes Dry - Neck Exam Neck Exam: Full ROM - Respiratory Exam Respiratory Exam: Decreased Breath Sounds, Rales, Rhonchi. absent: Wheezes, Respiratory Distress, Stridor Additional comments: Loud upper respiratory sounds consistent - Cardiovascular Exam Cardiovascular Exam: Tachycardia, +S1, +S2. absent: Gallop, Rubs, Murmur - GI/Abdominal Exam GI & Abdominal Exam: Distended, Hypoactive Bowel Sounds. absent: Firm, Guarding, Rigid, Tenderness - Extremities Exam Extremities Exam: Pedal Edema - Neurological Exam Additional comments: Confused, somnolent on Morphine drip - Psychiatric Exam Psychiatric exam: Agitated - Skin Additional comments: Stage 4 sacral ulcer Right inguinal wound Lower extremities skin ulcerations with decreased pedal edema. Assessment and Plan - Assessment and Plan (Free Text) Assessment: Patient is a 57 year old female with Stage 4 cervical cancer now admitted to Hospice in patient. Plan: Stage 4 cervical cancer - Morphine drip 6cc/hr IV - Morphine 2mg Q2H PRN - Ativan 1mg Q2H PRN - Ativan 1mg Q4 NIR - Tylenol 650mg OR PRN - Zofran 4mg Q4 PRN nausea - Haldol 0.5mg IVP Q2 PRN Sacral ulcer - No further antibiotics - Wound care nurse consulted - Continue local wound care - Morphine drip @ 4cc/hr IV - Morphine 2mg Q2H PRN - Tylenol 650mg [place] PRN Shortness of breath - Likely secondary to pleural effusions - Scopolamine patch - Robinul 0.2mg IV Q6 PRN respiratory secretions Anxiety - Ativan 1mg Q2H PRN - Ativan 1mg Q4 NIR Prophylaxis - NPO as per Hospice recommendations. - Fall precautions Case discussed with Dr. Radha Hooker, PGY1 <Joo Garcia - Last Filed: 07/27/18 16:33> Objective - Vital Signs/Intake and Output Vital Signs (last 24 hours): Temp Pulse Resp BP Pulse Ox 102.2 F H 115 H 20 99/66 L 95 07/27/18 16:00 07/27/18 16:00 07/27/18 16:00 07/27/18 16:00 07/27/18 16:00 Intake and Output: 07/27/18 07/27/18 06:59 18:59 Intake Total 64 34 Balance 64 34 - Medications Medications: Current Medications Acetaminophen (Tylenol 650 Mg Supp) 650 mg OR Q4 PRN PRN Reason: Fever >100.4 F Last Admin: 07/27/18 13:35 Dose: 650 mg Glycopyrrolate (Robinul) 0.2 mg IV Q6 PRN PRN Reason: Respiratory secretion control Last Admin: 07/27/18 03:58 Dose: 0.2 mg Haloperidol Lactate (Haldol) 0.5 mg IVP Q2 PRN PRN Reason: SEVERE AGITATION Morphine Sulfate 100 mg/ (Sodium Chloride) 100 mls @ 6 mls/hr IV .[id number] PRN; Protocol PRN Reason: Pain, severe (8-10) Last Admin: 07/27/18 13:50 Dose: 6 mls/hr Lorazepam (Ativan) 1 mg IVP Q2 PRN; Protocol PRN Reason: Agitation Last Admin: 07/27/18 15:06 Dose: 1 mg Lorazepam (Ativan) 1 mg IVP Q4H NIR Last Admin: 07/27/18 12:11 Dose: 1 mg Morphine Sulfate (Morphine) 2 mg IVP Q2H PRN PRN Reason: Pain, moderate (4-7) Last Admin: 07/27/18 09:29 Dose: 2 mg Ondansetron HCl (Zofran Inj) 4 mg IVP Q4H PRN PRN Reason: Nausea/Vomiting Scopolamine (Transderm-Scop) 1 patch TD Q72 NIR Last Admin: 07/27/18 05:30 Dose: 1 patch Attending/Attestation - Attestation I have personally seen and examined this patient.: Yes I have fully participated in the care of the patient.: Yes I have reviewed all pertinent clinical information, including history, physical exam and plan: Yes Notes (Text): 07/27/18 16:30 Medical attending: Patient was seen and examined by me. Agree with the above note by the resident. The patient looked very uncomfortable today and the nurse explained that there was much agitation in the morning - despite getting IV ativan twice The patient's morphine ggt was increased from the 4 to 6/hr. There is a high fever as well - she has been getting OR Tylenol, we started a cooling blanket as well Joo Garcia
[2018-07-27] MEDS: Morphine 100 MG in Sodium Chloride 0.9% 90 ML IV PRN (13:50)
[2018-07-28] MEDS: Morphine 100 MG in Sodium Chloride 0.9% 90 ML IV PRN (07:18)
--- NOTE | 2018-07-28 07:28 | CP.PCM.PN ---
<Benny Barajas - Last Filed: 07/28/18 11:40> Subjective - Date & Time of Evaluation Date of Evaluation: 07/28/18 Time of Evaluation: 07:28 - Subjective Subjective: PGY-1 Medicine progress note for Dr. Garcia Patient seen and examined at bedside. She is somnolent on Morphine drip at 6cc/hr IV. She is resting comfortably, no acute complaints. She remains in Hospice care. Objective - Vital Signs/Intake and Output Vital Signs (last 24 hours): Temp Pulse Resp BP Pulse Ox 97.9 F 91 H 20 92/62 L 95 07/27/18 23:51 07/28/18 04:26 07/28/18 04:26 07/28/18 04:26 07/28/18 04:26 Intake and Output: 07/28/18 07/28/18 06:59 18:59 Intake Total 528 Balance 528 - Medications Medications: Current Medications Acetaminophen (Tylenol 650 Mg Supp) 650 mg [place] Q4 PRN PRN Reason: Fever >100.4 F Last Admin: 07/27/18 17:31 Dose: 650 mg Glycopyrrolate (Robinul) 0.2 mg IV Q6 PRN PRN Reason: Respiratory secretion control Last Admin: 07/27/18 03:58 Dose: 0.2 mg Haloperidol Lactate (Haldol) 0.5 mg IVP Q2 PRN PRN Reason: SEVERE AGITATION Morphine Sulfate 100 mg/ (Sodium Chloride) 100 mls @ 6 mls/hr IV .[id number] PRN; Protocol PRN Reason: Pain, severe (8-10) Last Admin: 07/28/18 07:18 Dose: 6 mls/hr Lorazepam (Ativan) 1 mg IVP Q2 PRN; Protocol PRN Reason: Agitation Last Admin: 07/27/18 15:06 Dose: 1 mg Lorazepam (Ativan) 1 mg IVP Q4H NIR Last Admin: 07/28/18 04:31 Dose: 1 mg Morphine Sulfate (Morphine) 2 mg IVP Q2H PRN PRN Reason: Pain, moderate (4-7) Last Admin: 07/27/18 09:29 Dose: 2 mg Ondansetron HCl (Zofran Inj) 4 mg IVP Q4H PRN PRN Reason: Nausea/Vomiting Scopolamine (Transderm-Scop) 1 patch TD Q72 NIR Last Admin: 07/27/18 05:30 Dose: 1 patch - Additional Findings Additional findings: - Constitutional Appears: Cachectic, Chronically Ill - Head Exam Head Exam: ATRAUMATIC, NORMOCEPHALIC - Eye Exam Eye Exam: EOMI, PERRL - ENT Exam ENT Exam: Mucous Membranes Dry - Neck Exam Neck Exam: Full ROM - Respiratory Exam Respiratory Exam: Decreased Breath Sounds, Rales, Rhonchi. absent: Wheezes, Respiratory Distress, Stridor - Cardiovascular Exam Cardiovascular Exam: Tachycardia, +S1, +S2. absent: Gallop, Rubs, Murmur - GI/Abdominal Exam GI & Abdominal Exam: Distended, Hypoactive Bowel Sounds. absent: Firm, Guarding, Rigid, Tenderness - Extremities Exam Extremities Exam: Pedal Edema - Neurological Exam Additional comments: Somnolent on Morphine drip - Skin Additional comments: Stage 4 sacral ulcer Right inguinal wound Lower extremities skin ulcerations with decreased pedal edema. Assessment and Plan - Assessment and Plan (Free Text) Assessment: Patient is a 57 year old female with Stage 4 cervical cancer now admitted to Hospice in patient. Plan: Stage 4 cervical cancer - Morphine drip 6cc/hr IV - Morphine 2mg Q2H PRN - Ativan 1mg Q2H PRN - Ativan 1mg Q4 NIR - Tylenol 650mg [place] PRN - Zofran 4mg Q4 PRN nausea - Haldol 0.5mg IVP Q2 PRN Sacral ulcer - No further antibiotics - Wound care nurse consulted - Continue local wound care - Morphine drip @ 4cc/hr IV - Morphine 2mg Q2H PRN - Tylenol 650mg [place] PRN Shortness of breath - Likely secondary to pleural effusions - Scopolamine patch - Robinul 0.2mg IV Q6 PRN respiratory secretions Anxiety - Ativan 1mg Q2H PRN - Ativan 1mg Q4 NIR Prophylaxis - NPO as per Hospice recommendations. - Fall precautions Code status: HOSPICE: DNR/DNI Patient seen and case discussed with attending, Dr. Garcia. Benny Barajas, PGY-1 <Joo Garcia - Last Filed: 07/28/18 12:19> Objective - Vital Signs/Intake and Output Vital Signs (last 24 hours): Temp Pulse Resp BP Pulse Ox 97.9 F 91 H 20 92/62 L 95 07/27/18 23:51 07/28/18 04:26 07/28/18 04:26 07/28/18 04:26 07/28/18 04:26 Intake and Output: 07/28/18 07/28/18 06:59 18:59 Intake Total 528 Balance 528 - Medications Medications: Current Medications Acetaminophen (Tylenol 650 Mg Supp) 650 mg [place] Q4 PRN PRN Reason: Fever >100.4 F Last Admin: 07/27/18 17:31 Dose: 650 mg Glycopyrrolate (Robinul) 0.2 mg IV Q6 PRN PRN Reason: Respiratory secretion control Last Admin: 07/27/18 03:58 Dose: 0.2 mg Haloperidol Lactate (Haldol) 0.5 mg IVP Q2 PRN PRN Reason: SEVERE AGITATION Morphine Sulfate 100 mg/ (Sodium Chloride) 100 mls @ 6 mls/hr IV .[id number] PRN; Protocol PRN Reason: Pain, severe (8-10) Last Admin: 07/28/18 07:18 Dose: 6 mls/hr Lorazepam (Ativan) 1 mg IVP Q2 PRN; Protocol PRN Reason: Agitation Last Admin: 07/27/18 15:06 Dose: 1 mg Lorazepam (Ativan) 1 mg IVP Q4H NIR Last Admin: 07/28/18 09:22 Dose: 1 mg Morphine Sulfate (Morphine) 2 mg IVP Q2H PRN PRN Reason: Pain, moderate (4-7) Last Admin: 07/27/18 09:29 Dose: 2 mg Ondansetron HCl (Zofran Inj) 4 mg IVP Q4H PRN PRN Reason: Nausea/Vomiting Scopolamine (Transderm-Scop) 1 patch TD Q72 NIR Last Admin: 07/27/18 05:30 Dose: 1 patch Attending/Attestation - Attestation I have personally seen and examined this patient.: Yes I have fully participated in the care of the patient.: Yes I have reviewed all pertinent clinical information, including history, physical exam and plan: Yes Notes (Text): 07/28/18 11:55 Medical attending: Patient was seen and examined by me. Agree with the above note by the resident The patient's friend and the patient's father was at bedside. The patient was able to open her eyes and then went back to sleep For the time being will conitnue with the current regimen Yesterday the morphine ggt was increased Joo Garcia
[2018-07-29] MEDS: Morphine 100 MG in Sodium Chloride 0.9% 90 ML IV PRN ×3 (02:06→18:13)
--- NOTE | 2018-07-29 07:10 | CP.PCM.PN ---
<Corinne Hooker - Last Filed: 07/29/18 16:53> Subjective - Date & Time of Evaluation Date of Evaluation: 07/29/18 Time of Evaluation: 07:10 - Subjective Subjective: Progress Note for Dr. Garcia's service Patient seen and examined at bedside. Patient somnolent and on Morphine drip. Father present at bedside. Objective - Vital Signs/Intake and Output Vital Signs (last 24 hours): Temp Pulse Resp BP Pulse Ox 98 F 91 H 20 86/58 L 97 07/28/18 23:59 07/28/18 23:59 07/28/18 23:59 07/28/18 23:59 07/28/18 23:59 Intake and Output: 07/29/18 07/29/18 06:59 18:59 Intake Total 96 Balance 96 - Medications Medications: Current Medications Acetaminophen (Tylenol 650 Mg Supp) 650 mg [place] Q4 PRN PRN Reason: Fever >100.4 F Last Admin: 07/27/18 17:31 Dose: 650 mg Glycopyrrolate (Robinul) 0.2 mg IV Q6 PRN PRN Reason: Respiratory secretion control Last Admin: 07/27/18 03:58 Dose: 0.2 mg Haloperidol Lactate (Haldol) 0.5 mg IVP Q2 PRN PRN Reason: SEVERE AGITATION Morphine Sulfate 100 mg/ (Sodium Chloride) 100 mls @ 6 mls/hr IV .[id number] PRN; Protocol PRN Reason: Pain, severe (8-10) Last Admin: 07/29/18 02:06 Dose: 6 mls/hr Lorazepam (Ativan) 1 mg IVP Q2 PRN; Protocol PRN Reason: Agitation Last Admin: 07/27/18 15:06 Dose: 1 mg Lorazepam (Ativan) 1 mg IVP Q4H NIR Last Admin: 07/29/18 05:19 Dose: 1 mg Morphine Sulfate (Morphine) 2 mg IVP Q2H PRN PRN Reason: Pain, moderate (4-7) Last Admin: 07/27/18 09:29 Dose: 2 mg Ondansetron HCl (Zofran Inj) 4 mg IVP Q4H PRN PRN Reason: Nausea/Vomiting Scopolamine (Transderm-Scop) 1 patch TD Q72 NIR Last Admin: 07/27/18 05:30 Dose: 1 patch - Constitutional Appears: Confused, Cachectic, Chronically Ill - Head Exam Head Exam: ATRAUMATIC, NORMOCEPHALIC - ENT Exam ENT Exam: Mucous Membranes Dry - Respiratory Exam Respiratory Exam: Decreased Breath Sounds Additional comments: Upper respiratory sounds present - Cardiovascular Exam Cardiovascular Exam: Tachycardia, +S1, +S2. absent: Gallop, Rubs, Murmur - GI/Abdominal Exam GI & Abdominal Exam: Distended, Hypoactive Bowel Sounds. absent: Firm, Guarding, Rigid - Extremities Exam Extremities Exam: Pedal Edema Additional comments: left upper extremity edema - Neurological Exam Additional comments: Confused, somnolent on Morphine drip - Psychiatric Exam Additional comments: Somnolent, intermittently agitated. - Skin Additional comments: Right inguinal wound Sacral ulcer Assessment and Plan - Assessment and Plan (Free Text) Assessment: Patient is a 57 year old female with Stage 4 cervical cancer now admitted to Hospice in patient, on Morphine drip. Plan: Stage 4 cervical cancer - Morphine drip 7cc/hr IV - Morphine 2mg Q2H PRN - Ativan 1mg Q2H PRN - Ativan 1mg Q4 NIR - Tylenol 650mg ND PRN - Zofran 4mg Q4 PRN nausea - Haldol 0.5mg IVP Q2 PRN Sacral ulcer - No further antibiotics - Wound care nurse consulted - Continue local wound care - Morphine drip @ 4cc/hr IV - Morphine 2mg Q2H PRN - Tylenol 650mg ND PRN Shortness of breath - Likely secondary to pleural effusions - Scopolamine patch - Robinul 0.2mg IV Q6 PRN respiratory secretions Anxiety - Ativan 1mg Q2H PRN - Ativan 1mg Q4 NIR Prophylaxis - NPO as per Hospice recommendations. - Fall precautions Case discussed with Dr. Radha Hooker, PGY1 <Joo Garcia - Last Filed: 07/29/18 18:17> Objective - Vital Signs/Intake and Output Vital Signs (last 24 hours): Temp Pulse Resp BP Pulse Ox 97.6 F 86 20 90/64 L 96 07/29/18 15:00 07/29/18 15:00 07/29/18 15:00 07/29/18 15:00 07/29/18 15:00 Intake and Output: 07/29/18 07/29/18 06:59 18:59 Intake Total 96 56 Balance 96 56 - Medications Medications: Current Medications Acetaminophen (Tylenol 650 Mg Supp) 650 mg [place] Q4 PRN PRN Reason: Fever >100.4 F Last Admin: 07/27/18 17:31 Dose: 650 mg Glycopyrrolate (Robinul) 0.2 mg IV Q6 PRN PRN Reason: Respiratory secretion control Last Admin: 07/27/18 03:58 Dose: 0.2 mg Haloperidol Lactate (Haldol) 0.5 mg IVP Q2 PRN PRN Reason: SEVERE AGITATION Morphine Sulfate 100 mg/ (Sodium Chloride) 100 mls @ 7 mls/hr IV .[id number] PRN; Protocol PRN Reason: Pain, severe (8-10) Last Admin: 07/29/18 10:38 Dose: 7 mls/hr Lorazepam (Ativan) 1 mg IVP Q2 PRN; Protocol PRN Reason: Agitation Last Admin: 07/27/18 15:06 Dose: 1 mg Lorazepam (Ativan) 1 mg IVP Q4H NIR Last Admin: 07/29/18 16:28 Dose: 1 mg Morphine Sulfate (Morphine) 2 mg IVP Q2H PRN PRN Reason: Pain, moderate (4-7) Last Admin: 07/27/18 09:29 Dose: 2 mg Ondansetron HCl (Zofran Inj) 4 mg IVP Q4H PRN PRN Reason: Nausea/Vomiting Scopolamine (Transderm-Scop) 1 patch TD Q72 NIR Last Admin: 07/27/18 05:30 Dose: 1 patch Attending/Attestation - Attestation I have personally seen and examined this patient.: Yes I have fully participated in the care of the patient.: Yes I have reviewed all pertinent clinical information, including history, physical exam and plan: Yes Notes (Text): 07/29/18 18:15 Medical attending: Patient was seen and examined by me. Agree with the above note by the resident The patient's family member was at bedside faithfully I currently do not have much to add at this time besides what was reported above in the biomedical field service engineer's note Patient remains on the morphine ggt with additional PRN medication as needed Joo Garcia
--- NOTE | 2018-07-30 06:59 | CP.PCM.PN ---
<Corinne Hooker - Last Filed: 07/30/18 17:23> Subjective - Date & Time of Evaluation Date of Evaluation: 07/30/18 Time of Evaluation: 06:59 - Subjective Subjective: Progress Note for Dr. Garcia's service Patient seen and examined at bedside. Patient somnolent and on Morphine drip. Father present and at bedside. Intermittently agitated. Objective - Vital Signs/Intake and Output Vital Signs (last 24 hours): Temp Pulse Resp BP Pulse Ox 97.9 F 82 20 78/54 L 99 07/30/18 00:00 07/30/18 04:00 07/30/18 00:00 07/30/18 04:00 07/30/18 00:00 Intake and Output: 07/29/18 07/30/18 18:59 06:59 Intake Total 56 56 Balance 56 56 - Medications Medications: Current Medications Acetaminophen (Tylenol 650 Mg Supp) 650 mg [place] Q4 PRN PRN Reason: Fever >100.4 F Last Admin: 07/27/18 17:31 Dose: 650 mg Glycopyrrolate (Robinul) 0.2 mg IV Q6 PRN PRN Reason: Respiratory secretion control Last Admin: 07/27/18 03:58 Dose: 0.2 mg Haloperidol Lactate (Haldol) 0.5 mg IVP Q2 PRN PRN Reason: SEVERE AGITATION Morphine Sulfate 100 mg/ (Sodium Chloride) 100 mls @ 7 mls/hr IV .[id number] PRN; Protocol PRN Reason: Pain, severe (8-10) Last Admin: 07/29/18 18:13 Dose: 7 mls/hr Lorazepam (Ativan) 1 mg IVP Q2 PRN; Protocol PRN Reason: Agitation Last Admin: 07/27/18 15:06 Dose: 1 mg Lorazepam (Ativan) 1 mg IVP Q4H NIR Last Admin: 07/30/18 05:07 Dose: 1 mg Morphine Sulfate (Morphine) 2 mg IVP Q2H PRN PRN Reason: Pain, moderate (4-7) Last Admin: 07/27/18 09:29 Dose: 2 mg Ondansetron HCl (Zofran Inj) 4 mg IVP Q4H PRN PRN Reason: Nausea/Vomiting Scopolamine (Transderm-Scop) 1 patch TD Q72 NIR Last Admin: 07/27/18 05:30 Dose: 1 patch - Constitutional Appears: Confused, Cachectic, Chronically Ill - Head Exam Head Exam: ATRAUMATIC, NORMOCEPHALIC - Eye Exam Eye Exam: EOMI, PERRL - ENT Exam ENT Exam: Mucous Membranes Dry - Respiratory Exam Respiratory Exam: Decreased Breath Sounds. absent: Rhonchi, Wheezes, Respiratory Distress, Stridor - Cardiovascular Exam Cardiovascular Exam: Tachycardia, +S1, +S2. absent: Gallop, Rubs, Murmur - GI/Abdominal Exam GI & Abdominal Exam: Distended, Hypoactive Bowel Sounds. absent: Firm, Rigid, Soft - Extremities Exam Additional comments: Left upper extremity edema edema - Neurological Exam Additional comments: Somnolent, intermittently agitated with jerking of extremities. - Skin Additional comments: Right inguinal wound sacral ulcer Assessment and Plan - Assessment and Plan (Free Text) Assessment: Patient is a 57 year old female with Stage 4 cervical cancer now admitted to Hospice in patient, on Morphine drip. Plan: Stage 4 cervical cancer - Morphine drip 7cc/hr IV - increased to 8cc/hr IV - Morphine 2mg Q2H PRN - Ativan 1mg Q2H PRN - Ativan 2mg Q4 NIR - Tylenol 650mg [place] PRN - Zofran 4mg Q4 PRN nausea - Haldol 0.5mg IVP Q2 PRN Sacral ulcer - No further antibiotics - Wound care nurse consulted - Continue local wound care - Morphine drip @ 8cc/hr IV - Morphine 2mg Q2H PRN - Tylenol 650mg [place] PRN Shortness of breath - Likely secondary to pleural effusions - Scopolamine patch - Robinul 0.2mg IV Q6 PRN respiratory secretions Anxiety - Ativan 1mg Q2H PRN - Ativan 2mg Q4 NIR Prophylaxis - NPO as per Hospice recommendations. - Fall precautions Case discussed with Dr. Radha Hooker, PGY1 <Joo Garcia - Last Filed: 07/31/18 07:36> Objective - Vital Signs/Intake and Output Vital Signs (last 24 hours): Temp Pulse Resp BP Pulse Ox 97.2 F L 89 20 85/57 L 95 07/30/18 23:34 07/30/18 23:34 07/30/18 23:34 07/30/18 23:34 07/30/18 23:34 Intake and Output: 07/31/18 07/31/18 06:59 18:59 Intake Total 120 Balance 120 - Medications Medications: Current Medications Acetaminophen (Tylenol 650 Mg Supp) 650 mg [place] Q4 PRN PRN Reason: Fever >100.4 F Last Admin: 07/27/18 17:31 Dose: 650 mg Glycopyrrolate (Robinul) 0.2 mg IV Q6 PRN PRN Reason: Respiratory secretion control Last Admin: 07/27/18 03:58 Dose: 0.2 mg Haloperidol Lactate (Haldol) 0.5 mg IVP Q2 PRN PRN Reason: SEVERE AGITATION Morphine Sulfate 100 mg/ (Sodium Chloride) 100 mls @ 8 mls/hr IV .[id number] PRN; Protocol PRN Reason: Pain, severe (8-10) Last Admin: 07/30/18 17:40 Dose: 8 mls/hr Lorazepam (Ativan) 1 mg IVP Q2 PRN; Protocol PRN Reason: Agitation Last Admin: 07/30/18 16:26 Dose: 1 mg Lorazepam (Ativan) 2 mg IVP Q4H NIR Last Admin: 07/31/18 06:21 Dose: 2 mg Morphine Sulfate (Morphine) 2 mg IVP Q2H PRN PRN Reason: Pain, moderate (4-7) Last Admin: 07/30/18 16:50 Dose: 2 mg Ondansetron HCl (Zofran Inj) 4 mg IVP Q4H PRN PRN Reason: Nausea/Vomiting Scopolamine (Transderm-Scop) 1 patch TD Q72 NIR Last Admin: 07/27/18 05:30 Dose: 1 patch Attending/Attestation - Attestation I have personally seen and examined this patient.: Yes I have fully participated in the care of the patient.: Yes I have reviewed all pertinent clinical information, including history, physical exam and plan: Yes
[2018-07-30] MEDS: Morphine 100 MG in Sodium Chloride 0.9% 90 ML IV PRN (09:00)
[2018-07-30] MEDS: Morphine 4 MG/ML VIAL IVP PRN (16:50)
[2018-07-30] MEDS ORDERED: Morphine 100 MG in Sodium Chloride 0.9% 90 ML IV PRN (16:54)
--- NOTE | 2018-07-31 06:53 | CP.PCM.PN ---
<Corinne Hooker - Last Filed: 07/31/18 17:21> Subjective - Date & Time of Evaluation Date of Evaluation: 07/31/18 Time of Evaluation: 06:52 - Subjective Subjective: Progress note for Dr. Garcia's service Patient seen and examined at bedside. She remains somnolent and is on Morphine drip at 8cc/hr IV. Objective - Vital Signs/Intake and Output Vital Signs (last 24 hours): Temp Pulse Resp BP Pulse Ox 97.2 F L 89 20 85/57 L 95 07/30/18 23:34 07/30/18 23:34 07/30/18 23:34 07/30/18 23:34 07/30/18 23:34 Intake and Output: 07/30/18 07/31/18 18:59 06:59 Intake Total 120 Balance 120 - Medications Medications: Current Medications Acetaminophen (Tylenol 650 Mg Supp) 650 mg MD Q4 PRN PRN Reason: Fever >100.4 F Last Admin: 07/27/18 17:31 Dose: 650 mg Glycopyrrolate (Robinul) 0.2 mg IV Q6 PRN PRN Reason: Respiratory secretion control Last Admin: 07/27/18 03:58 Dose: 0.2 mg Haloperidol Lactate (Haldol) 0.5 mg IVP Q2 PRN PRN Reason: SEVERE AGITATION Morphine Sulfate 100 mg/ (Sodium Chloride) 100 mls @ 8 mls/hr IV .[id number] PRN; Protocol PRN Reason: Pain, severe (8-10) Last Admin: 07/30/18 17:40 Dose: 8 mls/hr Lorazepam (Ativan) 1 mg IVP Q2 PRN; Protocol PRN Reason: Agitation Last Admin: 07/30/18 16:26 Dose: 1 mg Lorazepam (Ativan) 2 mg IVP Q4H NIR Last Admin: 07/31/18 06:21 Dose: 2 mg Morphine Sulfate (Morphine) 2 mg IVP Q2H PRN PRN Reason: Pain, moderate (4-7) Last Admin: 07/30/18 16:50 Dose: 2 mg Ondansetron HCl (Zofran Inj) 4 mg IVP Q4H PRN PRN Reason: Nausea/Vomiting Scopolamine (Transderm-Scop) 1 patch TD Q72 NIR Last Admin: 07/27/18 05:30 Dose: 1 patch - Constitutional Appears: Confused, Cachectic, Chronically Ill - Head Exam Head Exam: ATRAUMATIC, NORMOCEPHALIC - Eye Exam Eye Exam: EOMI, PERRL - ENT Exam ENT Exam: Mucous Membranes Dry - Respiratory Exam Respiratory Exam: Decreased Breath Sounds. absent: Rales, Rhonchi, Wheezes, Respiratory Distress, Stridor - Cardiovascular Exam Cardiovascular Exam: Tachycardia, +S1, +S2. absent: Gallop, Rubs, Murmur - GI/Abdominal Exam GI & Abdominal Exam: Distended, Hypoactive Bowel Sounds. absent: Firm, Rigid, Soft - Back Exam Additional comments: left upper extremity edema - Neurological Exam Additional comments: Somnolent, intermittently agitated - Skin Additional comments: Right inguinal wound Sacral ulcer Assessment and Plan - Assessment and Plan (Free Text) Assessment: Patient is a 57 year old female with Stage 4 cervical cancer now admitted to Hospice in patient, on Morphine drip. Plan: Stage 4 cervical cancer - Morphine drip 8cc/hr IV, increased to 9cc/hr IV as per Hospice recommendations - Morphine 2mg Q2H PRN - Ativan 1mg Q2H PRN - Ativan 2mg Q4 NIR - Tylenol 650mg MD PRN - Zofran 4mg Q4 PRN nausea - Haldol 0.5mg IVP Q2 PRN Sacral ulcer - No further antibiotics - Wound care nurse consulted - Continue local wound care - Morphine drip @ 9cc/hr IV - Morphine 2mg Q2H PRN - Tylenol 650mg MD PRN Shortness of breath - Likely secondary to pleural effusions - Scopolamine patch - Robinul 0.2mg IV Q6 PRN respiratory secretions Anxiety - Ativan 1mg Q2H PRN - Ativan 2mg Q4 NIR Prophylaxis - NPO as per Hospice recommendations. - Fall precautions Case discussed with Dr. Radha Hooker, PGY1 <Joo Garcia H - Last Filed: 07/31/18 17:30> Objective - Vital Signs/Intake and Output Vital Signs (last 24 hours): Temp Pulse Resp BP Pulse Ox 97.7 F 91 H 18 82/58 L 97 07/31/18 16:00 07/31/18 16:00 07/31/18 16:00 07/31/18 16:00 07/31/18 16:00 Intake and Output: 07/31/18 07/31/18 06:59 18:59 Intake Total 120 64 Balance 120 64 - Medications Medications: Current Medications Acetaminophen (Tylenol 650 Mg Supp) 650 mg MD Q4 PRN PRN Reason: Fever >100.4 F Last Admin: 07/27/18 17:31 Dose: 650 mg Glycopyrrolate (Robinul) 0.2 mg IV Q6 PRN PRN Reason: Respiratory secretion control Last Admin: 07/27/18 03:58 Dose: 0.2 mg Haloperidol Lactate (Haldol) 0.5 mg IVP Q2 PRN PRN Reason: SEVERE AGITATION Morphine Sulfate 100 mg/ (Sodium Chloride) 100 mls @ 9 mls/hr IV .Q11H7M PRN; Protocol PRN Reason: Pain, severe (8-10) Lorazepam (Ativan) 1 mg IVP Q2 PRN; Protocol PRN Reason: Agitation Last Admin: 07/30/18 16:26 Dose: 1 mg Lorazepam (Ativan) 2 mg IVP Q4H NIR Last Admin: 07/31/18 14:25 Dose: 2 mg Morphine Sulfate (Morphine) 2 mg IVP Q2H PRN PRN Reason: Pain, moderate (4-7) Last Admin: 07/30/18 16:50 Dose: 2 mg Ondansetron HCl (Zofran Inj) 4 mg IVP Q4H PRN PRN Reason: Nausea/Vomiting Scopolamine (Transderm-Scop) 1 patch TD Q72 NIR Last Admin: 07/27/18 05:30 Dose: 1 patch Attending/Attestation - Attestation I have personally seen and examined this patient.: Yes I have fully participated in the care of the patient.: Yes I have reviewed all pertinent clinical information, including history, physical exam and plan: Yes Notes (Text): 07/31/18 17:30 Medical attending: Patient was seen and examined by me. Agree with the above note by the resident Family member is faithfully at bedside. Joo Garcia
[2018-07-31] MEDS: Morphine 100 MG in Sodium Chloride 0.9% 90 ML IV PRN (16:00)
[2018-07-31 16:25] VITALS: PULSE 91
[2018-07-31 23:47] VITALS: BP 83/58; RESP 20; O2SAT 98
[2018-08-01] MEDS: Morphine 100 MG in Sodium Chloride 0.9% 90 ML IV PRN (00:53)
--- NOTE | 2018-08-01 01:54 | CP.PCM.PN ---
<Benny Barajas - Last Filed: 08/01/18 01:53> Subjective - Date & Time of Evaluation Date of Evaluation: 08/01/18 Time of Evaluation: 01:53 - Subjective Subjective: PGY-1 Medicine progress note for Dr. Garcia Patient seen and examined at bedside. Patient is resting comfortably on Morphine drip. Objective - Vital Signs/Intake and Output Vital Signs (last 24 hours): Temp Pulse Resp BP Pulse Ox 97.9 F 91 H 20 83/58 L 98 07/31/18 23:41 07/31/18 23:41 07/31/18 23:41 07/31/18 23:41 07/31/18 23:41 Intake and Output: 07/31/18 08/01/18 18:59 06:59 Intake Total 64 71 Balance 64 71 - Medications Medications: Current Medications Acetaminophen (Tylenol 650 Mg Supp) 650 mg [place] Q4 PRN PRN Reason: Fever >100.4 F Last Admin: 07/27/18 17:31 Dose: 650 mg Glycopyrrolate (Robinul) 0.2 mg IV Q6 PRN PRN Reason: Respiratory secretion control Last Admin: 07/27/18 03:58 Dose: 0.2 mg Haloperidol Lactate (Haldol) 0.5 mg IVP Q2 PRN PRN Reason: SEVERE AGITATION Morphine Sulfate 100 mg/ (Sodium Chloride) 100 mls @ 9 mls/hr IV .Q11H7M PRN; Protocol PRN Reason: Pain, severe (8-10) Last Admin: 08/01/18 00:53 Dose: 9 mls/hr Lorazepam (Ativan) 1 mg IVP Q2 PRN; Protocol PRN Reason: Agitation Last Admin: 07/30/18 16:26 Dose: 1 mg Lorazepam (Ativan) 2 mg IVP Q4H NIR Last Admin: 07/31/18 22:03 Dose: 2 mg Morphine Sulfate (Morphine) 2 mg IVP Q2H PRN PRN Reason: Pain, moderate (4-7) Last Admin: 07/30/18 16:50 Dose: 2 mg Ondansetron HCl (Zofran Inj) 4 mg IVP Q4H PRN PRN Reason: Nausea/Vomiting Scopolamine (Transderm-Scop) 1 patch TD Q72 NIR Last Admin: 07/27/18 05:30 Dose: 1 patch - Additional Findings Additional findings: - Constitutional Appears: Confused, Cachectic, Chronically Ill - Head Exam Head Exam: ATRAUMATIC, NORMOCEPHALIC - Eye Exam Eye Exam: EOMI, PERRL - ENT Exam ENT Exam: Mucous Membranes Dry - Respiratory Exam Respiratory Exam: Decreased Breath Sounds. absent: Rales, Rhonchi, Wheezes, Respiratory Distress, Stridor - Cardiovascular Exam Cardiovascular Exam: Tachycardia, +S1, +S2. absent: Gallop, Rubs, Murmur - GI/Abdominal Exam GI & Abdominal Exam: Distended, Hypoactive Bowel Sounds. absent: Firm, Rigid, Soft - Back Exam Additional comments: left upper extremity edema - Neurological Exam Additional comments: Somnolent, intermittently agitated - Skin Additional comments: Right inguinal wound Sacral ulcer Assessment and Plan - Assessment and Plan (Free Text) Assessment: Patient is a 57 year old female with Stage 4 cervical cancer now admitted to Hospice in patient, on Morphine drip. Plan: Stage 4 cervical cancer - Morphine drip 8cc/hr IV, increased to 9cc/hr IV as per Hospice recommendations - Morphine 2mg Q2H PRN - Ativan 1mg Q2H PRN - Ativan 2mg Q4 NIR - Tylenol 650mg [place] PRN - Zofran 4mg Q4 PRN nausea - Haldol 0.5mg IVP Q2 PRN Sacral ulcer - No further antibiotics - Wound care nurse consulted - Continue local wound care - Morphine drip @ 9cc/hr IV - Morphine 2mg Q2H PRN - Tylenol 650mg [place] PRN Shortness of breath - Likely secondary to pleural effusions - Scopolamine patch - Robinul 0.2mg IV Q6 PRN respiratory secretions Anxiety - Ativan 1mg Q2H PRN - Ativan 2mg Q4 NIR Prophylaxis - NPO as per Hospice recommendations. - Fall precautions Case discussed with attending, Dr. Garcia. Benny Barajas, PGY-1 <Joo Garcia H - Last Filed: 08/01/18 10:36> Objective - Vital Signs/Intake and Output Vital Signs (last 24 hours): Temp Pulse Resp BP Pulse Ox 97.5 F L 91 H 20 83/58 L 98 08/01/18 08:00 07/31/18 23:41 07/31/18 23:41 07/31/18 23:41 07/31/18 23:41 Intake and Output: 08/01/18 08/01/18 06:59 18:59 Intake Total 143 Balance 143 - Medications Medications: Current Medications Acetaminophen (Tylenol 650 Mg Supp) 650 mg TN Q4 PRN PRN Reason: Fever >100.4 F Last Admin: 07/27/18 17:31 Dose: 650 mg Glycopyrrolate (Robinul) 0.2 mg IV Q6 PRN PRN Reason: Respiratory secretion control Last Admin: 07/27/18 03:58 Dose: 0.2 mg Haloperidol Lactate (Haldol) 0.5 mg IVP Q2 PRN PRN Reason: SEVERE AGITATION Morphine Sulfate 100 mg/ (Sodium Chloride) 100 mls @ 10 mls/hr IV .Q10H PRN; Protocol PRN Reason: Pain, severe (8-10) Lorazepam (Ativan) 1 mg IVP Q2 PRN; Protocol PRN Reason: Agitation Last Admin: 07/30/18 16:26 Dose: 1 mg Lorazepam (Ativan) 2 mg IVP Q4H NIR Last Admin: 08/01/18 06:41 Dose: Not Given Morphine Sulfate (Morphine) 2 mg IVP Q2H PRN PRN Reason: Pain, moderate (4-7) Last Admin: 07/30/18 16:50 Dose: 2 mg Ondansetron HCl (Zofran Inj) 4 mg IVP Q4H PRN PRN Reason: Nausea/Vomiting Scopolamine (Transderm-Scop) 1 patch TD Q72 NIR Last Admin: 07/27/18 05:30 Dose: 1 patch Attending/Attestation - Attestation I have personally seen and examined this patient.: Yes I have fully participated in the care of the patient.: Yes I have reviewed all pertinent clinical information, including history, physical exam and plan: Yes Notes (Text): 08/01/18 10:33 Medical attending: Patient was seen and examined by me as well. Agree with the above resident note Today her father was faithfully at bedside, also family members at bedside as well Discussed with hospice nurse and will increase the morphine to 10 mg/hr Joo Gacria
[2018-08-01 08:13] VITALS: TEMP 97.5
[2018-08-01] MEDS ORDERED: Morphine 100 MG in Sodium Chloride 0.9% 90 ML IV PRN (10:29)
--- NOTE | 2018-08-01 11:46 | CP.PCM.DIS ---
<Roselia Jo - Last Filed: 08/01/18 11:43> Provider - Provider Date of Admission: 07/20/18 19:33 Attending physician: Joo Garcia DO Consults: 07/21/18 12:08 Wound Care [Nursing Referral for Wound Care] Routine Comment: Physician Instructions: Reason For Exam: sacral ulcer Time Spent in preparation of Discharge (in minutes): 55 Hospital Course - Lab Results Lab Results: Most Recent Lab Values POC Glucose (mg/dL) 93 mg/dL (65-110) 07/22/18 20:50 - Hospital Course Hospital Course: Upon Admission: Patient is a 57 year old female with history of Stage 4 cervical cancer with metastasis to breast who was discharged from hospital inpatient care and admitted to inpatient Hospice. She was previously admitted for generalized weakness, poor oral intake, sacral and inguinal wounds. Imaging revealed left breast mass and extensive lymphadenopathy and probable left pleural metastasis. Oncologist Dr. Cameron was treating patient on salvage gemcitabine as outpatient. She was also found to have Stage 3 sacral ulcer and inguinal ulcer with wound cultures positive for E. fecaline and treated with Ciprofloxacin. She was noted to have significant pleural effusions on imaging and had thoracentesis on 07/17/18 with removal of 1200cc on left, and 400cc on right. Patient was noted to be chronically anemic, likely secondary to her cancer and chemotherapy. Patient became markedly leukopenic yesterday with white count 1.4. She remains weak, with oral intake, with severe pain with edema of left arm and left leg. Patient was agreeable to Hospice in house evaluation since she is too weak to return home. [facility] services nurse spoke to patient who accepted patient. Throughout Hospital Course: Stage 4 cervical cancer - Morphine drip 8cc/hr IV, increased to 9cc/hr IV as per Hospice recommendations - Morphine 2mg Q2H PRN - Ativan 1mg Q2H PRN - Ativan 2mg Q4 NIR - Tylenol 650mg [place] PRN - Zofran 4mg Q4 PRN nausea - Haldol 0.5mg IVP Q2 PRN Sacral ulcer - No further antibiotics - Wound care nurse consulted - Continue local wound care - Morphine drip @ 9cc/hr IV - Morphine 2mg Q2H PRN - Tylenol 650mg [place] PRN Shortness of breath - Likely secondary to pleural effusions - Scopolamine patch - Robinul 0.2mg IV Q6 PRN respiratory secretions Anxiety - Ativan 1mg Q2H PRN - Ativan 2mg Q4 NIR Please review patient's EMR for more detailed information. Discharge Exam - Additional Findings Additional findings: Patient was pronounced at 11:45AM Discharge Plan - Follow Up Plan Condition: Disposition: HOME/ ROUTINE Instructions: Cervical Cancer <Joo Garcia - Last Filed: 08/01/18 15:59> Provider - Provider Date of Admission: 07/20/18 19:33 Attending physician: Joo Garcia DO Consults: 07/21/18 12:08 Wound Care [Nursing Referral for Wound Care] Routine Comment: Physician Instructions: Reason For Exam: sacral ulcer Hospital Course - Lab Results Lab Results: Most Recent Lab Values POC Glucose (mg/dL) 93 mg/dL (65-110) 07/22/18 20:50 Attending/Attestation - Attestation I have personally seen and examined this patient.: Yes I have fully participated in the care of the patient.: Yes I have reviewed all pertinent clinical information, including history, physical exam and plan: Yes Notes (Text): 08/01/18 15:57 Medical attending: Patient was seen and examined by me. Agree with the above note by the resident The patient this morning was breathing - however it was shallow and rapid in nature. Family members were present that moring including her father and grandchildren Later in the day I learned that she had . I came back and wished them warm reguards Joo Garcia
--- NOTE | 2018-08-01 12:11 | CP.PCM.PRO ---
<Corinne Hooker - Last Filed: 08/01/18 16:36> Pronouncement of Note - Clinical Findings Physical Exam: No Response Verbal/Painful Stimuli, Absent Peripheral Pulses{Carotid & Femoral}, Absent Heart & Breath Sounds, No Pupillary Light Reflex, No Corneal Reflex, Pupils Fixed & Dilated, Absence of Vital Signs - Pronouncement Time Time of Pronouncement of : 11:45 - Notifications Pronouncement Notifications: Family Notified, Atending Notified - [place] [id number] <Joo Garcia - Last Filed: 08/01/18 16:45> Attending/Attestation - Attestation I have personally seen and examined this patient.: Yes I have fully participated in the care of the patient.: Yes I have reviewed all pertinent clinical information: Yes
== END 2018-08-01 17:18 | disposition home or self-care (01) | DRG 755 ==
LOC: C.3T 19:33
PROVIDERS: ADMIT Hospitalist; ATTEND Hospitalist
DX: C53.9 Malignant neoplasm of cervix uteri, unspecified (principal); C79.81 Secondary malignant neoplasm of breast; C78.2 Secondary malignant neoplasm of pleura; J90 Pleural effusion, not elsewhere classified; L98.429 Non-pressure chronic ulcer of back with unspecified severity; J44.9 Chronic obstructive pulmonary disease, unspecified; I12.9 Hypertensive chronic kidney disease with stage 1 through stage 4 chronic kidney disease, or unspecified chronic kidney disease; N18.9 Chronic kidney disease, unspecified; D63.0 Anemia in neoplastic disease; F41.9 Anxiety disorder, unspecified; D72.819 Decreased white blood cell count, unspecified; Z51.5 Encounter for palliative care; Z66 Do not resuscitate; Z87.01 Personal history of pneumonia (recurrent); Z87.891 Personal history of nicotine dependence; Z90.49 Acquired absence of other specified parts of digestive tract; Z92.3 Personal history of irradiation